=== PATIENT | female | born 1990 | race Hispanic/Latino ===

== ENCOUNTER 2017-03-06 16:57 | Inpatient (IN) | payer OTHER ==
[~2017-03-06] VITALS: Ht 149.9 cm; Wt 138.1 kg
--- NOTE | 2017-03-06 17:17 | ED GENERAL ADULT ---
History of Present Illness General Chief Complaint: General Adult Stated Complaint: SENT IN BY WALK IN FOR FLU LIKE SYMPTOMS Source: patient, friend Exam Limitations: no limitations Vital Signs & Intake/Output Vital Signs & Intake/Output Vital Signs Date Time Temp Pulse Resp B/P B/P Pulse O2 O2 Flow FiO2 Mean Ox Delivery Rate 03/06 2222 97.4 93 20 123/65 92 Nasal 4.0L Cannula 03/06 2109 93 Nasal 3.5L Cannula 03/06 2051 100.7 03/06 2051 101.9 03/06 2006 100.9 103 20 144/68 90 Room Air 03/06 1908 101.9 03/06 1903 101.9 113 20 124/84 93 Room Air 03/06 1802 94 03/06 1733 102.0 03/06 172 102.0 140 20 136/66 94 Room Air Allergies Coded Allergies: cefazolin (Intermediate, HIVES 03/06/17) clarithromycin (Intermediate, HIVES 03/06/17) Triage Nurses Notes Reviewed? yes HPI: 26 yo F PMH Asthma, CKD (stage 3) presenting with URI Sx, N/V/D. URI Sx for the last 3-4 days with cough, congestion, rhinorrhea. Shortness of breath with exertion and wheezing for the last 1-2 days, patient did not have albuterol inhaler available to use. Nausea with 3-4 episodes of NBNB emesis per day, diarrhea with 3-4 loose watery bowel movements per day. Tactile fevers and rigors. Mild diffuse headaches without neck pain, neck stiffness, or focal neurologic Sx. Denies rash, chest pain, palpitations, abdominal pain, constipation, bloody stools, urinary Sx. Evaluated at walk in clinic, found to be febrile and tachycardic, given albuterol and dexamethasone 10 mg, rapid test (+) for influenza, sent to ED for evaluation. (Nyasia CHAMORRO,Pascual) Reconcile Medications Levothyroxine Sodium (Synthroid) 75 MCG TABLET 1 TAB PO DAILY HYPOTHYROIDISM (Reported) Lisinopril 10 MG TABLET 1 TAB PO DAILY HTN (Reported) Lisinopril (Zestril) (Unknown Strength) TABLET (Unknown Dose) PO DAILY BP ( Reported) [place]-3 Fatty Acids/Fish Oil (Fish Oil 1,000 MG Softgel) (Unknown Strength) CAPSULE (Unknown Dose) PO BID SUPPLEMENT (Reported) Sodium Bicarbonate 650 MG TABLET 1.5 TAB PO BID CKD (Reported) 1000 MG BID Sodium Bicarbonate (Unknown Strength) TABLET (Unknown Dose) PO BID KIDNEYS ( Reported) ([place] CHAMORRO,Boone Rudolph) Past History Travel History Traveled to [place] past 21 day No Medical History Any Pertinent Medical History? see below for history Respiratory: asthma Renal: chronic kidney disease History of MRSA: No History of VRE: No History of CDIFF: No Surgical History Surgical History: none Psychosocial History Who do you live with Patient/Self Services at Home None What is your primary language Sami Family History Family History, If Any: Relation not specified for: Family history not obtainable due to adoption Hx Contributory? Yes (Nyasia CHAMORRO,Pascual) Review of Systems Review of Systems Constitutional: Reports: see HPI. EENTM: Reports: no symptoms. Respiratory: Reports: see HPI. Cardiovascular: Reports: no symptoms. GI: Reports: see HPI. Genitourinary: Reports: no symptoms. Musculoskeletal: Reports: see HPI. Skin: Reports: no symptoms. Neurological/Psychological: Reports: no symptoms. Hematologic/Endocrine: Reports: no symptoms. Immunologic/Allergic: Reports: no symptoms. All Other Systems: Reviewed and Negative (Pascual Murrell MD) Physical Exam Physical Exam General Appearance: well developed/nourished, no apparent distress, mild distress Head: atraumatic Eyes: Bilateral: PERRL, EOMI. Ears, Nose, Throat: moist mucus membranes Neck: normal inspection, full range of motion, no midline tenderness Respiratory: rhonchi, wheezing Cardiovascular: normal peripheral pulses, tachycardia Gastrointestinal: soft, non-tender Comments: General: Young female laying in hospital bed, appears fatigued Cardiac: Tachycardic, regular Pulmonary: Mild decreased breath sounds without appreciable wheezes Abdomen: Soft and non TTP throughout Core Measures ACS in differential dx? No CVA/TIA Diagnosis: No Sepsis Present: Yes Sepsis Focused Exam Completed? Yes (Pascual Murrell MD) Progress Differential Diagnoses I considered the following diagnoses in my evaluation of the patient: [Viral URI , Bronchtitis, Asthma exacerbation, PNA, influenza] Plan of Care: Orders Procedure Date/time Status Nothing by Mouth 03/07 B Active CBC WITHOUT DIFFERENTIAL 03/07 06 Active BASIC ELECTROLYTES PLUS BUN&CR 03/07 06 Active Pathway - chart 03/06 2214 Active House Staff 03/06 221 Active Patient Data 03/06 2214 Active Patient Data 03/06 2009 Active BLOOD CULTURE 03/06 2009 Active BLOOD CULTURE 03/06 2004 Active Saline Lock 03/06 1958 Active Misc Message 03/06 1958 Active ED Holding Orders 03/06 1958 Active Admit to inpatient 03/06 1958 Active Vital Signs 03/06 1958 Active Code Status 03/06 1958 Active Intake & Output 03/06 180 Active THYROID STIMULATING HORMONE 03/06 1757 Complete FREE T4 03/06 1757 Complete URINE 03/06 1716 Complete LACTIC ACID 03/06 1716 Complete CBC WITHOUT DIFFERENTIAL 03/06 171 Complete BASIC METABOLIC PANEL 03/06 1716 Complete EKG 03/06 1704 Active TRC EVALUATION (GEN) 03/06 UNK Active Lab Add-on Test 03/06 UNK Active VTE Mechanical Prophylaxis 03/06 UNK Active Current Medications Sig/Nabila Start time Last Medication Dose Stop Time Status Admin Prednisone 10 MG ONCE ONE 03/10 1000 AC 03/10 1001 Prednisone 20 MG ONCE ONE 03/09 1000 AC 03/09 1001 Prednisone 30 MG ONCE ONE 03/08 1000 AC 03/08 1001 Azithromycin 500 MG DAILY 03/07 1000 AC (Zithromax) Sodium Chloride 250 ML (Normal Saline 0.9%) Fish Oil 2,100 MG BID 03/07 1000 AC ([place]-3) Prednisone 40 MG ONCE ONE 03/07 1000 AC 03/07 1001 Levothyroxine Sodium 0.075 MG DAILY AC 03/07 0700 AC (Synthroid) Heparin Sodium 5,000 UNIT Q8 03/07 0600 AC (Porcine) Acetaminophen 650 MG Q6P PRN 03/06 2214 AC (Tylenol) Acetaminophen 1,000 MG Q6P PRN 03/06 221 AC (Ofirmev) Ceftriaxone Sodium 1,000 MG DAILY 03/06 2214 AC 03/06 (Rocephin) 223 Methylprednisolone 125 MG ONCE ONE 03/06 2214 CAN (Solu Medrol) 03/06 221 Oseltamivir Phosphate 75 MG BID 03/06 2214 AC 03/06 (Tamiflu 75MG) 03/10 221 2237 Sodium Chloride 1,000 ML Q10H 03/06 2214 AC 03/06 (Normal Saline 0.9%) 223 Laboratory Tests 03/06/17 1757: Anion Gap 19 H, Estimated GFR 16 L, BUN/Creatinine Ratio 7.7, Glucose 110 H, Lactic Acid 1.7, Calcium 8.8, TSH 0.979, Free T4 0.87, CBC w Diff NO MAN DIFF REQ, RBC 5.11, MCV 88.1, MCH 30.5, RDW 13.0, MPV 9.5, Gran % 89.2 H, Lymphocytes % 7.9 L, Monocytes % 2.9, Eosinophils % 0, Basophils % 0, Absolute Granulocytes 6.8 H, Absolute Lymphocytes 0.6 L, Absolute Monocytes 0.2, Absolute Eosinophils 0, Absolute Basophils 0, PUBS MCHC 34.6 03/06/17 173: Urine Test NEGATIVE Microbiology 03/06 2026 BLOOD: Blood Culture - RECD 03/06 2024 BLOOD: Blood Culture - RECD 03/06 1700 NASOPHARYN: Influenza Virus A & B Rapid Smear - CAN Cancelled: Cancelled via OE: PREV + SWAB TODAY Physician MDM: 26 yo F PMH Asthma, CKD (stage 3) presenting with URI Sx, N/V/D. Tachycardic to 140, saturating 93% on RA, BP stable, remainder of exam as above. DDx: Viral URI, Bronchitis, PNA, Influenza, Asthma exacerbation, sepsis 2/2 other source (UTI, gastroenteritis). 3L NS for tachycardia, ibuprofen then tylenol for fevers. BMP with probable TREVOR and elevated Cr to 3.5 (patient does not know baseline, last value in system 1.5), mild anion gap. Patient hypoxic to 90% on RA, placed on O2 NC with improvement, duoneb ordered. CXR with LLL PNA, clindamycin ordered based on patient abx allergies. Admit for TREVOR and hypoxia. Initial ED EKG: NSR (Pascual Murrell MD) Departure Departure Condition: Stable Referrals: Patient Has No Primary Care Dr (PCP/Family) Departure Forms: Customer Survey General Discharge Information Admission Note Spoke With: Jose Antonio CHAMORRO,Rob Documentation of Exam: Documentation of any treatments & extenuating circumstances including Concerns Regarding Discharge (functional status, medication knowledge or non-compliance, living conditions, etc.) that warrant an admission rather than observation: (Pascual Murrell MD) Departure Disposition: STILL A PATIENT Clinical Impression Primary Impression: Pneumonia Secondary Impressions: Influenza, Sepsis Admission Note Spoke With: Jose Antonio CHAMORRO,Rob Documentation of Exam: Documentation of any treatments & extenuating circumstances including Concerns Regarding Discharge (functional status, medication knowledge or non-compliance, living conditions, etc.) that warrant an admission rather than observation: pt with influenza, pneumonia and now with increased creatinine, merits iv fluids , iv abx, tamiflu. PA/SURFBOARD MAKER Co-Sign Statement Statement: ED Attending supervision documentation- [x] I saw and evaluated the patient. I have also reviewed all the pertinent lab results and diagnostic results. I agree with the findings and the plan of care as documented in the PA's/SURFBOARD MAKER's documentation. 03/06/17, 20:10... pt with influenza, pneuomonia, elevated creatinine... pt merits iv fluids, iv abx, 02 support. [] I have reviewed the ED Record and agree with the PA's/SURFBOARD MAKER's documentation. [] Additions or exceptions (if any) to the PAs/SURFBOARD MAKER's note and plan are summarized below: [] ([place] CHAMORRO,Boone Rudolph) Critical Care Note Critical Care Note Critical Care Time: 30-74 min ([place] CHAMORRO,Boone Rudolph)
[2017-03-06 18:14] LABS: ABSOLUTE BASOPHIL COUNT 0 /CUMM (0.0-0.2); ABSOLUTE EOSINOPHIL COUNT 0 /CUMM (0.0-0.7); ABSOLUTE GRANULOCYTE CT 6.8 /CUMM (1.4-6.5); ABSOLUTE LYMPH COUNT 0.6 /CUMM (1.2-3.4); ABSOLUTE MONOCYTE COUNT 0.2 /CUMM (0.10-0.60); BASOPHIL % 0 % (0.0-2.0); EOSINOPHIL % 0 % (0-5); MEAN CORPUSCULAR HGB 30.5 PG (27.0-31.0); MEAN CORPUSCULAR HGB CONC 34.6 G/DL (33.0-37.0); MEAN CORPUSCULAR VOLUME 88.1 FL (81.0-99.0); MEAN PLATELET VOLUME 9.5 FL (7.4-10.4); PLATELET COUNT 200 /CUMM (130-400); RED BLOOD CELL CT 5.11 /CUMM (4.20-5.40); WHITE BLOOD CELL COUNT 7.6 /CUMM (4.8-10.8)
[2017-03-06 18:22] LABS: GRANULOCYTE % 89.2 % (42.2-75.2)
--- NOTE | 2017-03-06 18:48 | RADIOLOGY REPORT ---
EXAMINATION: XR CHEST CLINICAL INFORMATION: Cough, fever COMPARISON: None TECHNIQUE: 2 views of the chest were obtained. FINDINGS: There is a consolidation at the left lung base posteriorly. Hazy opacity is identified within the left upper lobe centrally. Otherwise, the lungs are clear. No pleural effusion. The heart size is within normal range. The mediastinal contours are within normal. Visualized osseous structures appear intact. IMPRESSION: Left lower lobe pneumonia.
[2017-03-06] MEDS ORDERED: ZESTRIL10 M1 PO (19:29)
[2017-03-06] MEDS ORDERED: SODIUM BICARBO325 M1 PO (19:30)
[2017-03-06] MEDS ORDERED: FISH OIL 1,0001 EAC4 PO (19:31)
--- NOTE | 2017-03-06 20:37 | History & Physical ---
Aram CHAMORRO,[facility] 03/06/172035: General Information and HPI MD Statement: I have seen and personally examined JOSE KU and documented this H&P. The patient is a 26 year old F who presented with a patient stated chief complaint of [shortness of breath]. Source of Information: patient Exam Limitations: no limitations History of Present Illness: Ms. Ku is a 26-year-old lady with past medical history significant for exercise-induced asthma, chronic kidney disease stage III and hypothyroidism presents with productive cough and shortness of breath which started this . According to the patient, she was in her usual state of health until when she started having productive cough and shortness of breath and had one episode of nonbloody vomiting on Tuesday. 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 Over the weekend she felt very weak and has been sleeping for most of the time. On Tuesday she noticed a change in the color( bloody/brown) of sputum which got her concerned and she decided to go to an urgent care clinic who sent her to the ER because of positive flu test and low O2 sats(83%). Also endorses subjective fevers, left earache, diarrhea (2-3 episodes yesterday), shortness of breath at night and with exertion, wheezing and feeling dizzy when walking. Reports sick contacts at work(2 coworkers recently diagnosed with flu). Denies any chest pain, recent travel, loss of consciousness, sore throat, postnasal drip and also did not receive her flu shot this year. Allergies/Medications Allergies: Coded Allergies: cefazolin (Intermediate, HIVES 03/06/17) clarithromycin (Intermediate, HIVES 03/06/17) Past History Travel History Traveled to [place] past 21 day No Medical History Respiratory: asthma Renal: chronic kidney disease Endocrine: HYPOTHYROID History of MRSA: No History of VRE: No History of CDIFF: No Surgical History Surgical History: none Past Family/Social History Family History Relations & Conditions if any Relation not specified for: Family history not obtainable due to adoption Psychosocial History Where do you live? Home Services at Home: None Smoking Status: Never Smoked ETOH Use: denies use Illicit Drug Use: denies illicit drug use Functional Ability ADLs Independent: dressing, eating, toileting, bathing. Ambulation: independent IADLs Independent: shopping, housework, finances, food prep, telephone, transportation , medication admin. Review of Systems Review of Systems Constitutional: Reports: malaise, weakness. EENTM: Reports: no symptoms. Cardiovascular: Reports: no symptoms. Respiratory: Reports: cough, short of breath, sputum production, wheezing. GI: Reports: diarrhea. Genitourinary: Reports: no symptoms. Musculoskeletal: Reports: no symptoms. Skin: Reports: no symptoms. Neurological/Psychological: Reports: no symptoms. Hematologic/Endocrine: Reports: no symptoms. Immunologic/Allergic: Reports: no symptoms. All Other Systems: Reviewed and Negative Exam & Diagnostic Data Last 24 Hrs of Vital Signs/I&O Vital Signs Date Time Temp Pulse Resp B/P B/P Pulse O2 O2 Flow FiO2 Mean Ox Delivery Rate 03/07 0733 97.7 92 22 134/59 93 Nasal 4.0L Cannula 03/07 0725 94 Nasal 4.0L Cannula 03/07 0609 97.7 85 20 134/59 93 Nasal 4.0L Cannula 03/07 0432 98.1 78 20 121/56 94 Nasal 4.0L Cannula 03/06 2330 97.2 88 20 132/73 94 Nasal 4.0L Cannula 03/06 2223 97.4 93 20 123/65 92 Nasal 4.0L Cannula 03/06 2110 93 Nasal 3.5L Cannula 03/06 2051 100.7 03/06 2051 101.9 03/06 2006 100.9 103 20 144/68 90 Room Air 03/06 1908 101.9 03/06 1904 101.9 113 20 124/84 93 Room Air 03/06 1802 94 03/06 1733 102.0 03/06 1723 102.0 140 20 136/66 94 Room Air Intake & Output 03/07 1600 03/07 0800 03/07 0000 Intake Total 2000 Output Total Balance 2000 Intake, IV 2000 Patient 240 lb Weight Weight Reported by Patient Measurement Method Physical Exam General Appearance Alert, Oriented X3, Cooperative, No Acute Distress, morbidly obese Skin No Rashes, No Breakdown HEENT Atraumatic, PERRLA, EOMI, dry mucous membranes Cardiovascular Regular Rate, Normal S1, Normal S2, No Murmurs Lungs wheezing on bilateral lung pak Abdomen Normal Bowel Sounds, Soft, No Tenderness Extremities No Clubbing, No Cyanosis, No Edema, Normal Pulses Last 24 Hrs of Labs/Michael: Laboratory Tests 03/07/17 0605: Anion Gap 14, Estimated GFR 19 L, BUN/Creatinine Ratio 9.0, CBC w Diff NO MAN DIFF REQ, RBC 4.79, MCV 89.9, MCH 30.2, RDW 13.4, MPV 9.6, Gran % 82.7 H, Lymphocytes % 15.7 L, Monocytes % 1.5 L, Eosinophils % 0, Basophils % 0.1, Absolute Granulocytes 4.0, Absolute Lymphocytes 0.8 L, Absolute Monocytes 0.1, Absolute Eosinophils 0, Absolute Basophils 0, PUBS MCHC 33.6 03/06/17 1757: Anion Gap 19 H, Estimated GFR 16 L, BUN/Creatinine Ratio 7.7, Glucose 110 H, Lactic Acid 1.7, Calcium 8.8, TSH 0.979, Free T4 0.87, CBC w Diff NO MAN DIFF REQ, RBC 5.11, MCV 88.1, MCH 30.5, RDW 13.0, MPV 9.5, Gran % 89.2 H, Lymphocytes % 7.9 L, Monocytes % 2.9, Eosinophils % 0, Basophils % 0, Absolute Granulocytes 6.8 H, Absolute Lymphocytes 0.6 L, Absolute Monocytes 0.2, Absolute Eosinophils 0, Absolute Basophils 0, PUBS MCHC 34.6 03/06/17 1730: Urine Test NEGATIVE 03/06/17 1716: Urine Opiates Screen Pending, Methadone Screen Pending, Barbiturate Screen Pending, Ur Phencyclidine Scrn Pending, Amphetamines Screen Pending, U Benzodiazepines Scrn Pending, Urine Cocaine Screen Pending, Urine Cannabis Screen Pending Microbiology 03/06 2026 BLOOD: Blood Culture - RECD 03/06 2024 BLOOD: Blood Culture - RECD 03/06 170 NASOPHARYN: Influenza Virus A & B Rapid Smear - CAN Cancelled: Cancelled via OE: PREV + SWAB TODAY Diagnostic Data CXR Results IMPRESSION: Left lower lobe pneumonia. Assessment/Plan Assessment: Ms. Ku is a 26-year-old lady with past medical history significant for exercise-induced asthma, chronic kidney disease stage III and hypothyroidism presents with productive cough and shortness of breath which started this . A/P; 1. Sepsis likely secondary to influenza with superimposed left lower pneumonia; patient meets SIRS criteria(MAXIMUM TEMPERATURE 100.2, heart rate 140) with chest x-ray suggestive of left lower lobe pneumonia. - Like the patient to general medicine floor - Start the patient on Tamiflu. -Gentle IV fluids - Start the patient on ceftriaxone and azithromycin. Patient has a history of allergy(hives) with cefazolin and clarithromycin, will monitor closely for any allergic reaction. - Supplemental oxygen as needed - Follow-up blood cultures - Follow urine Legionella and strep pneumo antigen. 2. COPD exacerbation possibly 2/2 pneumonia - Patient received 1 dose of IV Solu-Medrol 60 mg once - We will start the patient on a quick prednisone taper - TRC nebs as needed - Supplemental oxygen as needed 3. TREVOR on CKD(stage III) - Creatinine level of 3.5(baseline 1.5) -Continue IV fluids - Hold lisinopril - Continue sodium bicarbonate 1 g twice a day. - Avoid any nephrotoxic medication - Nephrology consult if no improvement in creatinine levels with IV fluids. 4. History of hypothyroidism; - Patient states she hasn't taken levothyroxine for the past 1 month as she could not refill the medication. - Resume levothyroxine at 75 MCG daily - Follow TSH and free T4. DVT prophylaxis; subcutaneous heparin Patient is full code As Ranked By This Provider Problem List: 1. Pneumonia 2. Influenza 3. Sepsis Core Measures/Misc (11/07) Acute Coronary Syndrome ACS Diagnosis: No Congestive Heart Failure Congestive Heart Failure Diagnosis No Cerebrovascular Accident CVA/TIA Diagnosis: No VTE (View Protocol) VTE Risk Factors Obesity No Mechanical VTE Prophylaxis d/t N/A MechProphylax Ordered No VTE Pharm Prophylaxis d/t NA PharmProphylax ordered Sepsis (View protocol) Sepsis Present: Yes Kathy Rosales 03/07/17 0111: General Information and HPI Allergies/Medications Home Med list Levothyroxine Sodium (Synthroid) 75 MCG TABLET 1 TAB PO DAILY HYPOTHYROIDISM (Reported) Lisinopril 10 MG TABLET 1 TAB PO DAILY HTN (Reported) Lisinopril (Zestril) (Unknown Strength) TABLET (Unknown Dose) PO DAILY BP ( Reported) [place]-3 Fatty Acids/Fish Oil (Fish Oil 1,000 MG Softgel) (Unknown Strength) CAPSULE (Unknown Dose) PO BID SUPPLEMENT (Reported) Sodium Bicarbonate 650 MG TABLET 1.5 TAB PO BID CKD (Reported) 1000 MG BID Sodium Bicarbonate (Unknown Strength) TABLET (Unknown Dose) PO BID KIDNEYS ( Reported) Resident Review Statement Resident Statement: examined this patient, discussed with international marketing specialist Other Findings: Patient is 26-year-old overweight woman with a past medical history significant for exercise-induced asthma not on any inhalers, CKD (stage 3), hypothyroidism presented to the ED with chief complaint of worsening cough and fatigue and shortness of breath for the last 3-4 days. Her symptoms started on night the cough, on Tuesday she started having vomiting along with loose watery stools, felt weak and lethargic. She was having chills along with fever. He mentioned that 2 of the coworkers were recently diagnosed with influenza. Along with the above symptoms she was also having difficulty breathing mostly on ambulation along with wheeze, denies any chest discomfort or palpitations. Her symptoms continued to get worse over the weekend, she was seen at urgent care today and was found to be febrile,tachycardic and hypoxic to 87% on room air , flu swab came back positive for influenza. She was given neb treatment along with 10 mg of dexamethasone on IM at the clinic. Due to concerns of hypoxia she was sent into the ER for further assessment. In the ED patient was found to be in acute respiratory distress, was put on 4 L of oxygen per nasal cannula. Chest x-ray came positive for left lower lobe pneumonia. vitals on admission temperature 102, pulse 140, rate 20, blood pressure 136/66 on room air. On examination: General Appearance:alert oriented 3, not in acute distress Skin: Grossly normal HEENT: PERRLA Neck: Supple, No JVD Cardiovascular: Regular Rate, Normal S1, Normal S2. Lungs: Decreased air entry with bilateral wheeze Abdominal exam : Denies abdominal tenderness without any rebound, positive bowel sounds. Neurological: Grossly intact Pertinent labs Number the grease accounting H&H stable 15.6/45, creatinine 3.5(baseline as per 2014 :1.4) Chest x-ray positive for left lower lobe pneumonia EKG sinus tachycardia was set of troponin negative Problem list Acute hypoxic respiratory failure due to influenza complicated with left lower lobe pneumonia along with asthma exacerbation Acute on chronic kidney disease (stage 3) History of hypothyroidism Plan Acute hypoxic respiratory failure due to influenza complicated with left lower lobe pneumonia along with asthma exacerbation * Admit the patient GenMed floor. * Start the patient on Tamiflu 75 mg twice a day along with IV ceftriaxone and IV azithromycin for community acquired pneumonia. * Patient has history of hives from taking Keflex and clarithromycin(never had anaphylactic type of reaction), will closely monitor the patient for any adverse reactions. * Continue IV hydration. * Monitor vitals every 4 hours. * Patient already received 10 mg of dexamethasone in the urgent care will give 40 of IV Solu-Medrol now and will do a quick prednisone taper 40 mg, 30, 20 and 10 ) * [facility] Acute on chronic kidney disease (stage 3)-likely due to severe dehydration from infection * Continue with IV hydration * Repeat BeP * Before nephrotoxic agents * Hold lisinopril. * Continue sodium bicarbonate * If kidney functions do not improve consider nephrology consult History of hypothyroidism * Patient has not been taking Synthroid for a while recheck TSH and T4 levels, and modify the dose of the Synthroid accordingly Due to prophylaxis with subcutaneous heparin Pain control with IV Tylenol Patient is full code Jose Antonio CHAMORRO, [facility] 03/07/17 0730: Attending MD Review Statement Attending Statement Attending MD Statement: examined this patient, discuss w/resident/PA/VACUUM CONDITIONER OPERATOR, agreed w/resident/PA/VACUUM CONDITIONER OPERATOR, reviewed images, amended to note Attending Assessment/Plan: 26 yo morbidly obese F with h/o CKD stage 3, hypothyroidism exercise induced asthma, is here for 3 day h/o worsening productive cough, MCKEON, malaise, lethargy , chills, vomiting and diarrhea. 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 She did not get her flu shot this season. She went to an Urgent Care today where she was tested positive for Flu, was given neb treatment and decadron 10 mg, but was found to be hypoxic to 80's and hence was sent to [facility]. Vitals: Tmax 102, HR 90-140's, BP 123/65, sats 92% on 4L. Chest b/l reduced air entry with expiratory wheeze and basilar crackles (L>R). Labs: no leukocytosis, gran 89%, Na 135, bicarb 17, AG 19, BUN 27, creat 3.5 (Baseline 1.5), lactic acid 1.7. EKG: sinus tachycardia. CXR: left lower lobe pneumonia. Assessment and plan: 1. Acute hypoxic respiratory failure 2. Sepsis 3. Influenza 4. Left lower lobe pneumonia 5. Mild asthma exacerbation 6. TREVOR on CKD stage 3 - Admit to general medicine - TRC nebs - Panculture, urine legionella and strep Ag - IV ceftriaxone and azithro (patient is allergic to cefazolin and clarithromycin hives) - IV solumedrol given in ER, rapid prednisone taper in AM - Tamiflu for 5 days - IV hdyration - Monitor renal functions - Check urine lytes, urine tox screen - If renal functions fail to improve consider renal ultrasound and nephro consult - Hold lisinopril - If persistent diarrhea, consider further evaluation - Resume sodium bicarb tabs. - Check TSH, free T4 as patient has not elana taking synthroid for over 1 month DVT ppx Hep SC. Full code.
--- NOTE | 2017-03-06 21:47 | Admission Certification ---
Admission Certification Certification Statement - As attending physician, I certify that at the time of - admission, based on clinical presentation, severity of - symptoms, need for further diagnostic testing and - therapeutic interventions, and risk of adverse outcomes - without in-hospital treatment, in my clinical assessment, - this patient requires an acute hospital stay for a minimum - of two nights or longer. I have also considered psychsocial - factors such as support system, advanced age, financial - issues, cognitive issues, and failed out-patient treatments, - past re-admission history, safety of patient, and lack of - compliance as applicable. Specific rationale supporting this admission is: Sepsis, hypoxic respiratory failure, Influenza, pneumonia, TREVOR on CKD stage 3.
[2017-03-06] MEDS ORDERED: SODIUM BICARBO650 M1 PO (22:25)
[2017-03-06] MEDS ORDERED: SYNTHROID75 MCG PO (22:25)
[2017-03-06] MEDS ORDERED: LISINOPRIL10 M1 PO (22:26)
[2017-03-07 06:26] LABS: ABSOLUTE BASOPHIL COUNT 0 /CUMM (0.0-0.2); ABSOLUTE EOSINOPHIL COUNT 0 /CUMM (0.0-0.7); ABSOLUTE LYMPH COUNT 0.8 /CUMM (1.2-3.4); ABSOLUTE MONOCYTE COUNT 0.1 /CUMM (0.10-0.60); BASOPHIL % 0.1 % (0.0-2.0); EOSINOPHIL % 0 % (0-5); GRANULOCYTE % 82.7 % (42.2-75.2); HEMATOCRIT 43.1 % (37-47); MEAN CORPUSCULAR HGB 30.2 PG (27.0-31.0); MEAN CORPUSCULAR HGB CONC 33.6 G/DL (33.0-37.0); MEAN CORPUSCULAR VOLUME 89.9 FL (81.0-99.0); MEAN PLATELET VOLUME 9.6 FL (7.4-10.4); PLATELET COUNT 186 /CUMM (130-400); RBC DISTRIBUTION WIDTH 13.4 % (11.5-14.5); RED BLOOD CELL CT 4.79 /CUMM (4.20-5.40); WHITE BLOOD CELL COUNT 4.8 /CUMM (4.8-10.8)
[2017-03-07 07:33] VITALS: BP 134/59
--- NOTE | 2017-03-07 09:50 | PN- Housestaff ---
See Addendum Subjective Follow-up For: Acute influenza Pneumonia Subjective: The patient was seen and examined. She reports dyspnea however improved compared to presentation. She also reports having productive cough The patient denies any headache, nausea, vomiting, chest pain, palpitation, abdominal pain, urinary symptoms. Oxygen saturation 93% on 4 L nasal cannula oxygen. Has remained afebrile, blood pressure stable. Review of Systems Constitutional: Reports: see HPI. Objective Last 24 Hrs of Vital Signs/I&O Vital Signs Date Time Temp Pulse Resp B/P B/P Pulse O2 O2 Flow FiO2 Mean Ox Delivery Rate 03/07 0733 97.7 92 22 134/59 93 Nasal 4.0L Cannula 03/07 0725 94 Nasal 4.0L Cannula 03/07 0609 97.7 85 20 134/59 93 Nasal 4.0L Cannula 03/07 0432 98.1 78 20 121/56 94 Nasal 4.0L Cannula 03/06 2330 97.2 88 20 132/73 94 Nasal 4.0L Cannula 03/06 2223 97.4 93 20 123/65 92 Nasal 4.0L Cannula 03/06 2110 93 Nasal 3.5L Cannula 03/06 2051 100.7 03/06 205 101.9 03/06 2007 100.9 103 20 144/68 90 Room Air 03/06 1908 101.9 03/06 1904 101.9 113 20 124/84 93 Room Air 03/06 1802 94 03/06 1733 102.0 03/06 1723 102.0 140 20 136/66 94 Room Air Intake & Output 03/07 1600 03/07 0800 03/07 0000 Intake Total 2800 2000 Output Total Balance 2800 2000 Intake, IV 800 2000 Intake, Oral 2000 Patient 240 lb Weight Weight Reported by Patient Measurement Method Physical Exam General Appearance: Alert, Oriented X3, Cooperative Skin: No Rashes HEENT: Atraumatic, PERRLA, EOMI, Mucous Membr. moist/pink Neck: Supple Cardiovascular: Regular Rate, Normal S1, Normal S2, No Murmurs, Gallops, Rubs Lungs: Crackles at left lung base Abdomen: Normal Bowel Sounds, Soft, No Tenderness, No Hepatospenomegaly, No Masses Extremities: No Clubbing, No Cyanosis, No Edema, Normal Pulses, No Tenderness/ Swelling Current Medications: Current Medications Sig/Nabila Start time Last Medication Dose Route Stop Time Status Admin Acetaminophen 650 MG Q6P PRN 03/06 221 AC PO Acetaminophen 1,000 MG Q6P PRN 03/06 2215 AC IV Acetaminophen 975 MG ONCE ONE 03/06 1914 DC 03/06 PO 03/06 191 1908 Acetaminophen 0 .STK-MED ONE 03/06 1909 DC PO Albuterol Sulfate 3 ML ONCE ONE 03/06 2045 DC 03/06 INH 03/06 204 2110 Azithromycin 500 MG DAILY 03/07 2345 AC Sodium Chloride 250 ML IV Azithromycin 500 MG DAILY 03/07 1000 DC Sodium Chloride 250 ML IV Ceftriaxone Sodium 0 .STK-MED ONE 03/06 2227 DC .ROUTE Ceftriaxone Sodium 1,000 MG DAILY 03/06 2214 AC 03/06 IV 2237 Clindamycin 600 MG ONCE ONE 03/06 2014 DC 03/06 Dextrose/Water 50 ML IV 03/06 2043 204 Fish Oil 2,100 MG BID 03/07 1000 AC 03/07 PO 1034 Heparin Sodium 5,000 UNIT Q8 03/07 0600 AC 03/07 (Porcine) SC 1238 Heparin Sodium 0 .STK-MED ONE 03/07 0550 DC (Porcine) .ROUTE Ibuprofen 0 .STK-MED ONE 03/06 1730 DC PO Ibuprofen 800 MG ONCE ONE 03/06 1715 DC 03/06 PO 03/06 171 1733 Ipratropium [place] 2.5 ML ONCE ONE 03/06 204 DC 03/06 INH 03/06 2045 2110 Levothyroxine Sodium 0.075 MG DAILY AC 03/07 0700 AC 03/07 PO 0609 Methylprednisolone 60 MG ONCE ONE 03/06 2230 DC 03/06 IV 03/06 2230 222 Methylprednisolone 0 .STK-MED ONE 03/06 2227 DC .ROUTE Methylprednisolone 125 MG ONCE ONE 03/06 2215 CAN IV 03/06 2216 Oseltamivir Phosphate 75 MG BID 03/06 2215 AC 03/07 PO 03/10 2214 1109 Prednisone 10 MG ONCE ONE 03/10 1000 CAN PO 03/10 1001 Prednisone 10 MG DAILY 03/10 1000 AC PO 03/10 1001 Prednisone 20 MG ONCE ONE 03/09 1000 CAN PO 03/09 1001 Prednisone 20 MG DAILY 03/09 1000 AC PO 03/09 1001 Prednisone 30 MG ONCE ONE 03/08 1000 CAN PO 03/08 1001 Prednisone 30 MG DAILY 03/08 1000 AC PO 03/08 1001 Prednisone 40 MG ONCE ONE 03/07 1000 CAN PO 03/07 1001 Prednisone 40 MG TAPER 03/07 1000 CAN PO 03/11 0959 Prednisone 40 MG DAILY 03/07 1000 DC 03/07 PO 03/07 1001 1035 Sodium Bicarbonate 975 MG BID 03/07 1000 AC 03/07 PO 1035 Sodium Bicarbonate 975 MG ONCE ONE 03/06 2230 CAN PO 03/06 2231 Sodium Chloride 1,000 ML Q10H 03/06 2214 AC 03/06 IV 223 Sodium Chloride 1,000 ML BOLUS ONE 03/06 1999 DC 03/06 IV 03/06 Sodium Chloride 1,000 ML BOLUS ONE 03/06 1999 DC 03/06 IV 03/06 Sodium Chloride 1,000 ML BOLUS ONE 03/06 1729 DC 03/06 IV 03/06 1928 180 Sodium Chloride 1,000 ML BOLUS ONE 03/06 1730 DC 03/06 IV 03/06 192 1908 Last 24 Hrs of Lab/Michael Results Last 24 Hrs of Labs/Mics: Laboratory Tests 03/07/17 0605: Anion Gap 14, Estimated GFR 19 L, BUN/Creatinine Ratio 9.0, CBC w Diff NO MAN DIFF REQ, RBC 4.79, MCV 89.9, MCH 30.2, RDW 13.4, MPV 9.6, Gran % 82.7 H, Lymphocytes % 15.7 L, Monocytes % 1.5 L, Eosinophils % 0, Basophils % 0.1, Absolute Granulocytes 4.0, Absolute Lymphocytes 0.8 L, Absolute Monocytes 0.1, Absolute Eosinophils 0, Absolute Basophils 0, PUBS MCHC 33.6 03/06/17 1757: Anion Gap 19 H, Estimated GFR 16 L, BUN/Creatinine Ratio 7.7, Glucose 110 H, Lactic Acid 1.7, Calcium 8.8, TSH 0.979, Free T4 0.87, CBC w Diff NO MAN DIFF REQ, RBC 5.11, MCV 88.1, MCH 30.5, RDW 13.0, MPV 9.5, Gran % 89.2 H, Lymphocytes % 7.9 L, Monocytes % 2.9, Eosinophils % 0, Basophils % 0, Absolute Granulocytes 6.8 H, Absolute Lymphocytes 0.6 L, Absolute Monocytes 0.2, Absolute Eosinophils 0, Absolute Basophils 0, PUBS MCHC 34.6 03/06/17 1730: Urine Test NEGATIVE 03/06/17 1716: Urine Opiates Screen 138.00, Methadone Screen 44, Barbiturate Screen < 60, Ur Phencyclidine Scrn 8.40, Amphetamines Screen < 100, U Benzodiazepines Scrn < 85, Urine Cocaine Screen < 50, Urine Cannabis Screen 24.70 Microbiology 03/07 834 URINE ROUT: Legionella Antigen - COLB 03/07 834 URINE ROUT: Streptococcus pneumoniae Antigen (M - COLB 03/06 2026 BLOOD: Blood Culture - RES 03/06 2024 BLOOD: Blood Culture - RES 03/06 170 NASOPHARYN: Influenza Virus A & B Rapid Smear - CAN Cancelled: Cancelled via OE: PREV + SWAB TODAY Assessment/Plan Assessment: Patient is 26-year-old overweight woman with a past medical history significant for exercise-induced asthma not on any inhalers, CKD (stage 3), hypothyroidism presented to the ED with chief complaint of worsening cough and fatigue and shortness of breath for 3-4 days. Chest x-ray positive for left lower lobe pneumonia EKG sinus tachycardia was set of troponin negative Impression/plan: #Acute hypoxic respiratory failure due to influenza complicated with left lower lobe pneumonia along with asthma exacerbation * Admit the patient [facility] floor. * Will adjust the dose of Tamiflu based on patients cr clearance. Patient's creatinine clearance is 49, we'll change the dose of Tamiflu to to 30 mg twice a day. * c/w IV ceftriaxone and IV azithromycin for community acquired pneumonia. * Patient has history of hives from taking Keflex and clarithromycin(never had anaphylactic type of reaction), no adverse reactions so far. * Continue IV hydration. * Monitor vitals every 4 hours. * c/w prednisone taper 40 mg, 30, 20 and 10 ) * TRC nebs #Acute on chronic kidney disease (stage 3)-likely due to severe dehydration from infection * Continue with IV hydration * Repeat BeP * avoid nephrotoxic agents * Hold lisinopril. 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 #History of hypothyroidism * Patient has not been taking Synthroid for a while * recheck TSH and T4 levels is wnl Due to prophylaxis with subcutaneous heparin Pain control with IV Tylenol Patient is full code Problem List: 1. Influenza 2. Pneumonia Pain Ratin Pain Location: NA Pain Goal: Remain pain free Pain Plan: NA Tomorrow's Labs & Rationales: BEP to monitor electrolytes
[2017-03-07 11:35] VITALS: BP 128/62
--- NOTE | 2017-03-07 12:40 | PN- Att Addend ---
Attending Addendum Attending Brief Note Patient seen and examined, not feeling that well. Still feels dizzy and gets up and go to the bathroom and feels short of breath. Still requiring oxygen. Vital Signs Date Time Temp Pulse Resp B/P B/P Pulse O2 O2 Flow FiO2 Mean Ox Delivery Rate 03/07 0733 97.7 92 22 134/59 93 Nasal 4.0L Cannula 03/07 0725 94 Nasal 4.0L Cannula 03/07 0609 97.7 85 20 134/59 93 Nasal 4.0L Cannula 03/07 0432 98.1 78 20 121/56 94 Nasal 4.0L Cannula 03/06 2330 97.2 88 20 132/73 94 Nasal 4.0L Cannula 03/06 2223 97.4 93 20 123/65 92 Nasal 4.0L Cannula 03/06 2110 93 Nasal 3.5L Cannula 03/06 2051 100.7 03/06 2051 101.9 03/06 2006 100.9 103 20 144/68 90 Room Air 03/06 1908 101.9 03/06 190 101.9 113 20 124/84 93 Room Air 03/06 1802 94 03/06 1733 102.0 03/06 1723 102.0 140 20 136/66 94 Room Air on exam; aox3, nad. cv; s1,s2, rrr resp; crackles at left base. abd; soft nt, bs+ ext; no edema. Laboratory Tests 03/07 03/06 0605 1757 Chemistry Sodium (137 - 145 mmol/L) 141 135 L Potassium (3.5 - 5.1 mmol/L) 4.4 3.7 Chloride (98 - 107 mmol/L) 111 H 99 Carbon Dioxide (22 - 30 mmol/L) 16 L 17 L Anion Gap (5 - 16) 14 19 H BUN (7 - 17 mg/dL) 27 H 27 H Creatinine (0.5 - 1.0 mg/dL) 3.0 H 3.5 H Estimated GFR (>60 ml/min) 19 L 16 L BUN/Creatinine Ratio (7 - 25 %) 9.0 7.7 Glucose (65 - 99 mg/dL) 110 H Lactic Acid (0.7 - 2.1 mmol/L) 1.7 Calcium (8.4 - 10.2 mg/dL) 8.8 TSH (0.270 - 4.200 uIU/mL) 0.979 Free T4 (0.79 - 2.35 ng/dL) 0.87 Hematology CBC w Diff NO MAN DIFF REQ NO MAN DIFF REQ WBC (4.8 - 10.8 /CUMM) 4.8 7.6 RBC (4.20 - 5.40 /CUMM) 4.79 5.11 Hgb (12.0 - 16.0 G/DL) 14.5 15.6 Hct (37 - 47 %) 43.1 45.0 MCV (81.0 - 99.0 FL) 89.9 88.1 MCH (27.0 - 31.0 PG) 30.2 30.5 RDW (11.5 - 14.5 %) 13.4 13.0 Plt Count (130 - 400 /CUMM) 186 200 MPV (7.4 - 10.4 FL) 9.6 9.5 Gran % (42.2 - 75.2 %) 82.7 H 89.2 H Lymphocytes % (20.5 - 51.1 %) 15.7 L 7.9 L Monocytes % (1.7 - 9.3 %) 1.5 L 2.9 Eosinophils % (0 - 5 %) 0 0 Basophils % (0.0 - 2.0 %) 0.1 0 Absolute Granulocytes (1.4 - 6.5 /CUMM) 4.0 6.8 H Absolute Lymphocytes (1.2 - 3.4 /CUMM) 0.8 L 0.6 L Absolute Monocytes (0.10 - 0.60 /CUMM) 0.1 0.2 Absolute Eosinophils (0.0 - 0.7 /CUMM) 0 0 Absolute Basophils (0.0 - 0.2 /CUMM) 0 0 PUBS MCHC (33.0 - 37.0 G/DL) 33.6 34.6 03/06 03/06 1730 1716 Toxicology Urine Opiates Screen (>2000 NG/ML) 138.00 Methadone Screen (>300 NG/ML) 44 Barbiturate Screen (>200 NG/ML) < 60 Ur Phencyclidine Scrn (>25 NG/ML) 8.40 Amphetamines Screen (>1000 NG/ML) < 100 U Benzodiazepines Scrn (>200 NG/ML) < 85 Urine Cocaine Screen (>300 NG/ML) < 50 Urine Cannabis Screen (>50 NG/ML) 24.70 Urines Urine Test NEGATIVE A/P; 26 y/o F with pmh sig for exercise-induced asthma, chronic kidney disease stage III and hypothyroidism admitted with acute respiratory failure secondary to hypoxia as well as tachycardia and mild distress, required pneumonia and influenza positive. Continue Tamiflu and antibiotics. 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 Agree with prednisone taper. Continue TRC nebs. We'll try to taper her oxygen as she can tolerate. Continue the rest of the medications. Avoid nephrotoxic medications. DVT prophylaxis: Heparin subcutaneous.
[2017-03-07 17:42] VITALS: BP 147/71
[2017-03-07 18:48] VITALS: BP 140/70
[2017-03-07 22:35] VITALS: BP 108/80
[2017-03-08 06:08] VITALS: BP 100/76
--- NOTE | 2017-03-08 08:14 | PN- Housestaff ---
Avinash De La Cruz 03/08/17 0814: Subjective Follow-up For: Acute influenza Pneumonia Subjective: The patient was seen and examined. She desaturated and reports dyspnea. Otherwise, she denies dizziness, lightheadedness, nausea, vomiting, abdominal pain, urinary symptoms Review of Systems Constitutional: Reports: see HPI. Objective Last 24 Hrs of Vital Signs/I&O Vital Signs Date Time Temp Pulse Resp B/P B/P Pulse O2 O2 Flow FiO2 Mean Ox Delivery Rate 03/08 2006 94 BIPAP 100% 03/08 1945 91 94 03/08 1617 104 94 03/08 1600 93 BIPAP 100% 03/08 1600 97.3 110 28 110/60 96 BIPAP 100% 03/08 1415 120 93 03/08 1200 92 BIPAP 100% 03/08 1200 116 91 03/08 0935 88 Nasal 100% Cannula 03/08 0800 90 Nasal 4.0L Cannula 03/08 0608 98.2 105 20 100/76 91 Nasal 5.0L Cannula 03/08 0000 92 Nasal 4.0L Cannula 03/07 2235 98.2 95 20 108/80 92 03/07 2123 Nasal 5.0L Cannula Intake & Output 03/08 1600 03/08 0800 03/08 0000 Intake Total 960 1160 1000 Output Total 2650 Balance -1690 1160 1000 Intake, IV 720 800 400 Intake, Oral 240 360 600 Number 1 Bowel Movements Output, Urine 2650 Physical Exam General Appearance: Alert, Cooperative, Mild Distress Other Physical Findings: Skin: No Rashes HEENT: Atraumatic, PERRLA, EOMI, Mucous Membr. moist/pink Neck: Supple Cardiovascular: Regular Rate, Normal S1, Normal S2, No Murmurs, Gallops, Rubs Lungs: Crackles at left lung base Abdomen: Normal Bowel Sounds, Soft, No Tenderness, No Hepatospenomegaly, No Masses Extremities: No Clubbing, No Cyanosis, No Edema, Normal Pulses, No Tenderness/ Swelling Current Medications: Current Medications Sig/Nabila Start time Last Medication Dose Route Stop Time Status Admin Acetaminophen 650 MG Q6P PRN 03/06 2215 AC 03/07 PO 1751 Acetaminophen 1,000 MG Q6P PRN 03/06 2214 AC IV Albuterol Sulfate 3 ML EVERY 4 HRS/AWAKE 03/08 1600 AC 03/08 INH 2005 Albuterol Sulfate 3 ML BID 03/07 2200 DC 03/08 INH 0932 Atorvastatin Calcium 80 MG 1700 03/08 1700 AC PO Azithromycin 500 MG DAILY 03/07 2345 AC 03/08 Sodium Chloride 250 ML IV 0940 Ceftriaxone Sodium 1,000 MG DAILY 03/06 2215 AC 03/08 IV 0940 Dextrose/Sodium 1,000 ML Q13H 03/08 1430 AC 03/08 Chloride IV 1432 Fish Oil 2,100 MG BID 03/07 1000 AC 03/08 PO 0940 Furosemide 20 MG ONCE ONE 03/08 0930 DC 03/08 IV 03/08 0931 0934 Furosemide 40 MG .STK-MED ONE 03/08 0930 DC IV 03/08 0931 Guaifenesin 10 ML Q4-6 PRN PRN 03/08 0445 AC 03/08 PO 0444 Heparin Sodium 5,000 UNIT Q8 03/07 0600 AC 03/08 (Porcine) SC 1432 Ipratropium Waterflow 2.5 ML EVERY 4 HRS/AWAKE 03/08 1600 AC 03/08 INH 2005 Ipratropium Waterflow 2.5 ML BID 03/07 2200 DC 03/08 INH 0932 Levothyroxine Sodium 37.5 MCG DAILY 03/09 1000 AC IV Levothyroxine Sodium 500 MCG DAILY AC 03/09 0700 CAN IV Levothyroxine Sodium 50 MCG DAILY AC 03/09 0700 CAN IV Levothyroxine Sodium 0.05 MG DAILY AC 03/08 0700 DC 03/08 PO 0555 Methylprednisolone 40 MG Q6 03/08 1357 AC 03/08 IV 1808 Methylprednisolone 60 MG ONCE ONE 03/08 0930 DC 03/08 IV 03/08 0931 0934 Oseltamivir Phosphate 30 MG DAILY 03/08 1000 AC 03/08 PO 03/10 2214 0941 Potassium Chloride 10 MEQ ONCE ONE 03/08 1215 DC 03/08 IV 03/08 1216 1315 Potassium Chloride 10 MEQ ONCE ONE 03/08 1215 DC 03/08 IV 03/08 1216 1215 Prednisone 10 MG DAILY 03/10 1000 CAN PO 03/10 1001 Prednisone 20 MG DAILY 03/09 1000 CAN PO 03/09 1001 Prednisone 30 MG DAILY 03/08 1000 DC PO 03/08 1001 Sodium Bicarbonate 975 MG BID 03/07 1000 AC 03/08 PO 0941 Sodium Chloride 1,000 ML Q10H 03/06 2215 DC 03/07 IV 1945 Last 24 Hrs of Lab/Michael Results Last 24 Hrs of Labs/Mics: Laboratory Tests 03/08/17 1315: Troponin I Cancelled 03/08/17 1315: Anion Gap 17 H, Estimated GFR 21 L, Glucose 113 H, Lactic Acid 1.1, Calcium 8.9, Phosphorus 2.8, Magnesium 1.9, Total Bilirubin 0.2, AST 86 H, ALT 98 H, Troponin I 0.02, Albumin 3.4 L, PT 11.0, INR 1.05, D-Dimer High Sensitivty 259 H, CBC w Diff MAN DIFF ORDERED, RBC 5.19, MCV 88.9, MCH 30.3, RDW 13.4, MPV 9.1, Gran % 83.3 H, Lymphocytes % 13.3 L, Monocytes % 3.4, Eosinophils % 0, Basophils % 0, Absolute Granulocytes 5.9, Segmented Neutrophils 75, Band Neutrophils 12 H, Absolute Lymphocytes 0.9 L, Lymphocytes 11 L, Monocytes 2, Absolute Monocytes 0.2, Absolute Eosinophils 0, Absolute Basophils 0, Platelet Estimate ADEQUATE, Normocytic RBCs VERIFIED, Normochromic RBCs VERIFIED, PUBS MCHC 34.1 03/08/17 1309: D-Dimer High Sensitivty Cancelled 03/08/17 1155: pH 7.44, pCO2 23 L, pO2 49 *L, HCO3 16 L, ABG O2 Sat (Measured) 86.0 L, P-50 (Temp Corrected) N, Carboxyhemoglobin 0.2 L, O2 Concentration % 100%, O2 Delivery Method HFNC WITH 40L FLOW, Phlebotomy Draw Site LEFT RADIAL 03/08/17 0705: Anion Gap 15, Estimated GFR 21 L, BUN/Creatinine Ratio 8.5, Magnesium 1.9 Microbiology 03/08 1315 URINE ROUT: Urine Culture - RECD 03/08 1151 GI: Surveillance Culture - COLB 03/08 1145 UPPER RESP: Surveillance Culture - RECD Assessment/Plan Assessment: Patient is 26-year-old overweight woman with a past medical history significant for exercise-induced asthma not on any inhalers, CKD (stage 3), hypothyroidism presented to the ED with chief complaint of worsening cough and fatigue and shortness of breath for 3-4 days. Chest x-ray positive for left lower lobe pneumonia EKG sinus tachycardia was set of troponin negative Impression/plan: #Acute hypoxic respiratory failure due to influenza complicated with left lower lobe pneumonia along with asthma exacerbation * Continue with Tamiflu 30 mg daily * c/w IV ceftriaxone and IV azithromycin for community acquired pneumonia. * Patient has history of hives from taking Keflex and clarithromycin(never had anaphylactic type of reaction), no adverse reactions so far. * IV Lasix 20 mg 1 on IV methylprednisolone 20 mg 1 * Monitor vitals every 4 hours. * c/w prednisone taper 40 mg, 30, 20 and 10 ) * TRC nebs * Chest x-ray #Acute on chronic kidney disease (stage 3)-likely due to severe dehydration from infection * Continue with IV hydration * Repeat BeP * avoid nephrotoxic agents * Hold lisinopril. * Continue sodium bicarbonate * nephrology consult placed * Obtain records from patient's flat cutter. #History of hypothyroidism * Patient has not been taking Synthroid for a while * recheck TSH and T4 levels is wnl * Continue with rituals dose of levothyroxine. DVT prophylaxis with subcutaneous heparin Pain control with IV Tylenol Patient is full code Problem List: 1. Influenza 2. Pneumonia Pain Ratin Pain Location: NA Pain Goal: Pain 4 or less Pain Plan: NA Tomorrow's Labs & Rationales: CARLOS Thao MD,Eli 03/08/17 1206: Attending MD Review Statement Attending Statement Attending MD Statement: examined this patient, discuss w/resident/PA/ASSISTANT FILM EDITOR, agreed w/resident/PA/ASSISTANT FILM EDITOR, reviewed EMR data (avail), discussed with nursing, discussed with case mgmt, reviewed images, amended to note Attending Assessment/Plan: Patient seen and examined, this morning the nurses reported that patient was de- satting. Patient was put on 100% nonrebreather. We gave patient extra dose of IV steroids as well as IV Lasix and he stopped fluids and we ordered a stat chest x-ray. Later on patient's oxygen saturations did not improve and chest x- rays that had not been done. Patient did urinated more than 1.5 L of fluid off of Lasix. Secondary to find the patient remained hypoxic, rapid response was called and he should has been now transferred to the ICU. I did speak with Dr. Schaefer who has been consulted. Vital Signs Date Time Temp Pulse Resp B/P B/P Pulse O2 O2 Flow FiO2 Mean Ox Delivery Rate 03/08 0608 98.2 105 20 100/76 91 Nasal 5.0L Cannula 03/08 0000 92 Nasal 4.0L Cannula 03/07 2234 98.2 95 20 108/80 92 03/07 2122 Nasal 5.0L Cannula 03/07 1853 100.0 03/07 1848 Nasal 4.0L Cannula 03/07 184 100.0 98 18 140/70 92 Nasal 4.0L Cannula 03/07 1751 101.8 03/07 1742 101.8 103 20 147/71 92 Nasal 5.0L Cannula 03/07 1436 93 Nasal 4.0L Cannula on exam; aox3, mild distress. cv; s1,s2, rrr resp; clear. abd; soft, nt, bs+ ext; no edema. Laboratory Tests 03/08 07 Chemistry Sodium (137 - 145 mmol/L) 143 Potassium (3.5 - 5.1 mmol/L) 3.7 Chloride (98 - 107 mmol/L) 109 H Carbon Dioxide (22 - 30 mmol/L) 19 L Anion Gap (5 - 16) 15 BUN (7 - 17 mg/dL) 23 H Creatinine (0.5 - 1.0 mg/dL) 2.7 H Estimated GFR (>60 ml/min) 21 L BUN/Creatinine Ratio (7 - 25 %) 8.5 Magnesium (1.6 - 2.3 mg/dL) Pending A/P; 26 y/o F with pmh sig for exercise-induced asthma, chronic kidney disease stage III, questionable IgA nephropathy in the past. and hypothyroidism admitted with acute respiratory failure secondary to hypoxia as well as tachycardia and mild distress, community acquired pneumonia and influenza positive. This morning patient desatted. Given extra dose of steroid and Lasix and chest x-ray was ordered. Hypoxia had not responded to extra medications. Rapid response was called and patient has now been transferred to ICU. Pulmonology consult obtained with Dr. Schaefer. Please obtain stat chest x-ray. Please obtain ABG. Further primary management including BiPAP or intubation by pulmonology. If Chest x-ray is not impressive, consider checking a chest CTA to rule out PE. Continue Tamiflu and antibiotics as well as steroids. Please get some records from patient's flat cutter about her baseline kidney function. Continue TRC nebs. DVT prophylaxis: Hep sq.
--- NOTE | 2017-03-08 12:23 | RADIOLOGY REPORT ---
EXAMINATION: XR PORTABLE CHEST CLINICAL INFORMATION: Rapid response called for desaturation. COMPARISON: 03/06/2017. TECHNIQUE: Portable frontal view of the chest was obtained. FINDINGS: The lung volumes are low bilaterally. Increased density is noted in the central portions of the chest and left retrocardiac region, however this is likely due to crowding of the pulmonary markings. Recommend repeat imaging with better inspiration. IMPRESSION: No definite interval change, when accounting for the significantly low lung volumes compared to the prior study. Recommend repeat imaging with better inspiratory effort.
--- NOTE | 2017-03-08 12:41 | Cons- CRCU ---
See Addendum General Information and HPI Consulting Request Date of Consult: 03/08/17 Requested By: Dr. 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 She did not get her flu shot this season. She went to an Urgent Care today where she was tested positive for Flu, was given neb treatment and decadron 10 mg, but was found to be hypoxic to 80's and hence was sent to [place] ER. In ER: Vitals: Tmax 102, HR 90-140's, BP 123/65, sats 92% on 4L. Labs: no leukocytosis, gran 89%, Na 135, bicarb 17, AG 19, BUN 27, creat 3.5 ( Baseline 1.5), lactic acid 1.7. EKG: sinus tachycardia. CXR: left lower lobe pneumonia. Chest b/l reduced air entry with expiratory wheeze and basilar crackles (L>R). Was being treated on the general medicine floor with Tamiflu, steroids and IV ceftriaxone and azithromycin. Transferred to ICU on 03/08/2017 for worsening respiratory status and hypoxia. Allergies/Medications Allergies: Coded Allergies: cefazolin (Intermediate, HIVES 03/06/17) clarithromycin (Intermediate, HIVES 03/06/17) Home Med List: Levothyroxine Sodium (Synthroid) 75 MCG TABLET 1 TAB PO DAILY HYPOTHYROIDISM (Reported) Lisinopril 10 MG TABLET 1 TAB PO DAILY HTN (Reported) Lisinopril (Zestril) (Unknown Strength) TABLET (Unknown Dose) PO DAILY BP ( Reported) [place]-3 Fatty Acids/Fish Oil (Fish Oil 1,000 MG Softgel) (Unknown Strength) CAPSULE (Unknown Dose) PO BID SUPPLEMENT (Reported) Sodium Bicarbonate 650 MG TABLET 1.5 TAB PO BID CKD (Reported) 1000 MG BID Sodium Bicarbonate (Unknown Strength) TABLET (Unknown Dose) PO BID KIDNEYS ( Reported) Review of Systems Review of Systems Constitutional: Reports: malaise, weakness. EENTM: Reports: no symptoms. Cardiovascular: Reports: no symptoms. Respiratory: Reports: short of breath, wheezing. GI: Reports: no symptoms. Genitourinary: Reports: no symptoms. Musculoskeletal: Reports: no symptoms. Skin: Reports: no symptoms. 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 Home Services at Home: None Smoking Status: Never Smoked ETOH Use: denies use Illicit Drug Use: denies illicit drug use Functional Ability ADLs Independent: dressing, eating, toileting, bathing. Ambulation: independent IADLs Independent: shopping, housework, finances, food prep, telephone, transportation , medication admin. Exam & Diagnostic Data Last 24 Hrs of Vital Signs/I&O Vital Signs Date Time Temp Pulse Resp B/P B/P Pulse O2 O2 Flow FiO2 Mean Ox Delivery Rate 03/08 1200 116 91 03/08 0608 98.2 105 20 100/76 91 Nasal 5.0L Cannula 03/08 0000 92 Nasal 4.0L Cannula 03/07 2235 98.2 95 20 108/80 92 03/07 2123 Nasal 5.0L Cannula 03/07 1853 100.0 03/07 1848 Nasal 4.0L Cannula 03/07 1848 100.0 98 18 140/70 92 Nasal 4.0L Cannula 03/07 1751 101.8 03/07 1742 101.8 103 20 147/71 92 Nasal 5.0L Cannula 03/07 1436 93 Nasal 4.0L Cannula Intake & Output 03/08 1600 03/08 0800 03/08 0000 Intake Total 1160 1000 Output Total Balance 1160 1000 Intake, IV 800 400 Intake, Oral 360 600 Physical Exam General Appearance: alert, awake, anxious, severe distress, obese Head: atraumatic, on BiPAP Eyes: Bilateral: normal appearance, PERRL, EOMI. Ears, Nose, Throat: normal pharynx Neck: normal inspection Respiratory: decreased breath sounds Cardiovascular: regular rate/rhythm Gastrointestinal: normal bowel sounds Extremities: normal inspection, no edema Last 48 Hrs of Labs/Michael: Laboratory Tests 03/08/17 1155: pH 7.44, pCO2 23 L, pO2 49 *L, HCO3 16 L, ABG O2 Sat (Measured) 86.0 L, P-50 (Temp Corrected) N, Carboxyhemoglobin 0.2 L, O2 Concentration % 100%, O2 Delivery Method HFNC WITH 40L FLOW, Phlebotomy Draw Site LEFT RADIAL 03/08/17 0705: Anion Gap 15, Estimated GFR 21 L, BUN/Creatinine Ratio 8.5, Magnesium 1.9 03/07/17 0605: Anion Gap 14, Estimated GFR 19 L, BUN/Creatinine Ratio 9.0, CBC w Diff NO MAN DIFF REQ, RBC 4.79, MCV 89.9, MCH 30.2, RDW 13.4, MPV 9.6, Gran % 82.7 H, Lymphocytes % 15.7 L, Monocytes % 1.5 L, Eosinophils % 0, Basophils % 0.1, Absolute Granulocytes 4.0, Absolute Lymphocytes 0.8 L, Absolute Monocytes 0.1, Absolute Eosinophils 0, Absolute Basophils 0, PUBS MCHC 33.6 03/06/17 1757: Anion Gap 19 H, Estimated GFR 16 L, BUN/Creatinine Ratio 7.7, Glucose 110 H, Lactic Acid 1.7, Calcium 8.8, TSH 0.979, Free T4 0.87, CBC w Diff NO MAN DIFF REQ, RBC 5.11, MCV 88.1, MCH 30.5, RDW 13.0, MPV 9.5, Gran % 89.2 H, Lymphocytes % 7.9 L, Monocytes % 2.9, Eosinophils % 0, Basophils % 0, Absolute Granulocytes 6.8 H, Absolute Lymphocytes 0.6 L, Absolute Monocytes 0.2, Absolute Eosinophils 0, Absolute Basophils 0, PUBS MCHC 34.6 03/06/17 1730: Urine Test NEGATIVE 03/06/17 1716: Urine Opiates Screen 138.00, Methadone Screen 44, Barbiturate Screen < 60, Ur Phencyclidine Scrn 8.40, Amphetamines Screen < 100, U Benzodiazepines Scrn < 85, Urine Cocaine Screen < 50, Urine Cannabis Screen 24.70 Assessment/Plan Impression/Plan: 26 yo morbidly obese F with h/o 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 Labs: no leukocytosis, gran 89%, Na 135, bicarb 17, AG 19, BUN 27, creat 3.5 ( Baseline 1.5), lactic acid 1.7. EKG: sinus tachycardia. CXR: left lower lobe pneumonia. Chest b/l reduced air entry with expiratory wheeze and basilar crackles (L>R). Was being treated on the general medicine floor with Tamiflu and IV ceftriaxone and azithromycin. Transferred to ICU on 03/08/2017 for worsening respiratory status and hypoxia. ABG(03/08/2017, 11:55 AM): 7.44/23/49/16 Patient is currently on BiPAP saturating 91% on 100% oxygen Assessment * Acute hypoxaemic respiratory failure secondary to influenza complicated with left lower lobe pneumonia and asthma exacerbation. PE needs to be ruled out. * Influenza A positive * Acute on chronic kidney disease stage III due to IgA nephropathy * Tachycardia * History of asthma * History of hypothyroidism * CL? Plan * Close monitoring in ICU * Vitals per protocol * Continue BiPAP to maintain saturations above 92%. Plan to intubate the patient if continues to drop sats. * Continue steroids * Continue Tamiflu * Continue IV azithromycin and IV ceftriaxone for pneumonia * TRC nebs [id number] * Stat ICU bundle, CBC ordered * Stat chest x-ray ordered * Dopplers to rule out DVT. CTA could not be done due to kidney injury. * Gentle hydration to treat TREVOR, avoid nephrotoxins * Holding lisinopril, nephro input appreciated. * Patients renal doctor is Dr Garcia( [phone]) at [place]. Renal d/s started in 2009. * Continue sodium bicarbonate tabs * Patient not taking Synthroid medication. TSH, free T4 within normal limits * Might vebefit from OP sleep studies * Due to prophylaxis with subcutaneous heparin * Pain control with IV Tylenol * Patient is full code PLEASE CALL PATIENT'S FATHER STACY RASHID ) ABOUT ANY CHANGES IN CLINICAL CONDITION/ INTUBATION. HE IS CURRENTLY IN [place]. Consult Acknowledgment - Thank you for your consult request.
--- NOTE | 2017-03-08 13:47 | ULTRASOUND REPORT ---
EXAMINATION: US TRIPLEX OF LOWER EXTREMITIES, BILATERAL CLINICAL INFORMATION: Shortness of breath. COMPARISON: Right lower extremity ultrasound dated 08/08/2010. TECHNIQUE: Color-flow triplex imaging with spectral analysis and compression Doppler were performed on the lower extremities. FINDINGS: Right lower extremity: Respiratory variation, normal compression and augmented flow are noted throughout the lower extremities. The visualized common femoral vein, superficial femoral vein, profunda femoral vein, popliteal vein and midcalf peroneal and posterior tibial venous segments show no evidence of deep venous thrombosis. Left lower extremity: Respiratory variation, normal compression and augmented flow are noted throughout the lower extremities. The visualized common femoral vein, superficial femoral vein, profunda femoral vein, popliteal vein and midcalf peroneal and posterior tibial venous segments show no evidence of deep venous thrombosis. There is no Gardner's cyst in either left or right popliteal fossa regions.. IMPRESSION: Normal triplex scan without evidence of deep venous thrombosis involving the either of the left or right lower extremities.
[2017-03-08 14:09] LABS: ABSOLUTE BASOPHIL COUNT 0 /CUMM (0.0-0.2); ABSOLUTE EOSINOPHIL COUNT 0 /CUMM (0.0-0.7); ABSOLUTE GRANULOCYTE CT 5.9 /CUMM (1.4-6.5); ABSOLUTE LYMPH COUNT 0.9 /CUMM (1.2-3.4); ABSOLUTE MONOCYTE COUNT 0.2 /CUMM (0.10-0.60); BASOPHIL % 0 % (0.0-2.0); EOSINOPHIL % 0 % (0-5); GRANULOCYTE % 83.3 % (42.2-75.2); HEMATOCRIT 46.1 % (37-47); MEAN CORPUSCULAR HGB 30.3 PG (27.0-31.0); MEAN CORPUSCULAR HGB CONC 34.1 G/DL (33.0-37.0); MEAN CORPUSCULAR VOLUME 88.9 FL (81.0-99.0); MEAN PLATELET VOLUME 9.1 FL (7.4-10.4); PLATELET COUNT 208 /CUMM (130-400); RBC DISTRIBUTION WIDTH 13.4 % (11.5-14.5); RED BLOOD CELL CT 5.19 /CUMM (4.20-5.40); WHITE BLOOD CELL COUNT 7.1 /CUMM (4.8-10.8)
--- NOTE | 2017-03-08 14:38 | Event Note ---
Event Note Event Note: Rapid response called, the patient is desaturating, had oxygen saturation 80s while high flow oxygen. Stat labs including was obtained. EKG ordered. Chest x-ray ordered. The patient was in distress, decreased breath sounds, CV exam RRR without murmurs. Attending, Dr. Estevez was notified, will transfer the patient to the ICU. Signout provided to the ICU team.
[2017-03-08 16:00] VITALS: BP 110/60
[2017-03-09] VITALS: BP 110/60
[2017-03-09 04:15] LABS: ABSOLUTE BASOPHIL COUNT 0 /CUMM (0.0-0.2); ABSOLUTE EOSINOPHIL COUNT 0 /CUMM (0.0-0.7); ABSOLUTE GRANULOCYTE CT 4.2 /CUMM (1.4-6.5); ABSOLUTE LYMPH COUNT 0.8 /CUMM (1.2-3.4); ABSOLUTE MONOCYTE COUNT 0.3 /CUMM (0.10-0.60); BASOPHIL % 0.1 % (0.0-2.0); EOSINOPHIL % 0 % (0-5); GRANULOCYTE % 78.8 % (42.2-75.2); HEMATOCRIT 45.6 % (37-47); MEAN CORPUSCULAR HGB 29.6 PG (27.0-31.0); MEAN CORPUSCULAR HGB CONC 33.2 G/DL (33.0-37.0); MEAN CORPUSCULAR VOLUME 89.3 FL (81.0-99.0); MEAN PLATELET VOLUME 9.3 FL (7.4-10.4); PLATELET COUNT 197 /CUMM (130-400); RBC DISTRIBUTION WIDTH 13.7 % (11.5-14.5); WHITE BLOOD CELL COUNT 5.3 /CUMM (4.8-10.8)
--- NOTE | 2017-03-09 07:57 | RADIOLOGY REPORT ---
EXAMINATION: XR PORTABLE CHEST CLINICAL INFORMATION: BiPAP. COMPARISON: Chest x-ray portable, dated 03/08/2017, at 12:02 PM. TECHNIQUE: Portable frontal view of the chest was obtained. FINDINGS: The lung volumes are low bilaterally, unchanged compared to the prior study. Increased densities in the central hilar region and lateral aspect of the left lower lung continue unchanged compared to the prior study. There is interval development of an area of increased density in the right upper lung, which is not present on the prior study. Of note the lateral aspect of the left hemithorax is incompletely included in the study. IMPRESSION: Low lung volumes and central and left lower lung densities are overall stable compared to the prior study. Density in the right upper lung is suggestive of focal atelectasis, new since the previous study.
--- NOTE | 2017-03-09 07:58 | PN- CRCU ---
Subjective HPI/Critical Care Issues: The patient remains awake and alert. She is currently off BiPAP and appears in no respiratory distress. She is comfortable and denies any type of distress. She is currently on 90% oxygen with a saturation in the mid 90s. She is not desaturated overnight. She remains hemodynamically stable with good urine output. She is currently not coughing and she is not offering any new complaints today. Her lower extremity Dopplers were negative for DVT. Her d- dimer was low. An echocardiogram to rule out right ventricular strain is pending. Objective Current Medications: Current Medications Sig/Nabila Start time Last Medication Dose Route Stop Time Status Admin Acetaminophen 650 MG Q6P PRN 03/06 2215 AC 03/07 PO 1751 Acetaminophen 1,000 MG Q6P PRN 03/06 2215 AC 03/08 IV 2357 Albuterol Sulfate 3 ML EVERY 4 HRS/AWAKE 03/08 1600 AC 03/08 INH 2004 Albuterol Sulfate 3 ML BID 03/07 2200 DC 03/08 INH 0932 Atorvastatin Calcium 80 MG 1700 03/08 1700 AC PO Azithromycin 500 MG DAILY 03/07 2345 AC 03/08 Sodium Chloride 250 ML IV 0940 Ceftriaxone Sodium 1,000 MG DAILY 03/06 2215 AC 03/08 IV 0940 Dextrose/Sodium 1,000 ML Q13H 03/08 1430 AC 03/09 Chloride IV 0515 Fish Oil 2,100 MG BID 03/07 1000 AC 03/08 PO 0940 Furosemide 20 MG ONCE ONE 03/08 0930 DC 03/08 IV 03/08 0931 0934 Furosemide 40 MG .STK-MED ONE 03/08 0930 DC IV 03/08 0931 Glycerin 2 SPRAY Q2P PRN 03/09 0745 AC PO Guaifenesin 10 ML Q4-6 PRN PRN 03/08 0445 AC 03/08 PO 0444 Heparin Sodium 5,000 UNIT Q8 03/07 0600 AC 03/09 (Porcine) SC 0515 Ipratropium [place] 2.5 ML EVERY 4 HRS/AWAKE 03/08 1600 AC 03/08 INH 2004 Ipratropium [place] 2.5 ML BID 03/07 2200 DC 03/08 INH 0932 Levothyroxine Sodium 37.5 MCG DAILY 03/09 1000 AC IV Levothyroxine Sodium 500 MCG DAILY AC 03/09 0700 CAN IV Levothyroxine Sodium 50 MCG DAILY AC 03/09 0700 CAN IV Levothyroxine Sodium 0.05 MG DAILY AC 03/08 0700 DC 03/08 PO 0555 Methylprednisolone 40 MG Q6 03/08 1357 AC 03/09 IV 0515 Methylprednisolone 60 MG ONCE ONE 03/08 0930 DC 03/08 IV 03/08 0931 0934 Oseltamivir Phosphate 30 MG DAILY 03/08 1000 AC 03/08 PO 03/10 2214 0941 Potassium Chloride 10 MEQ ONCE ONE 03/08 1215 DC 03/08 IV 03/08 1216 1315 Potassium Chloride 10 MEQ ONCE ONE 03/08 1215 DC 03/08 IV 03/08 1216 1215 Prednisone 10 MG DAILY 03/10 1000 CAN PO 03/10 1001 Prednisone 20 MG DAILY 03/09 1000 CAN PO 03/09 1001 Prednisone 30 MG DAILY 03/08 1000 DC PO 03/08 1001 Sodium Bicarbonate 975 MG BID 03/07 1000 AC 03/08 PO 0941 Sodium Chloride 1,000 ML Q10H 03/06 2215 DC 03/07 IV 1945 Vital Signs & I&O Last 24 Hrs of Vitals and I&O: Vital Signs Date Time Temp Pulse Resp B/P B/P Pulse O2 O2 Flow FiO2 Mean Ox Delivery Rate 03/09 0552 87 91 03/09 0400 92 BIPAP 85% 03/09 0328 89 92 03/09 0238 86 94 03/09 0233 83 96 03/09 0030 83 95 03/09 0000 94 BIPAP 100% 03/09 0000 97.0 90 22 110/60 94 BIPAP 100% 03/08 2232 96 95 03/08 2006 94 BIPAP 100% 03/08 1999 94 BIPAP 100% 03/08 1945 91 94 03/08 1617 104 94 03/08 1600 93 BIPAP 100% 03/08 1600 97.3 110 28 110/60 96 BIPAP 100% 03/08 1415 120 93 03/08 1200 92 BIPAP 100% 03/08 1200 116 91 03/08 0935 88 Nasal 100% Cannula 03/08 08 90 Nasal 4.0L Cannula Intake & Output 03/09 0800 03/09 0000 03/08 1600 Intake Total 685 600 960 Output Total 165 282 7540 Balance -40 -300 -1690 Intake, IV 685 600 720 Intake, Oral 0 0 240 Number 0 1 Bowel Movements Output, Stool 0 Output, Urine 860 717 2026 Exam General Appearance: no apparent distress, alert, awake, comfortable, on BIPAP Head: atraumatic, normal appearance Neck: supple Respiratory: no respiratory distress, quiet respiration, trachea midline, clear anteriorly Cardiovascular: regular rate/rhythm, tachycardia improved Abdomen: normal bowel sounds, soft, non-tender Extremities: no edema Skin: intact, normal color, warm/dry Results Last 24 Hrs of Lab Results: Laboratory Tests 03/09/17 0500: pH 7.41, pCO2 26 L, pO2 58 L, HCO3 16 L, ABG O2 Sat (Measured) 91.0 L, P-50 (Temp Corrected) 4, Carboxyhemoglobin 0.2 L, O2 Concentration % 85%, Temperature 97.0, Respiration Rate 20, O2 Delivery Method VISION-FFM, Vent Mode ST, Expiratory Pressure 8, Inspiratory Pressure 20, Phlebotomy Draw Site RIGHT RADIAL 03/09/17 0352: Anion Gap 15, Estimated GFR 21 L, Glucose 211 H, Calcium 8.6, Phosphorus 4.1, Magnesium 2.1, Total Bilirubin 0.3, AST 61 H, ALT 82 H, Albumin 3.0 L, CBC w Diff NO MAN DIFF REQ, RBC 5.10, MCV 89.3, MCH 29.6, RDW 13.7, MPV 9.3, Gran % 78.8 H, Lymphocytes % 14.9 L, Monocytes % 6.2, Eosinophils % 0, Basophils % 0.1, Absolute Granulocytes 4.2, Absolute Lymphocytes 0.8 L, Absolute Monocytes 0.3, Absolute Eosinophils 0, Absolute Basophils 0, PUBS MCHC 33.2 03/08/17 1315: Troponin I Cancelled 03/08/17 1315: Anion Gap 17 H, Estimated GFR 21 L, Glucose 113 H, Lactic Acid 1.1, Calcium 8.9, Phosphorus 2.8, Magnesium 1.9, Total Bilirubin 0.2, AST 86 H, ALT 98 H, Troponin I 0.02, Albumin 3.4 L, PT 11.0, INR 1.05, D-Dimer High Sensitivty 259 H, CBC w Diff MAN DIFF ORDERED, RBC 5.19, MCV 88.9, MCH 30.3, RDW 13.4, MPV 9.1, Gran % 83.3 H, Lymphocytes % 13.3 L, Monocytes % 3.4, Eosinophils % 0, Basophils % 0, Absolute Granulocytes 5.9, Segmented Neutrophils 75, Band Neutrophils 12 H, Absolute Lymphocytes 0.9 L, Lymphocytes 11 L, Monocytes 2, Absolute Monocytes 0.2, Absolute Eosinophils 0, Absolute Basophils 0, Platelet Estimate ADEQUATE, Normocytic RBCs VERIFIED, Normochromic RBCs VERIFIED, PUBS MCHC 34.1 03/08/17 1309: D-Dimer High Sensitivty Cancelled 03/08/17 1155: pH 7.44, pCO2 23 L, pO2 49 *L, HCO3 16 L, ABG O2 Sat (Measured) 86.0 L, P-50 (Temp Corrected) N, Carboxyhemoglobin 0.2 L, O2 Concentration % 100%, O2 Delivery Method HFNC WITH 40L FLOW, Phlebotomy Draw Site LEFT RADIAL Last 24 Hrs of Micro Results: Influenza positive Diagnostic Data CXR Findings: No definite interval change, when accounting for the significantly low lung volumes compared to the prior study. Recommend repeat imaging with better inspiratory effort. US Findings: Normal triplex scan without evidence of deep venous thrombosis involving the either of the left or right lower extremities. Impression/Plan Impression/Plan Impression/Plan: 1. Hypoxemic respiratory failure secondary to influenza. Need to be concerned regarding the development of ARDS. 2. Probable obesity hypoventilation syndrome. 3. Probable obstructive sleep apnea, undiagnosed. 4. Hypernatremia. 5. History of chronic kidney disease secondary to IgA nephropathy. 6. History of hypothyroidism. 7. Exercise-induced asthma, evidence of bronchospasm during this admission. Recommendations: * Follow up ECHO results this AM, r/o RV strain. We will consider empiric anticoagulation if there is evidence of right ventricular strain. * Resend urine for strep pneumo and Legionella. * Continue to monitor culture results. * Continue Tamiflu, ceftriaxone and azithromycin. * We will continue the patient on BiPAP. Will attempt to wean oxygen down for saturations greater than 92%. Can switch off to high flow if patient tolerates. * Continue nebs/TRC. * If the patient is saturating well on high flow oxygen, can slowly advance diet. * If the patient is saturating well on high flow, can consider sending her down for a CT of the chest, noncontrast. * Renal consulted yesterday, follow up recommendations. * Continue D5W/half-normal saline. Monitor labs every 12 hours today to ensure serum sodium is not increasing. Monitor all electrolytes and replete as necessary. * Continue Synthroid at current dosing. * Subcutaneous heparin/DVT prophylaxis at all times. * Continue to monitor closely in the critical care unit. * I discussed the plan of care with the housestaff at length, I requested they contact me if the patient's condition changes or deteriorates. We have a low threshold for intubation as previously mentioned.
--- NOTE | 2017-03-09 07:58 | PN- Resident CRCU ---
Subjective HPI/CRCU Issues: Acute Hypoxic Respiratory Failure TREVOR on CKD Influenza 24 Hour Events: Continues to be on BiPaP. Rested comfortably overnight with no issues. Denies any chest pain, abdominal pain, nausea/vomiting or any other symptoms. Objective Vital Signs & I&O Last 8 Hrs of Vitals and I&O: . Exam General Appearance: alert, awake, mild distress, on BiPAP Head: atraumatic, normal appearance Respiratory: normal breath sounds, chest non-tender Cardiovascular: regular rate/rhythm Gastrointestinal: normal bowel sounds, soft, non-tender Extremities: no edema Skin: warm/dry Skin Temp/Moisture Exam: Warm/Dry Sepsis Skin Exam (color): Normal for Ethnicity Current Medications: Current Medications Sig/Nabila Start time Last Medication Dose Route Stop Time Status Admin Acetaminophen 1,000 MG .STK-MED ONE 03/08 2353 DC IV 03/08 2354 Acetaminophen 650 MG Q6P PRN 03/06 2215 AC 03/07 PO 1751 Acetaminophen 1,000 MG Q6P PRN 03/06 2215 AC 03/08 IV 2357 Albuterol Sulfate 3 ML EVERY 4 HRS/AWAKE 03/08 1600 AC 03/09 INH 0811 Albuterol Sulfate 3 ML BID 03/07 2200 DC 03/08 INH 0932 Atorvastatin Calcium 80 MG 1700 03/08 1700 AC PO Azithromycin 500 MG DAILY 03/07 2345 AC 03/08 Sodium Chloride 250 ML IV 0940 Ceftriaxone Sodium 1,000 MG DAILY 03/06 2215 AC 03/08 IV 0940 Dextrose/Sodium 1,000 ML Q13H 03/08 1430 AC 03/09 Chloride IV 0515 Fish Oil 2,100 MG BID 03/07 1000 AC 03/08 PO 0940 Furosemide 20 MG ONCE ONE 03/08 0930 DC 03/08 IV 03/08 0931 0934 Furosemide 40 MG .STK-MED ONE 03/08 0930 DC IV 03/08 0931 Glycerin 2 SPRAY Q2P PRN 03/09 0745 AC PO Guaifenesin 10 ML Q4-6 PRN PRN 03/08 0445 AC 03/08 PO 0444 Heparin Sodium 5,000 UNIT Q8 03/07 0600 AC 03/09 (Porcine) SC 0515 Ipratropium [place] 2.5 ML EVERY 4 HRS/AWAKE 03/08 1600 AC 03/09 INH 0811 Ipratropium [place] 2.5 ML BID 03/07 2200 DC 03/08 INH 0932 Levothyroxine Sodium 37.5 MCG DAILY 03/09 1000 AC IV Levothyroxine Sodium 500 MCG DAILY AC 03/09 0700 CAN IV Levothyroxine Sodium 50 MCG DAILY AC 03/09 0700 CAN IV Levothyroxine Sodium 0.05 MG DAILY AC 03/08 0700 DC 03/08 PO 0555 Methylprednisolone 40 MG Q6 03/08 1357 AC 03/09 IV 0515 Methylprednisolone 60 MG ONCE ONE 03/08 0930 DC 03/08 IV 03/08 0931 0934 Oseltamivir Phosphate 30 MG DAILY 03/08 1000 AC 03/08 PO 03/10 2214 0941 Potassium Chloride 10 MEQ ONCE ONE 03/08 1215 DC 03/08 IV 03/08 1216 1315 Potassium Chloride 10 MEQ ONCE ONE 03/08 1215 DC 03/08 IV 03/08 1216 1215 Prednisone 10 MG DAILY 03/10 1000 CAN PO 03/10 1001 Prednisone 20 MG DAILY 03/09 1000 CAN PO 03/09 1001 Prednisone 30 MG DAILY 03/08 1000 DC PO 03/08 1001 Sodium Bicarbonate 975 MG BID 03/07 1000 AC 03/08 PO 0941 Sodium Chloride 1,000 ML Q10H 03/06 2215 DC 03/07 IV 1945 Impression/Plan Impression/Problem List Impression: 26 yo morbidly obese F with h/o 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 Was being treated on the general medicine floor with Tamiflu and IV ceftriaxone and azithromycin. Transferred to ICU on 03/08/2017 for worsening respiratory status and hypoxia. Assessment * Acute hypoxaemic respiratory failure secondary to influenza complicated with left lower lobe pneumonia. * Influenza A positive * Acute on chronic kidney disease stage III due to IgA nephropathy * History of Exercise induced Asthma * History of hypothyroidism * ? CL Plan * Close monitoring in ICU * Vitals per protocol * BiPAP has been discontinued as she has maintained her saturations overnight. * Currently started on high flow oxygen. Doing well. If deteriorates, she will need to go back on BiPAP. * F/u urine strep pneumo and legionella - pending. * Echo - pending. If shows evidence of RV strain, will start AC. * Continue steroids * Continue Tamiflu * Continue IV azithromycin and IV ceftriaxone for pneumonia * TRC nebs as needed. * Dopplers of lower extremity ruled out DVT. CTA could not be done due to her elevated Cr secondary to CKD. * Continue D5-1/2 NS @ 75ml/hr. Can be discontinued once she starts oral intake. * Holding lisinopril, nephro input appreciated. * Patients renal doctor is Dr Garcia( [phone]) at [place]. Renal d/s started in 2009. * Continue sodium bicarbonate tabs * Continue Synthroid. * DVT to prophylaxis with subcutaneous heparin * Regular diet. * Pain control with IV Tylenol as needed. * Patient is full code PLEASE CALL PATIENT'S FATHER STACY RASHID ([phone]) ABOUT ANY CHANGES IN CLINICAL CONDITION/ INTUBATION. HE IS CURRENTLY IN [place]. Problem List: 1. Pneumonia 2. Influenza Pain Ratin Tomorrow's Labs & Rationales: CBC, ICU Bundle Plan DVT/Prophylaxis: pharmacological
[2017-03-09 08:00] VITALS: BP 131/75
--- NOTE | 2017-03-09 13:48 | Cons- Nephrology ---
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 Chest x- ray with LLL PNA. She has been treated with abx, tamiflu, nebs, and steroids. Labs notable for SCr 3.5 on presentation which has downtrended to 2.7. She has been on IVF - BP got as low as 100/76 yesterday. Should note that she got 800mg ibuprofen on 03/06. Should note she was on fosinopril at home and was taking up until presentation. She remains on high flow oxygen. Of note, CK level not checked yet. With regards to her IgA nephropathy, she says that she was diagnosed back in 2013 with a biopsy and was treated conservatively. She had a repeat biopsy this past year which prompted which she says a two-week course of steroids as well as a tonsillectomy. She is on RAAS inhibition with fosinopril and fish oil. Baseline SCr 2.0-2.3. Allergies/Medications Allergies: Coded Allergies: cefazolin (Intermediate, HIVES 03/06/17) clarithromycin (Intermediate, HIVES 03/06/17) Home Med List: Levothyroxine Sodium (Synthroid) 75 MCG TABLET 1 TAB PO DAILY HYPOTHYROIDISM (Reported) Lisinopril 10 MG TABLET 1 TAB PO DAILY HTN (Reported) Lisinopril (Zestril) (Unknown Strength) TABLET (Unknown Dose) PO DAILY BP ( Reported) [place]-3 Fatty Acids/Fish Oil (Fish Oil 1,000 MG Softgel) (Unknown Strength) CAPSULE (Unknown Dose) PO BID SUPPLEMENT (Reported) Sodium Bicarbonate 650 MG TABLET 1.5 TAB PO BID CKD (Reported) 1000 MG BID Sodium Bicarbonate (Unknown Strength) TABLET (Unknown Dose) PO BID KIDNEYS ( Reported) Current Medications: Current Medications Sig/Nabila Start time Last Medication Dose Route Stop Time Status Admin Acetaminophen 1,000 MG .STK-MED ONE 03/08 2353 DC IV 03/08 2354 Acetaminophen 650 MG Q6P PRN 03/06 2215 AC 03/07 PO 1751 Acetaminophen 1,000 MG Q6P PRN 03/06 2215 AC 03/08 IV 2357 Albuterol Sulfate 3 ML EVERY 4 HRS/AWAKE 03/08 1600 AC 03/09 INH 1219 Atorvastatin Calcium 80 MG 1700 03/08 1700 AC PO Azithromycin 500 MG DAILY 03/07 2345 AC 03/09 Sodium Chloride 250 ML IV 0917 Ceftriaxone Sodium 1,000 MG DAILY 03/06 2215 AC 03/09 IV 0917 Dextrose/Sodium 1,000 ML Q13H 03/08 1430 AC 03/09 Chloride IV 0515 Fish Oil 2,100 MG BID 03/07 1000 AC 03/09 PO 0847 Glycerin 2 SPRAY Q2P PRN 03/09 0745 AC 03/09 PO 0848 Guaifenesin 10 ML Q4-6 PRN PRN 03/08 0445 AC 03/08 PO 0444 Heparin Sodium 5,000 UNIT Q8 03/07 0600 AC 03/09 (Porcine) SC 1258 Ipratropium [place] 2.5 ML EVERY 4 HRS/AWAKE 03/08 1600 AC 03/09 INH 1219 Levothyroxine Sodium 37.5 MCG DAILY 03/09 1000 AC IV Levothyroxine Sodium 0.075 MG ONCE ONE 03/09 0900 DC 03/09 PO 03/09 0901 0917 Levothyroxine Sodium 500 MCG DAILY AC 03/09 0700 CAN IV Levothyroxine Sodium 50 MCG DAILY AC 03/09 0700 CAN IV Levothyroxine Sodium 0.05 MG DAILY AC 03/08 0700 DC 03/08 PO 0555 Methylprednisolone 40 MG Q6 03/08 1357 AC 03/09 IV 1258 Oseltamivir Phosphate 30 MG DAILY 03/08 1000 AC 03/09 PO 03/10 2214 0848 Prednisone 10 MG DAILY 03/10 1000 CAN PO 03/10 1001 Prednisone 20 MG DAILY 03/09 1000 CAN PO 03/09 1001 Sodium Bicarbonate 975 MG BID 03/07 1000 AC 03/09 PO 0848 Sodium Chloride 1,000 ML Q10H 03/06 2215 DC 03/07 IV 1945 Review of Systems Review of Systems: Complete 14 point ROS neg except as per HPI Past History Travel History Traveled to [place] past 21 day No Medical History Blood Transfusion Hx: No Neurological: NONE EENT: NONE Cardiovascular: NONE Respiratory: asthma Gastrointestinal: irritable bowel syndrome Hepatic: NONE Renal: chronic kidney disease Musculoskeletal: NONE Psychiatric: NONE Endocrine: HYPOTHYROID Blood Disorders: NONE Cancer(s): NONE [employer]/Reproductive: NONE Surgical History Surgical History: non-contributory, lumpectomy Family History Relations & Conditions If Any: Relation not specified for: Family history not obtainable due to adoption Psychosocial History Where Do You Live? Home Services at Home: None Smoking Status: Never Smoked ETOH Use: denies use Illicit Drug Use: denies illicit drug use Functional Ability ADLs Independent: dressing, eating, toileting, bathing. Ambulation: independent IADLs Independent: shopping, housework, finances, food prep, telephone, transportation , medication admin. Exam & Diagnostic Data Vital Signs and I&O Vital Signs Date Time Temp Pulse Resp B/P B/P Pulse O2 O2 Flow FiO2 Mean Ox Delivery Rate 03/09 1343 94 Nasal 80% Cannula 03/09 0928 96 Nasal 90% Cannula 03/09 0900 99 98 03/09 0829 98 95 03/09 0800 97 BIPAP 90% 03/09 0800 97.0 82 20 131/75 93 BIPAP 90% 03/09 0552 87 91 03/09 0400 92 BIPAP 85% 03/09 0328 89 92 03/09 0238 86 94 03/09 0233 83 96 03/09 0030 83 95 03/09 0000 94 BIPAP 100% 03/09 0000 97.0 90 22 110/60 94 BIPAP 100% 03/08 2232 96 95 03/08 2007 94 BIPAP 100% 03/08 2000 94 BIPAP 100% 03/08 1945 91 94 03/08 1617 104 94 03/08 1600 93 BIPAP 100% 03/08 1600 97.3 110 28 110/60 96 BIPAP 100% 03/08 1415 120 93 Intake & Output 03/09 1600 03/09 0400 03/08 1600 03/08 0400 03/07 1600 03/07 0400 Intake Total 214 846 0244 1000 3040 2000 Output Total 566 423 5084 Balance -40 -300 -530 1000 3040 1999 Intake, IV 345 630 8678 093 367 3381 Intake, Oral 0 0 241 623 9354 Number 0 1 Bowel Movements Output, Stool 0 Output, Urine 554 252 2692 Patient 240 lb 240 lb Weight Weight Reported by Patient Measurement Method Physical Exam: Gen - ok appearing, dyspneic Head - NCAT Eyes - anicteric sclera, EOMI Neck - supple, no LAD CV - RRR, no m/r/g Chest - clear anteriorly, no w/r/r, visibly dyspneic Abd - soft, NTND Upper ext - warm, no edema Lower ext - warm, no edema Skin - no rash or jaundice Neuro - AOX3, grossly nonfocal Results Pertinent Lab Results: Laboratory Tests 03/09 03/09 0500 0352 Blood Gas pH (7.35 - 7.45 PH) 7.41 pCO2 (35 - 45 TORR) 26 L pO2 (80 - 100 TORR) 58 L HCO3 (21 - 28 MEQ/L) 16 L ABG O2 Sat (Measured) (>96.0 %) 91.0 L P-50 (Temp Corrected) 4 Carboxyhemoglobin (1.5 - 5.0 %) 0.2 L O2 Concentration % 85% Temperature (97.0 - 100.0 FARH) 97.0 Respiration Rate (BPM) 20 O2 Delivery Method VISION-FFM Vent Mode ST Expiratory Pressure (CM H2O P) 8 Inspiratory Pressure (CM H2O P) 20 Chemistry Sodium (137 - 145 mmol/L) 146 H Potassium (3.5 - 5.1 mmol/L) 4.2 Chloride (98 - 107 mmol/L) 114 H Carbon Dioxide (22 - 30 mmol/L) 17 L Anion Gap (5 - 16) 15 BUN (7 - 17 mg/dL) 23 H Creatinine (0.5 - 1.0 mg/dL) 2.7 H Estimated GFR (>60 ml/min) 21 L Glucose (65 - 99 mg/dL) 211 H Calcium (8.4 - 10.2 mg/dL) 8.6 Phosphorus (2.5 - 4.5 mg/dL) 4.1 Magnesium (1.6 - 2.3 mg/dL) 2.1 Total Bilirubin (0.2 - 1.3 mg/dL) 0.3 AST (14 - 36 U/L) 61 H ALT (9 - 52 U/L) 82 H Albumin (3.5 - 5.0 g/dL) 3.0 L Hematology CBC w Diff NO MAN DIFF REQ WBC (4.8 - 10.8 /CUMM) 5.3 RBC (4.20 - 5.40 /CUMM) 5.10 Hgb (12.0 - 16.0 G/DL) 15.1 Hct (37 - 47 %) 45.6 MCV (81.0 - 99.0 FL) 89.3 MCH (27.0 - 31.0 PG) 29.6 RDW (11.5 - 14.5 %) 13.7 Plt Count (130 - 400 /CUMM) 197 MPV (7.4 - 10.4 FL) 9.3 Gran % (42.2 - 75.2 %) 78.8 H Lymphocytes % (20.5 - 51.1 %) 14.9 L Monocytes % (1.7 - 9.3 %) 6.2 Eosinophils % (0 - 5 %) 0 Basophils % (0.0 - 2.0 %) 0.1 Absolute Granulocytes (1.4 - 6.5 /CUMM) 4.2 Absolute Lymphocytes (1.2 - 3.4 /CUMM) 0.8 L Absolute Monocytes (0.10 - 0.60 /CUMM) 0.3 Absolute Eosinophils (0.0 - 0.7 /CUMM) 0 Absolute Basophils (0.0 - 0.2 /CUMM) 0 PUBS MCHC (33.0 - 37.0 G/DL) 33.2 Miscellaneous Phlebotomy Draw Site RIGHT RADIAL 03/08 03/08 1315 1315 Chemistry Sodium (137 - 145 mmol/L) 144 Potassium (3.5 - 5.1 mmol/L) 4.0 Chloride (98 - 107 mmol/L) 109 H Carbon Dioxide (22 - 30 mmol/L) 18 L Anion Gap (5 - 16) 17 H BUN (7 - 17 mg/dL) 21 H Creatinine (0.5 - 1.0 mg/dL) 2.7 H Estimated GFR (>60 ml/min) 21 L Glucose (65 - 99 mg/dL) 113 H Lactic Acid (0.7 - 2.1 mmol/L) 1.1 Calcium (8.4 - 10.2 mg/dL) 8.9 Phosphorus (2.5 - 4.5 mg/dL) 2.8 Magnesium (1.6 - 2.3 mg/dL) 1.9 Total Bilirubin (0.2 - 1.3 mg/dL) 0.2 AST (14 - 36 U/L) 86 H ALT (9 - 52 U/L) 98 H Troponin I (< 0.11 ng/ml) Cancelled 0.02 Albumin (3.5 - 5.0 g/dL) 3.4 L Coagulation PT (9.4 - 12.5 SEC) 11.0 INR (0.90 - 1.19) 1.05 D-Dimer High Sensitivty (0 - 243 ng/ml) 259 H Hematology CBC w Diff MAN DIFF ORDERED WBC (4.8 - 10.8 /CUMM) 7.1 RBC (4.20 - 5.40 /CUMM) 5.19 Hgb (12.0 - 16.0 G/DL) 15.7 Hct (37 - 47 %) 46.1 MCV (81.0 - 99.0 FL) 88.9 MCH (27.0 - 31.0 PG) 30.3 RDW (11.5 - 14.5 %) 13.4 Plt Count (130 - 400 /CUMM) 208 MPV (7.4 - 10.4 FL) 9.1 Gran % (42.2 - 75.2 %) 83.3 H Lymphocytes % (20.5 - 51.1 %) 13.3 L Monocytes % (1.7 - 9.3 %) 3.4 Eosinophils % (0 - 5 %) 0 Basophils % (0.0 - 2.0 %) 0 Absolute Granulocytes (1.4 - 6.5 /CUMM) 5.9 Segmented Neutrophils (42.2 - 75.2 %) 75 Band Neutrophils (0.0 - 5.0 %) 12 H Absolute Lymphocytes (1.2 - 3.4 /CUMM) 0.9 L Lymphocytes (20.5 - 51.1 %) 11 L Monocytes (1.7 - 9.3 %) 2 Absolute Monocytes (0.10 - 0.60 /CUMM) 0.2 Absolute Eosinophils (0.0 - 0.7 /CUMM) 0 Absolute Basophils (0.0 - 0.2 /CUMM) 0 Platelet Estimate (ADEQUATE) ADEQUATE Normocytic RBCs VERIFIED Normochromic RBCs VERIFIED PUBS MCHC (33.0 - 37.0 G/DL) 34.1 03/08 03/08 03/08 1309 1155 0705 Blood Gas pH (7.35 - 7.45 PH) 7.44 pCO2 (35 - 45 TORR) 23 L pO2 (80 - 100 TORR) 49 *L HCO3 (21 - 28 MEQ/L) 16 L ABG O2 Sat (Measured) (>96.0 %) 86.0 L P-50 (Temp Corrected) N Carboxyhemoglobin (1.5 - 5.0 %) 0.2 L O2 Concentration % 100% O2 Delivery Method HFNC WITH 40L FLOW Chemistry Sodium (137 - 145 mmol/L) 143 Potassium (3.5 - 5.1 mmol/L) 3.7 Chloride (98 - 107 mmol/L) 109 H Carbon Dioxide (22 - 30 mmol/L) 19 L Anion Gap (5 - 16) 15 BUN (7 - 17 mg/dL) 23 H Creatinine (0.5 - 1.0 mg/dL) 2.7 H Estimated GFR (>60 ml/min) 21 L BUN/Creatinine Ratio (7 - 25 %) 8.5 Magnesium (1.6 - 2.3 mg/dL) 1.9 Coagulation D-Dimer High Sensitivty Cancelled Miscellaneous Phlebotomy Draw Site LEFT RADIAL 03/07 03/06 0605 1757 Chemistry Sodium (137 - 145 mmol/L) 141 135 L Potassium (3.5 - 5.1 mmol/L) 4.4 3.7 Chloride (98 - 107 mmol/L) 111 H 99 Carbon Dioxide (22 - 30 mmol/L) 16 L 17 L Anion Gap (5 - 16) 14 19 H BUN (7 - 17 mg/dL) 27 H 27 H Creatinine (0.5 - 1.0 mg/dL) 3.0 H 3.5 H Estimated GFR (>60 ml/min) 19 L 16 L BUN/Creatinine Ratio (7 - 25 %) 9.0 7.7 Glucose (65 - 99 mg/dL) 110 H Lactic Acid (0.7 - 2.1 mmol/L) 1.7 Calcium (8.4 - 10.2 mg/dL) 8.8 TSH (0.270 - 4.200 uIU/mL) 0.979 Free T4 (0.79 - 2.35 ng/dL) 0.87 Hematology CBC w Diff NO MAN DIFF REQ NO MAN DIFF REQ WBC (4.8 - 10.8 /CUMM) 4.8 7.6 RBC (4.20 - 5.40 /CUMM) 4.79 5.11 Hgb (12.0 - 16.0 G/DL) 14.5 15.6 Hct (37 - 47 %) 43.1 45.0 MCV (81.0 - 99.0 FL) 89.9 88.1 MCH (27.0 - 31.0 PG) 30.2 30.5 RDW (11.5 - 14.5 %) 13.4 13.0 Plt Count (130 - 400 /CUMM) 186 200 MPV (7.4 - 10.4 FL) 9.6 9.5 Gran % (42.2 - 75.2 %) 82.7 H 89.2 H Lymphocytes % (20.5 - 51.1 %) 15.7 L 7.9 L Monocytes % (1.7 - 9.3 %) 1.5 L 2.9 Eosinophils % (0 - 5 %) 0 0 Basophils % (0.0 - 2.0 %) 0.1 0 Absolute Granulocytes (1.4 - 6.5 /CUMM) 4.0 6.8 H Absolute Lymphocytes (1.2 - 3.4 /CUMM) 0.8 L 0.6 L Absolute Monocytes (0.10 - 0.60 /CUMM) 0.1 0.2 Absolute Eosinophils (0.0 - 0.7 /CUMM) 0 0 Absolute Basophils (0.0 - 0.2 /CUMM) 0 0 PUBS MCHC (33.0 - 37.0 G/DL) 33.6 34.6 03/06 03/06 1730 1716 Toxicology Urine Opiates Screen (>2000 NG/ML) 138.00 Methadone Screen (>300 NG/ML) 44 Barbiturate Screen (>200 NG/ML) < 60 Ur Phencyclidine Scrn (>25 NG/ML) 8.40 Amphetamines Screen (>1000 NG/ML) < 100 U Benzodiazepines Scrn (>200 NG/ML) < 85 Urine Cocaine Screen (>300 NG/ML) < 50 Urine Cannabis Screen (>50 NG/ML) 24.70 Urines Urine Test NEGATIVE Imaging/Other Studies: Chest x-ray reviewed Assessment/Plan Assessment/Recommendations Assessment: Stage III/IV CKD - 2/2 IgA nephropathy. Treated conservatively although did as per the patient get a 2 week course of steroids (traditionally steroids are for 6 months although the efficacy in preserving renal function remains debatable). TREVOR - likely 2/2 ATN in the setting of influenza while on RAAS inhibition. Cannot rule out pre-renal azotemia given n/v and poor PO intake - improving on IVF. Should check CK level as influenza induced rhabdo can cause TREVOR as well. Fortunately the ibuprofen that she got on presentation did not cause her SCr to go up. Recommendations: -Cont supportive care with IVF as you are -Cont to hold NILDA-I -Avoid NSAID's -Check CK level Please call [phone] with ?'s
[2017-03-09 16:00] VITALS: BP 120/70
--- NOTE | 2017-03-09 16:26 | ECHOCARDIOGRAM REPORT ---
JOSE KU Age: 26 : 1990 Gender: F Exam Date: 03/08/2017 16:18 Exam Location: [facility] Ht (in): 59 Wt (lb): 239 BSA: 2.20 BP: 100 / 76 Ordering Physician: Ector Chavarria MD Referring Physician: Ector Chavarria MD Technologist: Julieth Masterson [facility] Room Number: 106 Indications: SHORTNESS OF BREATH Rhythm: Sinus Technical Quality: Fair FINDINGS Left Ventricle Normal size left ventricle. Mild concentric left ventricular hypertrophy. Normal left ventricular ejection fraction visually estimated at >60%. Normal left ventricular wall motion. Right Ventricle Normal right ventricular size and function. Right Atrium Normal right atrial size. Left Atrium Normal left atrial size. Mitral Valve Structurally normal mitral valve. No mitral regurgitation. Aortic Valve Structurally normal trileaflet aortic valve. No aortic stenosis. No aortic regurgitation. Tricuspid Valve Tricuspid valve not well visualized, grossly normal. Trace tricuspid regurgitation. No evidence of pulmonary hypertension. Pulmonic Valve Trace pulmonic regurgitation. Pericardium No pericardial effusion. Great Vessels Normal size aortic root. CONCLUSIONS Normal left ventricular ejection fraction visually estimated at > 60%. Mild concentric left ventricular hypertrophy. Trace tricuspid regurgitation. Migue Zavala M.D. (Electronically Signed) Final Date: 09 March 2017 16:25 MEASUREMENTS (Male / Female) Normal Values 2D ECHO LV Diastolic Diameter PLAX 3.6 cm 4.2 - 5.9 / 3.9 - 5.3 cm LV Systolic Diameter PLAX 1.9 cm 2.1 - 4.0 cm LV Fractional Shortening PLAX 47.2 % 25 - 46 % LV Ejection Fraction 2D Teich 79.5 % IVS Diastolic Thickness 1.2 cm LVPW Diastolic Thickness 1.2 cm LV Relative Wall Thickness 0.7 RV Internal Dim ED PLAX 2.4 cm 1.9 - 3.8 cm LVOT Diameter 1.9 cm Aortic Root Diameter 2.5 cm LA Systolic Diameter LX 3.0 cm 3.0 - 4.0 / 2.7 - 3.8 cm Ascending Aorta Diameter 2.2 cm DOPPLER AV Peak Velocity 119.0 cm/s AV Peak Gradient 5.7 mmHg AV Mean Velocity 77.8 cm/s AV Mean Gradient 3.0 mmHg AV Velocity Time Integral 18.6 cm LVOT Peak Velocity 98.5 cm/s LVOT Peak Gradient 3.9 mmHg LVOT Mean Velocity 59.6 cm/s LVOT Mean Gradient 2.0 mmHg LVOT Velocity Time Integral 13.7 cm LVOT Stroke Volume 38.8 cm AV Area Cont Eq vti 2.1 cm AV Area Cont Eq pk 2.3 cm MV Peak Velocity 112.0 cm/s MV Peak Gradient 5.0 mmHg MV Mean Velocity 61.1 cm/s MV Mean Gradient 2.0 mmHg Mitral E Point Velocity 86.4 cm/s MV PHT Velocity 115.0 cm/s MV Deceleration Travis 639.0 cm/s MV Pressure Half Time 54.0 ms MV Area PHT 4.1 cm MV Deceleration Time 289.0 ms TR Peak Velocity 111.0 cm/s TR Peak Gradient 4.9 mmHg Right Atrial Pressure 5.0 mmHg Pulmonary Artery Systolic Pressu 9.9 mmHg Right Ventricular Systolic Press 9.9 mmHg PV Peak Velocity 106.0 cm/s PV Peak Gradient 4.5 mmHg PV Mean Velocity 75.5 cm/s PV Mean Gradient 3.0 mmHg PV Velocity Time Integral 20.8 cm LV E' Lateral Velocity 9.7 cm/s Mitral E to LV E' Lateral Ratio 9.0 LV E' Septal Velocity 6.5 cm/s Mitral E to LV E' Septal Ratio 13.2
--- NOTE | 2017-03-09 19:51 | CT SCAN REPORT ---
EXAMINATION: CT CHEST WITHOUT CONTRAST CLINICAL INFORMATION: Acute hypoxemia. Respiratory failure. COMPARISON: Chest x-ray 03/09/2017 TECHNIQUE: Multidetector volumetric CT imaging of the chest was done. Axial MIP volume rendering provided. Sagittal and coronal reformatted images were obtained. DLP: 871.02 mGy-cm FINDINGS: LUNGS: There is geographic groundglass opacity in the lung bilaterally. This is primarily affecting the perihilar lung. The subpleural lung is relatively spared. This can be consistent with ARDS but cannot exclude inflammatory or infectious etiologies. Cardiogenic etiology unlikely given lack of interstitial edema or pleural effusions. The central bronchial airways are open. No bronchiectasis. MEDIASTINUM: The mediastinum is normal. There are small subcentimeter lymph nodes in the pretracheal retrovascular space and AP window but no bulky adenopathy. PLEURA: There is no pleural effusion. No pleural mass or thickening. AXILLA: No lymphadenopathy. UPPER ABDOMEN: Diffuse low attenuation of liver parenchyma due to fatty change. No focal liver lesion. OSSEOUS STRUCTURES: Unremarkable. IMPRESSION: Diffuse bilateral groundglass opacity primarily affecting the perihilar lung with sparing of the subpleural lung. This is nonspecific but can be consistent with ARDS as suspected clinically. Inflammatory or infectious etiologies though not excluded.
[2017-03-09 23:00] VITALS: BP 118/60
[2017-03-10 04:56] LABS: ABSOLUTE BASOPHIL COUNT 0 /CUMM (0.0-0.2); ABSOLUTE EOSINOPHIL COUNT 0 /CUMM (0.0-0.7); EOSINOPHIL % 0 % (0-5); RBC DISTRIBUTION WIDTH 13.6 % (11.5-14.5)
[2017-03-10 05:17] LABS: ABSOLUTE GRANULOCYTE CT 6.7 /CUMM (1.4-6.5); ABSOLUTE LYMPH COUNT 0.8 /CUMM (1.2-3.4); ABSOLUTE MONOCYTE COUNT 0.5 /CUMM (0.10-0.60); BASOPHIL % 0.1 % (0.0-2.0); MEAN CORPUSCULAR HGB 29.9 PG (27.0-31.0); MEAN CORPUSCULAR HGB CONC 33.5 G/DL (33.0-37.0); MEAN CORPUSCULAR VOLUME 89.1 FL (81.0-99.0); MEAN PLATELET VOLUME 9.2 FL (7.4-10.4); RED BLOOD CELL CT 4.54 /CUMM (4.20-5.40)
[2017-03-10 05:34] LABS: HEMATOCRIT 40.5 % (37-47)
[2017-03-10 05:35] LABS: GRANULOCYTE % 84.3 % (42.2-75.2); PLATELET COUNT 195 /CUMM (130-400)
--- NOTE | 2017-03-10 07:52 | RADIOLOGY REPORT ---
EXAMINATION: XR PORTABLE CHEST CLINICAL INFORMATION: Shortness of breath. Pneumonia on ventilator. COMPARISON: Several prior chest x-rays, most recent of which is dated 03/09/2017. TECHNIQUE: Portable AP semierect view of the chest was obtained. FINDINGS: The cardiomediastinal silhouette is enlarged, unchanged.. Low lung volumes are seen with central vascular indistinctness and diffuse perihilar opacities, unchanged when compared to the previous exam. No definite effusion or pneumothorax is seen. Bony structures are unremarkable. IMPRESSION: No interval change in low lung volumes and diffuse bilateral perihilar opacities. Findings may be related to diffuse pneumonia. Clinical correlation requested.
[2017-03-10 08:27] VITALS: BP 132/86
--- NOTE | 2017-03-10 08:51 | PN- Resident CRCU ---
Subjective HPI/CRCU Issues: Acute Hypoxic Respiratory Failure TREVOR on CKD Influenza 24 Hour Events: Switched to high flow oxygen. Currently on 90%. Reports feeling better, with improvement in her breathing. Slept comfortably overnight with no issues. Denies any chest pain, abdominal pain, nausea/vomiting or any other symptoms. Objective Vital Signs & I&O Last 8 Hrs of Vitals and I&O: Intake & Output 03/10 1600 Intake Total Output Total Balance Patient 286 lb Weight Weight Bed scale Measurement Method Exam General Appearance: alert, awake, anxious, mild distress, obese Head: atraumatic, normal appearance Neck: normal inspection Respiratory: normal breath sounds, chest non-tender Cardiovascular: regular rate/rhythm Gastrointestinal: soft, non-tender Extremities: no edema Skin: intact, normal color Skin Temp/Moisture Exam: Warm/Dry Sepsis Skin Exam (color): Normal for Ethnicity Current Medications: Current Medications Sig/Nabila Start time Last Medication Dose Route Stop Time Status Admin Acetaminophen 650 MG Q6P PRN 03/06 2215 03/07 PO 1751 Acetaminophen 1,000 MG Q6P PRN 03/06 2215 AC 03/08 IV 2357 Albuterol Sulfate 3 ML EVERY 4 HRS/AWAKE 03/08 1600 AC 03/10 INH 0803 Atorvastatin Calcium 80 MG 1700 03/08 1700 AC 03/09 PO 1734 Azithromycin 500 MG DAILY 03/07 2345 AC 03/10 Sodium Chloride 250 ML IV 0920 Calcium Carbonate 500 MG TID PRN 03/10 0030 AC PO Ceftriaxone Sodium 1,000 MG DAILY 03/06 2215 AC 03/10 IV 0920 Dextrose/Sodium 1,000 ML Q13H 03/08 1430 03/10 Chloride IV 0527 Fish Oil 2,100 MG BID 03/07 1000 AC 03/10 PO 0921 Glycerin 2 SPRAY Q2P PRN 03/09 0745 AC 03/09 PO 0848 Guaifenesin 10 ML Q4-6 PRN PRN 03/08 0445 AC 03/08 PO 0444 Heparin Sodium 5,000 UNIT Q8 03/07 0600 AC 03/10 (Porcine) SC 0527 Ipratropium [place] 2.5 ML EVERY 4 HRS/AWAKE 03/08 1600 AC 03/10 INH 0803 Levothyroxine Sodium 37.5 MCG DAILY 03/09 1000 AC 03/10 IV 1130 Methylprednisolone 40 MG Q6 03/08 1357 AC 03/10 IV 1130 Oseltamivir Phosphate 30 MG DAILY 03/08 1000 AC 03/10 PO 03/10 2214 0921 Sodium Bicarbonate 975 MG BID 03/07 1000 AC 03/10 PO 0920 Impression/Plan Impression/Problem List Impression: 26 yo morbidly obese F with h/o 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 Was being treated on the general medicine floor with Tamiflu and IV ceftriaxone and azithromycin. Transferred to ICU on 03/08/2017 for worsening respiratory status and hypoxia. Assessment * Acute hypoxaemic respiratory failure secondary to influenza complicated with left lower lobe pneumonia. * Influenza A positive * Acute on chronic kidney disease stage III due to IgA nephropathy * History of Exercise induced Asthma * History of hypothyroidism * ? CL Plan * Close monitoring in ICU * Vitals per protocol * BiPAP was discontinued yesterday. * Currently started on high flow oxygen at 90%. Doing well. If deteriorates, she will need to go back on BiPAP. * Urine strep pneumo and legionella - negative * Echo - Normal LVEF >60%. No evidence of right heart strain. * Continue steroids * Continue Tamiflu * Continue IV azithromycin and IV ceftriaxone for pneumonia * TRC nebs as needed. * Dopplers of lower extremity ruled out DVT. CTA could not be done due to her elevated Cr secondary to CKD. * Holding lisinopril, nephro input appreciated. * Patients renal doctor is Dr Garcia( [phone]) at [place]. Renal d/s started in 2009. * Continue sodium bicarbonate tabs * Continue Synthroid. * DVT to prophylaxis with subcutaneous heparin * Regular diet. * Pain control with IV Tylenol as needed. * Patient is full code PLEASE CALL PATIENT'S FATHER STACY RASHID ([phone]) ABOUT ANY CHANGES IN CLINICAL CONDITION/ INTUBATION. HE IS CURRENTLY IN [place]. Problem List: 1. Pneumonia 2. Influenza Pain Ratin Tomorrow's Labs & Rationales: CBC, ICU bundle Plan DVT/Prophylaxis: pharmacological DVT/Prophylaxis: pharmacological
--- NOTE | 2017-03-10 10:57 | PN- Nephrology ---
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 Treated conservatively although did as per the patient get a 2 week course of steroids (traditionally steroids are for 6 months although the efficacy in preserving renal function remains debatable). TREVOR - likely 2/2 ATN in the setting of influenza while on RAAS inhibition. Cannot rule out pre-renal azotemia given n/v and poor PO intake - improving on IVF. Mild rhabdo may be contributing as well - improving on IVF. Fortunately the ibuprofen that she got on presentation did not cause her SCr to go up. Hypernatremia - 2/2 decreased free water intake. Improved on hypotonic fluid. Rhabdomyolysis - Elevated CK in the setting of influenza. Not shocking but may be contributing to TREOVR. Suggestion: -Cont IVF as you are -Cont to hold NILDA-I -Avoid NSAID's Will see PRN Please call [phone] with ?'s Subjective Subjective: Pt on Bipap SCr improved CK elevated Continues on IVF Objective Vital Signs and I&Os Vital Signs Date Time Temp Pulse Resp B/P B/P Pulse O2 O2 Flow FiO2 Mean Ox Delivery Rate 03/10 1042 92 03/10 0827 98.0 88 14 132/86 95 Nasal 90% Cannula 03/10 0809 95 Nasal 90% Cannula 03/10 0800 95 Nasal 90% Cannula 03/10 0400 96 Nasal 90% Cannula 03/10 0009 101 93 03/10 0008 93 Nasal 90% Cannula 03/10 0000 92 Nasal 90% Cannula 03/09 2300 98.7 105 15 118/60 94 Nasal 90% Cannula 03/09 2000 93 Nasal 90% Cannula 03/09 1705 93 Nasal 80% Cannula 03/09 1600 94 Nasal 80% Cannula 03/09 1600 97.6 97 18 120/70 93 Nasal 80% Cannula 03/09 1343 94 Nasal 80% Cannula 03/09 1200 94 Nasal 80% Cannula Intake & Output 03/10 1600 03/10 0400 03/09 1600 03/09 0400 03/08 1600 03/08 0400 Intake Total 1328 1281 5662 944 4131 1000 Output Total 998 1350 2920 382 8857 Balance 330 -69 201 -300 -530 1000 Intake, IV 086 609 5518 600 1520 400 Intake, Oral 720 720 285 0 600 600 Number 0 0 1 Bowel Movements Output, Stool 0 0 Output, Urine 998 1350 4803 174 2800 Patient 286 lb 240 lb Weight Weight Bed scale Measurement Method Physical Exam: Gen - OK appearing, on BIPAP HEENT - supple, BIPAP mask in place CV - RRR, no m/r/g Chest - clear mechanical breath sounds anteriorly Abd - soft, NTND Ext - no edema, warm Neuro - AOX3, grossly nonfocal Current Medications: Current Medications Sig/Nabila Start time Last Medication Dose Route Stop Time Status Admin Acetaminophen 650 MG Q6P PRN 03/06 2215 AC 03/07 PO 1751 Acetaminophen 1,000 MG Q6P PRN 03/06 2215 AC 03/08 IV 2357 Albuterol Sulfate 3 ML EVERY 4 HRS/AWAKE 03/08 1600 AC 03/10 INH 0803 Atorvastatin Calcium 80 MG 1700 03/08 1700 AC 03/09 PO 1734 Azithromycin 500 MG DAILY 03/07 2345 AC 03/10 Sodium Chloride 250 ML IV 0920 Calcium Carbonate 500 MG TID PRN 03/10 0030 AC PO Ceftriaxone Sodium 1,000 MG DAILY 03/06 2215 AC 03/10 IV 0920 Dextrose/Sodium 1,000 ML Q13H 03/08 1430 AC 03/10 Chloride IV 0527 Fish Oil 2,100 MG BID 03/07 1000 AC 03/10 PO 0921 Glycerin 2 SPRAY Q2P PRN 03/09 0745 AC 03/09 PO 0848 Guaifenesin 10 ML Q4-6 PRN PRN 03/08 0445 AC 03/08 PO 0444 Heparin Sodium 5,000 UNIT Q8 03/07 0600 AC 03/10 (Porcine) SC 0527 Ipratropium [place] 2.5 ML EVERY 4 HRS/AWAKE 03/08 1600 AC 03/10 INH 0803 Levothyroxine Sodium 37.5 MCG DAILY 03/09 1000 AC IV Methylprednisolone 40 MG Q6 03/08 1357 AC 03/10 IV 0526 Oseltamivir Phosphate 30 MG DAILY 03/08 1000 AC 03/10 PO 03/10 2214 0921 Sodium Bicarbonate 975 MG BID 03/07 1000 AC 03/10 PO 0920 Results Pertinent Lab Results: Laboratory Tests 03/10 03/10 03/09 0450 0336 1730 Blood Gas pH (7.35 - 7.45 PH) 7.43 pCO2 (35 - 45 TORR) 24 L pO2 (80 - 100 TORR) 78 L HCO3 (21 - 28 MEQ/L) 16 L ABG O2 Sat (Measured) (>96.0 %) 95.0 L P-50 (Temp Corrected) Y Carboxyhemoglobin (1.5 - 5.0 %) 0.3 L O2 Concentration % 90% 40 LPM Temperature (97.0 - 100.0 FARH) 97.4 O2 Delivery Method N/C Chemistry Sodium (137 - 145 mmol/L) 141 146 H Potassium (3.5 - 5.1 mmol/L) 3.8 3.7 Chloride (98 - 107 mmol/L) 109 H 110 H Carbon Dioxide (22 - 30 mmol/L) 17 L 18 L Anion Gap (5 - 16) 16 18 H BUN (7 - 17 mg/dL) 22 H 23 H Creatinine (0.5 - 1.0 mg/dL) 2.4 H 2.6 H Estimated GFR (>60 ml/min) 25 L 22 L BUN/Creatinine Ratio (7 - 25 %) 8.8 Glucose (65 - 99 mg/dL) 208 H Calcium (8.4 - 10.2 mg/dL) 8.2 L Phosphorus (2.5 - 4.5 mg/dL) 3.3 Magnesium (1.6 - 2.3 mg/dL) 1.9 2.0 Total Bilirubin (0.2 - 1.3 mg/dL) 0.2 AST (14 - 36 U/L) 65 H ALT (9 - 52 U/L) 76 H Albumin (3.5 - 5.0 g/dL) 2.7 L Hematology CBC w Diff NO MAN DIFF REQ WBC (4.8 - 10.8 /CUMM) 8.0 RBC (4.20 - 5.40 /CUMM) 4.54 Hgb (12.0 - 16.0 G/DL) 13.6 Hct (37 - 47 %) 40.5 MCV (81.0 - 99.0 FL) 89.1 MCH (27.0 - 31.0 PG) 29.9 RDW (11.5 - 14.5 %) 13.6 Plt Count (130 - 400 /CUMM) 195 MPV (7.4 - 10.4 FL) 9.2 Gran % (42.2 - 75.2 %) 84.3 H Lymphocytes % (20.5 - 51.1 %) 9.9 L Monocytes % (1.7 - 9.3 %) 5.7 Eosinophils % (0 - 5 %) 0 Basophils % (0.0 - 2.0 %) 0.1 Absolute Granulocytes (1.4 - 6.5 /CUMM) 6.7 H Absolute Lymphocytes (1.2 - 3.4 /CUMM) 0.8 L Absolute Monocytes (0.10 - 0.60 /CUMM) 0.5 Absolute Eosinophils (0.0 - 0.7 /CUMM) 0 Absolute Basophils (0.0 - 0.2 /CUMM) 0 PUBS MCHC (33.0 - 37.0 G/DL) 33.5 Miscellaneous Phlebotomy Draw Site RIGHT RADIAL 03/09 03/09 0500 0352 Blood Gas pH (7.35 - 7.45 PH) 7.41 pCO2 (35 - 45 TORR) 26 L pO2 (80 - 100 TORR) 58 L HCO3 (21 - 28 MEQ/L) 16 L ABG O2 Sat (Measured) (>96.0 %) 91.0 L P-50 (Temp Corrected) 4 Carboxyhemoglobin (1.5 - 5.0 %) 0.2 L O2 Concentration % 85% Temperature (97.0 - 100.0 FARH) 97.0 Respiration Rate (BPM) 20 O2 Delivery Method VISION-FFM Vent Mode ST Expiratory Pressure (CM H2O P) 8 Inspiratory Pressure (CM H2O P) 20 Chemistry Sodium (137 - 145 mmol/L) 146 H Potassium (3.5 - 5.1 mmol/L) 4.2 Chloride (98 - 107 mmol/L) 114 H Carbon Dioxide (22 - 30 mmol/L) 17 L Anion Gap (5 - 16) 15 BUN (7 - 17 mg/dL) 23 H Creatinine (0.5 - 1.0 mg/dL) 2.7 H Estimated GFR (>60 ml/min) 21 L Glucose (65 - 99 mg/dL) 211 H Calcium (8.4 - 10.2 mg/dL) 8.6 Phosphorus (2.5 - 4.5 mg/dL) 4.1 Magnesium (1.6 - 2.3 mg/dL) 2.1 Total Bilirubin (0.2 - 1.3 mg/dL) 0.3 AST (14 - 36 U/L) 61 H ALT (9 - 52 U/L) 82 H Creatine Kinase (30 - 135 U/L) 713 H Albumin (3.5 - 5.0 g/dL) 3.0 L Hematology CBC w Diff NO MAN DIFF REQ WBC (4.8 - 10.8 /CUMM) 5.3 RBC (4.20 - 5.40 /CUMM) 5.10 Hgb (12.0 - 16.0 G/DL) 15.1 Hct (37 - 47 %) 45.6 MCV (81.0 - 99.0 FL) 89.3 MCH (27.0 - 31.0 PG) 29.6 RDW (11.5 - 14.5 %) 13.7 Plt Count (130 - 400 /CUMM) 197 MPV (7.4 - 10.4 FL) 9.3 Gran % (42.2 - 75.2 %) 78.8 H Lymphocytes % (20.5 - 51.1 %) 14.9 L Monocytes % (1.7 - 9.3 %) 6.2 Eosinophils % (0 - 5 %) 0 Basophils % (0.0 - 2.0 %) 0.1 Absolute Granulocytes (1.4 - 6.5 /CUMM) 4.2 Absolute Lymphocytes (1.2 - 3.4 /CUMM) 0.8 L Absolute Monocytes (0.10 - 0.60 /CUMM) 0.3 Absolute Eosinophils (0.0 - 0.7 /CUMM) 0 Absolute Basophils (0.0 - 0.2 /CUMM) 0 PUBS MCHC (33.0 - 37.0 G/DL) 33.2 Miscellaneous Phlebotomy Draw Site RIGHT RADIAL 03/08 03/08 1315 1315 Chemistry Sodium (137 - 145 mmol/L) 144 Potassium (3.5 - 5.1 mmol/L) 4.0 Chloride (98 - 107 mmol/L) 109 H Carbon Dioxide (22 - 30 mmol/L) 18 L Anion Gap (5 - 16) 17 H BUN (7 - 17 mg/dL) 21 H Creatinine (0.5 - 1.0 mg/dL) 2.7 H Estimated GFR (>60 ml/min) 21 L Glucose (65 - 99 mg/dL) 113 H Lactic Acid (0.7 - 2.1 mmol/L) 1.1 Calcium (8.4 - 10.2 mg/dL) 8.9 Phosphorus (2.5 - 4.5 mg/dL) 2.8 Magnesium (1.6 - 2.3 mg/dL) 1.9 Total Bilirubin (0.2 - 1.3 mg/dL) 0.2 AST (14 - 36 U/L) 86 H ALT (9 - 52 U/L) 98 H Troponin I (< 0.11 ng/ml) Cancelled 0.02 Albumin (3.5 - 5.0 g/dL) 3.4 L Coagulation PT (9.4 - 12.5 SEC) 11.0 INR (0.90 - 1.19) 1.05 D-Dimer High Sensitivty (0 - 243 ng/ml) 259 H Hematology CBC w Diff MAN DIFF ORDERED WBC (4.8 - 10.8 /CUMM) 7.1 RBC (4.20 - 5.40 /CUMM) 5.19 Hgb (12.0 - 16.0 G/DL) 15.7 Hct (37 - 47 %) 46.1 MCV (81.0 - 99.0 FL) 88.9 MCH (27.0 - 31.0 PG) 30.3 RDW (11.5 - 14.5 %) 13.4 Plt Count (130 - 400 /CUMM) 208 MPV (7.4 - 10.4 FL) 9.1 Gran % (42.2 - 75.2 %) 83.3 H Lymphocytes % (20.5 - 51.1 %) 13.3 L Monocytes % (1.7 - 9.3 %) 3.4 Eosinophils % (0 - 5 %) 0 Basophils % (0.0 - 2.0 %) 0 Absolute Granulocytes (1.4 - 6.5 /CUMM) 5.9 Segmented Neutrophils (42.2 - 75.2 %) 75 Band Neutrophils (0.0 - 5.0 %) 12 H Absolute Lymphocytes (1.2 - 3.4 /CUMM) 0.9 L Lymphocytes (20.5 - 51.1 %) 11 L Monocytes (1.7 - 9.3 %) 2 Absolute Monocytes (0.10 - 0.60 /CUMM) 0.2 Absolute Eosinophils (0.0 - 0.7 /CUMM) 0 Absolute Basophils (0.0 - 0.2 /CUMM) 0 Platelet Estimate (ADEQUATE) ADEQUATE Normocytic RBCs VERIFIED Normochromic RBCs VERIFIED PUBS MCHC (33.0 - 37.0 G/DL) 34.1 03/08 03/08 03/08 1309 1155 0705 Blood Gas pH (7.35 - 7.45 PH) 7.44 pCO2 (35 - 45 TORR) 23 L pO2 (80 - 100 TORR) 49 *L HCO3 (21 - 28 MEQ/L) 16 L ABG O2 Sat (Measured) (>96.0 %) 86.0 L P-50 (Temp Corrected) N Carboxyhemoglobin (1.5 - 5.0 %) 0.2 L O2 Concentration % 100% O2 Delivery Method HFNC WITH 40L FLOW Chemistry Sodium (137 - 145 mmol/L) 143 Potassium (3.5 - 5.1 mmol/L) 3.7 Chloride (98 - 107 mmol/L) 109 H Carbon Dioxide (22 - 30 mmol/L) 19 L Anion Gap (5 - 16) 15 BUN (7 - 17 mg/dL) 23 H Creatinine (0.5 - 1.0 mg/dL) 2.7 H Estimated GFR (>60 ml/min) 21 L BUN/Creatinine Ratio (7 - 25 %) 8.5 Magnesium (1.6 - 2.3 mg/dL) 1.9 Coagulation D-Dimer High Sensitivty Cancelled Miscellaneous Phlebotomy Draw Site LEFT RADIAL Imaging/Other Studies: EXAM TYPE: RAD - XRY-PORTABLE CHEST XRAY EXAMINATION: XR PORTABLE CHEST CLINICAL INFORMATION: Shortness of breath. Pneumonia on ventilator. COMPARISON: Several prior chest x-rays, most recent of which is dated 03/09/2017. TECHNIQUE: Portable AP semierect view of the chest was obtained. FINDINGS: The cardiomediastinal silhouette is enlarged, unchanged.. Low lung volumes are seen with central vascular indistinctness and diffuse perihilar opacities, unchanged when compared to the previous exam. No definite effusion or pneumothorax is seen. Bony structures are unremarkable. IMPRESSION: No interval change in low lung volumes and diffuse bilateral perihilar opacities. Findings may be related to diffuse pneumonia. Clinical correlation requested.
--- NOTE | 2017-03-10 11:49 | PN- CRCU ---
Subjective HPI/Critical Care Issues: The patient is awake and alert. She appears comfortable. She remains on high flow oxygen at 90% with saturations in the mid 90s. Objective Current Medications: Current Medications Sig/Nabila Start time Last Medication Dose Route Stop Time Status Admin Acetaminophen 650 MG Q6P PRN 03/06 2215 AC 03/07 PO 1751 Acetaminophen 1,000 MG Q6P PRN 03/06 2215 AC 03/08 IV 2357 Albuterol Sulfate 3 ML EVERY 4 HRS/AWAKE 03/08 1600 AC 03/10 INH 0803 Atorvastatin Calcium 80 MG 1700 03/08 1700 AC 03/09 PO 1734 Azithromycin 500 MG DAILY 03/07 2345 AC 03/10 Sodium Chloride 250 ML IV 0920 Calcium Carbonate 500 MG TID PRN 03/10 0030 AC PO Ceftriaxone Sodium 1,000 MG DAILY 03/06 2215 AC 03/10 IV 0920 Dextrose/Sodium 1,000 ML Q13H 03/08 1430 AC 03/10 Chloride IV 0527 Fish Oil 2,100 MG BID 03/07 1000 AC 03/10 PO 0921 Glycerin 2 SPRAY Q2P PRN 03/09 0745 AC 03/09 PO 0848 Guaifenesin 10 ML Q4-6 PRN PRN 03/08 0445 AC 03/08 PO 0444 Heparin Sodium 5,000 UNIT Q8 03/07 0600 AC 03/10 (Porcine) SC 0527 Ipratropium [place] 2.5 ML EVERY 4 HRS/AWAKE 03/08 1600 AC 03/10 INH 0803 Levothyroxine Sodium 37.5 MCG DAILY 03/09 1000 AC IV Methylprednisolone 40 MG Q6 03/08 1357 AC 03/10 IV 0526 Oseltamivir Phosphate 30 MG DAILY 03/08 1000 AC 03/10 PO 03/10 2214 0921 Sodium Bicarbonate 975 MG BID 03/07 1000 AC 03/10 PO 0920 Vital Signs & I&O Last 24 Hrs of Vitals and I&O: Vital Signs Date Time Temp Pulse Resp B/P B/P Pulse O2 O2 Flow FiO2 Mean Ox Delivery Rate 03/10 0827 98.0 88 14 132/86 95 Nasal 90% Cannula 03/10 0809 95 Nasal 90% Cannula 03/10 0800 95 Nasal 90% Cannula 03/10 0400 96 Nasal 90% Cannula 03/10 0009 101 93 03/10 0008 93 Nasal 90% Cannula 03/10 0000 92 Nasal 90% Cannula 03/09 2300 98.7 105 15 118/60 94 Nasal 90% Cannula 03/09 2000 93 Nasal 90% Cannula 03/09 1705 93 Nasal 80% Cannula 03/09 1600 94 Nasal 80% Cannula 03/09 1600 97.6 97 18 120/70 93 Nasal 80% Cannula 03/09 1343 94 Nasal 80% Cannula 03/09 1200 94 Nasal 80% Cannula Intake & Output 03/10 1600 03/10 0800 03/10 0000 Intake Total 1328 1281 Output Total 998 1350 Balance 330 -69 Intake, IV 608 561 Intake, Oral 720 720 Number 0 Bowel Movements Output, Stool 0 Output, Urine 998 1350 Patient 286 lb Weight Weight Bed scale Measurement Method Impression/Plan Impression/Plan Impression/Plan: 1. Hypoxemic respiratory failure secondary to influenza. Need to be concerned regarding the development of ARDS. 2. Probable obesity hypoventilation syndrome. 3. Probable obstructive sleep apnea, undiagnosed. 4. Hypernatremia. 5. History of chronic kidney disease secondary to IgA nephropathy. 6. History of hypothyroidism. 7. Exercise-induced asthma, evidence of bronchospasm during this admission. Recommendations: * Follow up ECHO results this AM, r/o RV strain. We will consider empiric anticoagulation if there is evidence of right ventricular strain. * Resend urine for strep pneumo and Legionella. * Continue to monitor culture results. * Continue Tamiflu, ceftriaxone and azithromycin. * We will continue the patient on BiPAP. Will attempt to wean oxygen down for saturations greater than 92%. Can switch off to high flow if patient tolerates. * Continue nebs/TRC. * If the patient is saturating well on high flow oxygen, can slowly advance diet. * If the patient is saturating well on high flow, can consider sending her down for a CT of the chest, noncontrast. * Renal consulted yesterday, follow up recommendations. * Continue D5W/half-normal saline. Monitor labs every 12 hours today to ensure serum sodium is not increasing. Monitor all electrolytes and replete as necessary. * Continue Synthroid at current dosing. * Subcutaneous heparin/DVT prophylaxis at all times. * Continue to monitor closely in the critical care unit. * I discussed the plan of care with the housestaff at length, I requested they contact me if the patient's condition changes or deteriorates. We have a low threshold for intubation as previously mentioned.
[2017-03-10 12:00] VITALS: BP 124/88
--- NOTE | 2017-03-10 14:01 | Cons- Infect Disease ---
General Information and HPI Consulting Request Date of Consult: 03/10/17 Requested By: Earlene Schaefer MD Reason for Consult: Influenza/pneumonia Source of Information: patient History of Present Illness: This is a 26-year-old woman with a history of asthma, chronic kidney disease and hypothyroidism, diagnosed with Influenza A on the morning of admission at a walk -in clinic after presenting with 3 days of cough and fatigue, admitted on March 06 because of hypoxia. On admission she was febrile to 102. Laboratory data revealed a white blood cell count of 8000, BUN/creatinine 27 and 3.5, lactic acid 1.7. Chest x-ray revealed a left lower lobe density. She was initially given a dose of Clindamycin and was then changed to Ceftriaxone and Azithromycin. She was also begun on Tamiflu and Solumedrol. On March 08 she became more hypoxic, requiring transfer to the ICU and treatment with BiPAP. She has been transitioned to high flow oxygen and feels improved over the past 2 days. She has defervesced (on steroids) and her white blood cell count has remained normal. At present she offers no new complaints. Allergies/Medications Allergies: Coded Allergies: cefazolin (Intermediate, HIVES 03/06/17) clarithromycin (Intermediate, HIVES 03/06/17) Home Med List: Levothyroxine Sodium (Synthroid) 75 MCG TABLET 1 TAB PO DAILY HYPOTHYROIDISM (Reported) Lisinopril 10 MG TABLET 1 TAB PO DAILY HTN (Reported) Lisinopril (Zestril) (Unknown Strength) TABLET (Unknown Dose) PO DAILY BP ( Reported) Coral-3 Fatty Acids/Fish Oil (Fish Oil 1,000 MG Softgel) (Unknown Strength) CAPSULE (Unknown Dose) PO BID SUPPLEMENT (Reported) Sodium Bicarbonate 650 MG TABLET 1.5 TAB PO BID CKD (Reported) 1000 MG BID Sodium Bicarbonate (Unknown Strength) TABLET (Unknown Dose) PO BID KIDNEYS ( Reported) Past History Travel History Traveled to [place] past 21 day No Medical History Blood Transfusion Hx: No Neurological: NONE EENT: NONE Cardiovascular: NONE Respiratory: asthma Gastrointestinal: irritable bowel syndrome Hepatic: NONE Renal: chronic kidney disease Musculoskeletal: NONE Psychiatric: NONE Endocrine: HYPOTHYROID Blood Disorders: NONE Cancer(s): NONE 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 Home Services at Home: None Smoking Status: Never Smoked ETOH Use: denies use Illicit Drug Use: denies illicit drug use Functional Ability ADLs Independent: dressing, eating, toileting, bathing. Ambulation: independent IADLs Independent: shopping, housework, finances, food prep, telephone, transportation , medication admin. Review of Systems Review of Systems All Other Systems: Reviewed and Negative Exam & Diagnostic Data Last 24 Hrs of Vital Signs/I&O Vital Signs Date Time Temp Pulse Resp B/P B/P Pulse O2 O2 Flow FiO2 Mean Ox Delivery Rate 03/10 1200 93 Nasal 85% Cannula 03/10 1200 97.3 88 20 124/88 93 Nasal 85% Cannula 03/10 1042 92 03/10 0827 98.0 88 14 132/86 95 Nasal 90% Cannula 03/10 0809 95 Nasal 90% Cannula 03/10 0800 95 Nasal 90% Cannula 03/10 0400 96 Nasal 90% Cannula 03/10 0009 101 93 03/10 0008 93 Nasal 90% Cannula 03/10 0000 92 Nasal 90% Cannula 03/09 2300 98.7 105 15 118/60 94 Nasal 90% Cannula 03/09 2000 93 Nasal 90% Cannula 03/09 1705 93 Nasal 80% Cannula 03/09 1600 94 Nasal 80% Cannula 03/09 1600 97.6 97 18 120/70 93 Nasal 80% Cannula Intake & Output 03/10 1600 03/10 0800 03/10 0000 Intake Total 1328 1281 Output Total 998 1350 Balance 330 -69 Intake, IV 608 561 Intake, Oral 720 720 Number 0 Bowel Movements Output, Stool 0 Output, Urine 998 1350 Patient 286 lb Weight Weight Bed scale Measurement Method Physical Exam Other Physical Findings: Afebrile on steroids. She is awake and alert in moderate respiratory distress on high flow oxygen. Skin reveals no rash. HEENT negative. Neck is supple with no adenopathy. Lungs are clear. Heart regular rhythm with no murmur. Abdomen is obese, soft, nontender with positive bowel sounds. Back no CVA tenderness. Extremities trace pedal edema both lower extremities. Neuro is without focality. Cruz catheter is in place. Last 24 Hours of Lab Results: Laboratory Tests 03/10 03/10 03/09 8479 0047 5163 Blood Gas pH (7.35 - 7.45 PH) 7.43 pCO2 (35 - 45 TORR) 24 L pO2 (80 - 100 TORR) 78 L HCO3 (21 - 28 MEQ/L) 16 L ABG O2 Sat (Measured) (>96.0 %) 95.0 L P-50 (Temp Corrected) Y Carboxyhemoglobin (1.5 - 5.0 %) 0.3 L O2 Concentration % 90% 40 LPM Temperature (97.0 - 100.0 FARH) 97.4 O2 Delivery Method N/C Chemistry Sodium (137 - 145 mmol/L) 141 146 H Potassium (3.5 - 5.1 mmol/L) 3.8 3.7 Chloride (98 - 107 mmol/L) 109 H 110 H Carbon Dioxide (22 - 30 mmol/L) 17 L 18 L Anion Gap (5 - 16) 16 18 H BUN (7 - 17 mg/dL) 22 H 23 H Creatinine (0.5 - 1.0 mg/dL) 2.4 H 2.6 H Estimated GFR (>60 ml/min) 25 L 22 L BUN/Creatinine Ratio (7 - 25 %) 8.8 Glucose (65 - 99 mg/dL) 208 H Calcium (8.4 - 10.2 mg/dL) 8.2 L Phosphorus (2.5 - 4.5 mg/dL) 3.3 Magnesium (1.6 - 2.3 mg/dL) 1.9 2.0 Total Bilirubin (0.2 - 1.3 mg/dL) 0.2 AST (14 - 36 U/L) 65 H ALT (9 - 52 U/L) 76 H Creatine Kinase (30 - 135 U/L) 615 H [id number] Pept (<125 pg/mL) 68.8 Albumin (3.5 - 5.0 g/dL) 2.7 L Hematology CBC w Diff NO MAN DIFF REQ WBC (4.8 - 10.8 /CUMM) 8.0 RBC (4.20 - 5.40 /CUMM) 4.54 Hgb (12.0 - 16.0 G/DL) 13.6 Hct (37 - 47 %) 40.5 MCV (81.0 - 99.0 FL) 89.1 MCH (27.0 - 31.0 PG) 29.9 RDW (11.5 - 14.5 %) 13.6 Plt Count (130 - 400 /CUMM) 195 MPV (7.4 - 10.4 FL) 9.2 Gran % (42.2 - 75.2 %) 84.3 H Lymphocytes % (20.5 - 51.1 %) 9.9 L Monocytes % (1.7 - 9.3 %) 5.7 Eosinophils % (0 - 5 %) 0 Basophils % (0.0 - 2.0 %) 0.1 Absolute Granulocytes (1.4 - 6.5 /CUMM) 6.7 H Absolute Lymphocytes (1.2 - 3.4 /CUMM) 0.8 L Absolute Monocytes (0.10 - 0.60 /CUMM) 0.5 Absolute Eosinophils (0.0 - 0.7 /CUMM) 0 Absolute Basophils (0.0 - 0.2 /CUMM) 0 PUBS MCHC (33.0 - 37.0 G/DL) 33.5 Miscellaneous Phlebotomy Draw Site RIGHT RADIAL Last 24 Hours of Michael Results: Blood cultures 2 March 06 negative Urine culture March 08 negative Urine strep pneumo antigen and Legionella antigen March 09 negative Rapid flu swab March 09 negative Diagnostic Data Recent Imaging Findings: Chest x-ray March 10 reveals diffuse bilateral perihilar opacities CT of the chest March 09 reveals diffuse bilateral ground glass opacities with no pleural effusions Dopplers of both lower extremities March 08 negative Assessment/Plan Assessment/Plan Impression: This is a 26-year-old woman with a history of asthma, chronic kidney disease and hypothyroidism, diagnosed with Influenza A on the morning of admission, admitted on March 06 because of hypoxia, found to be febrile with a normal white blood cell count and with a left lower lobe density on chest x-ray, treated with Tamiflu, broad-spectrum antibiotics and steroids, with initial deterioration in her respiratory status but with improvement over the past 2 days. Her presentation is consistent with Influenza pneumonia and, though a bacterial superinfection is possible, the progression of her respiratory symptoms without improvement in between and her normal white blood cell count suggests that this is a primary influenza pneumonia. She has received 4 days of Tamiflu to date and this can be continued, though, given her obesity and severe presentation, an increased dose, after taking into consideration her renal insufficiency, could be considered. The role or need for antibiotics at this point is unclear and can likely discontinue them after she has completed a 5 day course. Suggestion: 1. Remove Cruz catheter 2. Increase Tamiflu to 75 mg po every 12 hours 3. Continue Ceftriaxone and Azithromycin Consult Acknowledgment - Thank you for your consult request.
[2017-03-10 16:00] VITALS: BP 128/70
[2017-03-10 23:00] VITALS: BP 131/64
[2017-03-11 04:57] LABS: ABSOLUTE BASOPHIL COUNT 0 /CUMM (0.0-0.2); ABSOLUTE EOSINOPHIL COUNT 0 /CUMM (0.0-0.7); ABSOLUTE GRANULOCYTE CT 7.4 /CUMM (1.4-6.5); ABSOLUTE LYMPH COUNT 1.1 /CUMM (1.2-3.4); ABSOLUTE MONOCYTE COUNT 0.9 /CUMM (0.10-0.60); BASOPHIL % 0.1 % (0.0-2.0); EOSINOPHIL % 0 % (0-5); GRANULOCYTE % 78.4 % (42.2-75.2); HEMATOCRIT 41.6 % (37-47); MEAN CORPUSCULAR HGB CONC 33.9 G/DL (33.0-37.0); MEAN CORPUSCULAR VOLUME 88.5 FL (81.0-99.0); MEAN PLATELET VOLUME 9.4 FL (7.4-10.4); PLATELET COUNT 215 /CUMM (130-400); RBC DISTRIBUTION WIDTH 13.1 % (11.5-14.5); WHITE BLOOD CELL COUNT 9.4 /CUMM (4.8-10.8)
--- NOTE | 2017-03-11 07:07 | PN- Resident CRCU ---
Subjective HPI/CRCU Issues: Influenza Dyspnea 24 Hour Events: Patient has been doing reasonably well on high flow oxygen though her requirements continues to be high. Currently on 90%. Slept comfortably overnight. Feels much better than yesterday. Offers no complaints. Objective Vital Signs & I&O Last 8 Hrs of Vitals and I&O: Intake & Output 03/11 1600 Intake Total Output Total Balance Patient 286 lb Weight Weight Bed scale Measurement Method Exam General Appearance: no apparent distress, alert, awake, comfortable Head: atraumatic, normal appearance Neck: supple Respiratory: normal breath sounds, chest non-tender, lungs clear Cardiovascular: regular rate/rhythm Gastrointestinal: soft, non-tender Extremities: normal inspection, no edema Skin: intact, normal color Skin Temp/Moisture Exam: Warm/Dry Sepsis Skin Exam (color): Normal for Ethnicity Current Medications: Current Medications Sig/Nabila Start time Last Medication Dose Route Stop Time Status Admin Acetaminophen 650 MG Q6P PRN 03/06 2215 AC 03/11 PO 1140 Acetaminophen 1,000 MG Q6P PRN 03/06 2215 AC 03/08 IV 2357 Albuterol Sulfate 3 ML EVERY 4 HRS/AWAKE 03/08 1600 AC 03/11 INH 1209 Atorvastatin Calcium 80 MG 1700 03/08 1700 AC 03/10 PO 1747 Azithromycin 500 MG DAILY 03/07 2345 DC 03/11 Sodium Chloride 250 ML IV 0907 Calcium Carbonate 500 MG TID PRN 03/10 0030 AC PO Ceftriaxone Sodium 1,000 MG DAILY 03/06 2215 DC 03/11 IV 0907 Fish Oil 2,100 MG BID 03/07 1000 AC 03/11 PO 0908 Glycerin 2 SPRAY Q2P PRN 03/09 0745 AC 03/09 PO 0848 Guaifenesin 10 ML Q4-6 PRN PRN 03/08 0445 AC 03/08 PO 0444 Heparin Sodium 5,000 UNIT Q8 03/07 0600 AC 03/11 (Porcine) SC 1420 Ipratropium [place] 2.5 ML EVERY 4 HRS/AWAKE 03/08 1600 AC 03/11 INH 1209 Levothyroxine Sodium 0.075 MG DAILY AC 03/11 0700 AC 03/11 PO 0624 Methylprednisolone 40 MG Q8 03/11 1400 DC IV Methylprednisolone 40 MG Q6 03/11 1200 AC 03/11 IV 1140 Methylprednisolone 40 MG Q6 01/16 1357 DC 03/11 IV 0519 Oseltamivir Phosphate 75 MG BID 03/10 2200 AC 03/11 PO 03/14 2159 0907 Sodium Bicarbonate 975 MG BID 03/07 1000 AC 03/11 PO 0908 Impression/Plan Impression/Problem List Impression: 26 yo morbidly obese F with h/o 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 Was being treated on the general medicine floor with Tamiflu and IV ceftriaxone and azithromycin. Transferred to ICU on 03/08/2017 for worsening respiratory status and hypoxia. Assessment * Acute hypoxaemic respiratory failure secondary to influenza complicated with left lower lobe pneumonia. * Influenza A positive * Acute on chronic kidney disease stage III due to IgA nephropathy * History of Exercise induced Asthma * History of hypothyroidism * ? CL Plan * Continue monitoring in ICU * Vitals per protocol * BiPAP use nocturnally. * Currently started on high flow oxygen at 90%. Doing well. If deteriorates, she will need to go back on BiPAP. * Urine strep pneumo and legionella - negative * Echo - Normal LVEF >60%. No evidence of right heart strain. * Continue IV methylprednisone 40mg q6 at current dose. Will taper from tomorrow. * Continue Tamiflu * Antibiotics discontinued. * TRC nebs as needed. * Dopplers of lower extremity ruled out DVT. CTA could not be done due to her elevated Cr secondary to CKD. * Holding lisinopril, nephro input appreciated. * Patients renal doctor is Dr Garcia( [phone]) at [facility]. Renal d/s started in 2009. * Continue sodium bicarbonate tabs * Continue Synthroid. * DVT to prophylaxis with subcutaneous heparin * Regular diet. * Pain control with IV Tylenol as needed. * Patient is full code PLEASE CALL PATIENT'S FATHER STACY RASHID ) ABOUT ANY CHANGES IN CLINICAL CONDITION/ INTUBATION. HE IS CURRENTLY IN [place]. Problem List: 1. Influenza Pain Ratin Tomorrow's Labs & Rationales: CBC, ICU bundle Plan DVT/Prophylaxis: pharmacological
[2017-03-11 08:00] VITALS: BP 133/75
--- NOTE | 2017-03-11 08:45 | PN- CRCU ---
Subjective HPI/Critical Care Issues: The patient continues to switch from BiPAP at high flow with adequate saturations. She continues to refuse intubation. There were no overnight events reported by staff. Objective Current Medications: Current Medications Sig/Nabila Start time Last Medication Dose Route Stop Time Status Admin Acetaminophen 650 MG Q6P PRN 03/06 2215 AC 03/07 PO 1751 Acetaminophen 1,000 MG Q6P PRN 03/06 2215 AC 03/08 IV 2357 Albuterol Sulfate 3 ML EVERY 4 HRS/AWAKE 03/08 1600 AC 03/11 INH 0826 Atorvastatin Calcium 80 MG 1700 03/08 1700 AC 03/10 PO 1747 Azithromycin 500 MG DAILY 03/07 2345 AC 03/10 Sodium Chloride 250 ML IV 0920 Calcium Carbonate 500 MG TID PRN 03/10 0030 AC PO Ceftriaxone Sodium 1,000 MG DAILY 03/06 2215 AC 03/10 IV 0920 Fish Oil 2,100 MG BID 03/07 1000 AC 03/10 PO 2110 Glycerin 2 SPRAY Q2P PRN 03/09 0745 AC 03/09 PO 0848 Guaifenesin 10 ML Q4-6 PRN PRN 03/08 0445 AC 03/08 PO 0444 Heparin Sodium 5,000 UNIT Q8 03/07 0600 AC 03/11 (Porcine) SC 0519 Ipratropium [place] 2.5 ML EVERY 4 HRS/AWAKE 03/08 1600 AC 03/11 INH 0826 Levothyroxine Sodium 0.075 MG DAILY AC 03/11 0700 AC 03/11 PO 0624 Levothyroxine Sodium 37.5 MCG DAILY 03/09 1000 DC 03/10 IV 1130 Methylprednisolone 40 MG Q8 03/11 1400 AC IV Methylprednisolone 40 MG Q6 03/08 1357 DC 03/11 IV 0519 Oseltamivir Phosphate 75 MG BID 03/10 2200 AC 03/10 PO 03/14 2159 2110 Oseltamivir Phosphate 30 MG DAILY 03/08 1000 DC 03/10 PO 03/10 2214 0921 Sodium Bicarbonate 975 MG BID 03/07 1000 AC 03/10 PO 2109 Vital Signs & I&O Last 24 Hrs of Vitals and I&O: Vital Signs Date Time Temp Pulse Resp B/P B/P Pulse O2 O2 Flow FiO2 Mean Ox Delivery Rate 03/11 0829 97 Nasal 95% Cannula 03/11 0800 97.8 89 23 133/75 95 Nasal 95% Cannula 03/11 0400 96 BIPAP 100% 03/11 0321 85 94 03/11 0005 90 03/11 0000 90 BIPAP 100% 03/10 2300 97.4 91 41 131/64 90 BIPAP 100% 03/10 2208 94 91 03/10 2000 92 Nasal 85% Cannula 03/10 1654 93 Nasal 85% Cannula 03/10 1600 91 Nasal 85% Cannula 03/10 1600 97.4 90 20 128/70 91 Nasal 85% Cannula 03/10 1200 93 Nasal 85% Cannula 03/10 1200 97.3 88 20 124/88 93 Nasal 85% Cannula 03/10 1042 92 Intake & Output 03/11 1600 03/11 0800 03/11 0000 Intake Total 240 1600 Output Total 951 2325 Balance -711 -725 Intake, IV 0 420 Intake, Oral 240 1180 Number 0 Bowel Movements Output, Stool 1 Output, Urine 950 2325 Patient 286 lb Weight Weight Bed scale Measurement Method Exam General Appearance: no apparent distress, alert, awake, comfortable, on BIPAP Head: atraumatic, normal appearance Neck: supple Respiratory: no respiratory distress, quiet respiration, trachea midline, clear anteriorly Cardiovascular: regular rate/rhythm, tachycardia improved Abdomen: normal bowel sounds, soft, non-tender Extremities: no edema Skin: intact, normal color, warm/dry Impression/Plan Impression/Plan Impression/Plan: 1. Hypoxemic respiratory failure secondary to influenza. Need to be concerned regarding the development of ARDS. CT shows GGOs. ID, cardiology and nephrology consulted for possible intervention and additional recommendations. 2. Probable obesity hypoventilation syndrome. 3. Probable obstructive sleep apnea, undiagnosed. 4. Hypernatremia. 5. History of chronic kidney disease secondary to IgA nephropathy. 6. History of hypothyroidism. 7. Exercise-induced asthma, evidence of bronchospasm during this admission. Recommendations: * Follow up ECHO results this AM, r/o RV strain. We will consider empiric anticoagulation if there is evidence of right ventricular strain. * Resend urine for strep pneumo and Legionella. * Continue to monitor culture results. * Continue Tamiflu, ceftriaxone and azithromycin. * We will continue the patient on BiPAP. Will attempt to wean oxygen down for saturations greater than 92%. Can switch off to high flow if patient tolerates. * Continue nebs/TRC. * If the patient is saturating well on high flow oxygen, can slowly advance diet. * If the patient is saturating well on high flow, can consider sending her down for a CT of the chest, noncontrast. * Renal consulted yesterday, follow up recommendations. * Continue D5W/half-normal saline. Monitor labs every 12 hours today to ensure serum sodium is not increasing. Monitor all electrolytes and replete as necessary. * Continue Synthroid at current dosing. * Subcutaneous heparin/DVT prophylaxis at all times. * Continue to monitor closely in the critical care unit. * I discussed the plan of care with the housestaff at length, I requested they contact me if the patient's condition changes or deteriorates. We have a low threshold for intubation as previously mentioned.
--- NOTE | 2017-03-11 10:00 | PN- Infect Dx ---
Subjective Subjective: Afebrile on steroids. She feels improved with no complaints at this time. She apparently desaturated last night though she was without complaints at the time. Objective Last 24 Hrs of Vital Signs/I&O Vital Signs Date Time Temp Pulse Resp B/P B/P Pulse O2 O2 Flow FiO2 Mean Ox Delivery Rate 03/11 0829 97 Nasal 95% Cannula 03/11 0800 95 Nasal 95% Cannula 03/11 0800 97.8 89 23 133/75 95 Nasal 95% Cannula 03/11 0400 96 BIPAP 100% 03/11 0321 85 94 03/11 0005 90 03/11 0000 90 BIPAP 100% 03/10 2300 97.4 91 41 131/64 90 BIPAP 100% 03/10 2208 94 91 03/10 2000 92 Nasal 85% Cannula 03/10 1654 93 Nasal 85% Cannula 03/10 1600 91 Nasal 85% Cannula 03/10 1600 97.4 90 20 128/70 91 Nasal 85% Cannula 03/10 1200 93 Nasal 85% Cannula 03/10 1200 97.3 88 20 124/88 93 Nasal 85% Cannula 03/10 1042 92 Intake & Output 03/11 1600 03/11 0800 03/11 0000 Intake Total 240 1600 Output Total 951 2325 Balance -711 -725 Intake, IV 0 420 Intake, Oral 240 1180 Number 0 Bowel Movements Output, Stool 1 Output, Urine 950 2325 Patient 286 lb Weight Weight Bed scale Measurement Method Physical Exam Other Physical Findings: She appears comfortable in no acute distress on high flow oxygen Lungs are clear Heart regular rhythm with no murmur Abdomen is obese, soft, nontender with positive bowel sounds Extremities no cyanosis, clubbing or edema Results Last 24 Hours of Lab Results: Laboratory Tests 03/11 03/11 0334 0000 Blood Gas pH (7.35 - 7.45 PH) 7.43 pCO2 (35 - 45 TORR) 29 L pO2 (80 - 100 TORR) 59 L HCO3 (21 - 28 MEQ/L) 19 L ABG O2 Sat (Measured) (>96.0 %) 91.0 L P-50 (Temp Corrected) Y Carboxyhemoglobin (1.5 - 5.0 %) 0.3 L O2 Concentration % 100% Temperature (97.0 - 100.0 FARH) 97.4 Respiration Rate (BPM) 20 O2 Delivery Method VISION-FFM Vent Mode ST Expiratory Pressure (CM H2O P) 6 Inspiratory Pressure (CM H2O P) 20 Chemistry Sodium (137 - 145 mmol/L) 142 Potassium (3.5 - 5.1 mmol/L) 4.0 Chloride (98 - 107 mmol/L) 109 H Carbon Dioxide (22 - 30 mmol/L) 20 L Anion Gap (5 - 16) 14 BUN (7 - 17 mg/dL) 24 H Creatinine (0.5 - 1.0 mg/dL) 2.2 H Estimated GFR (>60 ml/min) 27 L Glucose (65 - 99 mg/dL) 223 H Calcium (8.4 - 10.2 mg/dL) 8.4 Phosphorus (2.5 - 4.5 mg/dL) 4.2 Magnesium (1.6 - 2.3 mg/dL) 2.1 Total Bilirubin (0.2 - 1.3 mg/dL) 0.2 AST (14 - 36 U/L) 69 H ALT (9 - 52 U/L) 95 H Albumin (3.5 - 5.0 g/dL) 2.8 L Hematology CBC w Diff NO MAN DIFF REQ WBC (4.8 - 10.8 /CUMM) 9.4 RBC (4.20 - 5.40 /CUMM) 4.70 Hgb (12.0 - 16.0 G/DL) 14.1 Hct (37 - 47 %) 41.6 MCV (81.0 - 99.0 FL) 88.5 MCH (27.0 - 31.0 PG) 30.0 RDW (11.5 - 14.5 %) 13.1 Plt Count (130 - 400 /CUMM) 215 MPV (7.4 - 10.4 FL) 9.4 Gran % (42.2 - 75.2 %) 78.4 H Lymphocytes % (20.5 - 51.1 %) 11.6 L Monocytes % (1.7 - 9.3 %) 9.9 H Eosinophils % (0 - 5 %) 0 Basophils % (0.0 - 2.0 %) 0.1 Absolute Granulocytes (1.4 - 6.5 /CUMM) 7.4 H Absolute Lymphocytes (1.2 - 3.4 /CUMM) 1.1 L Absolute Monocytes (0.10 - 0.60 /CUMM) 0.9 H Absolute Eosinophils (0.0 - 0.7 /CUMM) 0 Absolute Basophils (0.0 - 0.2 /CUMM) 0 PUBS MCHC (33.0 - 37.0 G/DL) 33.9 Miscellaneous Phlebotomy Draw Site RIGHT RADIAL Last 24 Hours of Michael Results: No new cultures Assessment/Plan Impression: Stable on Tamiflu Day 5 of treatment for probable Influenza pneumonia, with temperatures and white blood cell count remaining normal on steroids. She remains on Ceftriaxone and Azithromycin Day 5, but, with little evidence for a bacterial superinfection, feel that the antibiotics can be discontinued. Her renal function continues to improve and appears to be close to her baseline. Suggestion: 1. Remove Cruz catheter 2. Taper steroids 3. Discontinue Ceftriaxone and Azithromycin 4. Continue Tamiflu
--- NOTE | 2017-03-11 10:06 | Cons- Cardiology ---
General Information and HPI Consulting Request Date of Consult: 03/11/17 Requested By: Earlene Schaefer MD Source of Information: patient, old records History of Present Illness: Ms. Scott is a 26-year-old lady with past medical history significant for exercise-induced asthma, chronic kidney disease stage III and hypothyroidism presents with productive cough and shortness of breath which started this . According to the patient, she was in her usual state of health until when she started having productive cough and shortness of breath and had one episode of nonbloody vomiting on Tuesday. 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 Over the weekend she felt very weak and has been sleeping for most of the time. On Tuesday she noticed a change in the color( bloody/brown) of sputum which got her concerned and she decided to go to an urgent care clinic who sent her to the ER because of positive flu test and low O2 sats(83%). Since the patient has been not improving, I was asked to see the patient to rule out the possibility of any underlying cardiac issues such ans CHF, etc. At the moment the patient is lying in bed. somewhat dyspneic but comfortable and denies any other cardiac symptoms or any known cardiac issues or history. Allergies/Medications Allergies: Coded Allergies: cefazolin (Intermediate, HIVES 03/06/17) clarithromycin (Intermediate, HIVES 03/06/17) Home Med List: Levothyroxine Sodium (Synthroid) 75 MCG TABLET 1 TAB PO DAILY HYPOTHYROIDISM (Reported) Lisinopril 10 MG TABLET 1 TAB PO DAILY HTN (Reported) Lisinopril (Zestril) (Unknown Strength) TABLET (Unknown Dose) PO DAILY BP ( Reported) [place]-3 Fatty Acids/Fish Oil (Fish Oil 1,000 MG Softgel) (Unknown Strength) CAPSULE (Unknown Dose) PO BID SUPPLEMENT (Reported) Sodium Bicarbonate 650 MG TABLET 1.5 TAB PO BID CKD (Reported) 1000 MG BID Sodium Bicarbonate (Unknown Strength) TABLET (Unknown Dose) PO BID KIDNEYS ( Reported) Current Medications: Current Medications Sig/Nabila Start time Last Medication Dose Route Stop Time Status Admin Acetaminophen 650 MG Q6P PRN 03/06 2215 AC 01/15 PO 1751 Acetaminophen 1,000 MG Q6P PRN 03/06 2215 AC 03/08 IV 2357 Albuterol Sulfate 3 ML EVERY 4 HRS/AWAKE 03/08 1600 AC 03/11 INH 0826 Atorvastatin Calcium 80 MG 1700 03/08 1700 AC 03/10 PO 1747 Azithromycin 500 MG DAILY 03/07 2345 AC 03/11 Sodium Chloride 250 ML IV 0907 Calcium Carbonate 500 MG TID PRN 03/10 0030 AC PO Ceftriaxone Sodium 1,000 MG DAILY 03/06 2215 AC 03/11 IV 0907 Fish Oil 2,100 MG BID 03/07 1000 AC 03/11 PO 0908 Glycerin 2 SPRAY Q2P PRN 03/09 0745 AC 03/09 PO 0848 Guaifenesin 10 ML Q4-6 PRN PRN 03/08 0445 AC 03/08 PO 0444 Heparin Sodium 5,000 UNIT Q8 03/07 0600 AC 03/11 (Porcine) SC 0519 Ipratropium [place] 2.5 ML EVERY 4 HRS/AWAKE 03/08 1600 AC 03/11 INH 0826 Levothyroxine Sodium 0.075 MG DAILY AC 03/11 0700 AC 03/11 PO 0624 Levothyroxine Sodium 37.5 MCG DAILY 03/09 1000 DC 03/10 IV 1130 Methylprednisolone 40 MG Q8 03/11 1400 AC IV Methylprednisolone 40 MG Q6 03/08 1357 DC 03/11 IV 0519 Oseltamivir Phosphate 75 MG BID 03/10 2200 AC 03/11 PO 03/14 2159 0907 Oseltamivir Phosphate 30 MG DAILY 03/08 1000 DC 03/10 PO 03/10 2214 0921 Sodium Bicarbonate 975 MG BID 03/07 1000 AC 03/11 PO 0908 Past History Travel History Traveled to [place] past 21 day No Medical History Blood Transfusion Hx: No Neurological: NONE EENT: NONE Cardiovascular: NONE Respiratory: asthma Gastrointestinal: irritable bowel syndrome Hepatic: NONE Renal: chronic kidney disease Musculoskeletal: NONE Psychiatric: NONE Endocrine: HYPOTHYROID Blood Disorders: NONE Cancer(s): NONE 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 Home Services at Home: None Smoking Status: Never Smoked ETOH Use: denies use Illicit Drug Use: denies illicit drug use Functional Ability ADLs Independent: dressing, eating, toileting, bathing. Ambulation: independent IADLs Independent: shopping, housework, finances, food prep, telephone, transportation , medication admin. Exam & Diagnostic Data Vital Signs and I&O Vital Signs Date Time Temp Pulse Resp B/P B/P Pulse O2 O2 Flow FiO2 Mean Ox Delivery Rate 03/11 0829 97 Nasal 95% Cannula 03/11 0800 95 Nasal 95% Cannula 03/11 0800 97.8 89 23 133/75 95 Nasal 95% Cannula 03/11 0400 96 BIPAP 100% 03/11 0321 85 94 03/11 0005 90 03/11 0000 90 BIPAP 100% 03/10 2300 97.4 91 41 131/64 90 BIPAP 100% 03/10 2208 94 91 03/10 2000 92 Nasal 85% Cannula 03/10 1654 93 Nasal 85% Cannula 03/10 1600 91 Nasal 85% Cannula 03/10 1600 97.4 90 20 128/70 91 Nasal 85% Cannula 03/10 1200 93 Nasal 85% Cannula 03/10 1200 97.3 88 20 124/88 93 Nasal 85% Cannula 03/10 1042 92 Intake & Output 03/11 1600 03/11 0800 03/11 0000 03/10 1600 03/10 0800 03/10 0000 Intake Total 240 1600 1763 1328 1281 Output Total 951 2325 2450 998 1350 Balance -711 -725 -687 330 -69 Intake, IV 0 420 723 608 561 Intake, Oral 240 1180 1040 720 720 Number 0 0 Bowel Movements Output, Stool 1 0 Output, Urine 950 2325 2450 998 1350 Patient 286 lb 286 lb Weight Weight Bed scale Bed scale Measurement Method Physical Exam: General Appearance Alert, Oriented X3, Cooperative, No Acute Distress, morbidly obese Skin NoRMAL HEENT Atraumatic, PERRLA, EOMI, dry mucous membranes Cardiovascular Regular Rate, Normal S1, Normal S2, No Murmurs Lungs rhonchi/wheezing bilaterally Abdomen Normal Bowel Sounds, Soft, No Tenderness Extremities No Clubbing, No Cyanosis, No Edema, Normal Pulses Labs/Michael Results: Laboratory Tests 03/11 03/11 0334 0000 Blood Gas pH (7.35 - 7.45 PH) 7.43 pCO2 (35 - 45 TORR) 29 L pO2 (80 - 100 TORR) 59 L HCO3 (21 - 28 MEQ/L) 19 L ABG O2 Sat (Measured) (>96.0 %) 91.0 L P-50 (Temp Corrected) Y Carboxyhemoglobin (1.5 - 5.0 %) 0.3 L O2 Concentration % 100% Temperature (97.0 - 100.0 FARH) 97.4 Respiration Rate (BPM) 20 O2 Delivery Method VISION-FFM Vent Mode ST Expiratory Pressure (CM H2O P) 6 Inspiratory Pressure (CM H2O P) 20 Chemistry Sodium (137 - 145 mmol/L) 142 Potassium (3.5 - 5.1 mmol/L) 4.0 Chloride (98 - 107 mmol/L) 109 H Carbon Dioxide (22 - 30 mmol/L) 20 L Anion Gap (5 - 16) 14 BUN (7 - 17 mg/dL) 24 H Creatinine (0.5 - 1.0 mg/dL) 2.2 H Estimated GFR (>60 ml/min) 27 L Glucose (65 - 99 mg/dL) 223 H Calcium (8.4 - 10.2 mg/dL) 8.4 Phosphorus (2.5 - 4.5 mg/dL) 4.2 Magnesium (1.6 - 2.3 mg/dL) 2.1 Total Bilirubin (0.2 - 1.3 mg/dL) 0.2 AST (14 - 36 U/L) 69 H ALT (9 - 52 U/L) 95 H Albumin (3.5 - 5.0 g/dL) 2.8 L Hematology CBC w Diff NO MAN DIFF REQ WBC (4.8 - 10.8 /CUMM) 9.4 RBC (4.20 - 5.40 /CUMM) 4.70 Hgb (12.0 - 16.0 G/DL) 14.1 Hct (37 - 47 %) 41.6 MCV (81.0 - 99.0 FL) 88.5 MCH (27.0 - 31.0 PG) 30.0 RDW (11.5 - 14.5 %) 13.1 Plt Count (130 - 400 /CUMM) 215 MPV (7.4 - 10.4 FL) 9.4 Gran % (42.2 - 75.2 %) 78.4 H Lymphocytes % (20.5 - 51.1 %) 11.6 L Monocytes % (1.7 - 9.3 %) 9.9 H Eosinophils % (0 - 5 %) 0 Basophils % (0.0 - 2.0 %) 0.1 Absolute Granulocytes (1.4 - 6.5 /CUMM) 7.4 H Absolute Lymphocytes (1.2 - 3.4 /CUMM) 1.1 L Absolute Monocytes (0.10 - 0.60 /CUMM) 0.9 H Absolute Eosinophils (0.0 - 0.7 /CUMM) 0 Absolute Basophils (0.0 - 0.2 /CUMM) 0 PUBS MCHC (33.0 - 37.0 G/DL) 33.9 Miscellaneous Phlebotomy Draw Site RIGHT RADIAL 03/10 03/10 03/09 7141 0542 8571 Blood Gas pH (7.35 - 7.45 PH) 7.43 pCO2 (35 - 45 TORR) 24 L pO2 (80 - 100 TORR) 78 L HCO3 (21 - 28 MEQ/L) 16 L ABG O2 Sat (Measured) (>96.0 %) 95.0 L P-50 (Temp Corrected) Y Carboxyhemoglobin (1.5 - 5.0 %) 0.3 L O2 Concentration % 90% 40 LPM Temperature (97.0 - 100.0 FARH) 97.4 O2 Delivery Method N/C Chemistry Sodium (137 - 145 mmol/L) 141 146 H Potassium (3.5 - 5.1 mmol/L) 3.8 3.7 Chloride (98 - 107 mmol/L) 109 H 110 H Carbon Dioxide (22 - 30 mmol/L) 17 L 18 L Anion Gap (5 - 16) 16 18 H BUN (7 - 17 mg/dL) 22 H 23 H Creatinine (0.5 - 1.0 mg/dL) 2.4 H 2.6 H Estimated GFR (>60 ml/min) 25 L 22 L BUN/Creatinine Ratio (7 - 25 %) 8.8 Glucose (65 - 99 mg/dL) 208 H Calcium (8.4 - 10.2 mg/dL) 8.2 L Phosphorus (2.5 - 4.5 mg/dL) 3.3 Magnesium (1.6 - 2.3 mg/dL) 1.9 2.0 Total Bilirubin (0.2 - 1.3 mg/dL) 0.2 AST (14 - 36 U/L) 65 H ALT (9 - 52 U/L) 76 H Creatine Kinase (30 - 135 U/L) 615 H [id number] Pept (<125 pg/mL) 68.8 Albumin (3.5 - 5.0 g/dL) 2.7 L Hematology CBC w Diff NO MAN DIFF REQ WBC (4.8 - 10.8 /CUMM) 8.0 RBC (4.20 - 5.40 /CUMM) 4.54 Hgb (12.0 - 16.0 G/DL) 13.6 Hct (37 - 47 %) 40.5 MCV (81.0 - 99.0 FL) 89.1 MCH (27.0 - 31.0 PG) 29.9 RDW (11.5 - 14.5 %) 13.6 Plt Count (130 - 400 /CUMM) 195 MPV (7.4 - 10.4 FL) 9.2 Gran % (42.2 - 75.2 %) 84.3 H Lymphocytes % (20.5 - 51.1 %) 9.9 L Monocytes % (1.7 - 9.3 %) 5.7 Eosinophils % (0 - 5 %) 0 Basophils % (0.0 - 2.0 %) 0.1 Absolute Granulocytes (1.4 - 6.5 /CUMM) 6.7 H Absolute Lymphocytes (1.2 - 3.4 /CUMM) 0.8 L Absolute Monocytes (0.10 - 0.60 /CUMM) 0.5 Absolute Eosinophils (0.0 - 0.7 /CUMM) 0 Absolute Basophils (0.0 - 0.2 /CUMM) 0 PUBS MCHC (33.0 - 37.0 G/DL) 33.5 Miscellaneous Phlebotomy Draw Site RIGHT RADIAL Diagnostic Data EKG Results NSR with no acute abnormalities. CXR Results FINDINGS: The cardiomediastinal silhouette is enlarged, unchanged.. Low lung volumes are seen with central vascular indistinctness and diffuse perihilar opacities, unchanged when compared to the previous exam. No definite effusion or pneumothorax is seen. Bony structures are unremarkable. IMPRESSION: No interval change in low lung volumes and diffuse bilateral perihilar opacities. Findings may be related to diffuse pneumonia. Clinical correlation requested. Other Results ct chest: IMPRESSION: Diffuse bilateral groundglass opacity primarily affecting the perihilar lung with sparing of the subpleural lung. This is nonspecific but can be consistent with ARDS as suspected clinically. Inflammatory or infectious etiologies though not excluded. Assessment/Plan Assessment/Plan Assessment: 1. Acute hypoxaemic respiratory failure secondary to influenza complicated with left lower lobe pneumonia. 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 At the moment I don't see any evidence of active cardiac issues. - Check baseline proBNP - Recheck CPK to rule out rhabdo - Review echocardiogram when available. Consult Acknowledgment - Thank you for your consult request.
[2017-03-11 12:00] VITALS: BP 130/80
[2017-03-11 16:00] VITALS: BP 140/76
--- NOTE | 2017-03-11 22:57 | RADIOLOGY REPORT ---
EXAMINATION: CHEST 1 VIEW CLINICAL INFORMATION: Worsening hypoxemia. Shortness of breath. COMPARISON: 03/10/2017. TECHNIQUE: An AP view of the chest is provided. FINDINGS: The cardiac silhouette is not enlarged. There are some irregular lucencies about the left side of the mediastinal/superior cardiac border. There are neither pleural effusions nor pneumothoraces. Again identified is multifocal airspace disease, predominantly at the lung bases, improved from prior exam. The osseous structures are unremarkable. IMPRESSION: Interval improvement in multifocal airspace opacification. Subtle irregular lucencies along the left side of the mediastinal border. This could correspond to superimposed airspace disease and preserved aeration or represent pneumomediastinum. There is no evidence for pneumothorax.
--- NOTE | 2017-03-11 23:03 | Event Note ---
Event Note Event Note: Around 10.40 PM Patient while patient was sleeping she desaturated to 86% while on Bipap and 80% FiO2. Desaturation to the low 80's persisted even on patient awakening and increasing FiO2 to 100%. Physical exam revealed an obese woman who is alert and oriented X 3. Her lungs were clear to auscultation. Cardiac exam shows regular rate/rhythm. Chest X-ray done showed interval improvement in lung pak compared to prior. Patient was discussed with attending Dr. Schaefer who recommended intubation and initial vent settings : Assist control, tidal volume 600 mls, Resp rate 22, Fio2 100% and PEEP 8 with propofol sedation at 5 mcg/kg/min. I spoke extensively with patient and she adamantly refused intubation at this time. Subsequently her initial Bipap settings were adjusted to IPAP 20, EPAP 10 with RR of 21/ min on 100% FIO2 and her O2 sat improved to 94%. Assessment 1.Acute hypoxaemic respiratory failure secondary to influenza complicated with left lower lobe pneumonia. 2. Influenza 3. ? Superimposed CL vs Obesity hypoventilation syndrome Plan -ABG now after BIPAP adjustment -Since the patient is conscious and alert and still refusing intubation, if she should desaturate again we will strongly recommend intubation
[2017-03-12] VITALS: BP 140/80
[2017-03-12 05:57] LABS: ABSOLUTE BASOPHIL COUNT 0 /CUMM (0.0-0.2); ABSOLUTE EOSINOPHIL COUNT 0 /CUMM (0.0-0.7); ABSOLUTE GRANULOCYTE CT 9.7 /CUMM (1.4-6.5); ABSOLUTE LYMPH COUNT 1.3 /CUMM (1.2-3.4); ABSOLUTE MONOCYTE COUNT 1.1 /CUMM (0.10-0.60); BASOPHIL % 0 % (0.0-2.0); EOSINOPHIL % 0 % (0-5); GRANULOCYTE % 80.2 % (42.2-75.2); MEAN CORPUSCULAR HGB 29.8 PG (27.0-31.0); MEAN CORPUSCULAR HGB CONC 33.5 G/DL (33.0-37.0); MEAN PLATELET VOLUME 9.1 FL (7.4-10.4); PLATELET COUNT 264 /CUMM (130-400); RBC DISTRIBUTION WIDTH 13.1 % (11.5-14.5); RED BLOOD CELL CT 4.72 /CUMM (4.20-5.40); WHITE BLOOD CELL COUNT 12.1 /CUMM (4.8-10.8)
[2017-03-12 08:00] VITALS: BP 148/84
--- NOTE | 2017-03-12 08:18 | PN- Resident CRCU ---
See Addendum Subjective HPI/CRCU Issues: Influenza Acute Hypoxic Respiratory Failure 24 Hour Events: Reports breathing is much better today. Had intermittent episodes of hypoxia during the night while on high flow and refused intubation. Her FiO2 is still at 90%. States the breathing treatment helps her breathing significantly. Objective Vital Signs & I&O Last 8 Hrs of Vitals and I&O: . Exam General Appearance: alert, awake, anxious, mild distress, obese Head: atraumatic, normal appearance Neck: normal inspection, supple Respiratory: normal breath sounds, chest non-tender, lungs clear Cardiovascular: regular rate/rhythm Gastrointestinal: soft, non-tender Extremities: no edema Cranial Nerves: normal hearing, normal speech Skin: normal color, warm/dry Skin Temp/Moisture Exam: Warm/Dry Sepsis Skin Exam (color): Normal for Ethnicity Current Medications: Current Medications Sig/Nabila Start time Last Medication Dose Route Stop Time Status Admin Acetaminophen 650 MG .STK-MED ONE 03/11 1135 DC PO 03/11 1136 Acetaminophen 650 MG Q6P PRN 03/06 2215 AC 03/11 PO 1140 Acetaminophen 1,000 MG Q6P PRN 03/06 2215 AC 03/08 IV 2357 Albuterol Sulfate 3 ML EVERY 4 HRS/AWAKE 03/08 1600 AC 03/12 INH 0842 Atorvastatin Calcium 80 MG 1700 03/08 1700 AC 03/11 PO 1711 Azithromycin 500 MG DAILY 03/07 2345 OK 03/11 Sodium Chloride 250 ML IV 0907 Calcium Carbonate 500 MG TID PRN 03/10 0030 AC PO Ceftriaxone Sodium 1,000 MG DAILY 03/06 2215 OK 03/11 IV 0907 Fish Oil 2,100 MG BID 03/07 1000 AC 03/12 PO 0937 Glycerin 2 SPRAY Q2P PRN 03/09 0745 03/09 PO 0848 Guaifenesin 10 ML Q4-6 PRN PRN 03/08 0445 AC 03/08 PO 0444 Heparin Sodium 5,000 UNIT Q8 03/07 0600 03/12 (Porcine) SC 0528 Insulin Detemir 10 UNITS .STK-MED ONE 03/11 2205 DC SC 03/11 2206 Ipratropium [place] 2.5 ML EVERY 4 HRS/AWAKE 03/08 1600 AC 03/12 INH 0842 Levothyroxine Sodium 0.075 MG DAILY AC 03/11 0700 AC 03/12 PO 0528 Methylprednisolone 40 MG Q8 03/11 1400 DC IV Methylprednisolone 40 MG Q6 03/11 1200 AC 03/12 IV 0529 Oseltamivir Phosphate 75 MG BID 03/10 2200 AC 03/12 PO 03/14 2159 0938 Sodium Bicarbonate 975 MG BID 03/07 1000 AC 03/12 PO 0937 Impression/Plan Impression/Problem List Impression: 26 yo morbidly obese F with h/o 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 Was being treated on the general medicine floor with Tamiflu and IV ceftriaxone and azithromycin. Transferred to ICU on 03/08/2017 for worsening respiratory status and hypoxia. Assessment * Acute hypoxaemic respiratory failure secondary to influenza complicated with left lower lobe pneumonia. * Influenza A positive * Acute on chronic kidney disease stage III due to IgA nephropathy * History of Exercise induced Asthma * History of hypothyroidism * ? CL Plan * Continue monitoring in ICU * Vitals per protocol * BiPAP use nocturnally. * Currently on high flow oxygen at 90%. Doing well. Though she does have intermittent episodes of hypoxia overnight at rest. If deteriorates, she will need to go back on BiPAP or require intubation. * Urine strep pneumo and legionella - negative * Echo - Normal LVEF >60%. No evidence of right heart strain. * Reduce IV methylprednisone 40mg q8. Will continue to taper as tolerated. * Continue Tamiflu * Antibiotics discontinued. * TRC nebs as needed. * Dopplers of lower extremity ruled out DVT. CTA could not be done due to her elevated Cr secondary to CKD. * Holding lisinopril, nephro input appreciated. * Patients renal doctor is Dr Garcia( [phone]) at [place]. Renal d/s started in 2009. * Continue sodium bicarbonate tabs * Continue Synthroid. * DVT to prophylaxis with subcutaneous heparin * Regular diet. * Pain control with IV Tylenol as needed. * Patient is full code PLEASE CALL PATIENT'S FATHER STACY RASHID ) ABOUT ANY CHANGES IN CLINICAL CONDITION/ INTUBATION. HE IS CURRENTLY IN [place]. Problem List: 1. Influenza Pain Ratin Tomorrow's Labs & Rationales: CBC, ICU Bundle Plan DVT/Prophylaxis: pharmacological
[2017-03-12 16:00] VITALS: BP 130/80
[2017-03-12 17:39] LABS: ABSOLUTE BASOPHIL COUNT 0 /CUMM (0.0-0.2); ABSOLUTE EOSINOPHIL COUNT 0 /CUMM (0.0-0.7); ABSOLUTE GRANULOCYTE CT 10.1 /CUMM (1.4-6.5); ABSOLUTE LYMPH COUNT 1.1 /CUMM (1.2-3.4); ABSOLUTE MONOCYTE COUNT 0.8 /CUMM (0.10-0.60); BASOPHIL % 0 % (0.0-2.0); EOSINOPHIL % 0.4 % (0-5); HEMATOCRIT 41.5 % (37-47); MEAN CORPUSCULAR HGB 29.4 PG (27.0-31.0); MEAN CORPUSCULAR VOLUME 88.9 FL (81.0-99.0); MEAN PLATELET VOLUME 8.8 FL (7.4-10.4); PLATELET COUNT 292 /CUMM (130-400); RBC DISTRIBUTION WIDTH 12.8 % (11.5-14.5); RED BLOOD CELL CT 4.67 /CUMM (4.20-5.40)
[2017-03-12 17:48] LABS: GRANULOCYTE % 83.7 % (42.2-75.2)
[2017-03-13] VITALS: BP 148/80
[2017-03-13 04:58] LABS: ABSOLUTE BASOPHIL COUNT 0 /CUMM (0.0-0.2); ABSOLUTE EOSINOPHIL COUNT 0 /CUMM (0.0-0.7); ABSOLUTE GRANULOCYTE CT 11.4 /CUMM (1.4-6.5); ABSOLUTE LYMPH COUNT 1.2 /CUMM (1.2-3.4); ABSOLUTE MONOCYTE COUNT 0.8 /CUMM (0.10-0.60); BASOPHIL % 0.2 % (0.0-2.0); EOSINOPHIL % 0 % (0-5); HEMATOCRIT 41.9 % (37-47); MEAN CORPUSCULAR HGB CONC 33.9 G/DL (33.0-37.0); MEAN CORPUSCULAR VOLUME 88.6 FL (81.0-99.0); MEAN PLATELET VOLUME 8.7 FL (7.4-10.4); PLATELET COUNT 299 /CUMM (130-400); RBC DISTRIBUTION WIDTH 12.5 % (11.5-14.5); RED BLOOD CELL CT 4.73 /CUMM (4.20-5.40); WHITE BLOOD CELL COUNT 13.4 /CUMM (4.8-10.8)
[2017-03-13 08:00] VITALS: BP 132/54
--- NOTE | 2017-03-13 08:44 | PN- Resident CRCU ---
Subjective HPI/CRCU Issues: Acute Hypoxic Respiratory Failure secondary to influenza. Morbid obesity possible component of obstructive sleep apnea-undiagnosed. History of chronic kidney disease stage III secondary to to IgA nephropathy. History of hypothyroidism. History of exercise-induced asthma. 24 Hour Events: Patient is seen and examined this morning, awake and alert ,lying comfortably in the bed, vitals are stable, remains afebrile does not appear to be in acute respiratory distress, still on high flow oxygen. Denies any complaints. Patient continues to have a intermittent episodes of hypoxia during the night( she mentioned that at home she usually sleeps in a reclining position and propped up on the right side, also since she is in the hospital she started having weird dreams at night---wakes up short of breath and tachycardic at night ). Patient mentions that if she needs to be intubated she is okay with that. Objective Vital Signs & I&O Last 8 Hrs of Vitals and I&O: Vital Signs Date Time Temp Pulse Resp B/P B/P Pulse O2 O2 Flow FiO2 Mean Ox Delivery Rate 03/13 0912 93 Nasal 95% Cannula 03/13 08 91 Nasal 95% Cannula 03/13 08 98.1 86 22 132/54 91 Nasal 90% Cannula 03/13 0432 77 92 03/13 0403 74 91 03/13 0400 93 BIPAP 100% 03/13 0047 94 90 03/13 0000 93 BIPAP 100% 03/13 0000 97.0 82 20 148/80 93 BIPAP 100% 03/12 2245 87 92 03/12 2000 92 Nasal 90% Cannula 03/12 1600 92 Nasal 90% Cannula 03/12 1600 98.2 88 20 130/80 92 Nasal 90% Cannula 03/12 1200 94 Nasal 90% Cannula Intake & Output 03/13 1600 03/13 0800 03/13 0000 Intake Total 400 1400 Output Total 1749 2049 Balance -1350 -650 Intake, Oral 400 1400 Number 0 Bowel Movements Output, Urine 1749 2049 Patient 289 lb Weight Weight Bed scale Measurement Method Exam General Appearance: well developed/nourished, no apparent distress, alert, awake Head: atraumatic, normal appearance Ears, Nose, Throat: normal pharynx, normal ENT inspection Neck: normal inspection, supple Respiratory: normal breath sounds, chest non-tender Gastrointestinal: normal bowel sounds, soft, non-tender Current Medications: Current Medications Sig/Nabila Start time Last Medication Dose Route Stop Time Status Admin Acetaminophen 650 MG Q6P PRN 03/06 2215 AC 03/11 PO 1140 Acetaminophen 1,000 MG Q6P PRN 03/06 2215 AC 03/08 IV 2357 Albuterol Sulfate 3 ML EVERY 4 HRS/AWAKE 03/08 1600 AC 03/14 INH 0840 Atorvastatin Calcium 80 MG 1700 03/08 1700 AC 03/13 PO 1742 Calcium Carbonate 500 MG TID PRN 03/10 0030 AC PO Fish Oil 2,100 MG BID 03/07 1000 AC 03/13 PO 2203 Glycerin 2 SPRAY Q2P PRN 03/09 0745 AC 03/09 PO 0848 Guaifenesin 10 ML Q4-6 PRN PRN 03/08 0445 AC 03/08 PO 0444 Heparin Sodium 5,000 UNIT Q8 03/07 0600 AC 03/14 (Porcine) SC 0637 Insulin Aspart 0 TIDAC/HS 03/13 1200 AC 03/14 SC 0812 Insulin Human Regular 0 Q6 03/12 2025 DC 03/13 SC 0549 Ipratropium [place] 2.5 ML EVERY 4 HRS/AWAKE 03/08 1600 AC 03/14 INH 0840 Levothyroxine Sodium 0.075 MG DAILY AC 03/11 0700 AC 03/14 PO 0626 Methylprednisolone 40 MG Q12 03/14 1000 AC IV Methylprednisolone 40 MG Q8 03/12 1400 DC 03/14 IV 0628 Oseltamivir Phosphate 75 MG BID 03/10 2200 AC 03/13 PO 03/14 2159 2203 Sodium Bicarbonate 975 MG BID 03/07 1000 AC 03/13 PO 2203 Impression/Plan Impression/Problem List Impression: Impression: 26 yo morbidly obese F with h/o 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 Was being treated on the general medicine floor with Tamiflu and IV ceftriaxone and azithromycin. Transferred to ICU on 03/08/2017 for worsening respiratory status and hypoxia. Assessment * Acute hypoxaemic respiratory failure secondary to influenza complicated with left lower lobe pneumonia. * Influenza A positive * Acute on chronic kidney disease stage III due to IgA nephropathy * History of Exercise induced Asthma * History of hypothyroidism * Morbid obesity possible component of obstructive sleep apnea-undiagnosed Plan * Continue monitoring in ICU * Vitals per protocol * BiPAP use nocturnally. * Currently on high flow oxygen at 90%. Doing well. Though she does have intermittent episodes of hypoxia overnight at rest. If deteriorates, she will need to go back on BiPAP or require intubation. * Urine strep pneumo and legionella - negative * Echo - Normal LVEF >60%. No evidence of right heart strain. * Reduce IV methylprednisone 40mg q8. Will continue to taper as tolerated. * Continue Tamiflu * Antibiotics discontinued. * TRC nebs as needed. * Dopplers of lower extremity ruled out DVT. CTA could not be done due to her elevated Cr secondary to CKD. * Holding lisinopril, nephro input appreciated. * Patients renal doctor is Dr Garcia( [phone]) at [place]. Renal d/s started in 2009. * Continue sodium bicarbonate tabs * Continue Synthroid. * DVT to prophylaxis with subcutaneous heparin * Regular diet. * Pain control with IV Tylenol as needed. * Patient is full code PLEASE CALL PATIENT'S FATHER STACY RASHID ([phone]) ABOUT ANY CHANGES IN CLINICAL CONDITION/ INTUBATION. HE IS CURRENTLY IN [place]. Problem List: 1. Influenza Pain Ratin Tomorrow's Labs & Rationales: CBC, ICU Bundle Plan DVT/Prophylaxis: pharmacological Problem List: 1. Influenza Pain Ratin Tomorrow's Labs & Rationales: CBC and ICU bundle. Plan DVT/Prophylaxis: pharmacological
--- NOTE | 2017-03-13 09:35 | PN- Infect Dx ---
Subjective Subjective: Afebrile on steroids. She feels well but continues to desaturate overnight. She continues to have a nonproductive cough, with no other complaints. Objective Last 24 Hrs of Vital Signs/I&O Vital Signs Date Time Temp Pulse Resp B/P B/P Pulse O2 O2 Flow FiO2 Mean Ox Delivery Rate 03/13 0912 93 Nasal 95% Cannula 03/13 0800 91 Nasal 95% Cannula 03/13 0800 98.1 86 22 132/54 91 Nasal 90% Cannula 03/13 0432 77 92 03/13 0403 74 91 03/13 0400 93 BIPAP 100% 03/13 0047 94 90 03/13 0000 93 BIPAP 100% 03/13 0000 97.0 82 20 148/80 93 BIPAP 100% 03/12 2245 87 92 03/12 2000 92 Nasal 90% Cannula 03/12 1600 92 Nasal 90% Cannula 03/12 1600 98.2 88 20 130/80 92 Nasal 90% Cannula 03/12 1200 94 Nasal 90% Cannula Intake & Output 03/13 1600 03/13 0800 03/13 0000 Intake Total 400 1400 Output Total 1750 2049 Balance -1350 -650 Intake, Oral 400 1400 Number 0 Bowel Movements Output, Urine 1749 2049 Patient 289 lb Weight Weight Bed scale Measurement Method Physical Exam Other Physical Findings: She appears comfortable on high flow oxygen Lungs are clear Heart regular rhythm with no murmur Abdomen is obese, soft, nontender with positive bowel sounds Extremities no cyanosis, clubbing or edema Results Last 24 Hours of Lab Results: Laboratory Tests 03/13 03/12 0440 1720 Chemistry Sodium (137 - 145 mmol/L) 139 137 Potassium (3.5 - 5.1 mmol/L) 4.5 4.2 Chloride (98 - 107 mmol/L) 106 100 Carbon Dioxide (22 - 30 mmol/L) 20 L 20 L Anion Gap (5 - 16) 13 17 H BUN (7 - 17 mg/dL) 36 H 32 H Creatinine (0.5 - 1.0 mg/dL) 1.9 H 1.9 H Estimated GFR (>60 ml/min) 32 L 32 L Glucose (65 - 99 mg/dL) 364 H 350 H Calcium (8.4 - 10.2 mg/dL) 8.7 8.5 Phosphorus (2.5 - 4.5 mg/dL) 4.2 3.5 Magnesium (1.6 - 2.3 mg/dL) 2.5 H 2.3 Total Bilirubin (0.2 - 1.3 mg/dL) 0.5 0.2 AST (14 - 36 U/L) 66 H 100 H ALT (9 - 52 U/L) 172 H 159 H Albumin (3.5 - 5.0 g/dL) 3.1 L 2.9 L Hematology CBC w Diff NO MAN DIFF REQ NO MAN DIFF REQ WBC (4.8 - 10.8 /CUMM) 13.4 H 12.0 H RBC (4.20 - 5.40 /CUMM) 4.73 4.67 Hgb (12.0 - 16.0 G/DL) 14.2 13.7 Hct (37 - 47 %) 41.9 41.5 MCV (81.0 - 99.0 FL) 88.6 88.9 MCH (27.0 - 31.0 PG) 30.0 29.4 RDW (11.5 - 14.5 %) 12.5 12.8 Plt Count (130 - 400 /CUMM) 299 292 MPV (7.4 - 10.4 FL) 8.7 8.8 Gran % (42.2 - 75.2 %) 85.0 H 83.7 H Lymphocytes % (20.5 - 51.1 %) 9.1 L 8.9 L Monocytes % (1.7 - 9.3 %) 5.7 7.0 Eosinophils % (0 - 5 %) 0 0.4 Basophils % (0.0 - 2.0 %) 0.2 0 Absolute Granulocytes (1.4 - 6.5 /CUMM) 11.4 H 10.1 H Absolute Lymphocytes (1.2 - 3.4 /CUMM) 1.2 1.1 L Absolute Monocytes (0.10 - 0.60 /CUMM) 0.8 H 0.8 H Absolute Eosinophils (0.0 - 0.7 /CUMM) 0 0 Absolute Basophils (0.0 - 0.2 /CUMM) 0 0 PUBS MCHC (33.0 - 37.0 G/DL) 33.9 33.0 Last 24 Hours of Michael Results: Urine strep pneumo antigen and Legionella antigen March 12 negative Recent Imaging Studies: Chest x-ray March 11 reveals improvement in the multifocal airspace opacification Assessment/Plan Impression: Ongoing respiratory failure, requiring BiPAP overnight and high flow oxygen during the day, with temperatures remaining normal (on steroids) and with her white blood cell count increasing, likely secondary to the steroids, now Day 7 of Tamiflu for probable Influenza pneumonia. Her renal function continues to improve and appears to be back to her baseline. Suggestion: 1. Remove Cruz catheter as soon as feasible 2. Taper steroids per Pulmonary 3. Continue Tamiflu
--- NOTE | 2017-03-13 09:43 | PN- CRCU ---
Subjective HPI/Critical Care Issues: The patient is awake and alert. She is comfortable and in no respiratory distress on high flow oxygen. She remains in the low to mid 90s noting that her high flow varies from 85-95%. She denies discomfort. She denies feeling short of breath and is able to mostly speak in full sentences. No chest pain. She is not able to produce sputum. She remains afebrile. Objective Current Medications: Current Medications Sig/Nabila Start time Last Medication Dose Route Stop Time Status Admin Acetaminophen 650 MG Q6P PRN 03/06 2215 AC 03/11 PO 1140 Acetaminophen 1,000 MG Q6P PRN 03/06 2215 AC 03/08 IV 2357 Albuterol Sulfate 3 ML EVERY 4 HRS/AWAKE 03/08 1600 AC 03/13 INH 0827 Atorvastatin Calcium 80 MG 1700 03/08 1700 AC 03/12 PO 1531 Calcium Carbonate 500 MG TID PRN 03/10 0030 AC PO Fish Oil 2,100 MG BID 03/07 1000 AC 03/12 PO 2054 Glycerin 2 SPRAY Q2P PRN 03/09 0745 AC 03/09 PO 0848 Guaifenesin 10 ML Q4-6 PRN PRN 03/08 0445 AC 03/08 PO 0444 Heparin Sodium 5,000 UNIT Q8 03/07 0600 AC 03/13 (Porcine) SC 0543 Insulin Aspart 0 TIDAC 03/13 0800 CAN SC Insulin Human Regular 0 Q6 03/12 2025 AC 03/13 SC 0549 Ipratropium [place] 2.5 ML EVERY 4 HRS/AWAKE 03/08 1600 AC 03/13 INH 0827 Levothyroxine Sodium 0.075 MG DAILY AC 03/11 0700 AC 03/13 PO 0543 Methylprednisolone 40 MG Q8 03/12 1400 AC 03/13 IV 0543 Methylprednisolone 40 MG Q6 03/11 1200 DC 03/12 IV 1147 Oseltamivir Phosphate 75 MG BID 03/10 2200 AC 03/12 PO 03/14 Sodium Bicarbonate 975 MG BID 03/07 1000 AC 03/12 PO 205 Vital Signs & I&O Last 24 Hrs of Vitals and I&O: Vital Signs Date Time Temp Pulse Resp B/P B/P Pulse O2 O2 Flow FiO2 Mean Ox Delivery Rate 03/13 0912 93 Nasal 95% Cannula 03/13 0800 91 Nasal 95% Cannula 03/13 0800 98.1 86 22 132/54 91 Nasal 90% Cannula 03/13 0432 77 92 03/13 0403 74 91 03/13 0400 93 BIPAP 100% 03/13 0047 94 90 03/13 0000 93 BIPAP 100% 03/13 0000 97.0 82 20 148/80 93 BIPAP 100% 03/12 2245 87 92 03/12 2000 92 Nasal 90% Cannula 03/12 1600 92 Nasal 90% Cannula 03/12 1600 98.2 88 20 130/80 92 Nasal 90% Cannula 03/12 1200 94 Nasal 90% Cannula Intake & Output 03/13 1600 03/13 0800 03/13 0000 Intake Total 400 1400 Output Total 1749 2049 Balance -1350 -650 Intake, Oral 400 1400 Number 0 Bowel Movements Output, Urine 1749 2049 Patient 289 lb Weight Weight Bed scale Measurement Method Exam General Appearance: no apparent distress, alert, awake, comfortable, on high flow oxygen Head: atraumatic, normal appearance Neck: supple Respiratory: no respiratory distress, quiet respiration, trachea midline, clear anteriorly Cardiovascular: regular rate/rhythm, tachycardia improved Abdomen: normal bowel sounds, soft, non-tender Extremities: no edema Skin: intact, normal color, warm/dry Impression/Plan Impression/Plan Impression/Plan: 1. Hypoxemic respiratory failure secondary to influenza. Need to be concerned regarding the development of ARDS. CT shows GGOs. ID, cardiology and nephrology consulted for possible intervention and additional recommendations. 2. Probable obesity hypoventilation syndrome. 3. Probable obstructive sleep apnea, undiagnosed. 4. Hypernatremia. 5. History of chronic kidney disease secondary to IgA nephropathy. 6. History of hypothyroidism. 7. Exercise-induced asthma, evidence of bronchospasm during this admission. Recommendations: Recommendations: * Check a follow-up chest x-ray this morning. * Continue to monitor culture results. * Antibiotics as per ID. * We will continue the patient on BiPAP. Will attempt to wean oxygen down for saturations greater than 92%. Can switch off to high flow if patient tolerates. * Monitor respiratory status closely, low threshold for intubation. * Continue nebs/TRC. * If the patient is saturating well on high flow oxygen, can slowly advance diet. Aspiration precautions. * If the patient is saturating well on high flow, can consider sending her down for a CT of the chest, noncontrast. * Renal consulted, follow up recommendations, appreciate input. * Thomas IVFs, D5W/half-normal saline. Avoid overhydration. * Monitor all electrolytes and replete as necessary. * Continue Synthroid at current dosing. * Subcutaneous heparin/DVT prophylaxis at all times. * Continue to monitor closely in the critical care unit. * I discussed the plan of care with the housestaff at length, I requested they contact me if the patient's condition changes or deteriorates. Once again, we have a low threshold for intubation as previously mentioned. The patient is very adamant that she does not want to be intubated unless absolutely necessary.
--- NOTE | 2017-03-13 14:15 | RADIOLOGY REPORT ---
EXAMINATION: XR PORTABLE CHEST CLINICAL INFORMATION: SOB. COMPARISON: None TECHNIQUE: Portable frontal view of the chest was obtained. FINDINGS: Both lungs are hypoexpanded but clear of acute process. There is minimal bibasilar haziness question atelectasis. Heart size and pulmonary vascularity is normal. No gross bony abnormality seen. IMPRESSION: Hypoexpanded lungs with bibasilar atelectasis.
[2017-03-13 16:00] VITALS: BP 110/62
[2017-03-14] VITALS: BP 140/68
[2017-03-14 06:18] LABS: ABSOLUTE BASOPHIL COUNT 0 /CUMM (0.0-0.2); ABSOLUTE EOSINOPHIL COUNT 0 /CUMM (0.0-0.7); ABSOLUTE GRANULOCYTE CT 12.8 /CUMM (1.4-6.5); ABSOLUTE LYMPH COUNT 1.1 /CUMM (1.2-3.4); BASOPHIL % 0 % (0.0-2.0); EOSINOPHIL % 0.1 % (0-5); HEMATOCRIT 41.8 % (37-47); MEAN CORPUSCULAR HGB 30.1 PG (27.0-31.0); MEAN CORPUSCULAR VOLUME 88.7 FL (81.0-99.0); RBC DISTRIBUTION WIDTH 12.6 % (11.5-14.5); RED BLOOD CELL CT 4.71 /CUMM (4.20-5.40); WHITE BLOOD CELL COUNT 14.9 /CUMM (4.8-10.8)
[2017-03-14 06:42] LABS: GRANULOCYTE % 85.9 % (42.2-75.2); PLATELET COUNT 311 /CUMM (130-400)
--- NOTE | 2017-03-14 07:10 | PN- Resident CRCU ---
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 Subjectively reports feeling better and less short of breath. FiO2 requirements continue to remain high at 90%. No events overnight. Objective Vital Signs & I&O Last 8 Hrs of Vitals and I&O: . Exam General Appearance: well developed/nourished, alert, awake, mild distress Head: atraumatic, normal appearance Respiratory: normal breath sounds, chest non-tender Cardiovascular: regular rate/rhythm Gastrointestinal: normal bowel sounds, soft, non-tender Extremities: no edema Skin: intact Skin Temp/Moisture Exam: Warm/Dry Sepsis Skin Exam (color): Normal for Ethnicity Current Medications: Current Medications Sig/Nabila Start time Last Medication Dose Route Stop Time Status Admin Acetaminophen 650 MG Q6P PRN 03/06 221 AC 03/11 PO 1140 Acetaminophen 1,000 MG Q6P PRN 03/06 2215 AC 03/08 IV 2357 Albuterol Sulfate 3 ML EVERY 4 HRS/AWAKE 03/08 1600 AC 03/14 INH 1221 Atorvastatin Calcium 80 MG 1700 03/08 1700 AC 03/13 PO 1742 Calcium Carbonate 500 MG TID PRN 03/10 0030 AC PO Fish Oil 2,100 MG BID 03/07 1000 AC 03/14 PO 1022 Furosemide 20 MG ONCE ONE 03/14 1400 DC 03/14 IV 03/14 1401 1405 Glycerin 2 SPRAY Q2P PRN 03/09 0745 AC 03/09 PO 0848 Guaifenesin 10 ML Q4-6 PRN PRN 03/08 0445 AC 03/08 PO 0444 Heparin Sodium 5,000 UNIT Q8 03/07 0600 AC 03/14 (Porcine) SC 1405 Insulin Aspart 0 TIDAC/HS 03/13 1200 AC 03/14 SC 1142 Ipratropium [place] 2.5 ML EVERY 4 HRS/AWAKE 03/08 1600 AC 03/14 INH 1222 Levothyroxine Sodium 0.075 MG DAILY AC 03/11 0700 AC 03/14 PO 0626 Methylprednisolone 40 MG 1800,0600 03/14 1800 AC IV Methylprednisolone 40 MG Q12 03/14 1000 DC IV Methylprednisolone 40 MG Q8 03/12 1400 DC 03/14 IV 0628 Oseltamivir Phosphate 75 MG BID 03/10 2200 r 03/14 PO 03/18 2158 1022 Sodium Bicarbonate 975 MG BID 03/07 1000 AC 03/14 PO 1022 Impression/Plan Impression/Problem List Impression: 26 yo morbidly obese F with h/o 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 Was being treated on the general medicine floor with Tamiflu and IV ceftriaxone and azithromycin. Transferred to ICU on 03/08/2017 for worsening respiratory status and hypoxia. Assessment * Acute hypoxaemic respiratory failure secondary to influenza complicated with left lower lobe pneumonia. * Influenza A positive * Acute on chronic kidney disease stage III due to IgA nephropathy * History of Exercise induced Asthma * History of hypothyroidism * ? CL Plan * Continue monitoring in ICU * Vitals per protocol * BiPAP use nocturnally. * Currently on high flow oxygen at 90%. Will wean off as tolerated. * Urine strep pneumo and legionella - negative * Repeat CT scan 03/14 interval worsening in diffuse geographic groundglass opacities throughout both lungs with development of more confluent airspace disease dependently within both lungs. * Echo - Normal LVEF >60%. No evidence of right heart strain. * Reduce IV methylprednisone to 40mg q12. Will continue to taper as tolerated. * Continue Tamiflu * Antibiotics discontinued. * TRC nebs as needed. * Dopplers of lower extremity ruled out DVT. CTA could not be done due to her elevated Cr secondary to CKD. * Holding lisinopril, nephro input appreciated. * Patients renal doctor is Dr Garcia( [phone]) at [place]. Renal d/s started in 2009. * Continue sodium bicarbonate tabs * Continue Synthroid. * DVT to prophylaxis with subcutaneous heparin * Regular diet. * Pain control with IV Tylenol as needed. * Patient is full code PLEASE CALL PATIENT'S FATHER STACY RASHID ) ABOUT ANY CHANGES IN CLINICAL CONDITION/ INTUBATION. HE IS CURRENTLY IN [place]. Problem List: 1. Influenza Pain Ratin Tomorrow's Labs & Rationales: CBC, ICU bundle Plan DVT/Prophylaxis: pharmacological
--- NOTE | 2017-03-14 07:13 | PN- CRCU ---
Subjective HPI/Critical Care Issues: The patient remains on high flow oxygen at 90%. She reports feeling improved overall. Her saturations are in the mid 90s. She was sitting in a chair yesterday and felt better. Any significant desaturations. She is not able to produce sputum. She denies any new complaints today. Objective Current Medications: Current Medications Sig/Nabila Start time Last Medication Dose Route Stop Time Status Admin Acetaminophen 650 MG Q6P PRN 03/06 2215 AC 03/11 PO 1140 Acetaminophen 1,000 MG Q6P PRN 03/06 2215 AC 03/08 IV 2357 Albuterol Sulfate 3 ML EVERY 4 HRS/AWAKE 03/08 1600 AC 03/13 INH 1948 Atorvastatin Calcium 80 MG 1700 03/08 1700 AC 03/13 PO 1742 Calcium Carbonate 500 MG TID PRN 03/10 0030 AC PO Fish Oil 2,100 MG BID 03/07 1000 AC 03/13 PO 2203 Glycerin 2 SPRAY Q2P PRN 03/09 0745 AC 03/09 PO 0848 Guaifenesin 10 ML Q4-6 PRN PRN 03/08 0445 AC 03/08 PO 0444 Heparin Sodium 5,000 UNIT Q8 03/07 0600 AC 03/14 (Porcine) SC 0637 Insulin Aspart 0 TIDAC/HS 03/13 1200 AC 03/13 SC 2100 Insulin Human Regular 0 Q6 03/12 2025 DC 03/13 SC 0549 Ipratropium [place] 2.5 ML EVERY 4 HRS/AWAKE 03/08 1600 AC 03/13 INH 1948 Levothyroxine Sodium 0.075 MG DAILY AC 03/11 0700 AC 03/14 PO 0626 Methylprednisolone 40 MG Q8 03/12 1400 AC 03/14 IV 0628 Oseltamivir Phosphate 75 MG BID 03/10 2200 AC 03/13 PO 03/14 2159 2203 Sodium Bicarbonate 975 MG BID 03/07 1000 AC 03/13 PO 2203 Vital Signs & I&O Last 24 Hrs of Vitals and I&O: Vital Signs Date Time Temp Pulse Resp B/P B/P Pulse O2 O2 Flow FiO2 Mean Ox Delivery Rate 03/14 0436 74 95 03/14 0400 92 Nasal 90% Cannula 03/14 0150 69 93 03/14 0000 97.1 76 17 140/68 92 BIPAP 03/14 0000 92 BIPAP 01/21 2233 92 BIPAP 100% 03/13 2227 86 92 03/13 2000 92 Nasal 90% Cannula 03/13 1600 92 Nasal 90% Cannula 03/13 1600 98.6 96 22 110/62 92 Nasal 90% Cannula 03/13 1334 92 Nasal 90% Cannula 03/13 1200 92 Nasal 90% Cannula 03/13 0912 93 Nasal 95% Cannula 03/13 0800 91 Nasal 95% Cannula 03/13 0800 98.1 86 22 132/54 91 Nasal 90% Cannula Intake & Output 03/14 0800 03/14 0000 03/13 1600 Intake Total 247 2100 1200 Output Total 1500 1100 2600 Balance -1253 1000 -1400 Intake, IV 7 Intake, Oral 240 2100 1200 Number 1 0 Bowel Movements Output, Urine 1500 1100 2600 Patient 282 lb Weight Weight Bed scale Measurement Method Exam General Appearance: no apparent distress, alert, awake, comfortable, on high flow oxygen Head: atraumatic, normal appearance Neck: supple Respiratory: no respiratory distress, quiet respiration, trachea midline, clear anteriorly Cardiovascular: regular rate/rhythm, tachycardia improved Abdomen: normal bowel sounds, soft, non-tender Extremities: no edema Skin: intact, normal color, warm/dry Results Last 24 Hrs of Lab Results: Laboratory Tests 03/14/17 0515: Anion Gap 14, Estimated GFR 34 L, Glucose 308 H, Calcium 8.9, Phosphorus 4.4, Magnesium 2.5 H, Total Bilirubin 0.6, AST 44 H, ALT 165 H, Albumin 3.2 L, CBC w Diff NO MAN DIFF REQ, RBC 4.71, MCV 88.7, MCH 30.1, RDW 12.6, MPV 9.0, Gran % 85.9 H, Lymphocytes % 7.3 L, Monocytes % 6.7, Eosinophils % 0.1, Basophils % 0, Absolute Granulocytes 12.8 H, Absolute Lymphocytes 1.1 L, Absolute Monocytes 1.0 H, Absolute Eosinophils 0, Absolute Basophils 0, PUBS MCHC 34.0 Impression/Plan Impression/Plan Impression/Plan: 1. Hypoxemic respiratory failure secondary to influenza. With possible ARDS. CT shows GGOs. ID, cardiology and nephrology consulted for possible intervention and additional recommendations. 2. Probable obesity hypoventilation syndrome. 3. Probable obstructive sleep apnea, undiagnosed. 4. Hypernatremia. 5. History of chronic kidney disease secondary to IgA nephropathy. 6. History of hypothyroidism. 7. Exercise-induced asthma, evidence of bronchospasm during this admission. 8. Mild transaminitis. Recommendations: Recommendations: * Continue to monitor culture results. * Antibiotics as per ID. * We will continue the patient on BiPAP. Will attempt to wean oxygen down for saturations greater than 92%. Continue to switch off from BIPAP to high flow as tolerated. * Monitor respiratory status closely, low threshold for intubation. * Continue nebs/TRC. * If the patient is saturating well on high flow oxygen, can slowly advance diet. Aspiration precautions. * If the patient is saturating well on high flow, can consider sending her down for a CT of the chest, noncontrast. Will check today. * Renal consulted, follow up recommendations, appreciate input. * Stop IVFs. * Monitor all electrolytes and replete as necessary. * Continue Synthroid at current dosing. * Subcutaneous heparin/DVT prophylaxis at all times. * Continue to monitor closely in the critical care unit. * I discussed the plan of care with the housestaff at length, I requested they contact me if the patient's condition changes or deteriorates. Once again, we have a low threshold for intubation as previously mentioned. The patient is very adamant that she does not want to be intubated unless absolutely necessary.
[2017-03-14 08:00] VITALS: BP 130/74
--- NOTE | 2017-03-14 10:23 | PN- Infect Dx ---
Subjective Subjective: Afebrile on steroids. She denies shortness of breath or chest discomfort but continues to have a cough, productive of clear sputum. Objective Last 24 Hrs of Vital Signs/I&O Vital Signs Date Time Temp Pulse Resp B/P B/P Pulse O2 O2 Flow FiO2 Mean Ox Delivery Rate 03/14 0847 92 Nasal 90% Cannula 03/14 0800 97.7 84 22 130/74 92 Nasal 90% Cannula 03/14 0800 93 Nasal 90% Cannula 03/14 0436 74 95 03/14 0400 92 Nasal 90% Cannula 03/14 0150 69 93 03/14 0000 97.1 76 17 140/68 92 BIPAP 03/14 0000 92 BIPAP 03/13 2233 92 BIPAP 100% 03/13 2227 86 92 03/13 2000 92 Nasal 90% Cannula 03/13 1600 92 Nasal 90% Cannula 03/13 1600 98.6 96 22 110/62 92 Nasal 90% Cannula 03/13 1334 92 Nasal 90% Cannula 03/13 1200 92 Nasal 90% Cannula Intake & Output 03/14 1600 03/14 0800 03/14 0000 Intake Total 247 2100 Output Total 1500 1100 Balance -1253 1000 Intake, IV 7 Intake, Oral 240 2100 Number 1 0 Bowel Movements Output, Urine 1500 1100 Patient 282 lb Weight Weight Bed scale Measurement Method Physical Exam Other Physical Findings: She is awake and alert in no acute distress on high flow oxygen Lungs are clear Heart regular rhythm with no murmur Abdomen is obese, soft, nontender with positive bowel sounds Extremities no cyanosis, clubbing or edema Cruz catheter remains in place Results Last 24 Hours of Lab Results: Laboratory Tests 03/14 514 Chemistry Sodium (137 - 145 mmol/L) 136 L Potassium (3.5 - 5.1 mmol/L) 4.9 Chloride (98 - 107 mmol/L) 100 Carbon Dioxide (22 - 30 mmol/L) 23 Anion Gap (5 - 16) 14 BUN (7 - 17 mg/dL) 37 H Creatinine (0.5 - 1.0 mg/dL) 1.8 H Estimated GFR (>60 ml/min) 34 L Glucose (65 - 99 mg/dL) 308 H Calcium (8.4 - 10.2 mg/dL) 8.9 Phosphorus (2.5 - 4.5 mg/dL) 4.4 Magnesium (1.6 - 2.3 mg/dL) 2.5 H Total Bilirubin (0.2 - 1.3 mg/dL) 0.6 AST (14 - 36 U/L) 44 H ALT (9 - 52 U/L) 165 H Albumin (3.5 - 5.0 g/dL) 3.2 L Hematology CBC w Diff NO MAN DIFF REQ WBC (4.8 - 10.8 /CUMM) 14.9 H RBC (4.20 - 5.40 /CUMM) 4.71 Hgb (12.0 - 16.0 G/DL) 14.2 Hct (37 - 47 %) 41.8 MCV (81.0 - 99.0 FL) 88.7 MCH (27.0 - 31.0 PG) 30.1 RDW (11.5 - 14.5 %) 12.6 Plt Count (130 - 400 /CUMM) 311 MPV (7.4 - 10.4 FL) 9.0 Gran % (42.2 - 75.2 %) 85.9 H Lymphocytes % (20.5 - 51.1 %) 7.3 L Monocytes % (1.7 - 9.3 %) 6.7 Eosinophils % (0 - 5 %) 0.1 Basophils % (0.0 - 2.0 %) 0 Absolute Granulocytes (1.4 - 6.5 /CUMM) 12.8 H Absolute Lymphocytes (1.2 - 3.4 /CUMM) 1.1 L Absolute Monocytes (0.10 - 0.60 /CUMM) 1.0 H Absolute Eosinophils (0.0 - 0.7 /CUMM) 0 Absolute Basophils (0.0 - 0.2 /CUMM) 0 PUBS MCHC (33.0 - 37.0 G/DL) 34.0 Last 24 Hours of Michael Results: No new cultures Assessment/Plan Impression: Ongoing respiratory failure, continuing to require high flow oxygen, with temperatures remaining normal (on steroids) and with her white blood cell count increasing, likely secondary to the steroids. She remains on Tamiflu now Day 8 of treatment for probable Influenza pneumonia. Her renal function continues to improve and appears to be back to her baseline. Suggestion: 1. Remove Cruz catheter as soon as feasible 2. Taper steroids per Pulmonary 3. Follow-up CT of the chest performed earlier today 4. Continue Tamiflu
--- NOTE | 2017-03-14 11:04 | CT SCAN REPORT ---
EXAMINATION: CT CHEST WITHOUT CONTRAST CLINICAL INFORMATION: Respiratory failure. Hypoxia. Shortness of breath. COMPARISON: Chest x-ray 03/13/[address] 03/09/2017 TECHNIQUE: Multidetector volumetric CT imaging of the chest was done. Axial MIP volume rendering provided. Sagittal and coronal reformatted images were obtained. DLP: 777 mGy-cm FINDINGS: Again noted are extensive geographic groundglass opacities throughout the central portions of both lungs. Overall, this process demonstrates mild interval worsening with development of more confluent airspace disease dependently within both lungs. No pleural effusion. The heart is normal in size. No pericardial effusion. Scattered normal-sized mediastinal lymph nodes again identified. Thoracic aorta is normal in caliber. Visualized portions of the upper abdomen again demonstrate diffusely decreased liver attenuation, most suggestive of hepatic steatosis. No acute osseous abnormality. IMPRESSION: Interval worsening in diffuse geographic groundglass opacities throughout both lungs with development of more confluent airspace disease dependently within both lungs. These imaging findings are nonspecific and require clinical correlation. Infection is within the differential.
--- NOTE | 2017-03-14 11:54 | PN- Cardiology ---
Subjective Subjective: Asked to reevaluate patient to determine whether diuretic therapy would be beneficial. She notes that her shortness of breath is improving. She remains on high flow oxygen. No chest pain. No palpitations. No nausea or vomiting. No diaphoresis. Objective Vital Signs and I&Os Vital Signs Date Time Temp Pulse Resp B/P B/P Pulse O2 O2 Flow FiO2 Mean Ox Delivery Rate 03/14 0847 92 Nasal 90% Cannula 03/14 0800 97.7 84 22 130/74 92 Nasal 90% Cannula 03/14 0800 93 Nasal 90% Cannula 03/14 0436 74 95 03/14 0400 92 Nasal 90% Cannula 03/14 0150 69 93 03/14 0000 97.1 76 17 140/68 92 BIPAP 03/14 0000 92 BIPAP 03/13 2233 92 BIPAP 100% 03/13 2227 86 92 03/13 2000 92 Nasal 90% Cannula 03/13 1600 92 Nasal 90% Cannula 03/13 1600 98.6 96 22 110/62 92 Nasal 90% Cannula 03/13 1334 92 Nasal 90% Cannula 03/13 1200 92 Nasal 90% Cannula Intake & Output 03/14 1600 03/14 0800 03/14 0000 03/13 1600 03/13 0800 03/13 0000 Intake Total 247 2100 6416 623 4418 Output Total 1500 1100 2600 1750 2049 Balance -1253 1000 -1400 -1350 -650 Intake, IV 7 Intake, Oral 240 2100 4593 100 3401 Number 1 0 0 Bowel Movements Output, Urine 1500 1100 2600 1750 205 Patient 282 lb 289 lb Weight Weight Bed scale Bed scale Measurement Method Physical Exam: Gen: NAD HEENT: normal Lungs: clear to auscultation, normal resp. effort Heart: RRR, S1, S2, no murmurs Abdomen: Soft, nontender, no masses Extremities: No clubbing, cyanosis, or edema. Neuro: Alert and oriented x 3, cranial nerves intact Current Medications: Current Medications Sig/Nabila Start time Last Medication Dose Route Stop Time Status Admin Acetaminophen 650 MG Q6P PRN 03/06 2214 AC 03/11 PO 1140 Acetaminophen 1,000 MG Q6P PRN 03/06 2214 AC 03/08 IV 2357 Albuterol Sulfate 3 ML EVERY 4 HRS/AWAKE 03/08 1600 03/14 INH 0840 Atorvastatin Calcium 80 MG 1700 03/08 1700 AC 03/13 PO 1742 Calcium Carbonate 500 MG TID PRN 03/10 0030 AC PO Fish Oil 2,100 MG BID 03/07 1000 AC 03/14 PO 1022 Glycerin 2 SPRAY Q2P PRN 03/09 0745 AC 03/09 PO 0848 Guaifenesin 10 ML Q4-6 PRN PRN 03/08 0445 AC 03/08 PO 0444 Heparin Sodium 5,000 UNIT Q8 03/07 0600 AC 03/14 (Porcine) SC 0637 Insulin Aspart 0 TIDAC/HS 03/13 1200 AC 03/14 SC 1142 Ipratropium [place] 2.5 ML EVERY 4 HRS/AWAKE 03/08 1600 AC 03/14 INH 0840 Levothyroxine Sodium 0.075 MG DAILY AC 03/11 0700 AC 03/14 PO 0626 Methylprednisolone 40 MG 1800,0600 03/14 1800 AC IV Methylprednisolone 40 MG Q12 03/14 1000 DC IV Methylprednisolone 40 MG Q8 03/12 1400 DC 03/14 IV 0628 Oseltamivir Phosphate 75 MG BID 03/10 2200 AC 03/14 PO 03/14 215 1022 Sodium Bicarbonate 975 MG BID 03/07 1000 AC 03/14 PO 1022 Results Last 48 Hrs of Labs/Mics: Laboratory Tests 03/14/17 0515: Anion Gap 14, Estimated GFR 34 L, Glucose 308 H, Calcium 8.9, Phosphorus 4.4, Magnesium 2.5 H, Total Bilirubin 0.6, AST 44 H, ALT 165 H, Albumin 3.2 L, CBC w Diff NO MAN DIFF REQ, RBC 4.71, MCV 88.7, MCH 30.1, RDW 12.6, MPV 9.0, Gran % 85.9 H, Lymphocytes % 7.3 L, Monocytes % 6.7, Eosinophils % 0.1, Basophils % 0, Absolute Granulocytes 12.8 H, Absolute Lymphocytes 1.1 L, Absolute Monocytes 1.0 H, Absolute Eosinophils 0, Absolute Basophils 0, PUBS MCHC 34.0 03/13/17 0440: Anion Gap 13, Estimated GFR 32 L, Glucose 364 H, Calcium 8.7, Phosphorus 4.2, Magnesium 2.5 H, Total Bilirubin 0.5, AST 66 H, ALT 172 H, Albumin 3.1 L, CBC w Diff NO MAN DIFF REQ, RBC 4.73, MCV 88.6, MCH 30.0, RDW 12.5, MPV 8.7, Gran % 85.0 H, Lymphocytes % 9.1 L, Monocytes % 5.7, Eosinophils % 0, Basophils % 0.2, Absolute Granulocytes 11.4 H, Absolute Lymphocytes 1.2, Absolute Monocytes 0.8 H, Absolute Eosinophils 0, Absolute Basophils 0, PUBS MCHC 33.9 03/12/17 1720: Anion Gap 17 H, Estimated GFR 32 L, Glucose 350 H, Calcium 8.5, Phosphorus 3.5, Magnesium 2.3, Total Bilirubin 0.2, AST 100 H, ALT 159 H, Albumin 2.9 L, CBC w Diff NO MAN DIFF REQ, RBC 4.67, MCV 88.9, MCH 29.4, RDW 12.8, MPV 8.8, Gran % 83.7 H, Lymphocytes % 8.9 L, Monocytes % 7.0, Eosinophils % 0.4, Basophils % 0, Absolute Granulocytes 10.1 H, Absolute Lymphocytes 1.1 L, Absolute Monocytes 0.8 H, Absolute Eosinophils 0, Absolute Basophils 0, PUBS MCHC 33.0 Recent Imaging Studies: CT scan of the chest: Interval worsening in diffuse geographic groundglass opacities throughout both lungs with development of more confluent airspace disease dependently within both lungs. These imaging findings are nonspecific and require clinical correlation. Infection is within the differential. Echocardiogram 03/08/17: Normal left ventricular ejection fraction visually estimated at > 60%. Mild concentric left ventricular hypertrophy. Trace tricuspid regurgitation. Assessment/Plan Assessment/Plan Assessment: 1. Acute hypoxaemic respiratory failure secondary to influenza complicated with left lower lobe pneumonia. 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 Diffuse bilateral ground glass opacities on CT scan. Volume overload is a possible continuing factor Recommendations: * There is no definite evidence of congestive heart failure, however CT scan findings are consistent with volume overload as a possible continuing factor * Recommend trial of Lasix 20 mg IV 1 * Continue to monitor input and output, and check basic metabolic profile daily * Avoid IV hydration with possible Continue telemetry? Yes
[2017-03-14 12:00] VITALS: BP 110/68
[2017-03-14 16:00] VITALS: BP 108/70
[2017-03-15] VITALS: BP 128/78
[2017-03-15 04:45] LABS: ABSOLUTE BASOPHIL COUNT 0 /CUMM (0.0-0.2); ABSOLUTE EOSINOPHIL COUNT 0.1 /CUMM (0.0-0.7); ABSOLUTE GRANULOCYTE CT 16.4 /CUMM (1.4-6.5); ABSOLUTE LYMPH COUNT 1.2 /CUMM (1.2-3.4); ABSOLUTE MONOCYTE COUNT 1.1 /CUMM (0.10-0.60); BASOPHIL % 0.2 % (0.0-2.0); EOSINOPHIL % 0.3 % (0-5); GRANULOCYTE % 86.9 % (42.2-75.2); HEMATOCRIT 44.2 % (37-47); MEAN CORPUSCULAR HGB 29.6 PG (27.0-31.0); MEAN CORPUSCULAR HGB CONC 33.3 G/DL (33.0-37.0); MEAN CORPUSCULAR VOLUME 88.8 FL (81.0-99.0); MEAN PLATELET VOLUME 9.9 FL (7.4-10.4); PLATELET COUNT 243 /CUMM (130-400); RBC DISTRIBUTION WIDTH 12.7 % (11.5-14.5); RED BLOOD CELL CT 4.97 /CUMM (4.20-5.40); WHITE BLOOD CELL COUNT 18.9 /CUMM (4.8-10.8)
--- NOTE | 2017-03-15 07:29 | PN- Resident CRCU ---
Subjective HPI/CRCU Issues: Acute Hypoxic Respiratory Failure Influenza Stage 3 CKD secondary to IgA nephropathy 24 Hour Events: Continues to be on FiO2 of 90%, though subjectively feels much better. States she was off the BiPAP overnight for the first time and did well on the high flow. Nurse reports that she does have a transient drop in her saturations with ambulation but bounces back up. Objective Vital Signs & I&O Last 8 Hrs of Vitals and I&O: . Exam General Appearance: alert, awake, comfortable, mild distress, on high flow oxygen Head: atraumatic, normal appearance Ears, Nose, Throat: normal ENT inspection Neck: normal inspection, supple Respiratory: normal breath sounds, chest non-tender, lungs clear Cardiovascular: regular rate/rhythm Gastrointestinal: soft, non-tender Cranial Nerves: normal hearing, normal speech Skin: normal color, warm/dry Skin Temp/Moisture Exam: Warm/Dry Sepsis Skin Exam (color): Normal for Ethnicity Current Medications: Current Medications Sig/Nabila Start time Last Medication Dose Route Stop Time Status Admin Acetaminophen 650 MG Q6P PRN 03/06 2215 AC 03/11 PO 1140 Acetaminophen 1,000 MG Q6P PRN 03/06 2215 AC 03/08 IV 2357 Albuterol Sulfate 3 ML EVERY 4 HRS/AWAKE 03/08 1600 03/15 INH 1129 Atorvastatin Calcium 80 MG 1700 03/08 1700 AC 03/14 PO 1652 Calcium Carbonate 500 MG TID PRN 03/10 0030 AC PO Fish Oil 2,100 MG BID 03/07 1000 AC 03/15 PO 1003 Furosemide 20 MG ONCE ONE 03/14 1400 DC 03/14 IV 03/14 1401 1405 Glycerin 2 SPRAY Q2P PRN 03/09 0745 AC 03/09 PO 0848 Guaifenesin 10 ML Q4-6 PRN PRN 03/08 0445 AC 03/08 PO 0444 Heparin Sodium 5,000 UNIT Q8 03/07 0600 03/15 (Porcine) SC 0616 Insulin Aspart 0 TIDAC/HS 03/13 1200 AC 03/15 SC 1003 Ipratropium [place] 2.5 ML EVERY 4 HRS/AWAKE 03/08 1600 AC 03/15 INH 1129 Levothyroxine Sodium 0.075 MG DAILY AC 03/11 0700 03/15 PO 0616 Methylprednisolone 40 MG 1800,0600 03/14 1800 03/15 IV 0616 Oseltamivir Phosphate 75 MG BID 03/10 2200 AC 03/15 PO 03/18 2158 1003 Sodium Bicarbonate 975 MG BID 03/07 1000 AC 03/15 PO 1003 Impression/Plan Impression/Problem List Impression: 26 yo morbidly obese F with h/o 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 Was being treated on the general medicine floor with Tamiflu and IV ceftriaxone and azithromycin. Transferred to ICU on 03/08/2017 for worsening respiratory status and hypoxia. Assessment * Acute hypoxaemic respiratory failure secondary to influenza complicated with left lower lobe pneumonia. * Sepsis on admission - resolved. * Influenza A positive * Acute on chronic kidney disease likely secondary to ATN. There could've been a component of pre-renal azotemia - resolved * Elevated CK - ? Rhabdomyolosis - improved with IVF. * History of Exercise induced Asthma * History of hypothyroidism * ? CL Plan * Continue monitoring in ICU * Vitals per protocol * BiPAP use nocturnally if needed. * Continues to be on high flow oxygen at 90%. Will wean off as tolerated. * Urine strep pneumo and legionella - negative * Repeat CT scan 03/14 interval worsening in diffuse geographic groundglass opacities throughout both lungs with development of more confluent airspace disease dependently within both lungs. * Echo - Normal LVEF >60%. No evidence of right heart strain. * Continue IV methylprednisone to 40mg q12. Will continue to taper as tolerated. * Continue Tamiflu * TRC nebs as needed. * Dopplers of lower extremity ruled out DVT. * Cr has significantly improved since admission. This could be her baseline. She does have CKD due to IgA nephropathy. * Holding lisinopril, nephro input appreciated. * Patients renal doctor is Dr Garcia( [phone]) at [place]. Renal d/s started in 2009. * Continue sodium bicarbonate tabs * Continue Synthroid. * DVT to prophylaxis with subcutaneous heparin * Regular diet. * Pain control with IV Tylenol as needed. * Patient is full code PLEASE CALL PATIENT'S FATHER STACY RASHID ([phone]) ABOUT ANY CHANGES IN CLINICAL CONDITION/ INTUBATION. HE IS CURRENTLY IN [place]. Problem List: 1. Influenza Pain Ratin Tomorrow's Labs & Rationales: CBC, ICU bundle Plan DVT/Prophylaxis: pharmacological
[2017-03-15 08:00] VITALS: BP 130/82
--- NOTE | 2017-03-15 10:08 | PN- CRCU ---
Subjective HPI/Critical Care Issues: The patient remains on high flow oxygen at 90%. She is not desaturating as previously reported. Unfortunately, her oxygen saturations are not improving. She is in no distress. She is speaking in full sentences without using accessory muscles. She reports feeling improved overall. Her saturations are in the mid 90s. She was sitting in a chair yesterday and felt better. Any significant desaturations. She is not able to produce sputum. She denies any new complaints today. Objective Current Medications: Current Medications Sig/Nabila Start time Last Medication Dose Route Stop Time Status Admin Acetaminophen 650 MG Q6P PRN 03/06 2215 AC 03/11 PO 1140 Acetaminophen 1,000 MG Q6P PRN 03/06 2215 AC 03/08 IV 2357 Albuterol Sulfate 3 ML EVERY 4 HRS/AWAKE 03/08 1600 AC 03/15 INH 0803 Atorvastatin Calcium 80 MG 1700 03/08 1700 AC 03/14 PO 1652 Calcium Carbonate 500 MG TID PRN 03/10 0030 AC PO Fish Oil 2,100 MG BID 03/07 1000 AC 03/14 PO 2129 Furosemide 20 MG ONCE ONE 03/14 1400 DC 03/14 IV 03/14 1401 1405 Glycerin 2 SPRAY Q2P PRN 03/09 0745 AC 03/09 PO 0848 Guaifenesin 10 ML Q4-6 PRN PRN 03/08 0445 AC 03/08 PO 0444 Heparin Sodium 5,000 UNIT Q8 03/07 0600 AC 03/15 (Porcine) SC 0616 Insulin Aspart 0 TIDAC/HS 03/13 1200 AC 03/14 SC 2129 Ipratropium [place] 2.5 ML EVERY 4 HRS/AWAKE 03/08 1600 AC 03/15 INH 0803 Levothyroxine Sodium 0.075 MG DAILY AC 03/11 0700 AC 03/15 PO 0616 Methylprednisolone 40 MG 1800,0600 03/14 1800 AC 03/15 IV 0616 Methylprednisolone 40 MG Q12 03/14 1000 DC IV Oseltamivir Phosphate 75 MG BID 03/10 2200 AC 03/14 PO 03/18 2158 2129 Sodium Bicarbonate 975 MG BID 03/07 1000 AC 03/14 PO 2129 Vital Signs & I&O Last 24 Hrs of Vitals and I&O: Vital Signs Date Time Temp Pulse Resp B/P B/P Pulse O2 O2 Flow FiO2 Mean Ox Delivery Rate 03/15 0806 92 Nasal 90% Cannula 03/15 0423 93 Nasal 90% Cannula 03/15 0400 94 Nasal 90% Cannula 03/15 0000 91 Nasal 90% Cannula 03/15 0000 97.4 92 22 128/78 91 Nasal 90% Cannula 03/14 Nasal 90% Cannula 03/14 1720 91 Nasal 90% Cannula 03/14 1600 93 Nasal 90% Cannula 03/14 1600 98.0 87 23 108/70 94 Nasal 90% Cannula 03/14 1445 92 Nasal 90% Cannula 03/14 1224 95 Nasal 90% Cannula 03/14 1200 92 Nasal 90% Cannula 03/14 1200 97.8 83 22 110/68 92 Nasal 90% Cannula Intake & Output 03/15 1600 03/15 0800 03/15 0000 Intake Total 1240 970 Output Total 1999 3000 Balance -760 -2030 Intake, IV 10 Intake, Oral 1240 960 Number 0 2 Bowel Movements Output, Urine 1999 3000 Patient 276 lb Weight Weight Bed scale Measurement Method Exam General Appearance: no apparent distress, alert, awake, comfortable, on high flow oxygen Head: atraumatic, normal appearance Neck: supple Respiratory: no respiratory distress, quiet respiration, trachea midline, clear anteriorly Cardiovascular: regular rate/rhythm, tachycardia improved Abdomen: normal bowel sounds, soft, non-tender Extremities: no edema Skin: intact, normal color, warm/dry Results Last 24 Hrs of Lab Results: Laboratory Tests 03/15/17 0408: Anion Gap 16, Estimated GFR 34 L, Glucose 352 H, Calcium 9.4, Phosphorus 5.2 H, Magnesium 2.4 H, Total Bilirubin 0.5, AST 43 H, ALT 164 H, Albumin 3.4 L, CBC w Diff MAN DIFF ORDERED, RBC 4.97, MCV 88.8, MCH 29.6, RDW 12.7, MPV 9.9, Gran % 86.9 H, Lymphocytes % 6.5 L, Monocytes % 6.1, Eosinophils % 0.3, Basophils % 0.2, Absolute Granulocytes 16.4 H, Absolute Lymphocytes 1.2, Absolute Monocytes 1.1 H, Absolute Eosinophils 0.1, Absolute Basophils 0, Platelet Estimate ADEQUATE, Polychromasia 1+, Poikilocytosis 1+, PUBS MCHC 33.[address] Scan Findings: Interval worsening in diffuse geographic groundglass opacities throughout both lungs with development of more confluent airspace disease dependently within both lungs. These imaging findings are nonspecific and require clinical correlation. Infection is within the differential. Impression/Plan Impression/Plan Impression/Plan: 1. Hypoxemic respiratory failure secondary to influenza. With possible ARDS. CT shows GGOs, slightly worse. ID, cardiology and nephrology following the patient for possible intervention and additional recommendations. 2. Probable obesity hypoventilation syndrome. 3. Probable obstructive sleep apnea, undiagnosed. 4. Hypernatremia. 5. History of chronic kidney disease secondary to IgA nephropathy. 6. History of hypothyroidism. 7. Exercise-induced asthma, evidence of bronchospasm during this admission. 8. Mild transaminitis. Recommendations: Recommendations: * Continue to monitor culture results. * Tamiflu as per ID. * We will continue the patient on BiPAP/high flow oxygen. Will attempt to wean oxygen down for saturations greater than 92%. * Monitor respiratory status closely, low threshold for intubation. * Continue nebs/TRC. * Maintain aspiration precautions. * Renal consulted, follow up recommendations, appreciate input. * Monitor all electrolytes and replete as necessary. * Continue Synthroid at current dosing. * Subcutaneous heparin/DVT prophylaxis at all times. * Continue to monitor closely in the critical care unit. * Out of bed to chair if able. * I discussed the plan of care with the housestaff at length, I requested they contact me if the patient's condition changes or deteriorates. Once again, we have a low threshold for intubation as previously mentioned. The patient is very adamant that she does not want to be intubated unless absolutely necessary.
--- NOTE | 2017-03-15 10:21 | PN- Infect Dx ---
Subjective Subjective: Afebrile on steroids. She feels somewhat better with decreased respiratory distress with exertion. She continues to have a cough, productive of mucus, with no chest discomfort. Objective Last 24 Hrs of Vital Signs/I&O Vital Signs Date Time Temp Pulse Resp B/P B/P Pulse O2 O2 Flow FiO2 Mean Ox Delivery Rate 03/15 0806 92 Nasal 90% Cannula 03/15 0423 93 Nasal 90% Cannula 03/15 0400 94 Nasal 90% Cannula 03/15 0000 91 Nasal 90% Cannula 03/15 0000 97.4 92 22 128/78 91 Nasal 90% Cannula 03/14 2000 91 Nasal 90% Cannula 03/14 1720 91 Nasal 90% Cannula 03/14 1600 93 Nasal 90% Cannula 03/14 1600 98.0 87 23 108/70 94 Nasal 90% Cannula 03/14 1445 92 Nasal 90% Cannula 03/14 1224 95 Nasal 90% Cannula 03/14 1200 92 Nasal 90% Cannula 03/14 1200 97.8 83 22 110/68 92 Nasal 90% Cannula Intake & Output 03/15 1600 03/15 0800 03/15 0000 Intake Total 1240 970 Output Total 1999 3000 Balance -760 -2030 Intake, IV 10 Intake, Oral 1240 960 Number 0 2 Bowel Movements Output, Urine 1999 3000 Patient 276 lb Weight Weight Bed scale Measurement Method Physical Exam Other Physical Findings: She appears comfortable on high flow oxygen Lungs are clear Heart regular rhythm with no murmur Abdomen is obese, soft, nontender with positive bowel sounds Extremities no cyanosis, clubbing or edema Results Last 24 Hours of Lab Results: Laboratory Tests 03/15 407 Chemistry Sodium (137 - 145 mmol/L) 135 L Potassium (3.5 - 5.1 mmol/L) 4.9 Chloride (98 - 107 mmol/L) 98 Carbon Dioxide (22 - 30 mmol/L) 21 L Anion Gap (5 - 16) 16 BUN (7 - 17 mg/dL) 39 H Creatinine (0.5 - 1.0 mg/dL) 1.8 H Estimated GFR (>60 ml/min) 34 L Glucose (65 - 99 mg/dL) 352 H Calcium (8.4 - 10.2 mg/dL) 9.4 Phosphorus (2.5 - 4.5 mg/dL) 5.2 H Magnesium (1.6 - 2.3 mg/dL) 2.4 H Total Bilirubin (0.2 - 1.3 mg/dL) 0.5 AST (14 - 36 U/L) 43 H ALT (9 - 52 U/L) 164 H Albumin (3.5 - 5.0 g/dL) 3.4 L Hematology CBC w Diff MAN DIFF ORDERED WBC (4.8 - 10.8 /CUMM) 18.9 H RBC (4.20 - 5.40 /CUMM) 4.97 Hgb (12.0 - 16.0 G/DL) 14.7 Hct (37 - 47 %) 44.2 MCV (81.0 - 99.0 FL) 88.8 MCH (27.0 - 31.0 PG) 29.6 RDW (11.5 - 14.5 %) 12.7 Plt Count (130 - 400 /CUMM) 243 MPV (7.4 - 10.4 FL) 9.9 Gran % (42.2 - 75.2 %) 86.9 H Lymphocytes % (20.5 - 51.1 %) 6.5 L Monocytes % (1.7 - 9.3 %) 6.1 Eosinophils % (0 - 5 %) 0.3 Basophils % (0.0 - 2.0 %) 0.2 Absolute Granulocytes (1.4 - 6.5 /CUMM) 16.4 H Absolute Lymphocytes (1.2 - 3.4 /CUMM) 1.2 Absolute Monocytes (0.10 - 0.60 /CUMM) 1.1 H Absolute Eosinophils (0.0 - 0.7 /CUMM) 0.1 Absolute Basophils (0.0 - 0.2 /CUMM) 0 Platelet Estimate (ADEQUATE) ADEQUATE Polychromasia 1+ Poikilocytosis 1+ PUBS MCHC (33.0 - 37.0 G/DL) 33.3 Last 24 Hours of Michael Results: No new cultures Recent Imaging Studies: CT of the chest March 14 reveals interval worsening of the extensive geographic groundglass opacities at the central portions of both lungs, with no pleural effusions Assessment/Plan Impression: Ongoing respiratory failure, continuing to require high flow oxygen, with temperatures remaining normal (on steroids) and with her white blood cell count continuing to increase, most likely secondary to the steroids. She remains on Tamiflu now Day 9 of treatment for probable Influenza pneumonia. Suggestion: 1. Remove Cruz catheter as soon as feasible 2. Taper steroids per Pulmonary 3. Continue Tamiflu
--- NOTE | 2017-03-15 14:07 | PN- Cardiology ---
Subjective Subjective: The patient reports that her shortness of breath is somewhat better. No chest pain. No palpitations. No nausea or vomiting. She remains on high flow oxygen Objective Vital Signs and I&Os Vital Signs Date Time Temp Pulse Resp B/P B/P Pulse O2 O2 Flow FiO2 Mean Ox Delivery Rate 03/15 1200 92 Nasal 90% Cannula 03/15 0806 92 Nasal 90% Cannula 03/15 0800 92 Nasal 90% Cannula 03/15 0800 97.7 82 22 130/82 93 Nasal 90% Cannula 03/15 0423 93 Nasal 90% Cannula 03/15 0400 94 Nasal 90% Cannula 03/15 0000 91 Nasal 90% Cannula 03/15 0000 97.4 92 22 128/78 91 Nasal 90% Cannula 03/14 2000 91 Nasal 90% Cannula 03/14 1720 91 Nasal 90% Cannula 03/14 1600 93 Nasal 90% Cannula 03/14 1600 98.0 87 23 108/70 94 Nasal 90% Cannula 03/14 1445 92 Nasal 90% Cannula Intake & Output 03/15 1600 03/15 0800 03/15 0000 03/14 1600 03/14 0800 03/14 0000 Intake Total 4573 252 0860 247 2100 Output Total 2000 3000 2750 1500 1100 Balance -760 -2030 -1363 -1253 1000 Intake, IV 10 7 7 Intake, Oral 9516 500 6399 240 2100 Number 0 2 1 0 Bowel Movements Output, Urine 2000 3000 2750 1500 1100 Patient 276 lb 282 lb Weight Weight Bed scale Bed scale Measurement Method Physical Exam: Gen: NAD HEENT: normal Lungs: clear to auscultation, normal resp. effort Heart: RRR, S1, S2, no murmurs Abdomen: Soft, nontender, no masses Extremities: No clubbing, cyanosis, or edema. Neuro: Alert and oriented x 3, cranial nerves intact Current Medications: Current Medications Sig/Nabila Start time Last Medication Dose Route Stop Time Status Admin Acetaminophen 650 MG Q6P PRN 03/06 2214 AC 03/11 PO 1140 Acetaminophen 1,000 MG Q6P PRN 03/06 2215 AC 03/08 IV 2357 Albuterol Sulfate 3 ML EVERY 4 HRS/AWAKE 03/08 1600 AC 03/15 INH 1129 Atorvastatin Calcium 80 MG 1700 03/08 1700 AC 03/14 PO 1652 Calcium Carbonate 500 MG TID PRN 03/10 0030 AC PO Fish Oil 2,100 MG BID 03/07 1000 AC 03/15 PO 1003 Glycerin 2 SPRAY Q2P PRN 03/09 0745 AC 03/09 PO 0848 Guaifenesin 10 ML Q4-6 PRN PRN 03/08 0445 AC 03/08 PO 0444 Heparin Sodium 5,000 UNIT Q8 03/07 0600 AC 03/15 (Porcine) SC 0616 Insulin Aspart 0 TIDAC/HS 03/13 1200 AC 03/15 SC 1231 Insulin Detemir 10 UNITS DAILY 03/15 1148 AC 03/15 SC 1228 Ipratropium [place] 2.5 ML EVERY 4 HRS/AWAKE 03/08 1600 AC 03/15 INH 1129 Levothyroxine Sodium 0.075 MG DAILY AC 03/11 0700 AC 03/15 PO 0616 Methylprednisolone 40 MG 1800,0600 03/14 1800 AC 03/15 IV 0616 Oseltamivir Phosphate 75 MG BID 03/10 2200 AC 03/15 PO 03/18 215 1003 Sodium Bicarbonate 975 MG BID 03/07 1000 AC 03/15 PO 1003 Results Last 48 Hrs of Labs/Mics: Laboratory Tests 03/15/17 0408: Anion Gap 16, Estimated GFR 34 L, Glucose 352 H, Calcium 9.4, Phosphorus 5.2 H, Magnesium 2.4 H, Total Bilirubin 0.5, AST 43 H, ALT 164 H, Albumin 3.4 L, CBC w Diff MAN DIFF ORDERED, RBC 4.97, MCV 88.8, MCH 29.6, RDW 12.7, MPV 9.9, Gran % 86.9 H, Lymphocytes % 6.5 L, Monocytes % 6.1, Eosinophils % 0.3, Basophils % 0.2, Absolute Granulocytes 16.4 H, Absolute Lymphocytes 1.2, Absolute Monocytes 1.1 H, Absolute Eosinophils 0.1, Absolute Basophils 0, Platelet Estimate ADEQUATE, Polychromasia 1+, Poikilocytosis 1+, PUBS MCHC 33.3 03/14/17 0515: Anion Gap 14, Estimated GFR 34 L, Glucose 308 H, Hemoglobin A1c 6.2 H, Calcium 8.9, Phosphorus 4.4, Magnesium 2.5 H, Total Bilirubin 0.6, AST 44 H, ALT 165 H, Albumin 3.2 L, CBC w Diff NO MAN DIFF REQ, RBC 4.71, MCV 88.7, MCH 30.1, RDW 12.6, MPV 9.0, Gran % 85.9 H, Lymphocytes % 7.3 L, Monocytes % 6.7, Eosinophils % 0.1, Basophils % 0, Absolute Granulocytes 12.8 H, Absolute Lymphocytes 1.1 L, Absolute Monocytes 1.0 H, Absolute Eosinophils 0, Absolute Basophils 0, PUBS MCHC 34.0 Assessment/Plan Assessment/Plan Assessment: 1. Acute hypoxemic respiratory failure secondary to influenza complicated with left lower lobe pneumonia. 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 Diffuse bilateral ground glass opacities on CT scan. Volume overload is a possible continuing factor Recommendations: * Given negative fluid balance, would hold diuretics for now * Continue to monitor input and output, and check basic metabolic profile daily Continue telemetry? Yes
[2017-03-15 16:00] VITALS: BP 142/70
[2017-03-16] VITALS: BP 158/90
--- NOTE | 2017-03-16 07:00 | PN- Resident CRCU ---
Subjective HPI/CRCU Issues: Acute Hypoxic Respiratory Failure Influenza Stage 3 CKD secondary to IgA nephropathy 24 Hour Events: Continues to be dependent on oxygen support. Was on BiPAP at night and switched to high flow at 90% in the morning. However, she was unable to maintain her sats and had to be switched back to BiPAP. Subjectively reports feeling better. Does not offer any complaints. Objective Vital Signs & I&O Last 8 Hrs of Vitals and I&O: . Exam General Appearance: no apparent distress, alert, awake, mild distress Head: atraumatic, normal appearance Neck: normal inspection Respiratory: normal breath sounds, chest non-tender, lungs clear Cardiovascular: tachycardia Gastrointestinal: soft, non-tender Extremities: no edema Cranial Nerves: normal hearing, normal speech Skin: intact, normal color Skin Temp/Moisture Exam: Warm/Dry Sepsis Skin Exam (color): Normal for Ethnicity Current Medications: Current Medications Sig/Nabila Start time Last Medication Dose Route Stop Time Status Admin Acetaminophen 650 MG Q6P PRN 03/06 2215 AC 03/11 PO 1140 Acetaminophen 1,000 MG Q6P PRN 03/06 2215 AC 03/08 IV 2357 Albuterol Sulfate 3 ML EVERY 4 HRS/AWAKE 03/08 1600 AC 03/16 INH 0820 Atorvastatin Calcium 80 MG 1700 03/08 1700 AC 03/15 PO 1801 Calcium Carbonate 500 MG TID PRN 03/10 0030 AC PO Fish Oil 2,100 MG BID 03/07 1000 AC 03/16 PO 0938 Glycerin 2 SPRAY Q2P PRN 03/09 0745 AC 03/09 PO 0848 Guaifenesin 10 ML Q4-6 PRN PRN 03/08 0445 AC 03/08 PO 0444 Heparin Sodium 5,000 UNIT Q8 03/07 0600 AC 03/16 (Porcine) SC 0615 Insulin Aspart 0 TIDAC/HS 03/13 1200 AC 03/16 SC 0900 Insulin Detemir 10 UNITS BID 03/16 1000 AC 03/16 SC 0939 Insulin Detemir 10 UNITS DAILY 03/15 1148 DC 03/15 SC 1228 Ipratropium [place] 2.5 ML EVERY 4 HRS/AWAKE 03/08 1600 AC 03/16 INH 0820 Levothyroxine Sodium 0.075 MG DAILY AC 03/11 0700 AC 03/16 PO 0615 Methylprednisolone 40 MG 1800,0600 03/14 1800 AC 03/16 IV 0615 Oseltamivir Phosphate 75 MG BID 03/10 2200 AC 03/16 PO 03/18 2158 0938 Sodium Bicarbonate 975 MG BID 03/07 1000 AC 03/16 PO 0938 Impression/Plan Impression/Problem List Impression: 26 yo morbidly obese F with h/o 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 Was being treated on the general medicine floor with Tamiflu and IV ceftriaxone and azithromycin. Transferred to ICU on 03/08/2017 for worsening respiratory status and hypoxia. Assessment * Acute hypoxaemic respiratory failure secondary to influenza complicated with left lower lobe pneumonia. * Sepsis on admission - resolved. * Influenza A positive * Acute on chronic kidney disease likely secondary to ATN. There could've been a component of pre-renal azotemia as well - resolved * Elevated CK - ? Rhabdomyolosis - improved with IVF. * History of Exercise induced Asthma * History of hypothyroidism * ? CL Plan * Continue monitoring in ICU * Vitals per protocol * BiPAP use nocturnally and as needed. * Was on high flow earlier this morning but switched to BiPAP as was unable to maintain her sats. * Urine strep pneumo and legionella - negative * Repeat CT scan 03/14 interval worsening in diffuse geographic groundglass opacities throughout both lungs with development of more confluent airspace disease dependently within both lungs. * Echo - Normal LVEF >60%. No evidence of right heart strain. * Continue IV methylprednisone to 40mg q12. Will taper as condition improves. * Continue Tamiflu * TRC nebs as needed. * Dopplers of lower extremity ruled out DVT. * Elevation in white count and slight bump Cr this morning. Unclear why. The white count could be attributed to the steroids. * Holding lisinopril, nephro input appreciated. * Patients renal doctor is Dr Garcia( [phone]) at [facility]. Renal d/s started in 2009. * Continue sodium bicarbonate tabs * Continue Synthroid. * DVT to prophylaxis with subcutaneous heparin * Regular diet. * Pain control with IV Tylenol as needed. * Patient is full code PLEASE CALL PATIENT'S FATHER STACY RASHID ) ABOUT ANY CHANGES IN CLINICAL CONDITION/ INTUBATION. HE IS CURRENTLY IN [place]. Problem List: 1. Influenza Pain Ratin Tomorrow's Labs & Rationales: CBC, ICU bundle Plan DVT/Prophylaxis: pharmacological
[2017-03-16 07:50] LABS: ABSOLUTE BASOPHIL COUNT 0 /CUMM (0.0-0.2); ABSOLUTE EOSINOPHIL COUNT 0 /CUMM (0.0-0.7); ABSOLUTE GRANULOCYTE CT 17.9 /CUMM (1.4-6.5); ABSOLUTE LYMPH COUNT 1.2 /CUMM (1.2-3.4); BASOPHIL % 0.1 % (0.0-2.0); EOSINOPHIL % 0.2 % (0-5); GRANULOCYTE % 88.6 % (42.2-75.2); HEMATOCRIT 43.8 % (37-47); MEAN CORPUSCULAR HGB 29.7 PG (27.0-31.0); MEAN CORPUSCULAR HGB CONC 33.7 G/DL (33.0-37.0); MEAN CORPUSCULAR VOLUME 88.3 FL (81.0-99.0); MEAN PLATELET VOLUME 9.1 FL (7.4-10.4); PLATELET COUNT 320 /CUMM (130-400); RBC DISTRIBUTION WIDTH 12.8 % (11.5-14.5); RED BLOOD CELL CT 4.96 /CUMM (4.20-5.40); WHITE BLOOD CELL COUNT 20.1 /CUMM (4.8-10.8)
--- NOTE | 2017-03-16 07:52 | PN- CRCU ---
Subjective HPI/Critical Care Issues: The patient remains awake, alert, comfortable and has no shortness of breath. She is coughing up a scant amount of sputum which she describes as white/clear, which has improved. Her oxygen requirement remains elevated, noting she was on 100% BIPAP overnight, and then switched over to high flow at 90%. For a transient amount of time, she tolerated 75% oxygen. She has no chest pain, fever or chills. She is getting up out of the bed to sit in a chair or go to the commode. She does have slight desaturations with exertion, however she recovers quickly. Objective Current Medications: Current Medications Sig/Nabila Start time Last Medication Dose Route Stop Time Status Admin Acetaminophen 650 MG Q6P PRN 03/06 221 AC 03/11 PO 1140 Acetaminophen 1,000 MG Q6P PRN 03/06 2215 AC 03/08 IV 2357 Albuterol Sulfate 3 ML EVERY 4 HRS/AWAKE 03/08 1600 AC 03/15 INH 2058 Atorvastatin Calcium 80 MG 1700 03/08 1700 AC 03/15 PO 1801 Calcium Carbonate 500 MG TID PRN 03/10 0030 AC PO Fish Oil 2,100 MG BID 03/07 1000 AC 03/15 PO 2208 Glycerin 2 SPRAY Q2P PRN 03/09 0745 AC 03/09 PO 0848 Guaifenesin 10 ML Q4-6 PRN PRN 03/08 0445 AC 03/08 PO 0444 Heparin Sodium 5,000 UNIT Q8 03/07 0600 AC 03/16 (Porcine) SC 0615 Insulin Aspart 0 TIDAC/HS 03/13 1200 AC 03/15 SC 2200 Insulin Detemir 10 UNITS DAILY 03/15 1148 AC 03/15 SC 1228 Ipratropium [place] 2.5 ML EVERY 4 HRS/AWAKE 03/08 1600 AC 03/15 INH 2058 Levothyroxine Sodium 0.075 MG DAILY AC 03/11 0700 AC 03/16 PO 0615 Methylprednisolone 40 MG 1800,0600 03/14 1800 AC 03/16 IV 0615 Oseltamivir Phosphate 75 MG BID 03/10 2200 AC 03/15 PO 03/18 2158 2209 Sodium Bicarbonate 975 MG BID 03/07 1000 AC 03/15 PO 2209 Vital Signs & I&O Last 24 Hrs of Vitals and I&O: Vital Signs Date Time Temp Pulse Resp B/P B/P Pulse O2 O2 Flow FiO2 Mean Ox Delivery Rate 03/16 0451 77 93 03/16 0400 94 BIPAP 100% 03/16 0138 86 93 03/16 0000 92 BIPAP 100% 03/16 0000 96.8 92 30 158/90 92 BIPAP 100% 03/15 2304 86 94 03/15 2000 90 Nasal 90% Cannula 03/15 1923 92 Nasal 90% Cannula 03/15 1653 91 Nasal 90% Cannula 03/15 1600 92 Nasal 90% Cannula 03/15 1600 97.6 110 28 142/70 92 Nasal 90% Cannula 03/15 1200 92 Nasal 90% Cannula 03/15 0806 92 Nasal 90% Cannula 03/15 0800 92 Nasal 90% Cannula 03/15 0800 97.7 82 22 130/82 93 Nasal 90% Cannula Intake & Output 03/16 0800 03/16 0000 03/15 1600 Intake Total 1000 1400 1300 Output Total 2100 2700 2950 Balance -1100 -1300 -1650 Intake, IV 0 0 Intake, Oral 1000 1400 1300 Number 0 0 Bowel Movements Output, Urine 2100 2700 2950 Exam General Appearance: no apparent distress, alert, awake, comfortable, not using accessory muscles for respiration, on high flow oxygen Head: atraumatic, normal appearance Neck: supple Respiratory: no respiratory distress, quiet respiration, trachea midline, clear anteriorly Cardiovascular: regular rate/rhythm, tachycardia improved Abdomen: normal bowel sounds, soft, non-tender, obese Extremities: no edema Skin: intact, normal color, warm/dry Results Last 24 Hrs of Lab Results: Laboratory Tests 03/16/17 0700: Sodium Pending, Potassium Pending, Chloride Pending, Carbon Dioxide Pending, Anion Gap Pending, BUN Pending, Creatinine Pending, Glucose Pending, Calcium Pending, Phosphorus Pending, Magnesium Pending, Total Bilirubin Pending, AST Pending, ALT Pending, Albumin Pending, CBC w Diff Pending, WBC Pending, RBC Pending, Hgb Pending, Hct Pending, MCV Pending, MCH Pending, RDW Pending, Plt Count Pending, MPV Pending, PUBS MCHC Pending Impression/Plan Impression/Plan Impression/Plan: 1. Hypoxemic respiratory failure secondary to influenza. With possible ARDS. CT shows GGOs, slightly worse. ID, cardiology and nephrology following the patient for possible intervention and additional recommendations. No significant pleural fluid to tap. No evidence of alveolar hemorrhage. Under[place] infection has been considered however there has been no evidence found of this. 2. Probable obesity hypoventilation syndrome. 3. Probable obstructive sleep apnea, undiagnosed. 4. Hypernatremia. 5. History of chronic kidney disease secondary to IgA nephropathy. 6. History of hypothyroidism. 7. Exercise-induced asthma, evidence of bronchospasm during this admission, now improved, steroids on a slow taper. 8. Mild transaminitis. Recommendations: Recommendations: * Continue to monitor culture results. Repeat sputum cultures? Bronchoscopy? ( patient would require intubation and she has been very against this). * Tamiflu as per ID. * We will continue the patient on BiPAP/high flow oxygen. Will attempt to wean oxygen down for saturations greater than 92%. * Will need to consider transfer to a higher level of care if she continues to fail to improve. * Monitor respiratory status closely, low threshold for intubation. * Continue nebs/TRC. * Maintain aspiration precautions. * Renal consulted, follow up recommendations, appreciate input. * Monitor all electrolytes and replete as necessary. * Continue Synthroid. * Subcutaneous heparin/DVT prophylaxis at all times. * Continue to monitor closely in the critical care unit. * Out of bed to chair. * I discussed the plan of care with the housestaff at length, I requested they contact me if the patient's condition changes or deteriorates. Once again, we have a low threshold for intubation as previously mentioned. The patient is very adamant that she does not want to be intubated unless absolutely necessary. * Continue close monitoring in the [facility].
[2017-03-16 08:00] VITALS: BP 140/90
--- NOTE | 2017-03-16 11:09 | PN- Infect Dx ---
Subjective Subjective: Afebrile on steroids. She reports continued shortness of breath, requiring BiPAP presently. Objective Last 24 Hrs of Vital Signs/I&O Vital Signs Date Time Temp Pulse Resp B/P B/P Pulse O2 O2 Flow FiO2 Mean Ox Delivery Rate 03/16 0951 91 BIPAP 100% 03/16 0950 96 92 03/16 0800 96.7 84 20 140/90 89 Nasal 75% Cannula 03/16 0800 89 Nasal 75% Cannula 03/16 0451 77 93 03/16 0400 94 BIPAP 100% 03/16 0138 86 93 03/16 0000 92 BIPAP 100% 03/16 0000 96.8 92 30 158/90 92 BIPAP 100% 03/15 2304 86 94 03/15 2000 90 Nasal 90% Cannula 03/15 1923 92 Nasal 90% Cannula 03/15 1653 91 Nasal 90% Cannula 03/15 1600 92 Nasal 90% Cannula 03/15 1600 97.6 110 28 142/70 92 Nasal 90% Cannula 03/15 1200 92 Nasal 90% Cannula Intake & Output 03/16 1600 03/16 0800 03/16 0000 Intake Total 1000 1400 Output Total 2100 2700 Balance -1100 -1300 Intake, IV 0 0 Intake, Oral 1000 1400 Number 0 0 Bowel Movements Output, Urine 2100 2700 Physical Exam Other Physical Findings: She appears comfortable now on BiPAP Lungs are clear Heart regular rhythm with no murmur Extremities no cyanosis, clubbing or edema Results Last 24 Hours of Lab Results: Laboratory Tests 03/16 0700 Chemistry Sodium (137 - 145 mmol/L) 133 L Potassium (3.5 - 5.1 mmol/L) 4.7 Chloride (98 - 107 mmol/L) 93 L Carbon Dioxide (22 - 30 mmol/L) 24 Anion Gap (5 - 16) 15 BUN (7 - 17 mg/dL) 46 H Creatinine (0.5 - 1.0 mg/dL) 2.0 H Estimated GFR (>60 ml/min) 30 L Glucose (65 - 99 mg/dL) 357 H Calcium (8.4 - 10.2 mg/dL) 9.2 Phosphorus (2.5 - 4.5 mg/dL) 5.1 H Magnesium (1.6 - 2.3 mg/dL) 2.3 Total Bilirubin (0.2 - 1.3 mg/dL) 0.6 AST (14 - 36 U/L) 45 H ALT (9 - 52 U/L) 187 H Albumin (3.5 - 5.0 g/dL) 3.3 L Hematology CBC w Diff MAN DIFF ORDERED WBC (4.8 - 10.8 /CUMM) 20.1 H RBC (4.20 - 5.40 /CUMM) 4.96 Hgb (12.0 - 16.0 G/DL) 14.7 Hct (37 - 47 %) 43.8 MCV (81.0 - 99.0 FL) 88.3 MCH (27.0 - 31.0 PG) 29.7 RDW (11.5 - 14.5 %) 12.8 Plt Count (130 - 400 /CUMM) 320 MPV (7.4 - 10.4 FL) 9.1 Gran % (42.2 - 75.2 %) 88.6 H Lymphocytes % (20.5 - 51.1 %) 6.1 L Monocytes % (1.7 - 9.3 %) 5.0 Eosinophils % (0 - 5 %) 0.2 Basophils % (0.0 - 2.0 %) 0.1 Absolute Granulocytes (1.4 - 6.5 /CUMM) 17.9 H Segmented Neutrophils (42.2 - 75.2 %) 85 H Band Neutrophils (0.0 - 5.0 %) 4 Absolute Lymphocytes (1.2 - 3.4 /CUMM) 1.2 Lymphocytes (20.5 - 51.1 %) 5 L Monocytes (1.7 - 9.3 %) 3 Absolute Monocytes (0.10 - 0.60 /CUMM) 1.0 H Eosinophils (0 - 5.0 %) 1 Absolute Eosinophils (0.0 - 0.7 /CUMM) 0 Absolute Basophils (0.0 - 0.2 /CUMM) 0 Metamyelocytes (0.0 - 1.0 %) 2 H Platelet Estimate (ADEQUATE) VERIFIED BY SMEAR Normocytic RBCs VERIFIED Normochromic RBCs VERIFIED PUBS MCHC (33.0 - 37.0 G/DL) 33.7 Last 24 Hours of Michael Results: No new cultures Assessment/Plan Impression: Continued respiratory failure, now requiring BiPAP during the day, with temperatures remaining normal (on steroids) but with her white blood cell count continuing to increase, most likely secondary to the steroids. She remains on Tamiflu now Day 10 of treatment for presumed Influenza pneumonia, though the diffuse opacities on her recent CT scan suggest ARDS. Suggestion: 1. Remove Cruz catheter as soon as feasible 2. Taper steroids per Pulmonary 3. Continue Tamiflu
--- NOTE | 2017-03-16 13:27 | PN- Cardiology ---
Subjective Subjective: Cardiac status unchanged. Objective Vital Signs and I&Os Vital Signs Date Time Temp Pulse Resp B/P B/P Pulse O2 O2 Flow FiO2 Mean Ox Delivery Rate 03/16 1252 109 92 03/16 1200 91 BIPAP 100% 03/16 0951 91 BIPAP 100% 03/16 0950 96 92 03/16 0800 96.7 84 20 140/90 89 Nasal 75% Cannula 03/16 0800 89 Nasal 75% Cannula 03/16 0451 77 93 03/16 0400 94 BIPAP 100% 03/16 0138 86 93 03/16 0000 92 BIPAP 100% 03/16 0000 96.8 92 30 158/90 92 BIPAP 100% 03/15 2304 86 94 03/15 2000 90 Nasal 90% Cannula 03/15 1923 92 Nasal 90% Cannula 03/15 1653 91 Nasal 90% Cannula 03/15 1600 92 Nasal 90% Cannula 03/15 1600 97.6 110 28 142/70 92 Nasal 90% Cannula Intake & Output 03/16 1600 03/16 0800 03/16 0000 03/15 1600 03/15 0800 03/15 0000 Intake Total 1000 1400 1300 1240 970 Output Total 2100 2700 2950 1999 3000 Balance -1100 -1300 -1650 -760 -2030 Intake, IV 0 0 10 Intake, Oral 1000 1400 1300 1240 960 Number 0 0 0 2 Bowel Movements Output, Urine 2100 2700 2950 1999 3000 Patient 276 lb Weight Weight Bed scale Measurement Method Current Medications: Current Medications Sig/Nabila Start time Last Medication Dose Route Stop Time Status Admin Acetaminophen 650 MG Q6P PRN 03/065 AC 03/11 PO 1140 Acetaminophen 1,000 MG Q6P PRN 03/06 2215 AC 03/08 IV 2357 Albuterol Sulfate 3 ML EVERY 4 HRS/AWAKE 03/08 1600 03/16 INH 1147 Atorvastatin Calcium 80 MG 1700 03/08 1700 AC 03/15 PO 1801 Calcium Carbonate 500 MG TID PRN 03/10 0030 AC PO Fish Oil 2,100 MG BID 03/07 1000 AC 03/16 PO 0938 Glycerin 2 SPRAY Q2P PRN 03/09 0745 AC 03/09 PO 0848 Guaifenesin 10 ML Q4-6 PRN PRN 03/08 0445 AC 03/08 PO 0444 Heparin Sodium 5,000 UNIT Q8 01/15 0600 AC 03/16 (Porcine) OK 0615 Insulin Aspart 0 TIDAC/HS 03/13 1200 AC 03/16 SC 1126 Insulin Detemir 10 UNITS BID 03/16 1000 AC 03/16 SC 0939 Insulin Detemir 10 UNITS DAILY 03/15 1148 DC 03/15 OK 1228 Ipratropium [place] 2.5 ML EVERY 4 HRS/AWAKE 03/08 1600 AC 03/16 INH 1147 Levothyroxine Sodium 0.075 MG DAILY AC 03/11 0700 AC 03/16 PO 0615 Methylprednisolone 40 MG 1800,0600 03/14 1800 AC 03/16 IV 0615 Oseltamivir Phosphate 75 MG BID 03/10 2200 AC 03/16 PO 03/18 215 0938 Sodium Bicarbonate 975 MG BID 03/07 1000 AC 03/16 PO 0938 Results Last 48 Hrs of Labs/Mics: Laboratory Tests 03/16/17 0700: Anion Gap 15, Estimated GFR 30 L, Glucose 357 H, Calcium 9.2, Phosphorus 5.1 H, Magnesium 2.3, Total Bilirubin 0.6, AST 45 H, ALT 187 H, Albumin 3.3 L, CBC w Diff MAN DIFF ORDERED, RBC 4.96, MCV 88.3, MCH 29.7, RDW 12.8, MPV 9.1, Gran % 88.6 H, Lymphocytes % 6.1 L, Monocytes % 5.0, Eosinophils % 0.2, Basophils % 0.1, Absolute Granulocytes 17.9 H, Segmented Neutrophils 85 H, Band Neutrophils 4, Absolute Lymphocytes 1.2, Lymphocytes 5 L, Monocytes 3, Absolute Monocytes 1.0 H, Eosinophils 1, Absolute Eosinophils 0, Absolute Basophils 0, Metamyelocytes 2 H, Platelet Estimate VERIFIED BY SMEAR, Normocytic RBCs VERIFIED, Normochromic RBCs VERIFIED, PUBS MCHC 33.7 03/15/17 0408: Anion Gap 16, Estimated GFR 34 L, Glucose 352 H, Calcium 9.4, Phosphorus 5.2 H, Magnesium 2.4 H, Total Bilirubin 0.5, AST 43 H, ALT 164 H, Albumin 3.4 L, CBC w Diff MAN DIFF ORDERED, RBC 4.97, MCV 88.8, MCH 29.6, RDW 12.7, MPV 9.9, Gran % 86.9 H, Lymphocytes % 6.5 L, Monocytes % 6.1, Eosinophils % 0.3, Basophils % 0.2, Absolute Granulocytes 16.4 H, Absolute Lymphocytes 1.2, Absolute Monocytes 1.1 H, Absolute Eosinophils 0.1, Absolute Basophils 0, Platelet Estimate ADEQUATE, Polychromasia 1+, Poikilocytosis 1+, PUBS MCHC 33.3 Assessment/Plan Assessment/Plan Assessment: 1. Acute hypoxaemic respiratory failure secondary to influenza complicated with left lower lobe pneumonia. 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 At the moment I don't see any evidence of active cardiac issues. -Continue to monitor intakes, outputs, daily weights. Continue telemetry? Yes
[2017-03-16 16:00] VITALS: BP 126/84
[2017-03-16 23:00] VITALS: BP 117/62; BP 118/74
[2017-03-17 05:02] LABS: ABSOLUTE BASOPHIL COUNT 0 /CUMM (0.0-0.2); ABSOLUTE EOSINOPHIL COUNT 0 /CUMM (0.0-0.7); ABSOLUTE GRANULOCYTE CT 19.9 /CUMM (1.4-6.5); ABSOLUTE LYMPH COUNT 1.2 /CUMM (1.2-3.4); ABSOLUTE MONOCYTE COUNT 0.8 /CUMM (0.10-0.60); BASOPHIL % 0.2 % (0.0-2.0); EOSINOPHIL % 0.2 % (0-5); GRANULOCYTE % 90.4 % (42.2-75.2); HEMATOCRIT 46.6 % (37-47); MEAN CORPUSCULAR HGB 30.2 PG (27.0-31.0); MEAN CORPUSCULAR HGB CONC 33.8 G/DL (33.0-37.0); MEAN CORPUSCULAR VOLUME 89.1 FL (81.0-99.0); MEAN PLATELET VOLUME 9.8 FL (7.4-10.4); PLATELET COUNT 282 /CUMM (130-400); RBC DISTRIBUTION WIDTH 12.7 % (11.5-14.5); RED BLOOD CELL CT 5.23 /CUMM (4.20-5.40)
--- NOTE | 2017-03-17 07:06 | PN- Resident CRCU ---
Subjective HPI/CRCU Issues: Acute Hypoxic Respiratory Failure Influenza Stage 3 CKD secondary to IgA nephropathy 24 Hour Events: No acute overnight events. Remains on high flow oxygen with oxygen saturations in the early 90s with nocturnal BiPAP. Subjectively reports feeling better. Though states she gets short of breath with talking long sentences. Has not ambulated/mobilized in the past 24 hours. She is extremely anxious involving an intubation. Objective Vital Signs & I&O Last 8 Hrs of Vitals and I&O: . Exam General Appearance: alert, awake, anxious, mild distress Head: atraumatic, normal appearance Respiratory: normal breath sounds, chest non-tender, mild inspiratory wheeze Cardiovascular: regular rate/rhythm Gastrointestinal: soft, non-tender Extremities: no edema Cranial Nerves: normal hearing, normal speech Skin: intact Skin Temp/Moisture Exam: Warm/Dry Sepsis Skin Exam (color): Normal for Ethnicity Current Medications: Current Medications Sig/Nabila Start time Last Medication Dose Route Stop Time Status Admin Acetaminophen 650 MG Q6P PRN 03/06 2215 AC 03/11 PO 1140 Acetaminophen 1,000 MG Q6P PRN 03/06 2215 AC 03/08 IV 2357 Albuterol Sulfate 3 ML EVERY 4 HRS/AWAKE 03/08 1600 AC 03/17 INH 1208 Atorvastatin Calcium 80 MG 1700 03/08 1700 AC 03/16 PO 1730 Calcium Carbonate 500 MG TID PRN 03/10 0030 AC PO Fish Oil 2,100 MG BID 03/07 1000 AC 03/17 PO 1155 Glycerin 2 SPRAY Q2P PRN 03/09 0745 AC 03/09 PO 0848 Guaifenesin 10 ML Q4-6 PRN PRN 03/08 0445 AC 03/08 PO 0444 Heparin Sodium 5,000 UNIT Q8 03/07 0600 AC 03/17 (Porcine) SC 0529 Insulin Aspart 2 UNITS ONCE ONE 03/16 2300 DC 03/16 SC 03/16 2301 2259 Insulin Aspart 0 TIDAC/HS 03/13 1200 AC 03/17 SC 1250 Insulin Detemir 10 UNITS BID 03/16 1000 AC 03/17 SC 1156 Ipratropium [place] 2.5 ML EVERY 4 HRS/AWAKE 03/08 1600 AC 03/17 INH 1208 Levothyroxine Sodium 0.075 MG DAILY AC 03/11 0700 AC 03/17 PO 0602 Lorazepam 0.5 MG ONCE ONE 03/17 0830 DC 03/17 IV 03/17 0831 0830 Methylprednisolone 40 MG 1800,0600 03/14 1800 AC 03/17 IV 0529 Oseltamivir Phosphate 75 MG BID 03/10 2200 DC 03/16 PO 03/18 2158 2113 Sodium Bicarbonate 975 MG BID 03/07 1000 AC 03/17 PO 1155 Impression/Plan Impression/Problem List Impression: 26 yo morbidly obese F with h/o 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 Was being treated on the general medicine floor with Tamiflu and IV ceftriaxone and azithromycin. Transferred to ICU on 03/08/2017 for worsening respiratory status and hypoxia. Assessment * Acute hypoxaemic respiratory failure secondary to influenza complicated with left lower lobe pneumonia. * Sepsis on admission - resolved. * Influenza A positive * Acute on chronic kidney disease likely secondary to ATN. There could've been a component of pre-renal azotemia as well - resolved * Elevated CK - ? Rhabdomyolosis - improved with IVF. * Elevated blood sugars * History of Exercise induced Asthma * History of hypothyroidism * ? CL * Rising AST/ALT. Plan * Continue monitoring in ICU * Vitals per protocol * BiPAP use nocturnally and as needed. * Continues to be on high flow at 100% this morning with her sats in early 90s. She may require intubation if her condition deteriorates. * Urine strep pneumo and legionella - negative * Repeat CT scan 03/14 interval worsening in diffuse geographic groundglass opacities throughout both lungs with development of more confluent airspace disease dependently within both lungs. * Echo - Normal LVEF >60%. No evidence of right heart strain. * Continue IV methylprednisone to 40mg q12. Will taper as condition improves. * Discontinue Tamiflu as per ID recs. * TRC nebs as needed. * She is on high insulin sliding scale along with Levemir 10mg BID. Her HbA1c is 6.2. Her blood sugars have been running high. Will require Endo consult tomorrow. * Dopplers of lower extremity ruled out DVT. * White count continues to be elevated. She also has rising transminases. * Will obtain LFTs and hepatitis panel for tomorrow. * Holding lisinopril, nephro input appreciated. * Patients renal doctor is Dr Garcia( [phone]) at [facility]. Renal d/s started in 2009. * Continue sodium bicarbonate tabs * Continue Synthroid. * DVT to prophylaxis with subcutaneous heparin * Regular diet. * Pain control with IV Tylenol as needed. * Patient is full code PLEASE CALL PATIENT'S FATHER STACY RASHID ) ABOUT ANY CHANGES IN CLINICAL CONDITION/ INTUBATION. HE IS CURRENTLY IN [place]. Problem List: 1. Influenza Pain Ratin Tomorrow's Labs & Rationales: CBC, ICU bundle, LFTs, hepatitis panel. Plan DVT/Prophylaxis: pharmacological
--- NOTE | 2017-03-17 07:24 | PN- CRCU ---
Subjective HPI/Critical Care Issues: The patient continues to not make progress after maximal therapy. She remains on BIPAP or high flow at 100%. She appears slightly more short of breath today, noting she is in no distress however she is not speaking in full sentences. She continues to cough clear sputum which has improved. She is afebrile. Her WBC count is elevated however she continues on steroids. Objective Current Medications: Current Medications Sig/Nabila Start time Last Medication Dose Route Stop Time Status Admin Acetaminophen 650 MG Q6P PRN 03/06 2215 AC 03/11 PO 1140 Acetaminophen 1,000 MG Q6P PRN 03/06 2215 AC 03/08 IV 2357 Albuterol Sulfate 3 ML EVERY 4 HRS/AWAKE 03/08 1600 AC 03/16 INH 2120 Atorvastatin Calcium 80 MG 1700 03/08 1700 AC 03/16 PO 1730 Calcium Carbonate 500 MG TID PRN 03/10 0030 AC PO Fish Oil 2,100 MG BID 03/07 1000 AC 03/16 PO 2113 Glycerin 2 SPRAY Q2P PRN 03/09 0745 AC 03/09 PO 0848 Guaifenesin 10 ML Q4-6 PRN PRN 03/08 0445 AC 03/08 PO 0444 Heparin Sodium 5,000 UNIT Q8 03/07 0600 AC 03/17 (Porcine) SC 0529 Insulin Aspart 2 UNITS ONCE ONE 03/16 2300 DC 03/16 SC 03/16 2301 2259 Insulin Aspart 0 TIDAC/HS 03/13 1200 AC 03/16 SC 2117 Insulin Detemir 10 UNITS BID 03/16 1000 AC 03/16 SC 2116 Insulin Detemir 10 UNITS DAILY 03/15 1148 DC 03/15 SC 1228 Ipratropium [place] 2.5 ML EVERY 4 HRS/AWAKE 03/08 1600 AC 03/16 INH 2120 Levothyroxine Sodium 0.075 MG DAILY AC 03/11 0700 AC 03/17 PO 0602 Methylprednisolone 40 MG 1800,0600 03/14 1800 AC 03/17 IV 0529 Oseltamivir Phosphate 75 MG BID 03/10 2200 AC 03/16 PO 03/18 2157 2113 Sodium Bicarbonate 975 MG BID 03/07 1000 AC 03/16 PO 2113 Vital Signs & I&O Last 24 Hrs of Vitals and I&O: Vital Signs Date Time Temp Pulse Resp B/P B/P Pulse O2 O2 Flow FiO2 Mean Ox Delivery Rate 03/17 0527 94 98 03/17 0400 96 BIPAP 100% 03/17 0319 87 96 03/17 0029 89 98 03/17 0000 96 BIPAP 100% 03/16 2300 97.2 92 32 118/74 96 BIPAP 100% 03/16 2144 98 97 03/16 2000 98 BIPAP 100% 03/16 1830 100 94 03/16 1600 97.6 98 26 126/84 92 Nasal 100% Cannula 03/16 1600 91 Nasal 100% Cannula 03/16 1413 91 Nasal 100% Cannula 03/16 1252 109 92 03/16 1200 91 BIPAP 100% 03/16 0951 91 BIPAP 100% 03/16 0950 96 92 03/16 0800 96.7 84 20 140/90 89 Nasal 75% Cannula 03/16 0800 89 Nasal 75% Cannula Intake & Output 03/17 0800 03/17 0000 03/16 1600 Intake Total 2833 226 0594 Output Total 1185 1650 2350 Balance -145 -930 -850 Intake, Oral 5568 242 6172 Output, Urine 1185 1650 2350 Exam General Appearance: no apparent distress, alert, awake, comfortable, not using accessory muscles for respiration, on high flow oxygen Head: atraumatic, normal appearance Neck: supple Respiratory: no respiratory distress, quiet respiration, trachea midline, clear anteriorly Cardiovascular: regular rate/rhythm, tachycardia improved Abdomen: normal bowel sounds, soft, non-tender, obese Extremities: no edema Skin: intact, normal color, warm/dry Results Last 24 Hrs of Lab Results: Laboratory Tests 03/17/17 0348: Anion Gap 17 H, Estimated GFR 32 L, Glucose 403 H, Calcium 9.4, Phosphorus 5.8 H, Magnesium 2.4 H, Total Bilirubin 0.6, AST 81 H, ALT 312 H, Albumin 3.4 L, CBC w Diff MAN DIFF ORDERED, RBC 5.23, MCV 89.1, MCH 30.2, MCHC 33.8, RDW 12.7, MPV 9.8, Gran % 90.4 H, Lymphocytes % 5.6 L, Monocytes % 3.6, Eosinophils % 0.2, Basophils % 0.2, Absolute Granulocytes 19.9 H, Segmented Neutrophils 86 H, Band Neutrophils 4, Absolute Lymphocytes 1.2, Lymphocytes 6 L, Monocytes 4, Absolute Monocytes 0.8 H, Absolute Eosinophils 0, Absolute Basophils 0, Platelet Estimate ADEQUATE, Polychromasia 1+, Poikilocytosis 1+, Ovalocytes 1+, Fld Total RBCs Counted 100 Impression/Plan Impression/Plan Impression/Plan: 1. Hypoxemic respiratory failure secondary to influenza. With possible ARDS. CT shows GGOs, slightly worse. ID, cardiology and nephrology following the patient for possible intervention and additional recommendations. No significant pleural fluid to tap. No evidence of alveolar hemorrhage. [place] infection has been considered however there has been no evidence found of this. 2. Probable obesity hypoventilation syndrome. 3. Probable obstructive sleep apnea, undiagnosed. 4. Hypernatremia. 5. History of chronic kidney disease secondary to IgA nephropathy. 6. History of hypothyroidism. 7. Exercise-induced asthma, evidence of bronchospasm during this admission, now improved, steroids on a slow taper. 8. Mild transaminitis. Recommendations: Recommendations: * Check a portable CXR and abg now. * Continue to monitor culture results. Repeat sputum cultures? Bronchoscopy? ( patient would require intubation and she has been very against this understanding the risks). * Tamiflu as per ID. * We will continue the patient on BiPAP/high flow oxygen. Will attempt to wean oxygen down for saturations greater than 92%. * Will need to consider transfer to a higher level of care if she continues to fail to improve. * Monitor respiratory status closely, low threshold for intubation. * Continue nebs/TRC. * Maintain aspiration precautions. * Renal consulted, follow up recommendations, appreciate input. * Monitor all electrolytes and replete as necessary. * Continue Synthroid. * Subcutaneous heparin/DVT prophylaxis at all times. * Continue to monitor closely in the critical care unit. * Out of bed to chair. * I discussed the plan of care with the housestaff at length, I requested they contact me if the patient's condition changes or deteriorates. Once again, we have a low threshold for intubation as previously mentioned. The patient is now more agreeable to intubation however this is not her preference. * I remain very concerned about this patient and feel she may need intubation and higher level of care. She understands the risks of respiratory failure and intubation. Regardless, we attempted to make her NPO in anticipation for intubation and she was very distraught over this. Will follow her closely over the next few hours to determine the best timing of intubation if she does not improve. * Continue close monitoring in the CRCU.
[2017-03-17 08:00] VITALS: BP 132/70
--- NOTE | 2017-03-17 09:22 | RADIOLOGY REPORT ---
EXAMINATION: XR PORTABLE CHEST CLINICAL INFORMATION: Shortness of breath. COMPARISON: Multiple chest x-rays most recent prior dated 03/13/2017. TECHNIQUE: Portable frontal view of the chest was obtained. FINDINGS: Low lung volumes. Cardiomegaly. Hazy bilateral interstitial edema. No gross evidence of pleural effusion or focal consolidation. Evaluation is limited due to patient's body habitus. Osseous structures are intact. IMPRESSION: Low lung volumes with suggestion of hazy cardiogenic or noncardiogenic interstitial edema.
--- NOTE | 2017-03-17 10:50 | PN- Infect Dx ---
Subjective Subjective: Afebrile on steroids. She continues to have shortness of breath with any exertion. Objective Last 24 Hrs of Vital Signs/I&O Vital Signs Date Time Temp Pulse Resp B/P B/P Pulse O2 O2 Flow FiO2 Mean Ox Delivery Rate 03/17 0835 93 Nasal 100% Cannula 03/17 08 97.4 87 21 132/70 94 Nasal 100% Cannula 03/17 0800 94 Nasal 100% Cannula 03/17 0527 94 98 03/17 0400 96 BIPAP 100% 03/17 0319 87 96 03/17 0029 89 98 03/17 0000 96 BIPAP 100% 03/16 2300 97.2 92 32 118/74 96 BIPAP 100% 03/16 2144 98 97 03/16 2000 98 BIPAP 100% 03/16 1830 100 94 03/16 1600 97.6 98 26 126/84 92 Nasal 100% Cannula 03/16 1600 91 Nasal 100% Cannula 03/16 1413 91 Nasal 100% Cannula 03/16 1252 109 92 03/16 1200 91 BIPAP 100% Intake & Output 03/17 1600 03/17 0800 03/17 0000 Intake Total 1040 720 Output Total 1185 1650 Balance -145 -930 Intake, Oral 1040 720 Output, Urine 1185 1650 Physical Exam Other Physical Findings: She appears comfortable but anxious on high flow oxygen Lungs clear with diffuse wheezes at the end of inspiration Heart regular rhythm with no murmur Abdomen is obese, soft, nontender positive bowel sounds Extremities no cyanosis, clubbing or edema Results Last 24 Hours of Lab Results: Laboratory Tests 03/17 03/17 0915 0348 Blood Gas pH (7.35 - 7.45 PH) 7.47 H pCO2 (35 - 45 TORR) 31 L pO2 (80 - 100 TORR) 61 L HCO3 (21 - 28 MEQ/L) 22 ABG O2 Sat (Measured) (>96.0 %) 90.0 L P-50 (Temp Corrected) N Carboxyhemoglobin (1.5 - 5.0 %) 0.4 L O2 Concentration % 100% Temperature (97.0 - 100.0 FARH) 97.2 O2 Delivery Method HIGH FLOW N/C Chemistry Sodium (137 - 145 mmol/L) 136 L Potassium (3.5 - 5.1 mmol/L) 4.8 Chloride (98 - 107 mmol/L) 95 L Carbon Dioxide (22 - 30 mmol/L) 24 Anion Gap (5 - 16) 17 H BUN (7 - 17 mg/dL) 47 H Creatinine (0.5 - 1.0 mg/dL) 1.9 H Estimated GFR (>60 ml/min) 32 L Glucose (65 - 99 mg/dL) 403 H Calcium (8.4 - 10.2 mg/dL) 9.4 Phosphorus (2.5 - 4.5 mg/dL) 5.8 H Magnesium (1.6 - 2.3 mg/dL) 2.4 H Total Bilirubin (0.2 - 1.3 mg/dL) 0.6 AST (14 - 36 U/L) 81 H ALT (9 - 52 U/L) 312 H Albumin (3.5 - 5.0 g/dL) 3.4 L Hematology CBC w Diff MAN DIFF ORDERED WBC (4.8 - 10.8 /CUMM) 22.0 H RBC (4.20 - 5.40 /CUMM) 5.23 Hgb (12.0 - 16.0 G/DL) 15.8 Hct (37 - 47 %) 46.6 MCV (81.0 - 99.0 FL) 89.1 MCH (27.0 - 31.0 PG) 30.2 MCHC (33.0 - 37.0 G/DL) 33.8 RDW (11.5 - 14.5 %) 12.7 Plt Count (130 - 400 /CUMM) 282 MPV (7.4 - 10.4 FL) 9.8 Gran % (42.2 - 75.2 %) 90.4 H Lymphocytes % (20.5 - 51.1 %) 5.6 L Monocytes % (1.7 - 9.3 %) 3.6 Eosinophils % (0 - 5 %) 0.2 Basophils % (0.0 - 2.0 %) 0.2 Absolute Granulocytes (1.4 - 6.5 /CUMM) 19.9 H Segmented Neutrophils (42.2 - 75.2 %) 86 H Band Neutrophils (0.0 - 5.0 %) 4 Absolute Lymphocytes (1.2 - 3.4 /CUMM) 1.2 Lymphocytes (20.5 - 51.1 %) 6 L Monocytes (1.7 - 9.3 %) 4 Absolute Monocytes (0.10 - 0.60 /CUMM) 0.8 H Absolute Eosinophils (0.0 - 0.7 /CUMM) 0 Absolute Basophils (0.0 - 0.2 /CUMM) 0 Platelet Estimate (ADEQUATE) ADEQUATE Polychromasia 1+ Poikilocytosis 1+ Ovalocytes 1+ Miscellaneous Phlebotomy Draw Site RIGHT RADIAL Other Body Source Fld Total RBCs Counted (%) 100 Last 24 Hours of Michael Results: No new cultures Recent Imaging Studies: Chest x-ray March 17 reveals low lung volumes, with hazy bilateral interstitial edema Assessment/Plan Impression: No evidence of improvement in her respiratory status, with continued hazy bilateral densities on her chest x-ray. She remains afebrile (on steroids) with her white blood cell count continuing to increase, most likely secondary to the steroids. She remains on Tamiflu now Day 11 of treatment (Day 7 at the increased dose) for presumed Influenza pneumonia, though the diffuse opacities on her recent CT scan suggest possible ARDS. Her liver enzymes are increasing, possibly secondary to one of her medications. Suggestion: 1. Reevaluate all of her medications in view of her increasing liver enzymes 2. Remove Cruz catheter as soon as feasible 3. Taper steroids per Pulmonary 4. Discontinue Tamiflu and follow off antibiotics
[2017-03-17 12:00] VITALS: BP 130/86
[2017-03-17 16:00] VITALS: BP 100/60
[2017-03-18] VITALS: BP 136/70
[2017-03-18 06:10] LABS: ABSOLUTE BASOPHIL COUNT 0.1 /CUMM (0.0-0.2); ABSOLUTE EOSINOPHIL COUNT 0.1 /CUMM (0.0-0.7); ABSOLUTE GRANULOCYTE CT 18.9 /CUMM (1.4-6.5); ABSOLUTE MONOCYTE COUNT 0.7 /CUMM (0.10-0.60); BASOPHIL % 0.4 % (0.0-2.0); EOSINOPHIL % 0.3 % (0-5); GRANULOCYTE % 91.2 % (42.2-75.2); MEAN CORPUSCULAR HGB CONC 33.7 G/DL (33.0-37.0); MEAN CORPUSCULAR VOLUME 89.1 FL (81.0-99.0); MEAN PLATELET VOLUME 9.9 FL (7.4-10.4); PLATELET COUNT 260 /CUMM (130-400); RBC DISTRIBUTION WIDTH 12.9 % (11.5-14.5); RED BLOOD CELL CT 4.94 /CUMM (4.20-5.40); WHITE BLOOD CELL COUNT 20.8 /CUMM (4.8-10.8)
--- NOTE | 2017-03-18 07:25 | PN- Resident CRCU ---
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 While still on high flow oxygen at FiO2 100 % she desaturated down to 70s but returned to normal with rest. Blood sugars continue to remain persistently high. Endocrinology has been consulted. Father called in this morning and wanted to know about her plan and whether she will be intubated. He was explained in detail, the nature of her treatment. Objective Vital Signs & I&O Last 8 Hrs of Vitals and I&O: . Exam General Appearance: well developed/nourished, alert, awake, mild distress Head: atraumatic, normal appearance Respiratory: normal breath sounds, chest non-tender, lungs clear Cardiovascular: regular rate/rhythm Gastrointestinal: soft, non-tender Extremities: no edema Cranial Nerves: normal hearing, normal speech Skin: intact Skin Temp/Moisture Exam: Warm/Dry Sepsis Skin Exam (color): Normal for Ethnicity Current Medications: Current Medications Sig/Nabila Start time Last Medication Dose Route Stop Time Status Admin Acetaminophen 650 MG Q6P PRN 03/06 2215 AC 03/11 PO 1140 Acetaminophen 1,000 MG Q6P PRN 03/06 2215 AC 03/08 IV 2357 Albuterol Sulfate 3 ML EVERY 4 HRS/AWAKE 03/08 1600 03/18 INH 0834 Atorvastatin Calcium 80 MG 1700 03/08 1700 AC 03/17 PO 1649 Calcium Carbonate 500 MG TID PRN 03/10 0030 AC PO Fish Oil 2,100 MG BID 03/07 1000 AC 03/17 PO 2241 Furosemide 20 MG ONCE ONE 03/17 1515 DC 03/17 IV 03/17 1516 1520 Glycerin 2 SPRAY Q2P PRN 03/09 0745 AC 03/09 PO 0848 Guaifenesin 10 ML Q4-6 PRN PRN 03/08 0445 AC 03/08 PO 0444 Heparin Sodium 5,000 UNIT Q8 03/07 0600 AC 03/18 (Porcine) SC 0557 Insulin Aspart 0 TIDAC/HS 03/13 1200 AC 03/18 SC 0806 Insulin Detemir 15 UNITS BID 03/18 1000 AC SC Insulin Detemir 14 UNITS BID 03/17 2200 DC 03/17 SC 2250 Insulin Detemir 10 UNITS BID 03/16 1000 DC 03/17 SC 1156 Ipratropium [place] 2.5 ML EVERY 4 HRS/AWAKE 03/08 1600 AC 03/18 INH 0834 Levothyroxine Sodium 0.075 MG DAILY AC 03/11 0700 AC 03/18 PO 0557 Methylprednisolone 40 MG 1800,0600 03/14 1800 AC 03/18 IV 0557 Oseltamivir Phosphate 75 MG BID 03/10 2200 DC 03/16 PO 03/18 2158 2113 Sodium Bicarbonate 975 MG BID 03/07 1000 AC 03/17 PO 2241 Impression/Plan Impression/Problem List Impression: 26 yo morbidly obese F with h/o 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 Was being treated on the general medicine floor with Tamiflu and IV ceftriaxone and azithromycin. Transferred to ICU on 03/08/2017 for worsening respiratory status and hypoxia. Assessment * Acute hypoxaemic respiratory failure secondary to influenza complicated with left lower lobe pneumonia. * Sepsis on admission - resolved. * Influenza A positive * Acute on chronic kidney disease likely secondary to ATN. There could've been a component of pre-renal azotemia as well - resolved * Elevated CK - ? Rhabdomyolosis - improved with IVF. * Elevated blood sugars * History of Exercise induced Asthma * History of hypothyroidism * ? CL * Rising AST/ALT. Plan * Continue monitoring in ICU * Vitals per protocol * BiPAP use nocturnally and as needed. * Continues to be on high flow at 100%. She may require intubation if her condition deteriorates. * Repeat CT scan 03/14 interval worsening in diffuse geographic groundglass opacities throughout both lungs with development of more confluent airspace disease dependently within both lungs. * Echo - Normal LVEF >60%. No evidence of right heart strain. * Decrease IV methylprednisone to 40mg daily. * Off antibiotics and Tamiflu. Her last flu swab was negative for influenza. * TRC nebs as needed. * She is on high insulin sliding scale along with Levemir 15mg BID. Her HbA1c is 6.2. Her blood sugars have been running high. Endo consult placed. * White count continues to be elevated. She also has rising transminases. * Hepatitis panel has been negative. Will obtain RUQ U/S * Holding lisinopril, nephro input appreciated. * Patients renal doctor is Dr Garcia( [phone]) at [place]. Renal d/s started in 2009. * Continue sodium bicarbonate tabs * Continue Synthroid. * DVT to prophylaxis with subcutaneous heparin * Regular diet. * Pain control with IV Tylenol as needed. * Patient is full code PLEASE CALL PATIENT'S FATHER STACY RASHID ([phone]) ABOUT ANY CHANGES IN CLINICAL CONDITION/ INTUBATION. HE IS CURRENTLY IN [place]. Problem List: 1. Influenza Pain Ratin Tomorrow's Labs & Rationales: CBC, ICU bundle Plan DVT/Prophylaxis: pharmacological
[2017-03-18 08:00] VITALS: BP 130/90
--- NOTE | 2017-03-18 08:23 | PN- CRCU ---
Subjective HPI/Critical Care Issues: The patient remains awake and alert. She continue to require high flow oxygen. There were no overnight events. Objective Current Medications: Current Medications Sig/Nabila Start time Last Medication Dose Route Stop Time Status Admin Acetaminophen 650 MG Q6P PRN 03/06 2215 AC 03/11 PO 1140 Acetaminophen 1,000 MG Q6P PRN 03/06 2215 AC 03/08 IV 2357 Albuterol Sulfate 3 ML EVERY 4 HRS/AWAKE 03/08 1600 AC 03/17 INH 2014 Atorvastatin Calcium 80 MG 1700 03/08 1700 AC 03/17 PO 1649 Calcium Carbonate 500 MG TID PRN 03/10 0030 AC PO Fish Oil 2,100 MG BID 03/07 1000 AC 03/17 PO 2241 Furosemide 20 MG ONCE ONE 03/17 1515 DC 03/17 IV 03/17 1516 1520 Glycerin 2 SPRAY Q2P PRN 03/09 0745 AC 03/09 PO 0848 Guaifenesin 10 ML Q4-6 PRN PRN 03/08 0445 AC 03/08 PO 0444 Heparin Sodium 5,000 UNIT Q8 03/07 0600 AC 03/18 (Porcine) SC 0557 Insulin Aspart 0 TIDAC/HS 03/13 1200 AC 03/18 SC 0806 Insulin Detemir 14 UNITS BID 03/17 2200 AC 03/17 SC 2250 Insulin Detemir 10 UNITS BID 03/16 1000 DC 03/17 SC 1156 Ipratropium [place] 2.5 ML EVERY 4 HRS/AWAKE 03/08 1600 AC 03/17 INH 2014 Levothyroxine Sodium 0.075 MG DAILY AC 03/11 0700 AC 03/18 PO 0557 Lorazepam 0.5 MG ONCE ONE 03/17 0830 DC 03/17 IV 03/17 0831 0830 Methylprednisolone 40 MG 1800,0600 03/14 1800 AC 03/18 IV 0557 Oseltamivir Phosphate 75 MG BID 03/10 2200 DC 03/16 PO 03/18 215 2113 Sodium Bicarbonate 975 MG BID 03/07 1000 AC 03/17 PO 2241 Vital Signs & I&O Last 24 Hrs of Vitals and I&O: Vital Signs Date Time Temp Pulse Resp B/P B/P Pulse O2 O2 Flow FiO2 Mean Ox Delivery Rate 03/18 0800 92 Nasal 95% Cannula 03/18 0800 97.2 84 26 130/90 92 Nasal 95% Cannula 03/18 0451 93 93 03/18 0410 82 93 03/18 0403 94 BIPAP 95% 03/18 0122 82 93 03/18 0000 93 BIPAP 95% 03/18 0000 97.0 86 30 136/70 93 BIPAP 95% 03/17 2242 89 97 03/17 2240 92 Nasal 95% Cannula 03/17 2119 93 Nasal 100% Cannula 03/17 1940 91 Nasal 100% Cannula 03/17 1632 90 Nasal 100% Cannula 03/17 1600 90 Nasal 100% Cannula 03/17 1600 97.9 116 30 100/60 90 Nasal 100% Cannula 03/17 1200 91 Nasal 100% Cannula 03/17 1200 97.8 109 26 130/86 91 Nasal 100% Cannula 03/17 0835 93 Nasal 100% Cannula Intake & Output 03/18 1600 03/18 0800 03/18 0000 Intake Total 751 1460 Output Total 1875 1600 Balance -1124 -140 Intake, IV 11 20 Intake, Oral 740 1440 Number 1 Bowel Movements Output, Urine 5 1600 Exam General Appearance: no apparent distress, alert, awake, comfortable, not using accessory muscles for respiration, on high flow oxygen Head: atraumatic, normal appearance Neck: supple Respiratory: no respiratory distress, quiet respiration, trachea midline, clear anteriorly Cardiovascular: regular rate/rhythm, tachycardia improved Abdomen: normal bowel sounds, soft, non-tender, obese Extremities: no edema Skin: intact, normal color, warm/dry Results Last 24 Hrs of Lab Results: Laboratory Tests 03/18/17 0447: Anion Gap 17 H, Estimated GFR 30 L, Glucose 459 H, Calcium 9.4, Phosphorus 6.0 H, Magnesium 2.4 H, Total Bilirubin 0.7, Direct Bilirubin 0.3, AST 170 H, ALT 454 H, Alkaline Phosphatase 258 H, Total Protein 6.5, Albumin 3.4 L, CBC w Diff MAN DIFF ORDERED, RBC 4.94, MCV 89.1, MCH 30.0, MCHC 33.7, RDW 12.9, MPV 9.9, Gran % 91.2 H, Lymphocytes % 4.6 L, Monocytes % 3.5, Eosinophils % 0.3, Basophils % 0.4, Absolute Granulocytes 18.9 H, Segmented Neutrophils 66, Band Neutrophils 7 H, Absolute Lymphocytes 1.0 L, Lymphocytes 18 L, Monocytes 8, Absolute Monocytes 0.7 H, Eosinophils 1, Absolute Eosinophils 0.1, Absolute Basophils 0.1, Platelet Estimate ADEQUATE, Normocytic RBCs VERIFIED, Normochromic RBCs VERIFIED, Hepatitis A IgM Ab Pending, Hep Bs Antigen Pending, Hep B Core IgM Ab Conf Pending, Hepatitis C Antibody Pending 03/17/17 0915: pH 7.47 H, pCO2 31 L, pO2 61 L, HCO3 22, ABG O2 Sat (Measured) 90.0 L, P-50 (Temp Corrected) N, Carboxyhemoglobin 0.4 L, O2 Concentration % 100%, Temperature 97.2, O2 Delivery Method HIGH FLOW N/C, Phlebotomy Draw Site RIGHT RADIAL Impression/Plan Impression/Plan Impression/Plan: 1. Hypoxemic respiratory failure secondary to influenza, with possible ARDS. CT shows GGOs, slightly worse. ID, cardiology and nephrology following the patient for possible intervention and additional recommendations. 2. Probable obesity hypoventilation syndrome. 3. Probable obstructive sleep apnea, undiagnosed. 4. Hypernatremia. 5. History of chronic kidney disease secondary to IgA nephropathy. 6. History of hypothyroidism. 7. Exercise-induced asthma, evidence of bronchospasm during this admission, now improved, steroids on a slow taper. 8. Mild transaminitis. Recommendations: Recommendations: * Decrease Solu-Medrol to 40 mg IV daily. * Please check a right upper quadrant ultrasound. Transaminitis. * Continue to monitor culture results. * Continue to follow ID recommendations. * We will continue the patient on BiPAP/high flow oxygen. Will attempt to wean oxygen down for saturations greater than 92%. * Will need to consider transfer to a higher level of care if she continues to fail to improve. * Monitor respiratory status closely, low threshold for intubation. * Continue nebs/TRC. * Maintain aspiration precautions. * Renal consulted, follow up recommendations, appreciate input. * Monitor all electrolytes and replete as necessary. * Continue Synthroid. * Subcutaneous heparin/DVT prophylaxis at all times. * Continue to monitor closely in the critical care unit. * Out of bed to chair. * I discussed the plan of care with the housestaff at length, I requested they contact me if the patient's condition changes or deteriorates. Once again, we have a low threshold for intubation as previously mentioned. The patient is now more agreeable to intubation however this is not her preference. * I remain very concerned about this patient and feel she may need intubation and higher level of care. She understands the risks of respiratory failure and intubation. * I will continue to discuss the ongoing issues with the patient's family. * Continue close monitoring in the CRCU.
--- NOTE | 2017-03-18 09:41 | PN- Infect Dx ---
Subjective Subjective: Afebrile on steroids. She feels improved today with decreased shortness of breath, though she continues to desaturate with activity. Objective Last 24 Hrs of Vital Signs/I&O Vital Signs Date Time Temp Pulse Resp B/P B/P Pulse O2 O2 Flow FiO2 Mean Ox Delivery Rate 03/18 0800 92 Nasal 95% Cannula 03/18 0800 97.2 84 26 130/90 92 Nasal 95% Cannula 03/18 0451 93 93 03/18 0410 82 93 03/18 0403 94 BIPAP 95% 03/18 0122 82 93 03/18 0000 93 BIPAP 95% 03/18 0000 97.0 86 30 136/70 93 BIPAP 95% 03/17 2242 89 97 03/17 2240 92 Nasal 95% Cannula 03/17 2119 93 Nasal 100% Cannula 03/17 1940 91 Nasal 100% Cannula 03/17 1632 90 Nasal 100% Cannula 03/17 1600 90 Nasal 100% Cannula 03/17 1600 97.9 116 30 100/60 90 Nasal 100% Cannula 03/17 1200 91 Nasal 100% Cannula 03/17 1200 97.8 109 26 130/86 91 Nasal 100% Cannula Intake & Output 03/18 1600 03/18 0800 03/18 0000 Intake Total 751 1460 Output Total 1875 1600 Balance -1124 -140 Intake, IV 11 20 Intake, Oral 740 1440 Number 1 Bowel Movements Output, Urine 1875 1600 Physical Exam Other Physical Findings: She appears comfortable on the high flow oxygen in no acute distress Lungs rhonchi at the right base Heart regular rhythm with no murmur Abdomen is obese, soft, nontender with positive bowel sounds Extremities no cyanosis, clubbing or edema Cruz catheter remains in place Results Last 24 Hours of Lab Results: Laboratory Tests 03/18 0447 Chemistry Sodium (137 - 145 mmol/L) 134 L Potassium (3.5 - 5.1 mmol/L) 4.6 Chloride (98 - 107 mmol/L) 93 L Carbon Dioxide (22 - 30 mmol/L) 25 Anion Gap (5 - 16) 17 H BUN (7 - 17 mg/dL) 49 H Creatinine (0.5 - 1.0 mg/dL) 2.0 H Estimated GFR (>60 ml/min) 30 L Glucose (65 - 99 mg/dL) 459 H Calcium (8.4 - 10.2 mg/dL) 9.4 Phosphorus (2.5 - 4.5 mg/dL) 6.0 H Magnesium (1.6 - 2.3 mg/dL) 2.4 H Total Bilirubin (0.2 - 1.3 mg/dL) 0.7 Direct Bilirubin (< 0.4 mg/dL) 0.3 AST (14 - 36 U/L) 170 H ALT (9 - 52 U/L) 454 H Alkaline Phosphatase (<127 U/L) 258 H Total Protein (6.3 - 8.2 g/dL) 6.5 Albumin (3.5 - 5.0 g/dL) 3.4 L Hematology CBC w Diff MAN DIFF ORDERED WBC (4.8 - 10.8 /CUMM) 20.8 H RBC (4.20 - 5.40 /CUMM) 4.94 Hgb (12.0 - 16.0 G/DL) 14.8 Hct (37 - 47 %) 44.0 MCV (81.0 - 99.0 FL) 89.1 MCH (27.0 - 31.0 PG) 30.0 MCHC (33.0 - 37.0 G/DL) 33.7 RDW (11.5 - 14.5 %) 12.9 Plt Count (130 - 400 /CUMM) 260 MPV (7.4 - 10.4 FL) 9.9 Gran % (42.2 - 75.2 %) 91.2 H Lymphocytes % (20.5 - 51.1 %) 4.6 L Monocytes % (1.7 - 9.3 %) 3.5 Eosinophils % (0 - 5 %) 0.3 Basophils % (0.0 - 2.0 %) 0.4 Absolute Granulocytes (1.4 - 6.5 /CUMM) 18.9 H Segmented Neutrophils (42.2 - 75.2 %) 66 Band Neutrophils (0.0 - 5.0 %) 7 H Absolute Lymphocytes (1.2 - 3.4 /CUMM) 1.0 L Lymphocytes (20.5 - 51.1 %) 18 L Monocytes (1.7 - 9.3 %) 8 Absolute Monocytes (0.10 - 0.60 /CUMM) 0.7 H Eosinophils (0 - 5.0 %) 1 Absolute Eosinophils (0.0 - 0.7 /CUMM) 0.1 Absolute Basophils (0.0 - 0.2 /CUMM) 0.1 Platelet Estimate (ADEQUATE) ADEQUATE Normocytic RBCs VERIFIED Normochromic RBCs VERIFIED Serology Hepatitis A IgM Ab (NONREACTIVE) Pending Hep Bs Antigen (NONREACTIVE) Pending Hep B Core IgM Ab Conf (NONREACTIVE) Pending Hepatitis C Antibody (NONREACTIVE) Pending Last 24 Hours of Michael Results: No new cultures Assessment/Plan Impression: Respiratory failure persists with continued hazy bilateral densities on her chest x-ray, possibly secondary to ARDS status post 11 days of treatment with Tamiflu for presumed influenza pneumonia. She remains afebrile (on steroids) with a persistent leukocytosis, slightly decreased from yesterday, most likely secondary to the steroids. Her liver enzymes are increasing, possibly secondary to one of her medications. Suggestion: 1. Discontinue any nonessential medications 2. Abdominal ultrasound or CT scan 3. Remove Cruz catheter as soon as feasible 4. Taper steroids per Pulmonary 5. Continue to follow off antibiotics Anias Wilson MD is covering over the weekend
--- NOTE | 2017-03-18 14:46 | Cons- Endocrinology ---
General Information and HPI Consulting Request Date of Consult: 03/18/17 Requested By: ICU Reason for Consult: management of severe hyperglycemia induced by steroid. Source of Information: patient, old records Exam Limitations: no limitations History of Present Illness: 26-year-old female who has had a history of prediabetes, overweight, Ig A nephropathy along with chronic renal insufficiency and asthma, was in ICU for respiratory distress. She was treated with Solu-Medrol which has been gradually decreased to 40 mg once a day today. However her glucose level has been significantly elevated. For the past several days, her glucose level has been over 300 despite insulin regime was adjusted multiple times. Currently she is on Levemir 15 units twice a day, Novolog coverage before meals and Novolog coverage at bedtime. Her FSG was still 417 before lunch. She is on consistent carbohydrates diet 2 which has carbohydrates between 60-75 grams per meal. As per patient, her appetite has been good. Am lab this morning showed elevated AST and ALT. She is going to have u.s done this afternoon. Allergies/Medications Allergies: Coded Allergies: cefazolin (Intermediate, HIVES 03/06/17) clarithromycin (Intermediate, HIVES 03/06/17) Home Med List: Levothyroxine Sodium (Synthroid) 75 MCG TABLET 1 TAB PO DAILY HYPOTHYROIDISM (Reported) Lisinopril 10 MG TABLET 1 TAB PO DAILY HTN (Reported) Lisinopril (Zestril) (Unknown Strength) TABLET (Unknown Dose) PO DAILY BP ( Reported) [place]-3 Fatty Acids/Fish Oil (Fish Oil 1,000 MG Softgel) (Unknown Strength) CAPSULE (Unknown Dose) PO BID SUPPLEMENT (Reported) Sodium Bicarbonate 650 MG TABLET 1.5 TAB PO BID CKD (Reported) 1000 MG BID Sodium Bicarbonate (Unknown Strength) TABLET (Unknown Dose) PO BID KIDNEYS ( Reported) Review of Systems Review of Systems Constitutional: Reports: see HPI. Cardiovascular: Reports: no symptoms. Respiratory: Reports: short of breath. GI: Denies: abdominal pain. Musculoskeletal: Denies: back pain. Hematologic/Endocrine: Reports: see HPI. 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 Home Services at Home: None Smoking Status: Never Smoked ETOH Use: denies use Illicit Drug Use: denies illicit drug use Functional Ability ADLs Independent: dressing, eating, toileting, bathing. Ambulation: independent IADLs Independent: shopping, housework, finances, food prep, telephone, transportation , medication admin. Exam & Diagnostic Data Last 24 Hrs of Vital Signs/I&O Vital Signs Date Time Temp Pulse Resp B/P B/P Pulse O2 O2 Flow FiO2 Mean Ox Delivery Rate 03/18 1400 91 Nasal 95% Cannula 03/18 1200 92 Nasal 95% Cannula 03/18 0830 92 Nasal 95% Cannula 03/18 0800 92 Nasal 95% Cannula 03/18 0800 97.2 84 26 130/90 92 Nasal 95% Cannula 03/18 0451 93 93 03/18 0410 82 93 03/18 0403 94 BIPAP 95% 03/18 0122 82 93 03/18 0000 93 BIPAP 95% 03/18 0000 97.0 86 30 136/70 93 BIPAP 95% 03/17 2242 89 97 03/17 2240 92 Nasal 95% Cannula 03/17 2119 93 Nasal 100% Cannula 03/17 1940 91 Nasal 100% Cannula 03/17 1632 90 Nasal 100% Cannula 03/17 1600 90 Nasal 100% Cannula 03/17 1600 97.9 116 30 100/60 90 Nasal 100% Cannula Intake & Output 03/18 1600 03/18 0800 03/18 0000 Intake Total 384 848 0677 Output Total 1999 1874 1600 Balance -1400 -1124 -140 Intake, IV 11 20 Intake, Oral 042 727 8818 Number 1 Bowel Movements Output, Urine 1999 1874 1600 Physical Exam General Appearance: mild distress, obese Neck: acanthosis nigricans Respiratory: decreased breath sounds Cardiovascular: regular rate/rhythm Gastrointestinal: non-tender, distention Extremities: no edema Labs/Michael Results: Laboratory Tests 03/18 03/17 0447 0915 Blood Gas pH (7.35 - 7.45 PH) 7.47 H pCO2 (35 - 45 TORR) 31 L pO2 (80 - 100 TORR) 61 L HCO3 (21 - 28 MEQ/L) 22 ABG O2 Sat (Measured) (>96.0 %) 90.0 L P-50 (Temp Corrected) N Carboxyhemoglobin (1.5 - 5.0 %) 0.4 L O2 Concentration % 100% Temperature (97.0 - 100.0 FARH) 97.2 O2 Delivery Method HIGH FLOW N/C Chemistry Sodium (137 - 145 mmol/L) 134 L Potassium (3.5 - 5.1 mmol/L) 4.6 Chloride (98 - 107 mmol/L) 93 L Carbon Dioxide (22 - 30 mmol/L) 25 Anion Gap (5 - 16) 17 H BUN (7 - 17 mg/dL) 49 H Creatinine (0.5 - 1.0 mg/dL) 2.0 H Estimated GFR (>60 ml/min) 30 L Glucose (65 - 99 mg/dL) 459 H Calcium (8.4 - 10.2 mg/dL) 9.4 Phosphorus (2.5 - 4.5 mg/dL) 6.0 H Magnesium (1.6 - 2.3 mg/dL) 2.4 H Total Bilirubin (0.2 - 1.3 mg/dL) 0.7 Direct Bilirubin (< 0.4 mg/dL) 0.3 AST (14 - 36 U/L) 170 H ALT (9 - 52 U/L) 454 H Alkaline Phosphatase (<127 U/L) 258 H Total Protein (6.3 - 8.2 g/dL) 6.5 Albumin (3.5 - 5.0 g/dL) 3.4 L Hematology CBC w Diff MAN DIFF ORDERED WBC (4.8 - 10.8 /CUMM) 20.8 H RBC (4.20 - 5.40 /CUMM) 4.94 Hgb (12.0 - 16.0 G/DL) 14.8 Hct (37 - 47 %) 44.0 MCV (81.0 - 99.0 FL) 89.1 MCH (27.0 - 31.0 PG) 30.0 MCHC (33.0 - 37.0 G/DL) 33.7 RDW (11.5 - 14.5 %) 12.9 Plt Count (130 - 400 /CUMM) 260 MPV (7.4 - 10.4 FL) 9.9 Gran % (42.2 - 75.2 %) 91.2 H Lymphocytes % (20.5 - 51.1 %) 4.6 L Monocytes % (1.7 - 9.3 %) 3.5 Eosinophils % (0 - 5 %) 0.3 Basophils % (0.0 - 2.0 %) 0.4 Absolute Granulocytes (1.4 - 6.5 /CUMM) 18.9 H Segmented Neutrophils (42.2 - 75.2 %) 66 Band Neutrophils (0.0 - 5.0 %) 7 H Absolute Lymphocytes (1.2 - 3.4 /CUMM) 1.0 L Lymphocytes (20.5 - 51.1 %) 18 L Monocytes (1.7 - 9.3 %) 8 Absolute Monocytes (0.10 - 0.60 /CUMM) 0.7 H Eosinophils (0 - 5.0 %) 1 Absolute Eosinophils (0.0 - 0.7 /CUMM) 0.1 Absolute Basophils (0.0 - 0.2 /CUMM) 0.1 Platelet Estimate (ADEQUATE) ADEQUATE Normocytic RBCs VERIFIED Normochromic RBCs VERIFIED Miscellaneous Phlebotomy Draw Site RIGHT RADIAL Serology Hepatitis A IgM Ab (NONREACTIVE) NONREACTIVE Hep Bs Antigen (NONREACTIVE) NONREACTIVE Hep B Core IgM Ab Conf (NONREACTIVE) NONREACTIVE Hepatitis C Antibody (NONREACTIVE) NONREACTIVE 03/17 03/16 0348 0700 Chemistry Sodium (137 - 145 mmol/L) 136 L 133 L Potassium (3.5 - 5.1 mmol/L) 4.8 4.7 Chloride (98 - 107 mmol/L) 95 L 93 L Carbon Dioxide (22 - 30 mmol/L) 24 24 Anion Gap (5 - 16) 17 H 15 BUN (7 - 17 mg/dL) 47 H 46 H Creatinine (0.5 - 1.0 mg/dL) 1.9 H 2.0 H Estimated GFR (>60 ml/min) 32 L 30 L Glucose (65 - 99 mg/dL) 403 H 357 H Calcium (8.4 - 10.2 mg/dL) 9.4 9.2 Phosphorus (2.5 - 4.5 mg/dL) 5.8 H 5.1 H Magnesium (1.6 - 2.3 mg/dL) 2.4 H 2.3 Total Bilirubin (0.2 - 1.3 mg/dL) 0.6 0.6 AST (14 - 36 U/L) 81 H 45 H ALT (9 - 52 U/L) 312 H 187 H Albumin (3.5 - 5.0 g/dL) 3.4 L 3.3 L Hematology CBC w Diff MAN DIFF ORDERED MAN DIFF ORDERED WBC (4.8 - 10.8 /CUMM) 22.0 H 20.1 H RBC (4.20 - 5.40 /CUMM) 5.23 4.96 Hgb (12.0 - 16.0 G/DL) 15.8 14.7 Hct (37 - 47 %) 46.6 43.8 MCV (81.0 - 99.0 FL) 89.1 88.3 MCH (27.0 - 31.0 PG) 30.2 29.7 MCHC (33.0 - 37.0 G/DL) 33.8 RDW (11.5 - 14.5 %) 12.7 12.8 Plt Count (130 - 400 /CUMM) 282 320 MPV (7.4 - 10.4 FL) 9.8 9.1 Gran % (42.2 - 75.2 %) 90.4 H 88.6 H Lymphocytes % (20.5 - 51.1 %) 5.6 L 6.1 L Monocytes % (1.7 - 9.3 %) 3.6 5.0 Eosinophils % (0 - 5 %) 0.2 0.2 Basophils % (0.0 - 2.0 %) 0.2 0.1 Absolute Granulocytes (1.4 - 6.5 /CUMM) 19.9 H 17.9 H Segmented Neutrophils (42.2 - 75.2 %) 86 H 85 H Band Neutrophils (0.0 - 5.0 %) 4 4 Absolute Lymphocytes (1.2 - 3.4 /CUMM) 1.2 1.2 Lymphocytes (20.5 - 51.1 %) 6 L 5 L Monocytes (1.7 - 9.3 %) 4 3 Absolute Monocytes (0.10 - 0.60 /CUMM) 0.8 H 1.0 H Eosinophils (0 - 5.0 %) 1 Absolute Eosinophils (0.0 - 0.7 /CUMM) 0 0 Absolute Basophils (0.0 - 0.2 /CUMM) 0 0 Metamyelocytes (0.0 - 1.0 %) 2 H Platelet Estimate (ADEQUATE) ADEQUATE VERIFIED BY SMEAR Normocytic RBCs VERIFIED Normochromic RBCs VERIFIED Polychromasia 1+ Poikilocytosis 1+ Ovalocytes 1+ PUBS MCHC (33.0 - 37.0 G/DL) 33.7 Other Body Source Fld Total RBCs Counted (%) 100 Assessment/Plan Assessment/Plan 26-year-old female who has had a history of prediabetes with Hba1c of 6.2%, overweight, Ig A nephropathy along with chronic renal insufficiency and asthma, was in ICU for respiratory distress. She was treated with Solu-Medrol which has been gradually decreased to 40 mg once a day today. However her glucose level has been significantly elevated. management of steroid induced hyperglycemia: 1. change the diet to carbohydrates consistent 1 diet; 2. increase Levemir to 20 units twice a day; 3. adjust Novolog coverage before meals; detail see the inpatient diabetes order ; 4. continue the current Novolog coverage at bedtime; 5. monitor FSGs. will follow. Inpatient Diabetes Orders Before Each Meal: Bolus Insulin: Novolog < 80 mg/dl: no coverage 80-100 mg/dl: 8 units 101-120 mg/dl: 8 units 121-150 mg/dl: 8 units 151-200 mg/dl: 11 units 201-250 mg/dl: 14 units 251-300 mg/dl: 17 units 301-350 mg/dl: 20 units 351-400 mg/dl: 22 units > 400 mg/dl: 24 units Consult Acknowledgment - Thank you for your consult request.
[2017-03-18 16:00] VITALS: BP 119/66
--- NOTE | 2017-03-18 21:09 | ULTRASOUND REPORT ---
EXAMINATION: US ABDOMEN LIMITED CLINICAL INFORMATION: Rising liver function tests. Evaluate for cholecystitis or common duct stones. COMPARISON: CT images of the chest and upper abdomen from 03/14/2017 TECHNIQUE: Real-time imaging of the right upper quadrant abdominal viscera. FINDINGS: PANCREAS: The visualized portions of the pancreatic head, neck and body are normal. No pancreatic ductal dilatation. LIVER: There is hepatomegaly. The liver parenchyma is diffusely hyperechoic from steatosis. No focal lesions are seen. No intrahepatic bile duct dilatation. GALLBLADDER: Gallbladder is physiologically distended and without evidence of cholelithiasis, polyps, wall edema or pericholecystic fluid. No sonographic Cook sign. COMMON BILE DUCT: Normal in caliber measuring 0.4 cm in diameter. RIGHT KIDNEY: Normal. No hydronephrosis. No renal calculi or focal parenchymal lesions. The kidney measures 10 cm in maximum dimension. FREE FLUID: None. IMPRESSION: 1. No evidence of cholelithiasis or cholecystitis. 2. Hepatomegaly and diffuse hepatic steatosis.
[2017-03-19] VITALS: BP 159/79
[2017-03-19 07:12] LABS: ABSOLUTE BASOPHIL COUNT 0.1 /CUMM (0.0-0.2); ABSOLUTE EOSINOPHIL COUNT 0.4 /CUMM (0.0-0.7); ABSOLUTE GRANULOCYTE CT 20.4 /CUMM (1.4-6.5); ABSOLUTE MONOCYTE COUNT 0.9 /CUMM (0.10-0.60); BASOPHIL % 0.4 % (0.0-2.0); EOSINOPHIL % 1.5 % (0-5); GRANULOCYTE % 85.8 % (42.2-75.2); HEMATOCRIT 43.7 % (37-47); MEAN CORPUSCULAR HGB 29.8 PG (27.0-31.0); MEAN CORPUSCULAR HGB CONC 33.7 G/DL (33.0-37.0); MEAN CORPUSCULAR VOLUME 88.5 FL (81.0-99.0); MEAN PLATELET VOLUME 9.3 FL (7.4-10.4); PLATELET COUNT 210 /CUMM (130-400); RBC DISTRIBUTION WIDTH 12.7 % (11.5-14.5); RED BLOOD CELL CT 4.94 /CUMM (4.20-5.40); WHITE BLOOD CELL COUNT 23.7 /CUMM (4.8-10.8)
--- NOTE | 2017-03-19 08:01 | PN- Resident CRCU ---
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 White count continues to trend. LFTs continue to rise. U/S abdomen shows hepatic steatosis which could be contributing. Blood sugar levels better this morning. Oxygen requirements decreased to 95% from 100% yesterday. Patient subjectively feels better. Objective Vital Signs & I&O Last 8 Hrs of Vitals and I&O: . Exam General Appearance: alert, awake, comfortable, mild distress Head: atraumatic, normal appearance Respiratory: normal breath sounds, chest non-tender, decreased at bases Cardiovascular: tachycardia (sinus) Gastrointestinal: soft, non-tender Extremities: no edema Cranial Nerves: normal hearing, normal speech Skin: intact Skin Temp/Moisture Exam: Warm/Dry Sepsis Skin Exam (color): Normal for Ethnicity Current Medications: Current Medications Sig/Nabila Start time Last Medication Dose Route Stop Time Status Admin Acetaminophen 650 MG Q6P PRN 03/06 2215 AC 03/11 PO 1140 Acetaminophen 1,000 MG Q6P PRN 03/06 2215 AC 03/08 IV 2357 Albuterol Sulfate 3 ML EVERY 4 HRS/AWAKE 03/08 1600 AC 03/19 INH 0929 Atorvastatin Calcium 80 MG 1700 03/08 1700 DC 03/18 PO 1611 Calcium Carbonate 500 MG TID PRN 03/10 0030 AC PO Fish Oil 2,100 MG BID 03/07 1000 AC 03/19 PO 0837 Glycerin 2 SPRAY Q2P PRN 03/09 0745 AC 03/09 PO 0848 Guaifenesin 10 ML Q4-6 PRN PRN 03/08 0445 AC 03/08 PO 0444 Heparin Sodium 5,000 UNIT Q8 03/07 0600 AC 03/19 (Porcine) SC 0646 Insulin Aspart 0 TIDAC/HS 03/13 1200 AC 03/19 SC 0839 Insulin Detemir 20 UNITS BID 03/18 2200 AC 03/19 SC 0839 Insulin Detemir 15 UNITS BID 03/18 1000 DC 03/18 SC 0918 Ipratropium [place] 2.5 ML EVERY 4 HRS/AWAKE 03/08 1600 AC 03/19 INH 0929 Levothyroxine Sodium 0.075 MG DAILY AC 03/11 0700 AC 03/19 PO 0645 Methylprednisolone 40 MG DAILY 03/19 1000 AC 03/19 IV 0836 Sodium Bicarbonate 975 MG BID 03/07 1000 AC 03/19 PO 0837 Impression/Plan Impression/Problem List Impression: 26 yo morbidly obese F with h/o 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 Was being treated on the general medicine floor with Tamiflu and IV ceftriaxone and azithromycin. Transferred to ICU on 03/08/2017 for worsening respiratory status and hypoxia. Assessment * Acute hypoxaemic respiratory failure secondary to influenza complicated with left lower lobe pneumonia. * Sepsis on admission - resolved. * Influenza A positive - resolved * Acute on chronic kidney disease likely secondary to ATN. There could've been a component of pre-renal azotemia as well - resolved * Elevated CK - ? Rhabdomyolosis - improved with IVF. * Elevated blood sugars * History of Exercise induced Asthma * History of hypothyroidism * ? CL * Rising AST/ALT. * Leukocytosis. Plan * Continue monitoring in ICU * Vitals per protocol * BiPAP use nocturnally and as needed. * Continues to be on high flow at 95%. She may require intubation if her condition deteriorates. * Repeat CT scan 03/14 interval worsening in diffuse geographic groundglass opacities throughout both lungs with development of more confluent airspace disease dependently within both lungs. * Echo - Normal LVEF >60%. No evidence of right heart strain. * Continue IV methylprednisone to 40mg daily. * Off antibiotics and Tamiflu. Her last flu swab was negative for influenza. * TRC nebs as needed. * She is on high insulin sliding scale (adjusted per Endo) along with Levemir 20mg BID. Her HbA1c is 6.2. * Endo recs appreciated * White count continues to be elevated. She also has rising transminases. * Hepatitis panel has been negative. * RUQ U/S shows hepatic steatosis which could be contributing to rising transaminases. * Holding lisinopril, nephro input appreciated. * Patients renal doctor is Dr Garcia( [phone]) at [facility]. Renal d/s started in 2009. * Continue sodium bicarbonate tabs * Continue Synthroid. * DVT to prophylaxis with subcutaneous heparin * Regular diet. * Pain control with IV Tylenol as needed. * Patient is full code PLEASE CALL PATIENT'S FATHER STACY RASHID ) ABOUT ANY CHANGES IN CLINICAL CONDITION/ INTUBATION. HE IS CURRENTLY IN [place]. Problem List: 1. Influenza Pain Ratin Tomorrow's Labs & Rationales: CBC, ICU bundle, LFTs Plan DVT/Prophylaxis: pharmacological
--- NOTE | 2017-03-19 09:34 | PN- Pulmonary ---
Subjective HPI/Critical Care Issues: She was comfortable and remains on high flow oxygen and she is able to talk in full sentences and remains hemodynamically stable oxygen saturations have improved somewhat Objective Current Medications: Current Medications Sig/Nabila Start time Last Medication Dose Route Stop Time Status Admin Acetaminophen 650 MG Q6P PRN 03/06 2215 AC 03/11 PO 1140 Acetaminophen 1,000 MG Q6P PRN 03/06 2215 AC 03/08 IV 2357 Albuterol Sulfate 3 ML EVERY 4 HRS/AWAKE 03/08 1600 AC 03/19 INH 0929 Atorvastatin Calcium 80 MG 1700 03/08 1700 AC 03/18 PO 1611 Calcium Carbonate 500 MG TID PRN 03/10 0030 AC PO Fish Oil 2,100 MG BID 03/07 1000 AC 03/19 PO 0837 Glycerin 2 SPRAY Q2P PRN 03/09 0745 AC 03/09 PO 0848 Guaifenesin 10 ML Q4-6 PRN PRN 03/08 0445 AC 03/08 PO 0444 Heparin Sodium 5,000 UNIT Q8 03/07 0600 AC 03/19 (Porcine) SC 0646 Insulin Aspart 0 TIDAC/HS 03/13 1200 AC 03/19 SC 0839 Insulin Detemir 20 UNITS BID 03/18 2200 AC 03/19 SC 0839 Insulin Detemir 15 UNITS BID 03/18 1000 DC 03/18 SC 0918 Ipratropium [place] 2.5 ML EVERY 4 HRS/AWAKE 03/08 1600 AC 03/19 INH 0929 Levothyroxine Sodium 0.075 MG DAILY AC 03/11 0700 AC 03/19 PO 0645 Methylprednisolone 40 MG DAILY 03/19 1000 AC 03/19 IV 0836 Methylprednisolone 40 MG 1800,0600 03/14 1800 DC 03/18 IV 0557 Sodium Bicarbonate 975 MG BID 03/07 1000 AC 03/19 PO 0837 Vital Signs & I&O Last 24 Hrs of Vitals and I&O: Vital Signs Date Time Temp Pulse Resp B/P B/P Pulse O2 O2 Flow FiO2 Mean Ox Delivery Rate 03/19 0516 103 91 03/19 0400 95 BIPAP 95% 03/19 0202 100 93 03/19 0000 94 BIPAP 95% 03/19 0000 96.8 102 22 159/79 94 BIPAP 95% 03/18 2219 105 95 03/18 2030 92 Nasal 95% Cannula 01/26 2000 90 Nasal 95% Cannula 03/18 1637 92 Nasal 95% Cannula 03/18 1600 92 Nasal 95% Cannula 03/18 1600 97.6 87 24 119/66 92 Nasal 95% Cannula 03/18 1400 91 Nasal 95% Cannula 03/18 1200 92 Nasal 95% Cannula Intake & Output 03/19 1600 03/19 0800 03/19 0000 Intake Total 750 1300 Output Total 2000 1500 Balance -1250 -200 Intake, IV 0 Intake, Oral 750 1300 Number 0 0 Bowel Movements Output, Urine 1999 1500 And saturation FiO2 0.9 595% exam for chest shows diminished breath sounds at the bases cardiac exam shows a regular S1 and S2 without murmurs abdomen is soft nontender Impression/Plan Impression/Plan Impression/Plan: Any 6-year-old woman with persistent hypoxic respiratory failure after influenza and community acquired pneumonia. respiratory status is remained stable without improvement cultures remain negative Recommendations: Taper FiO2 his saturations allow. Continue current medical regimen. Continue nocturnal BiPAP as needed. Repeat LFTs
--- NOTE | 2017-03-19 13:32 | PN- Diabetes ---
Assessment/Plan Assessment: 26-year-old female who has had a history of prediabetes, overweight, Ig A nephropathy along with chronic renal insufficiency and asthma, was in ICU for respiratory distress. She was treated with Solu-Medrol which has been gradually decreased to 40 mg once a day today. However her glucose level has been significantly elevated. Currently she is on Levemir 20 units twice a day, Novolog coverage before meals and Novolog coverage at bedtime. Her FSGs were 329, 307, 234 and 301. Plan: 1. increase Levemir to 24 units twice a day; 2. adjust Novolog coverage before meals; detail see the inpatient DM order; 3. continue the current Novolog coverage at bedtime; 4. monitor FSGs. will follow. Inpatient Diabetes Orders Before Each Meal: Bolus Insulin: Novolog < 80 mg/dl: no coverage 80-100 mg/dl: 10 units 101-120 mg/dl: 10 units 121-150 mg/dl: 10 units 151-200 mg/dl: 13 units 201-250 mg/dl: 16 units 251-300 mg/dl: 19 units 301-350 mg/dl: 22 units 351-400 mg/dl: 24 units > 400 mg/dl: 26 units Subjective Subjective: She feels okay. Objective Last 24 Hrs of Vital Signs/I&O Vital Signs Date Time Temp Pulse Resp B/P B/P Pulse O2 O2 Flow FiO2 Mean Ox Delivery Rate 03/19 1231 95 Nasal 95% Cannula 03/19 0935 96 Nasal 95% Cannula 03/19 0516 103 91 03/19 0400 95 BIPAP 95% 03/19 0202 100 93 03/19 0000 94 BIPAP 95% 03/19 0000 96.8 102 22 159/79 94 BIPAP 95% 03/18 2219 105 95 03/18 2030 92 Nasal 95% Cannula 03/18 2000 90 Nasal 95% Cannula 03/18 1637 92 Nasal 95% Cannula 03/18 1600 92 Nasal 95% Cannula 03/18 1600 97.6 87 24 119/66 92 Nasal 95% Cannula 03/18 1400 91 Nasal 95% Cannula Intake & Output 03/19 1600 03/19 0800 03/19 0000 Intake Total 750 1300 Output Total 1999 1500 Balance -1250 -200 Intake, IV 0 Intake, Oral 750 1300 Number 0 0 Bowel Movements Output, Urine 1999 1500 Findings Pertinent Lab/Michael Results: Laboratory Tests 03/19 0650 Chemistry Sodium (137 - 145 mmol/L) 134 L Potassium (3.5 - 5.1 mmol/L) 3.9 Chloride (98 - 107 mmol/L) 93 L Carbon Dioxide (22 - 30 mmol/L) 26 Anion Gap (5 - 16) 14 BUN (7 - 17 mg/dL) 46 H Creatinine (0.5 - 1.0 mg/dL) 1.9 H Estimated GFR (>60 ml/min) 32 L Glucose (65 - 99 mg/dL) 246 H Calcium (8.4 - 10.2 mg/dL) 9.3 Phosphorus (2.5 - 4.5 mg/dL) 4.6 H Magnesium (1.6 - 2.3 mg/dL) 2.1 Total Bilirubin (0.2 - 1.3 mg/dL) 0.6 AST (14 - 36 U/L) 121 H ALT (9 - 52 U/L) 407 H Albumin (3.5 - 5.0 g/dL) 3.3 L Hematology CBC w Diff MAN DIFF ORDERED WBC (4.8 - 10.8 /CUMM) 23.7 H RBC (4.20 - 5.40 /CUMM) 4.94 Hgb (12.0 - 16.0 G/DL) 14.7 Hct (37 - 47 %) 43.7 MCV (81.0 - 99.0 FL) 88.5 MCH (27.0 - 31.0 PG) 29.8 MCHC (33.0 - 37.0 G/DL) 33.7 RDW (11.5 - 14.5 %) 12.7 Plt Count (130 - 400 /CUMM) 210 MPV (7.4 - 10.4 FL) 9.3 Gran % (42.2 - 75.2 %) 85.8 H Lymphocytes % (20.5 - 51.1 %) 8.3 L Monocytes % (1.7 - 9.3 %) 4.0 Eosinophils % (0 - 5 %) 1.5 Basophils % (0.0 - 2.0 %) 0.4 Absolute Granulocytes (1.4 - 6.5 /CUMM) 20.4 H Segmented Neutrophils (42.2 - 75.2 %) 83 H Band Neutrophils (0.0 - 5.0 %) 5 Absolute Lymphocytes (1.2 - 3.4 /CUMM) 2.0 Lymphocytes (20.5 - 51.1 %) 7 L Monocytes (1.7 - 9.3 %) 3 Absolute Monocytes (0.10 - 0.60 /CUMM) 0.9 H Eosinophils (0 - 5.0 %) 2 Absolute Eosinophils (0.0 - 0.7 /CUMM) 0.4 Absolute Basophils (0.0 - 0.2 /CUMM) 0.1 Platelet Estimate (ADEQUATE) VERIFIED BY SMEAR Polychromasia 1+
[2017-03-19 16:00] VITALS: BP 110/62
[2017-03-19 22:00] VITALS: BP 134/64
[2017-03-20] VITALS: BP 129/73
[2017-03-20 06:35] LABS: ABSOLUTE BASOPHIL COUNT 0.1 /CUMM (0.0-0.2); ABSOLUTE EOSINOPHIL COUNT 0.2 /CUMM (0.0-0.7); ABSOLUTE GRANULOCYTE CT 19.1 /CUMM (1.4-6.5); ABSOLUTE LYMPH COUNT 1.8 /CUMM (1.2-3.4); ABSOLUTE MONOCYTE COUNT 0.7 /CUMM (0.10-0.60); BASOPHIL % 0.5 % (0.0-2.0); EOSINOPHIL % 0.9 % (0-5); HEMATOCRIT 42.9 % (37-47); MEAN CORPUSCULAR HGB 30.1 PG (27.0-31.0); MEAN CORPUSCULAR HGB CONC 33.8 G/DL (33.0-37.0); MEAN PLATELET VOLUME 9.8 FL (7.4-10.4); PLATELET COUNT 188 /CUMM (130-400); RBC DISTRIBUTION WIDTH 12.8 % (11.5-14.5); RED BLOOD CELL CT 4.82 /CUMM (4.20-5.40)
[2017-03-20 08:00] VITALS: BP 138/80
--- NOTE | 2017-03-20 09:13 | PN- Resident CRCU ---
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 She is maintaining her oxygen saturation from somewhere from 88-92 on high flow nasal cannula. Her blood sugars were 338 last night and 270 this morning. Her Levemir was increased to 24 units twice a day. Of note she is on steroids that might be contributing and high blood sugars. She remained hemodynamically stable. Her sodium today is 132. Objective Vital Signs & I&O Last 8 Hrs of Vitals and I&O: Intake & Output 03/20 1600 Intake Total Output Total Balance Patient 275 lb Weight Weight Bed scale Measurement Method Exam General Appearance: well developed/nourished, no apparent distress, alert, awake Respiratory: chest non-tender, quiet respiration, wheezing Cardiovascular: regular rate/rhythm Gastrointestinal: soft, non-tender Extremities: no edema Current Medications: Current Medications Sig/Nabila Start time Last Medication Dose Route Stop Time Status Admin Acetaminophen 650 MG Q6P PRN 03/06 2215 AC 03/11 PO 1140 Acetaminophen 1,000 MG Q6P PRN 03/06 2215 AC 03/08 IV 2357 Albuterol Sulfate 3 ML EVERY 4 HRS/AWAKE 03/08 1600 AC 03/20 INH 0934 Calcium Carbonate 500 MG TID PRN 03/10 0030 AC PO Fish Oil 2,100 MG BID 03/07 1000 AC 03/20 PO 1006 Furosemide 20 MG ONCE ONE 03/19 1230 DC 03/19 IV 03/19 1231 1223 Glycerin 2 SPRAY Q2P PRN 03/09 0745 AC 03/09 PO 0848 Guaifenesin 10 ML Q4-6 PRN PRN 03/08 0445 AC 03/08 PO 0444 Heparin Sodium 5,000 UNIT Q8 03/07 0600 AC 03/20 (Porcine) SC 0520 Insulin Aspart 0 TIDAC/HS 03/13 1200 AC 03/20 SC 0814 Insulin Detemir 24 UNITS BID 03/19 2200 AC 03/20 SC 0813 Insulin Detemir 20 UNITS BID 03/18 2200 DC 03/19 SC 0839 Ipratropium [place] 2.5 ML EVERY 4 HRS/AWAKE 03/08 1600 AC 03/20 INH 0933 Levothyroxine Sodium 0.075 MG DAILY AC 03/11 0700 AC 03/20 PO 0520 Methylprednisolone 40 MG DAILY 03/19 1000 AC 03/20 IV 1006 Sodium Bicarbonate 975 MG BID 03/07 1000 AC 03/20 PO 1006 Impression/Plan Impression/Problem List Impression: Impression: 26 yo morbidly obese F with h/o 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 Was being treated on the general medicine floor with Tamiflu and IV ceftriaxone and azithromycin. Transferred to ICU on 03/08/2017 for worsening respiratory status and hypoxia. Assessment * Acute hypoxaemic respiratory failure secondary to influenza complicated with left lower lobe pneumonia. * Sepsis on admission - resolved. * Influenza A positive - resolved * Acute on chronic kidney disease likely secondary to ATN. There could've been a component of pre-renal azotemia as well - resolved * Elevated CK - ? Rhabdomyolosis - improved with IVF. * Elevated blood sugars * History of Exercise induced Asthma * History of hypothyroidism * ? CL * Rising AST/ALT. * Leukocytosis. Plan * Continue monitoring in ICU * Vitals per protocol * BiPAP use nocturnally and as needed. * Continues to be on high flow at 95%. She may require intubation if her condition deteriorates. * Repeat CT scan 03/14 interval worsening in diffuse geographic groundglass opacities throughout both lungs with development of more confluent airspace disease dependently within both lungs.will repeat cxr tomorrow. * Echo - Normal LVEF >60%. No evidence of right heart strain. * Continue IV methylprednisone to 40mg daily. * Off antibiotics and Tamiflu. Her last flu swab was negative for influenza. * TRC nebs as needed. * She is on high insulin sliding scale (adjusted per Endo) along with Levemir 20mg BID. Her HbA1c is 6.2. * Endo recs appreciated * White count continues to be elevated. [id number] to 22 today. * Hepatitis panel has been negative. * RUQ U/S shows hepatic steatosis which could be contributing to rising transaminases. * Holding lisinopril, nephro input appreciated. * Patients renal doctor is Dr Garcia( [phone]) at [facility]. Renal d/s started in 2009. * Continue sodium bicarbonate tabs * Continue Synthroid. * DVT to prophylaxis with subcutaneous heparin * Regular diet. * Pain control with IV Tylenol as needed. * Patient is full code PLEASE CALL PATIENT'S FATHER STACY RASHID ) ABOUT ANY CHANGES IN CLINICAL CONDITION/ INTUBATION. HE IS CURRENTLY IN [place]. Problem List: 1. Sepsis 2. Influenza 3. Pneumonia Pain Ratin Tomorrow's Labs & Rationales: CBC AND BEP Plan DVT/Prophylaxis: pharmacological
--- NOTE | 2017-03-20 09:33 | PN- Pulmonary ---
Subjective HPI/Critical Care Issues: Patient is comfortable out of bed remains on high flow oxygen FiO2 90% Objective Current Medications: Current Medications Sig/Nabila Start time Last Medication Dose Route Stop Time Status Admin Acetaminophen 650 MG Q6P PRN 03/06 2215 AC 03/11 PO 1140 Acetaminophen 1,000 MG Q6P PRN 03/06 2215 AC 03/08 IV 2357 Albuterol Sulfate 3 ML EVERY 4 HRS/AWAKE 03/08 1600 AC 03/19 INH 2139 Atorvastatin Calcium 80 MG 1700 03/08 1700 DC 03/18 PO 1611 Calcium Carbonate 500 MG TID PRN 03/10 0030 AC PO Fish Oil 2,100 MG BID 03/07 1000 AC 03/19 PO 2111 Furosemide 20 MG ONCE ONE 03/19 1230 DC 03/19 IV 03/19 1231 1223 Glycerin 2 SPRAY Q2P PRN 03/09 0745 AC 03/09 PO 0848 Guaifenesin 10 ML Q4-6 PRN PRN 03/08 0445 AC 03/08 PO 0444 Heparin Sodium 5,000 UNIT Q8 03/07 0600 AC 03/20 (Porcine) SC 0520 Insulin Aspart 0 TIDAC/HS 03/13 1200 AC 03/20 SC 0814 Insulin Detemir 24 UNITS BID 03/19 2200 AC 03/20 SC 0813 Insulin Detemir 20 UNITS BID 03/18 2200 DC 03/19 SC 0839 Ipratropium [place] 2.5 ML EVERY 4 HRS/AWAKE 03/08 1600 AC 03/19 INH 2139 Levothyroxine Sodium 0.075 MG DAILY AC 03/11 0700 AC 03/20 PO 0520 Methylprednisolone 40 MG DAILY 03/19 1000 AC 03/19 IV 0836 Sodium Bicarbonate 975 MG BID 03/07 1000 AC 03/19 PO 2112 Vital Signs & I&O Last 24 Hrs of Vitals and I&O: Vital Signs Date Time Temp Pulse Resp B/P B/P Pulse O2 O2 Flow FiO2 Mean Ox Delivery Rate 03/20 0800 98.2 97 18 138/80 88 Nasal Cannula 03/20 0703 93 Nasal 100% Cannula 03/20 0521 97 92 03/20 0400 BIPAP 95% 03/20 0325 90 94 03/20 0055 88 94 03/20 0000 97.4 89 26 129/73 92 BIPAP 95% 03/20 0000 91 BIPAP 95% 03/19 2230 97 92 03/19 2200 97.2 106 28 134/64 90 Nasal 90% Cannula 03/19 1999 90 Nasal 90% Cannula 03/19 1937 88 Nasal 90% Cannula 03/19 1740 88 Nasal 90% Cannula 03/19 1600 93 Nasal 90% Cannula 03/19 1600 97.1 102 24 110/62 97 Nasal 90% Cannula 03/19 1449 95 Nasal 90% Cannula 03/19 1231 95 Nasal 95% Cannula 03/19 1200 96 Nasal Cannula 03/19 0935 96 Nasal 95% Cannula Intake & Output 03/20 1600 03/20 0800 03/20 0000 Intake Total 120 120 Output Total 1000 1300 Balance -880 -1180 Intake, Oral 120 120 Output, Urine 1000 1300 Patient 275 lb Weight Weight Bed scale Measurement Method Exam for chest shows occasional crackles there are no wheezes cardiac exam shows regular S1 and S2 without murmurs Impression/Plan Impression/Plan Impression/Plan: Any 6-year-old woman with persistent hypoxic respiratory failure after influenza and community acquired pneumonia. respiratory status is remained stable without improvement cultures remain negative and continues to look well comfortable sitting out of bed able to talk in full sentences Recommendations: Taper FiO2 as saturations allow. Continue current medical regimen. Continue nocturnal BiPAP as needed. No further pulmonary suggestions. Check sedimentation rate
--- NOTE | 2017-03-20 11:14 | PN- Diabetes ---
Assessment/Plan Assessment: 26-year-old female who has had a history of prediabetes, overweight, Ig A nephropathy along with chronic renal insufficiency and asthma, was in ICU for respiratory distress. She was treated with Solu-Medrol which has been gradually decreased to 40 mg once a day today. However her glucose level has been significantly elevated. Currently she is on Levemir 24 units twice a day, Novolog coverage before meals and Novolog coverage at bedtime. Her FSGs were 301, 333, 338 and 270. Plan: 1. increase Levemir to 28 units twice a day; 2. adjust Novolog coverage before meals; 3. continue the current Novolog coverage at bedtime; 4. monitor FSGs. will follow. Inpatient Diabetes Orders Before Each Meal: Bolus Insulin: Novolog < 80 mg/dl: no coverage 80-100 mg/dl: 13 units 101-120 mg/dl: 13 units 121-150 mg/dl: 13 units 151-200 mg/dl: 16 units 201-250 mg/dl: 19 units 251-300 mg/dl: 22 units 301-350 mg/dl: 24 units 351-400 mg/dl: 26 units > 400 mg/dl: 28 units Subjective Subjective: She feels okay. But her glucose levels have been > 250. Objective Last 24 Hrs of Vital Signs/I&O Vital Signs Date Time Temp Pulse Resp B/P B/P Pulse O2 O2 Flow FiO2 Mean Ox Delivery Rate 03/20 0942 93 Nasal 95% Cannula 03/20 0800 98.2 97 18 138/80 88 Nasal Cannula 03/20 0703 93 Nasal 100% Cannula 03/20 0521 97 92 03/20 0400 BIPAP 95% 03/20 0325 90 94 03/20 0055 88 94 03/20 0000 97.4 89 26 129/73 92 BIPAP 95% 03/20 0000 91 BIPAP 95% 03/19 2230 97 92 03/19 2200 97.2 106 28 134/64 90 Nasal 90% Cannula 03/19 2000 90 Nasal 90% Cannula 03/19 1937 88 Nasal 90% Cannula 03/19 1740 88 Nasal 90% Cannula 03/19 1600 93 Nasal 90% Cannula 03/19 1600 97.1 102 24 110/62 97 Nasal 90% Cannula 03/19 1449 95 Nasal 90% Cannula 03/19 1231 95 Nasal 95% Cannula 03/19 1200 96 Nasal Cannula Intake & Output 01/28 1600 03/20 0800 03/20 0000 Intake Total 120 120 Output Total 1000 1300 Balance -880 -1180 Intake, Oral 120 120 Output, Urine 1000 1300 Patient 275 lb Weight Weight Bed scale Measurement Method Findings Pertinent Lab/Michael Results: Laboratory Tests 03/20 0500 Chemistry Sodium (137 - 145 mmol/L) 132 L Potassium (3.5 - 5.1 mmol/L) 3.8 Chloride (98 - 107 mmol/L) 91 L Carbon Dioxide (22 - 30 mmol/L) 24 Anion Gap (5 - 16) 17 H BUN (7 - 17 mg/dL) 45 H Creatinine (0.5 - 1.0 mg/dL) 1.9 H Estimated GFR (>60 ml/min) 32 L Glucose (65 - 99 mg/dL) 291 H Calcium (8.4 - 10.2 mg/dL) 9.2 Phosphorus (2.5 - 4.5 mg/dL) 4.8 H Magnesium (1.6 - 2.3 mg/dL) 2.1 Total Bilirubin (0.2 - 1.3 mg/dL) 0.7 Direct Bilirubin (< 0.4 mg/dL) 0.2 AST (14 - 36 U/L) 74 H ALT (9 - 52 U/L) 326 H Alkaline Phosphatase (<127 U/L) 226 H Total Protein (6.3 - 8.2 g/dL) 6.3 Albumin (3.5 - 5.0 g/dL) 3.3 L Hematology CBC w Diff MAN DIFF ORDERED WBC (4.8 - 10.8 /CUMM) 22.0 H RBC (4.20 - 5.40 /CUMM) 4.82 Hgb (12.0 - 16.0 G/DL) 14.5 Hct (37 - 47 %) 42.9 MCV (81.0 - 99.0 FL) 89.0 MCH (27.0 - 31.0 PG) 30.1 MCHC (33.0 - 37.0 G/DL) 33.8 RDW (11.5 - 14.5 %) 12.8 Plt Count (130 - 400 /CUMM) 188 MPV (7.4 - 10.4 FL) 9.8 Gran % (42.2 - 75.2 %) 87.0 H Lymphocytes % (20.5 - 51.1 %) 8.4 L Monocytes % (1.7 - 9.3 %) 3.2 Eosinophils % (0 - 5 %) 0.9 Basophils % (0.0 - 2.0 %) 0.5 Absolute Granulocytes (1.4 - 6.5 /CUMM) 19.1 H Absolute Lymphocytes (1.2 - 3.4 /CUMM) 1.8 Absolute Monocytes (0.10 - 0.60 /CUMM) 0.7 H Absolute Eosinophils (0.0 - 0.7 /CUMM) 0.2 Absolute Basophils (0.0 - 0.2 /CUMM) 0.1 Platelet Estimate (ADEQUATE) ADEQUATE Polychromasia 1+
[2017-03-20 16:00] VITALS: BP 124/62
[2017-03-21] VITALS: BP 110/68
--- NOTE | 2017-03-21 06:53 | PN- CRCU ---
Subjective HPI/Critical Care Issues: The patient remains on high flow oxygen. She continues to fluctuate from the BIPAP to the high flow. She remains comfortable and speaking in full sentences. She has a minimal cough, and feels that her chest congestion has improved. Objective Current Medications: Current Medications Sig/Nabila Start time Last Medication Dose Route Stop Time Status Admin Acetaminophen 650 MG Q6P PRN 03/06 2215 AC 03/11 PO 1140 Acetaminophen 1,000 MG Q6P PRN 03/06 2215 AC 03/08 IV 2357 Albuterol Sulfate 3 ML EVERY 4 HRS/AWAKE 03/08 1600 AC 03/20 INH 2102 Calcium Carbonate 500 MG TID PRN 03/10 0030 AC PO Fish Oil 2,100 MG BID 03/07 1000 AC 03/20 PO 2221 Glycerin 2 SPRAY Q2P PRN 03/09 0745 AC 03/09 PO 0848 Guaifenesin 10 ML Q4-6 PRN PRN 03/08 0445 AC 03/08 PO 0444 Heparin Sodium 5,000 UNIT Q8 03/07 0600 AC 03/21 (Porcine) SC 0621 Insulin Aspart 0 TIDAC/HS 03/13 1200 AC 03/20 SC 2121 Insulin Detemir 28 UNITS BID 03/20 2200 AC 03/20 SC 2220 Insulin Detemir 24 UNITS BID 03/19 2200 DC 03/20 SC 0813 Ipratropium [place] 2.5 ML EVERY 4 HRS/AWAKE 03/08 1600 AC 03/20 INH 2102 Levothyroxine Sodium 0.075 MG DAILY AC 03/11 0700 AC 03/21 PO 0621 Methylprednisolone 40 MG DAILY 03/19 1000 AC 03/20 IV 1006 Sodium Bicarbonate 975 MG BID 03/07 1000 AC 03/20 PO 2221 Vital Signs & I&O Last 24 Hrs of Vitals and I&O: Vital Signs Date Time Temp Pulse Resp B/P B/P Pulse O2 O2 Flow FiO2 Mean Ox Delivery Rate 03/21 0615 101 91 03/21 0400 92 BIPAP 95% 03/21 0312 97 90 03/21 0040 103 89 03/21 0000 88 BIPAP 95% 03/21 0000 98.0 101 30 110/68 88 BIPAP 95% 03/20 2243 102 89 03/20 2000 88 Nasal 100% Cannula 03/20 1630 90 Nasal 100% Cannula 03/20 1600 90 Nasal 100% Cannula 03/20 1600 97.7 101 29 124/62 90 Nasal 100% Cannula 03/20 1308 90 Nasal 95% Cannula 03/20 1200 89 Nasal Cannula 03/20 0942 93 Nasal 95% Cannula 03/20 0800 Nasal 95% Cannula 03/20 0800 98.2 97 18 138/80 88 Nasal Cannula 03/20 0703 93 Nasal 100% Cannula Intake & Output 03/21 0800 03/21 0000 03/20 1600 Intake Total 3000 480 Output Total 3535 1100 Balance -535 -620 Intake, Oral 3000 480 Number 1 Bowel Movements Output, Urine 3535 1100 Patient 275 lb Weight Weight Bed scale Measurement Method Exam General Appearance: no apparent distress, alert, awake, comfortable, not using accessory muscles for respiration, on high flow oxygen Head: atraumatic, normal appearance Neck: supple Respiratory: no respiratory distress, quiet respiration, trachea midline, clear anteriorly Cardiovascular: regular rate/rhythm, tachycardia improved Abdomen: normal bowel sounds, soft, non-tender, obese Extremities: no edema Skin: intact, normal color, warm/dry Results Last 24 Hrs of Lab Results: No am labs available as of yet. Impression/Plan Impression/Plan Impression/Plan: 1. Hypoxemic respiratory failure secondary to influenza, with possible ARDS. CT shows GGOs, slightly worse. ID, cardiology and nephrology following the patient for possible intervention and additional recommendations. 2. Probable obesity hypoventilation syndrome. 3. Probable obstructive sleep apnea, undiagnosed. 4. Hypernatremia. 5. History of chronic kidney disease secondary to IgA nephropathy. 6. History of hypothyroidism. 7. Exercise-induced asthma, evidence of bronchospasm during this admission, now improved, steroids on a slow taper. 8. Mild transaminitis. Recommendations: Recommendations: * Decrease Solu-Medrol to 20 mg IV daily. * Follow up ESR results. * Check a follow up CXR. * Continue to follow ID recommendations. * We will continue the patient on BiPAP/high flow oxygen. Will attempt to wean oxygen down for saturations greater than 92%. * Will need to consider transfer to a higher level of care if she continues to fail to improve. * Monitor respiratory status closely, low threshold for intubation. * Continue nebs/TRC. * Maintain aspiration precautions. * Renal consulted, follow up recommendations, appreciate input. * Monitor all electrolytes and replete as necessary. * Continue Synthroid. * Subcutaneous heparin/DVT prophylaxis at all times. * Continue to monitor closely in the critical care unit. * Out of bed to chair. * PT consult for ambulation. * Continue all supportive care.
--- NOTE | 2017-03-21 07:01 | PN- Resident CRCU ---
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 Patient currently on high flow at 100% with saturations 86-89% this morning. Will give her a trial of BiPAP, if doesn't respond will require intubation. Her blood sugars have been improved this morning. her labs from yesterday show mild hyponatremia. Today's pending. Will hold diuretics. Patient was seen and examined. She subjectively feels better, though I personally feels she is less alert/active than seen on tuesday. Offers no complains. Objective Vital Signs & I&O Last 8 Hrs of Vitals and I&O: . Exam General Appearance: alert, awake, mild distress, high flow O2 Head: atraumatic, normal appearance Respiratory: normal breath sounds, chest non-tender, lungs clear Cardiovascular: regular rate/rhythm, tachycardia Gastrointestinal: soft, non-tender Extremities: no edema Cranial Nerves: normal hearing, normal speech Skin: intact, normal color Skin Temp/Moisture Exam: Warm/Dry Sepsis Skin Exam (color): Normal for Ethnicity Current Medications: Current Medications Sig/Nabila Start time Last Medication Dose Route Stop Time Status Admin Acetaminophen 650 MG Q6P PRN 03/06 2215 AC 03/11 PO 1140 Acetaminophen 1,000 MG Q6P PRN 03/06 2215 AC 03/08 IV 2357 Albuterol Sulfate 3 ML EVERY 4 HRS/AWAKE 03/08 1600 AC 03/21 INH 0831 Calcium Carbonate 500 MG TID PRN 03/10 0030 AC PO Fish Oil 2,100 MG BID 03/07 1000 AC 03/20 PO 2221 Glycerin 2 SPRAY Q2P PRN 03/09 0745 AC 03/09 PO 0848 Guaifenesin 10 ML Q4-6 PRN PRN 03/08 0445 AC 03/08 PO 0444 Heparin Sodium 5,000 UNIT Q8 03/07 0600 AC 03/21 (Porcine) SC 0621 Insulin Aspart 0 TIDAC/HS 03/13 1200 AC 03/21 SC 0903 Insulin Detemir 28 UNITS BID 03/20 2200 AC 03/20 SC 2220 Insulin Detemir 24 UNITS BID 03/19 2200 DC 03/20 SC 0813 Ipratropium [place] 2.5 ML EVERY 4 HRS/AWAKE 03/08 1600 AC 03/21 INH 0831 Levothyroxine Sodium 0.075 MG DAILY AC 03/11 0700 AC 03/21 PO 0621 Methylprednisolone 20 MG DAILY 03/21 1000 AC IV Methylprednisolone 40 MG DAILY 03/19 1000 DC 03/20 IV 1006 Sodium Bicarbonate 975 MG BID 03/07 1000 AC 03/20 PO 2221 Impression/Plan Impression/Problem List Impression: 26 yo morbidly obese F with h/o 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 Was being treated on the general medicine floor with Tamiflu and IV ceftriaxone and azithromycin. Transferred to ICU on 03/08/2017 for worsening respiratory status and hypoxia. Assessment * Acute hypoxaemic respiratory failure secondary to influenza complicated with left lower lobe pneumonia. * Sepsis on admission - resolved. * Influenza A positive - resolved * Acute on chronic kidney disease likely secondary to ATN. There could've been a component of pre-renal azotemia as well - resolved * Elevated CK - ? Rhabdomyolosis - improved with IVF. * Elevated blood sugars * History of Exercise induced Asthma * History of hypothyroidism * Transaminitis. * Leukocytosis. Plan * Continue monitoring in ICU * Oxygen saturations were persistently low and the patient was intubated. * Repeat CT scan 03/14 interval worsening in diffuse geographic groundglass opacities throughout both lungs with development of more confluent airspace disease dependently within both lungs. * Echo - Normal LVEF >60%. No evidence of right heart strain. * Decrease IV methylprednisone to 20mg daily. * Off antibiotics and Tamiflu. Her last flu swab was negative for influenza. * TRC nebs as needed. * Her insulin sliding scale has been adjusted per Endo. Levemir decreased to 15mg BID. * Endo recs appreciated * White count continues to be elevated. Transaminases elevated but stable. * Hepatitis panel has been negative. * RUQ U/S 03/18 showed hepatic steatosis which could be contributing to transaminitis. * Holding lisinopril, nephro input appreciated. * Patients renal doctor is Dr Garcia ([phone]) at [place]. Renal d/s started in 2009. * Continue sodium bicarbonate tabs * Continue Synthroid. * DVT to prophylaxis with subcutaneous heparin * NPO. * Pain control with IV Tylenol as needed. * Patient is full code PLEASE CALL PATIENT'S FATHER STACY RASHID ) ABOUT ANY CHANGES IN CLINICAL CONDITION/ INTUBATION. HE IS CURRENTLY IN [place]. Problem List: 1. ARDS (adult respiratory distress syndrome) Pain Ratin Tomorrow's Labs & Rationales: CBC, ICU bundle Plan DVT/Prophylaxis: pharmacological Plan DVT/Prophylaxis: pharmacological
[2017-03-21 08:00] VITALS: BP 150/90
--- NOTE | 2017-03-21 08:23 | PN- Diabetes ---
Assessment/Plan Assessment: 26-year-old female who has had a history of prediabetes, overweight, Ig A nephropathy along with chronic renal insufficiency and asthma, was in ICU for respiratory distress. She was treated with Solu-Medrol which has been gradually decreased to 40 mg once a day today. However her glucose level has been significantly elevated. Currently she is on Levemir 28 units twice a day; Novolog coverage before meals was adjusted multiple times over the weekend. In addition, she is on Novolog coverage at bedtime. Her FSGs were 270, 223, 348, 323 and 189. Plan: continue the current insulin regimen for now; monitor FSGs; will follow. Subjective Subjective: She has no special complaints this morning. Objective Last 24 Hrs of Vital Signs/I&O Vital Signs Date Time Temp Pulse Resp B/P B/P Pulse O2 O2 Flow FiO2 Mean Ox Delivery Rate 03/21 0615 101 91 03/21 0400 92 BIPAP 95% 03/21 0312 97 90 03/21 0040 103 89 03/21 0000 88 BIPAP 95% 03/21 0000 98.0 101 30 110/68 88 BIPAP 95% 03/20 2243 102 89 03/20 2000 88 Nasal 100% Cannula 03/20 1630 90 Nasal 100% Cannula 03/20 1600 90 Nasal 100% Cannula 03/20 1600 97.7 101 29 124/62 90 Nasal 100% Cannula 03/20 1308 90 Nasal 95% Cannula 03/20 1200 89 Nasal Cannula 03/20 0942 93 Nasal 95% Cannula Intake & Output 03/21 1600 03/21 0800 03/21 0000 Intake Total 2400 3000 Output Total 1550 3535 Balance 850 -535 Intake, Oral 2400 3000 Output, Urine 1550 3535 Patient 270 lb Weight Weight Bed scale Measurement Method Findings Pertinent Lab/Michael Results: Laboratory Tests 03/21 814 Chemistry Sodium Pending Potassium Pending Chloride Pending Carbon Dioxide Pending Anion Gap Pending BUN Pending Creatinine Pending Glucose Pending Calcium Pending Phosphorus Pending Magnesium Pending Total Bilirubin Pending AST Pending ALT Pending Albumin Pending Hematology CBC w Diff Pending WBC Pending RBC Pending Hgb Pending Hct Pending MCV Pending MCH Pending MCHC Pending RDW Pending Plt Count Pending MPV Pending ESR Westergren Pending
[2017-03-21 08:45] LABS: ABSOLUTE BASOPHIL COUNT 0.1 /CUMM (0.0-0.2); ABSOLUTE EOSINOPHIL COUNT 0.3 /CUMM (0.0-0.7); ABSOLUTE GRANULOCYTE CT 18.2 /CUMM (1.4-6.5); ABSOLUTE LYMPH COUNT 2.2 /CUMM (1.2-3.4); ABSOLUTE MONOCYTE COUNT 0.5 /CUMM (0.10-0.60); BASOPHIL % 0.4 % (0.0-2.0); EOSINOPHIL % 1.3 % (0-5); GRANULOCYTE % 85.5 % (42.2-75.2); HEMATOCRIT 41.7 % (37-47); MEAN CORPUSCULAR HGB CONC 33.5 G/DL (33.0-37.0); MEAN CORPUSCULAR VOLUME 89.5 FL (81.0-99.0); MEAN PLATELET VOLUME 10.2 FL (7.4-10.4); PLATELET COUNT 162 /CUMM (130-400); RBC DISTRIBUTION WIDTH 12.8 % (11.5-14.5); RED BLOOD CELL CT 4.66 /CUMM (4.20-5.40)
[2017-03-21 09:47] LABS: WHITE BLOOD CELL COUNT 21.2 /CUMM (4.8-10.8)
--- NOTE | 2017-03-21 09:54 | RADIOLOGY REPORT ---
EXAMINATION: CR PORTABLE CHEST CLINICAL INFORMATION: Hypoxia. Presumptive diagnosis of pulmonary edema/ARDS. COMPARISON: Chest x-ray dated 03/17/2017 and older exams. TECHNIQUE: Portable AP semierect view of the chest was obtained. FINDINGS: The cardiomediastinal silhouette is within normal limits in size. Low lung volumes are seen with central vascular congestion and perihilar opacities, unchanged from prior exam, consistent with pulmonary edema. No significant pleural effusion or pneumothorax seen. Bony structures unremarkable. IMPRESSION: No interval change in low lung volumes and interstitial pulmonary edema.
--- NOTE | 2017-03-21 11:03 | PN- Infect Dx ---
Subjective Subjective: Afebrile on steroids. She has remained short of breath on high flow oxygen and is to be intubated later this morning. Objective Last 24 Hrs of Vital Signs/I&O Vital Signs Date Time Temp Pulse Resp B/P B/P Pulse O2 O2 Flow FiO2 Mean Ox Delivery Rate 03/21 09 112 90 03/21 0927 90 BIPAP 100% 03/21 0615 101 91 03/21 0400 92 BIPAP 95% 03/21 0312 97 90 03/21 0040 103 89 03/21 0000 88 BIPAP 95% 03/21 0000 98.0 101 30 110/68 88 BIPAP 95% 03/20 2243 102 89 03/20 2000 88 Nasal 100% Cannula 03/20 1630 90 Nasal 100% Cannula 03/20 1600 90 Nasal 100% Cannula 03/20 1600 97.7 101 29 124/62 90 Nasal 100% Cannula 03/20 1308 90 Nasal 95% Cannula 03/20 1200 89 Nasal Cannula Intake & Output 03/21 1600 03/21 0800 03/21 0000 Intake Total 2400 3000 Output Total 1550 3535 Balance 850 -535 Intake, Oral 2400 3000 Output, Urine 1550 3535 Patient 270 lb Weight Weight Bed scale Measurement Method Physical Exam Other Physical Findings: She appears anxious in mild respiratory distress on BiPAP Lungs are clear Heart regular rhythm with no murmur Extremities no cyanosis, clubbing or edema Cruz catheter remains in place Results Last 24 Hours of Lab Results: Laboratory Tests 03/21 814 Chemistry Sodium (137 - 145 mmol/L) 136 L Potassium (3.5 - 5.1 mmol/L) 3.8 Chloride (98 - 107 mmol/L) 94 L Carbon Dioxide (22 - 30 mmol/L) 29 Anion Gap (5 - 16) 12 BUN (7 - 17 mg/dL) 45 H Creatinine (0.5 - 1.0 mg/dL) 1.9 H Estimated GFR (>60 ml/min) 32 L Glucose (65 - 99 mg/dL) 179 H Calcium (8.4 - 10.2 mg/dL) 9.3 Phosphorus (2.5 - 4.5 mg/dL) 4.8 H Magnesium (1.6 - 2.3 mg/dL) 2.1 Total Bilirubin (0.2 - 1.3 mg/dL) 0.6 AST (14 - 36 U/L) 94 H ALT (9 - 52 U/L) 327 H Albumin (3.5 - 5.0 g/dL) 3.3 L Hematology CBC w Diff NO MAN DIFF REQ WBC (4.8 - 10.8 /CUMM) 21.2 H RBC (4.20 - 5.40 /CUMM) 4.66 Hgb (12.0 - 16.0 G/DL) 14.0 Hct (37 - 47 %) 41.7 MCV (81.0 - 99.0 FL) 89.5 MCH (27.0 - 31.0 PG) 30.0 MCHC (33.0 - 37.0 G/DL) 33.5 RDW (11.5 - 14.5 %) 12.8 Plt Count (130 - 400 /CUMM) 162 MPV (7.4 - 10.4 FL) 10.2 Gran % (42.2 - 75.2 %) 85.5 H Lymphocytes % (20.5 - 51.1 %) 10.5 L Monocytes % (1.7 - 9.3 %) 2.3 Eosinophils % (0 - 5 %) 1.3 Basophils % (0.0 - 2.0 %) 0.4 Absolute Granulocytes (1.4 - 6.5 /CUMM) 18.2 H Absolute Lymphocytes (1.2 - 3.4 /CUMM) 2.2 Absolute Monocytes (0.10 - 0.60 /CUMM) 0.5 Absolute Eosinophils (0.0 - 0.7 /CUMM) 0.3 Absolute Basophils (0.0 - 0.2 /CUMM) 0.1 ESR Westergren (0 - 20 MM) 61 H Last 24 Hours of Michael Results: No new cultures Recent Imaging Studies: Chest x-ray March 21 no change in low lung volumes and interstitial pulmonary edema Right upper quadrant ultrasound March 18 no evidence of cholelithiasis or cholecystitis; hepatomegaly and diffuse hepatic steatosis is noted Assessment/Plan Impression: Respiratory failure persists with continued hazy bilateral densities on her chest x-ray, possibly secondary to ARDS, now off antibiotics after 11 days of Tamiflu for presumed Influenza pneumonia. She is to be electively intubated this morning for better management of her respiratory failure. She remains afebrile (on steroids) with a persistent leukocytosis, presumably secondary to the steroids. Her liver enzymes are decreasing, with the right upper quadrant ultrasound nonrevealing. Suggestion: 1. Await intubation 2. Sputum for culture 3. Remove Cruz catheter as soon as feasible 4. Further management of steroids per Pulmonary 5. Continue to follow off antibiotics
--- NOTE | 2017-03-21 11:51 | RADIOLOGY REPORT ---
EXAMINATION: XR PORTABLE CHEST CLINICAL INFORMATION: Status-post intubation. COMPARISON: Prior chest radiographs, most recently 03/21/2017. TECHNIQUE: Portable frontal view of the chest was obtained. FINDINGS: The heart, great vessels, pulmonary vasculature and mediastinum are stable. An endotracheal tube is seen, with tip positioned approximately 3.5 cm superior to the lisa. A nasogastric tube is seen with tip inferior to the left hemidiaphragm and cutoff of the submitted examination. Lung volumes are low. There is mild bibasilar airspace disease, with partial silhouetting of the diaphragms. No pleural effusion or pneumothorax is seen. There is no acute osseous abnormality. IMPRESSION: 1. Endotracheal tube tip position as above. 2. Lung volumes are low. 3. There is mild bibasilar airspace disease.
[2017-03-21 16:00] VITALS: BP 90/50
[2017-03-22] VITALS: BP 107/59
[2017-03-22 05:13] LABS: ABSOLUTE BASOPHIL COUNT 0.1 /CUMM (0.0-0.2); ABSOLUTE EOSINOPHIL COUNT 0.3 /CUMM (0.0-0.7); ABSOLUTE GRANULOCYTE CT 14.1 /CUMM (1.4-6.5); ABSOLUTE LYMPH COUNT 1.8 /CUMM (1.2-3.4); ABSOLUTE MONOCYTE COUNT 0.9 /CUMM (0.10-0.60); BASOPHIL % 0.3 % (0.0-2.0); GRANULOCYTE % 81.8 % (42.2-75.2); HEMATOCRIT 40.9 % (37-47); MEAN CORPUSCULAR HGB 30.1 PG (27.0-31.0); MEAN CORPUSCULAR HGB CONC 33.2 G/DL (33.0-37.0); MEAN CORPUSCULAR VOLUME 90.7 FL (81.0-99.0); MEAN PLATELET VOLUME 9.3 FL (7.4-10.4); PLATELET COUNT 147 /CUMM (130-400); RBC DISTRIBUTION WIDTH 13.3 % (11.5-14.5); RED BLOOD CELL CT 4.51 /CUMM (4.20-5.40); WHITE BLOOD CELL COUNT 17.2 /CUMM (4.8-10.8)
--- NOTE | 2017-03-22 07:32 | PN- Resident CRCU ---
Subjective HPI/CRCU Issues: ARDS Hypertension Sinus Tachycardia 24 Hour Events: Patient was intubated yesterday as she had been unable to maintain her O2 saturations on high flow and BiPAP. She is currently on IV Ativan, Vecuronium and Propofol for sedation and muscle relaxants. Her FiO2 is 80% today. She has been persistently tachycardic with HR 130-150s requiring IV metoprolol push overnight. Objective Vital Signs & I&O Last 8 Hrs of Vitals and I&O: . Exam General Appearance: no apparent distress, sedated, intubated, obese Head: atraumatic, normal appearance Respiratory: normal breath sounds, chest non-tender Cardiovascular: tachycardia Gastrointestinal: soft, non-tender Extremities: no edema Skin: intact Skin Temp/Moisture Exam: Warm/Dry Sepsis Skin Exam (color): Normal for Ethnicity Current Medications: Current Medications Sig/Nabila Start time Last Medication Dose Route Stop Time Status Admin Acetaminophen 650 MG Q6P PRN 03/06 2215 AC 03/11 PO 1140 Acetaminophen 1,000 MG Q6P PRN 03/06 2215 AC 03/08 IV 2357 Albuterol Sulfate 3 ML EVERY 4 HRS/AWAKE 03/08 1600 AC 03/22 INH 0945 Calcium Carbonate 500 MG TID PRN 03/10 0030 AC PO Dextrose/Sodium 1,000 ML Q10H 03/22 0700 AC 03/22 Chloride IV 0712 Fentanyl Citrate 1,000 MCG Q24H 03/21 1100 DC Sodium Chloride 250 ML IV Fentanyl Citrate 25 MCG ONCE ONE 03/21 1045 DC 03/21 IV 03/21 1046 1045 Fentanyl Citrate 1,000 MCG Q24H 03/21 1045 DC Dextrose/Water 250 ML IV Fish Oil 2,100 MG BID 03/07 1000 DC 03/21 PO 0800 Furosemide 20 MG ONCE ONE 03/21 1330 DC IV 03/21 1331 Glycerin 2 SPRAY Q2P PRN 03/09 0745 AC 03/09 PO 0848 Guaifenesin 10 ML Q4-6 PRN PRN 03/08 0445 AC 03/08 PO 0444 Heparin Sodium 5,000 UNIT Q8 03/07 0600 AC 03/22 (Porcine) SC 0648 Insulin Aspart 0 Q4 03/21 1400 AC 03/22 SC 1004 Insulin Aspart 0 TIDAC/HS 03/13 1200 DC 03/21 SC 0903 Insulin Detemir 16 UNITS BID 03/21 2200 AC 03/22 SC 1004 Insulin Detemir 28 UNITS BID 03/20 2200 DC 03/21 SC 1000 Ipratropium [place] 2.5 ML EVERY 4 HRS/AWAKE 03/08 1600 AC 03/22 INH 0945 Levothyroxine Sodium 37.5 MCG DAILY 03/22 1000 AC 03/22 IV 1007 Levothyroxine Sodium 0.075 MG DAILY AC 03/11 0700 DC 03/21 PO 0621 Lorazepam 50 MG Q8H 03/21 1500 AC 03/22 Sodium Chloride 500 ML IV 1003 Lorazepam 4 MG ONCE ONE 03/21 1045 DC 03/21 IV 03/21 1046 1045 Lorazepam 4 MG .STK-MED ONE 03/21 1032 DC IM 03/21 1033 Lorazepam 50 MG Q24H 03/21 1030 CAN Sodium Chloride 500 ML IV Methylprednisolone 20 MG DAILY 03/21 1000 AC 03/22 IV 1005 Metoprolol Tartrate 2.5 MG ONCE ONE 03/22 0645 DC 03/22 IV 03/22 0646 0709 Metoprolol Tartrate 2.5 MG ONCE ONE 03/22 0600 DC 03/22 IV 03/22 0601 0600 Morphine Sulfate 2 MG ONCE ONE 03/22 0400 DC 03/22 IV 03/22 0401 0356 Non-Formulary 0 SEE ADMIN CRITERIA 03/21 1100 CAN Medication ANY Non-Formulary 0 SEE ADMIN CRITERIA 03/21 1015 CAN Medication ANY Pantoprazole Sodium 40 MG DAILY 03/22 1000 AC 03/22 IV 1004 Pantoprazole Sodium 40 MG ONCE ONE 03/21 1630 DC 03/21 IV 03/21 1631 1817 Propofol 1,000 MG .STK-MED ONE 03/21 1632 DC IV 03/21 1633 Propofol 1,000 MG Q12H 03/21 1500 AC 03/22 N/A 1 UNIT IV 0357 Propofol 1,000 MG Q12H 03/21 1115 DC N/A 1 UNIT IV Sodium Bicarbonate 975 MG BID 03/07 1000 AC 03/22 PO 1005 Vecuronium [place] 50 MG Q6H 03/21 2130 AC 03/22 Sodium Chloride 500 ML IV 1003 Vecuronium [place] 50 MG Q8H 03/21 2045 DC Sodium Chloride 500 ML IV Vecuronium [place] 50 MG Q8H 03/21 1430 DC 03/21 Sodium Chloride 500 ML IV 1200 Vecuronium [place] 5 MG ONCE ONE 03/21 1130 DC 03/21 IV 03/21 1131 1130 Vecuronium [place] 10 MG Q24H 03/21 1130 DC Sodium Chloride 100 ML IV Vecuronium [place] 5 MG ONCE ONE 03/21 1045 DC 03/21 IV 03/21 1046 1045 Impression/Plan Impression/Problem List Impression: 26 yo morbidly obese F with h/o 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 Was being treated on the general medicine floor with Tamiflu and IV ceftriaxone and azithromycin. Transferred to ICU on 03/08/2017 for worsening respiratory status and hypoxia. Assessment * Acute hypoxaemic respiratory failure secondary to influenza complicated with left lower lobe pneumonia (initially) and now due to possible ARDS. * Sinus Tachycardia likely secondary to developing ARDS * Sepsis on admission - resolved. * Influenza A positive - resolved * Acute on chronic kidney disease likely secondary to ATN. There could've been a component of pre-renal azotemia as well - resolved * Elevated CK - ? Rhabdomyolosis - improved with IVF. * Elevated blood sugars * History of Exercise induced Asthma * History of hypothyroidism * Transaminitis * Leukocytosis Plan * Continue monitoring in ICU * Currently intubated with FiO2 of 80%. * Sedation with Ativan, Propofol drip. Vercuronium drip as a muscle relaxants. * Her Sinus Tachycardia is likely due to ARDS. Per Cardiology, would not treat/ medicate unless heart rate goes above 140. * Repeat CT scan 03/14 interval worsening in diffuse geographic groundglass opacities throughout both lungs with development of more confluent airspace disease dependently within both lungs. * Echo 03/08 - Normal LVEF >60%. No evidence of right heart strain. * Continue IV methylprednisone to 20mg daily. * Off antibiotics and Tamiflu. Her last flu swab was negative for influenza. * TRC nebs as needed. * Her insulin sliding scale has been adjusted per Endo. Levemir decreased to 15mg BID. * Endo recs appreciated * White count continues to be elevated. Transaminases elevated but stable. Trending down. * Hepatitis panel has been negative. * RUQ U/S 03/18 showed hepatic steatosis which could be contributing to transaminitis. * Holding lisinopril, nephro input appreciated. * Patients renal doctor is Dr Garcia ([phone]) at [place]. Renal d/s started in 2009. * Continue sodium bicarbonate tabs * Continue Synthroid. * DVT to prophylaxis with subcutaneous heparin * NPO. Started on tube feeds today. * Nutrition recs appreciated * Pain control with IV Tylenol as needed. * Patient is full code PLEASE CALL PATIENT'S FATHER STACY RASHID ) ABOUT ANY CHANGES IN CLINICAL CONDITION/ INTUBATION. HE IS CURRENTLY IN [place]. Problem List: 1. ARDS (adult respiratory distress syndrome) Pain Ratin Tomorrow's Labs & Rationales: CBC, ICU bundle Plan DVT/Prophylaxis: pharmacological
--- NOTE | 2017-03-22 07:56 | PN- CRCU ---
Subjective HPI/Critical Care Issues: The patient remains intubated and sedated. Her oxygen requirement has improved and she is now requiring 80%. She was tachycardic (sinus) and given Lopressor early this am. She remains hemodynamically stable. She remains on ARDS protocol with respect to mechanical ventilation, noting her plateau pressure is currently elevated at 33. Objective Current Medications: Current Medications Sig/Nabila Start time Last Medication Dose Route Stop Time Status Admin Acetaminophen 650 MG Q6P PRN 03/06 2215 AC 03/11 PO 1140 Acetaminophen 1,000 MG Q6P PRN 03/06 2215 AC 03/08 IV 2357 Albuterol Sulfate 3 ML EVERY 4 HRS/AWAKE 03/08 1600 AC 03/21 INH 2113 Calcium Carbonate 500 MG TID PRN 03/10 0030 AC PO Dextrose/Sodium 1,000 ML Q10H 03/22 0700 AC 03/22 Chloride IV 0712 Fentanyl Citrate 1,000 MCG Q24H 03/21 1100 DC Sodium Chloride 250 ML IV Fentanyl Citrate 25 MCG ONCE ONE 03/21 1045 DC 03/21 IV 03/21 1046 1045 Fentanyl Citrate 1,000 MCG Q24H 03/21 1045 DC Dextrose/Water 250 ML IV Fish Oil 2,100 MG BID 03/07 1000 DC 03/21 PO 0800 Furosemide 20 MG ONCE ONE 03/21 1330 DC IV 03/21 1331 Glycerin 2 SPRAY Q2P PRN 03/09 0745 AC 03/09 PO 0848 Guaifenesin 10 ML Q4-6 PRN PRN 03/08 0445 AC 03/08 PO 0444 Heparin Sodium 5,000 UNIT Q8 03/07 0600 AC 03/22 (Porcine) SC 0648 Insulin Aspart 0 Q4 03/21 1400 AC 03/21 SC 2210 Insulin Aspart 0 TIDAC/HS 03/13 1200 DC 03/21 SC 0903 Insulin Detemir 16 UNITS BID 03/21 2200 AC 03/21 SC 2159 Insulin Detemir 28 UNITS BID 03/20 2200 DC 03/21 SC 1000 Ipratropium [place] 2.5 ML EVERY 4 HRS/AWAKE 03/08 1600 AC 03/21 INH 2113 Levothyroxine Sodium 37.5 MCG DAILY 03/22 1000 AC IV Levothyroxine Sodium 0.075 MG DAILY AC 03/11 0700 DC 03/21 PO 0621 Lorazepam 50 MG Q8H 03/21 1500 AC 03/22 Sodium Chloride 500 ML IV 0011 Lorazepam 4 MG ONCE ONE 03/21 1045 DC 03/21 IV 03/21 1046 1045 Lorazepam 4 MG .STK-MED ONE 03/21 1032 DC IM 03/21 1033 Lorazepam 50 MG Q24H 03/21 1030 CAN Sodium Chloride 500 ML IV Methylprednisolone 20 MG DAILY 03/21 1000 AC 03/21 IV 1200 Methylprednisolone 40 MG DAILY 03/19 1000 DC 03/20 IV 1006 Metoprolol Tartrate 2.5 MG ONCE ONE 03/22 0645 DC 03/22 IV 03/22 0646 0709 Metoprolol Tartrate 2.5 MG ONCE ONE 03/22 0600 DC 03/22 IV 03/22 0601 0600 Morphine Sulfate 2 MG ONCE ONE 03/22 0400 DC 03/22 IV 03/22 0401 0356 Non-Formulary 0 SEE ADMIN CRITERIA 03/21 1100 CAN Medication ANY Non-Formulary 0 SEE ADMIN CRITERIA 03/21 1015 CAN Medication ANY Pantoprazole Sodium 40 MG DAILY 03/22 1000 AC IV Pantoprazole Sodium 40 MG ONCE ONE 03/21 1630 DC 03/21 IV 03/21 1631 1817 Propofol 1,000 MG .STK-MED ONE 03/21 1632 DC IV 03/21 1633 Propofol 1,000 MG Q12H 03/21 1500 AC 03/22 N/A 1 UNIT IV 0357 Propofol 1,000 MG Q12H 03/21 1115 DC N/A 1 UNIT IV Propofol 1,000 MG .STK-MED ONE 03/21 1019 DC IV 03/21 1020 Sodium Bicarbonate 975 MG BID 03/07 1000 AC 03/21 PO 2151 Succinylcholine 5 MG ONCE ONE 03/21 1015 DC 03/21 Chloride IV 03/21 1016 1015 Vecuronium [place] 50 MG Q6H 03/21 2130 AC 03/22 Sodium Chloride 500 ML IV 0357 Vecuronium [place] 50 MG Q8H 03/21 2045 DC Sodium Chloride 500 ML IV Vecuronium [place] 50 MG Q8H 03/21 1430 DC 03/21 Sodium Chloride 500 ML IV 1200 Vecuronium [place] 5 MG ONCE ONE 03/21 1130 DC 03/21 IV 03/21 1131 1130 Vecuronium [place] 10 MG Q24H 03/21 1130 DC Sodium Chloride 100 ML IV Vecuronium [place] 5 MG ONCE ONE 03/21 1045 DC 03/21 IV 03/21 1046 1045 Vecuronium [place] 5 MG ONCE ONE 03/21 1015 DC 03/21 IV 03/21 1016 1015 Vital Signs & I&O Last 24 Hrs of Vitals and I&O: Vital Signs Date Time Temp Pulse Resp B/P B/P Pulse O2 O2 Flow FiO2 Mean Ox Delivery Rate 03/22 0709 123 130/60 03/22 0638 80 03/22 0600 142 134/84 03/22 0354 80 03/22 0134 80 03/22 0000 99.6 122 20 107/59 93 Ventilator 80% 03/22 0000 93 Ventilator 80% 03/21 2000 93 Ventilator 90% 03/21 1900 90 03/21 1640 100 03/21 1600 98.0 134 20 90/50 90 Ventilator 90% 03/21 1600 91 Ventilator 90% 03/21 1430 100 03/21 1328 100 03/21 1200 90 Ventilator 90% 03/21 0927 112 90 03/21 0927 90 BIPAP 100% 03/21 0800 98.0 130 20 150/90 81 Nasal 100% Cannula 03/21 0800 80 Nasal 100% Cannula Intake & Output 03/22 0800 03/22 0000 03/21 1600 Intake Total 671 1498 Output Total 650 1740 Balance 21 -242 Intake, IV 671 898 Intake, Oral 0 600 Number 0 Bowel Movements Output, 0 Gastric Drainage Output, Urine 650 1740 Exam General Appearance: no apparent distress, intubated and sedated Head: atraumatic, normal appearance Neck: supple Respiratory: no respiratory distress, quiet respiration, trachea midline, clear anteriorly Cardiovascular: regular rate/rhythm, tachycardia improved Abdomen: normal bowel sounds, soft, non-tender, obese Extremities: no edema Skin: intact, normal color, warm/dry Results Last 24 Hrs of Lab Results: Laboratory Tests 03/22/17 0515: pH 7.35, pCO2 45, pO2 86, HCO3 24, ABG O2 Sat (Measured) 95.0 L, P-50 (Temp Corrected) Y, Carboxyhemoglobin 0.7 L, O2 Concentration % 80%, Temperature 100.0, Respiration Rate 20, O2 Delivery Method ESPRIT, Vent Mode AC, Expiratory Pressure 10, Tidal Volume 450, Phlebotomy Draw Site RIGHT RADIAL 03/22/17 0440: Anion Gap 14, Estimated GFR 27 L, Glucose 148 H, Calcium 9.0, Phosphorus 6.8 H, Magnesium 2.4 H, Total Bilirubin 0.6, Direct Bilirubin 0.3, AST 56 H, ALT 245 H, Alkaline Phosphatase 169 H, Total Protein 6.0 L, Albumin 3.0 L, CBC w Diff NO MAN DIFF REQ, RBC 4.51, MCV 90.7, MCH 30.1, MCHC 33.2, RDW 13.3, MPV 9.3 , Gran % 81.8 H, Lymphocytes % 10.5 L, Monocytes % 5.4, Eosinophils % 2.0, Basophils % 0.3, Absolute Granulocytes 14.1 H, Absolute Lymphocytes 1.8, Absolute Monocytes 0.9 H, Absolute Eosinophils 0.3, Absolute Basophils 0.1 03/21/17 1230: pH 7.41, pCO2 37, pO2 77 L, HCO3 23, ABG O2 Sat (Measured) 94.0 L, P-50 (Temp Corrected) N, Carboxyhemoglobin 0.4 L, O2 Concentration % 100%, Respiration Rate 20, O2 Delivery Method VENT, Vent Mode VC-AC, Expiratory Pressure 12, Tidal Volume 450, Phlebotomy Draw Site RIGHT RADIAL 03/21/17 0815: Anion Gap 12, Estimated GFR 32 L, Glucose 179 H, Calcium 9.3, Phosphorus 4.8 H, Magnesium 2.1, Total Bilirubin 0.6, AST 94 H, ALT 327 H, Albumin 3.3 L, CBC w Diff NO MAN DIFF REQ, RBC 4.66, MCV 89.5, MCH 30.0, MCHC 33.5, RDW 12.8, MPV 10.2, Gran % 85.5 H, Lymphocytes % 10.5 L, Monocytes % 2.3, Eosinophils % 1.3, Basophils % 0.4, Absolute Granulocytes 18.2 H, Absolute Lymphocytes 2.2, Absolute Monocytes 0.5, Absolute Eosinophils 0.3, Absolute Basophils 0.1, ESR Westergren 61 H Impression/Plan Impression/Plan Impression/Plan: 1. Hypoxemic respiratory failure secondary to influenza, with possible ARDS. CT shows GGOs, slightly worse. ID, cardiology and nephrology following the patient for possible intervention and additional recommendations. 2. Probable obesity hypoventilation syndrome. 3. Probable obstructive sleep apnea, undiagnosed. 4. Hypernatremia. 5. History of chronic kidney disease secondary to IgA nephropathy. 6. History of hypothyroidism. 7. Exercise-induced asthma, evidence of bronchospasm during this admission, now improved, steroids on a slow taper. 8. Mild transaminitis. Recommendations: Recommendations: * Follow up am CXR results. * Solu-Medrol to 20 mg IV daily. * Attempt to further decrease TV to keep plateau pressures lower. Ideally, need to focus on < 6 ml/kg of IBW. * Continue to follow ID recommendations. * Will need to consider transfer to a higher level of care if she continues to fail to improve, noting she may benefit from prone positioning. * Maintain aspiration precautions. * Nutrition consult for tube feeds, to be started today. * Renal consulted, follow up recommendations, appreciate input. * Will need to discuss tachycardia with cardiology. * Monitor all electrolytes and replete as necessary. Check labs every 12 hours today. * Continue Synthroid. * Subcutaneous heparin/DVT prophylaxis at all times. * Continue to monitor closely in the critical care unit. * Continue all supportive care. Will continue to update the patient's family on her progress.
[2017-03-22 08:00] VITALS: BP 138/60
--- NOTE | 2017-03-22 08:15 | RADIOLOGY REPORT ---
EXAMINATION: XR PORTABLE CHEST CLINICAL INFORMATION: Lines and tubes confirmation and follow-up prior study. COMPARISON: Portable chest x-ray dated 03/21/2017, 11:01 AM. TECHNIQUE: Portable frontal view of the chest was obtained. FINDINGS: Lines and tubes: The endotracheal tube tip is located approximately 3.7 cm proximal to the level of the lisa in satisfactory position. The NG tube extends well below the diaphragm. Both tubes are unchanged in position compared to prior study. There is indistinctness of the pulmonary interstitial markings and prominence of the central pulmonary vessels consistent with pulmonary vascular congestion, this is overall stable compared to prior study. No new focal areas of airspace opacification are noted. IMPRESSION: Stable position of the tubes compared to the prior study. No significant interval change in the pulmonary vascular congestion compared to prior study.
--- NOTE | 2017-03-22 10:14 | PN- Infect Dx ---
Subjective Subjective: Afebrile on steroids. She was intubated yesterday and sedated. Objective Last 24 Hrs of Vital Signs/I&O Vital Signs Date Time Temp Pulse Resp B/P B/P Pulse O2 O2 Flow FiO2 Mean Ox Delivery Rate 03/22 0951 75 03/22 0800 97.7 116 20 138/60 94 Ventilator 80% 03/22 0709 123 130/60 03/22 0638 80 03/22 0600 142 134/84 03/22 0400 92 Ventilator 80% 03/22 0354 80 03/22 0134 80 03/22 0000 99.6 122 20 107/59 93 Ventilator 80% 03/22 0000 93 Ventilator 80% 03/21 2000 93 Ventilator 90% 03/21 1900 90 03/21 1640 100 03/21 1600 98.0 134 20 90/50 90 Ventilator 90% 03/21 1600 91 Ventilator 90% 03/21 1430 100 03/21 1328 100 03/21 1200 90 Ventilator 90% Intake & Output 03/22 1600 03/22 0800 03/22 0000 Intake Total 1265 671 Output Total 1300 650 Balance -35 21 Intake, IV 1215 671 Intake, Oral 0 Intake, Other 50 Number 0 0 Bowel Movements Output, 0 0 Gastric Drainage Output, Urine 1300 650 Physical Exam Other Physical Findings: She is sedated on the ventilator, with no response to pain Lungs mostly clear Heart regular rhythm with no murmur Abdomen is soft, nontender with positive bowel sounds Extremities no cyanosis, clubbing or edema Cruz catheter remains in place Results Last 24 Hours of Lab Results: Laboratory Tests 03/22 03/22 0515 0440 Blood Gas pH (7.35 - 7.45 PH) 7.35 pCO2 (35 - 45 TORR) 45 pO2 (80 - 100 TORR) 86 HCO3 (21 - 28 MEQ/L) 24 ABG O2 Sat (Measured) (>96.0 %) 95.0 L P-50 (Temp Corrected) Y Carboxyhemoglobin (1.5 - 5.0 %) 0.7 L O2 Concentration % 80% Temperature (97.0 - 100.0 FARH) 100.0 Respiration Rate (BPM) 20 O2 Delivery Method ESPRIT Vent Mode AC Expiratory Pressure (CMH2O/P) 10 Tidal Volume (CC) 450 Chemistry Sodium (137 - 145 mmol/L) 146 H Potassium (3.5 - 5.1 mmol/L) 4.3 Chloride (98 - 107 mmol/L) 106 Carbon Dioxide (22 - 30 mmol/L) 26 Anion Gap (5 - 16) 14 BUN (7 - 17 mg/dL) 40 H Creatinine (0.5 - 1.0 mg/dL) 2.2 H Estimated GFR (>60 ml/min) 27 L Glucose (65 - 99 mg/dL) 148 H Calcium (8.4 - 10.2 mg/dL) 9.0 Phosphorus (2.5 - 4.5 mg/dL) 6.8 H Magnesium (1.6 - 2.3 mg/dL) 2.4 H Total Bilirubin (0.2 - 1.3 mg/dL) 0.6 Direct Bilirubin (< 0.4 mg/dL) 0.3 AST (14 - 36 U/L) 56 H ALT (9 - 52 U/L) 245 H Alkaline Phosphatase (<127 U/L) 169 H Total Protein (6.3 - 8.2 g/dL) 6.0 L Albumin (3.5 - 5.0 g/dL) 3.0 L Hematology CBC w Diff NO MAN DIFF REQ WBC (4.8 - 10.8 /CUMM) 17.2 H RBC (4.20 - 5.40 /CUMM) 4.51 Hgb (12.0 - 16.0 G/DL) 13.6 Hct (37 - 47 %) 40.9 MCV (81.0 - 99.0 FL) 90.7 MCH (27.0 - 31.0 PG) 30.1 MCHC (33.0 - 37.0 G/DL) 33.2 RDW (11.5 - 14.5 %) 13.3 Plt Count (130 - 400 /CUMM) 147 MPV (7.4 - 10.4 FL) 9.3 Gran % (42.2 - 75.2 %) 81.8 H Lymphocytes % (20.5 - 51.1 %) 10.5 L Monocytes % (1.7 - 9.3 %) 5.4 Eosinophils % (0 - 5 %) 2.0 Basophils % (0.0 - 2.0 %) 0.3 Absolute Granulocytes (1.4 - 6.5 /CUMM) 14.1 H Absolute Lymphocytes (1.2 - 3.4 /CUMM) 1.8 Absolute Monocytes (0.10 - 0.60 /CUMM) 0.9 H Absolute Eosinophils (0.0 - 0.7 /CUMM) 0.3 Absolute Basophils (0.0 - 0.2 /CUMM) 0.1 Miscellaneous Phlebotomy Draw Site RIGHT RADIAL 03/21 1230 Blood Gas pH (7.35 - 7.45 PH) 7.41 pCO2 (35 - 45 TORR) 37 pO2 (80 - 100 TORR) 77 L HCO3 (21 - 28 MEQ/L) 23 ABG O2 Sat (Measured) (>96.0 %) 94.0 L P-50 (Temp Corrected) N Carboxyhemoglobin (1.5 - 5.0 %) 0.4 L O2 Concentration % 100% Respiration Rate (BPM) 20 O2 Delivery Method VENT Vent Mode VC-AC Expiratory Pressure (CMH2O/P) 12 Tidal Volume (CC) 450 Miscellaneous Phlebotomy Draw Site RIGHT RADIAL Last 24 Hours of Michael Results: Sputum culture March 21 mixed daryl Recent Imaging Studies: Chest x-ray March 22, personally reviewed, reveals no change in the prominent vascular markings Assessment/Plan Impression: Respiratory failure, most likely secondary to ARDS in the setting of a recent influenza pneumonia, now off antibiotics after 11 days of Tamiflu. She remains afebrile (on steroids) with a persistent leukocytosis, though her white blood cell count is decreasing with the tapering of her steroids. Her elevated liver enzymes, of unclear etiology, are decreasing, with her recent right upper quadrant ultrasound negative. Suggestion: 1. Follow-up final sputum culture 2. Continue to taper steroids per Pulmonary 3. Continue to follow off antibiotics
--- NOTE | 2017-03-22 11:22 | PN- Cardiology ---
Subjective Subjective: The patient was intubated because of inability to maintain oxygen saturation on high flow oxygen and BiPAP. She remains intubated and sedated. She was noted to be in sinus tachycardia with heart rate in the 130s. Objective Vital Signs and I&Os Vital Signs Date Time Temp Pulse Resp B/P B/P Pulse O2 O2 Flow FiO2 Mean Ox Delivery Rate 03/22 0951 75 03/22 08 97.7 116 20 138/60 94 Ventilator 80% 03/22 0800 95 Ventilator 80% 03/22 0709 123 130/60 03/22 0638 80 03/22 0600 142 134/84 03/22 0400 92 Ventilator 80% 03/22 0354 80 03/22 0134 80 03/22 0000 99.6 122 20 107/59 93 Ventilator 80% 03/22 0000 93 Ventilator 80% 03/21 2000 93 Ventilator 90% 03/21 1900 90 03/21 1640 100 03/21 1600 98.0 134 20 90/50 90 Ventilator 90% 03/21 1600 91 Ventilator 90% 03/21 1430 100 03/21 1328 100 03/21 1200 90 Ventilator 90% Intake & Output 03/22 1600 03/22 0800 03/22 0000 03/21 1600 03/21 0800 03/21 0000 Intake Total 8876 976 7960 2400 3000 Output Total 0786 595 1253 1550 3535 Balance -35 21 -242 850 -535 Intake, IV 1215 671 898 Intake, Oral 0 600 2400 3000 Intake, Other 50 Number 0 0 Bowel Movements Output, 0 0 Gastric Drainage Output, Urine 0029 231 0824 1550 3535 Patient 270 lb 270 lb Weight Weight Bed scale Measurement Method Physical Exam: Gen: The patient is in no acute distress HEENT: Normal nose, ears, and oropharynx. Pupils equal bilaterally. Conjunctiva normal. Neck: Supple with no JVD, no masses, and no thyromegaly Lungs: Decreased breath sounds on the ventilator Heart: Tachycardia, S1, S2, no murmurs. No peripheral edema, 2+ pulses in the lower extremities bilaterally Abdomen: Soft, nontender, no masses. No hepatomegaly. No splenomegaly Extremities: No clubbing or cyanosis. Normal muscle strength in the upper and lower extremities Skin: Normal skin turgor with no skin ulcers or lesions noted. Neuro: Cranial nerves intact. Sensation intact Psych: Alert and oriented - 3 with appropriate affect Current Medications: Current Medications Sig/Nabila Start time Last Medication Dose Route Stop Time Status Admin Acetaminophen 650 MG Q6P PRN 03/06 2215 AC 03/11 PO 1140 Acetaminophen 1,000 MG Q6P PRN 03/06 2215 AC 03/08 IV 2357 Albuterol Sulfate 3 ML EVERY 4 HRS/AWAKE 03/08 1600 AC 03/22 INH 0945 Calcium Carbonate 500 MG TID PRN 03/10 0030 AC PO Dextrose/Sodium 1,000 ML Q10H 03/22 0700 AC 03/22 Chloride IV 0712 Fish Oil 2,100 MG BID 03/07 1000 DC 03/21 PO 0800 Furosemide 20 MG ONCE ONE 03/21 1330 DC IV 03/21 1331 Glycerin 2 SPRAY Q2P PRN 03/09 0745 AC 03/09 PO 0848 Guaifenesin 10 ML Q4-6 PRN PRN 03/08 0445 AC 03/08 PO 0444 Heparin Sodium 5,000 UNIT Q8 03/07 0600 AC 03/22 (Porcine) SC 0648 Insulin Aspart 0 Q4 03/21 1400 AC 03/22 SC 1004 Insulin Aspart 0 TIDAC/HS 03/13 1200 DC 03/21 SC 0903 Insulin Detemir 16 UNITS BID 03/21 2200 AC 03/22 SC 1004 Insulin Detemir 28 UNITS BID 03/20 2200 DC 03/21 SC 1000 Ipratropium [place] 2.5 ML EVERY 4 HRS/AWAKE 03/08 1600 AC 03/22 INH 0945 Levothyroxine Sodium 37.5 MCG DAILY 03/22 1000 AC 03/22 IV 1007 Lorazepam 50 MG Q8H 03/21 1500 AC 03/22 Sodium Chloride 500 ML IV 1003 Lorazepam 50 MG Q24H 03/21 1030 CAN Sodium Chloride 500 ML IV Methylprednisolone 20 MG DAILY 03/21 1000 AC 03/22 IV 1005 Metoprolol Tartrate 2.5 MG ONCE ONE 03/22 0645 DC 03/22 IV 03/22 0646 0709 Metoprolol Tartrate 2.5 MG ONCE ONE 03/22 0600 DC 03/22 IV 03/22 0601 0600 Morphine Sulfate 2 MG ONCE ONE 03/22 0400 DC 03/22 IV 03/22 0401 0356 Pantoprazole Sodium 40 MG DAILY 03/22 1000 AC 03/22 IV 1004 Pantoprazole Sodium 40 MG ONCE ONE 03/21 1630 DC 03/21 IV 03/21 1631 1817 Propofol 1,000 MG .STK-MED ONE 03/21 1632 DC IV 03/21 1633 Propofol 1,000 MG Q12H 03/21 1500 AC 03/22 N/A 1 UNIT IV 0357 Propofol 1,000 MG Q12H 03/21 1115 DC N/A 1 UNIT IV Sodium Bicarbonate 975 MG BID 03/07 1000 AC 03/22 PO 1005 Vecuronium [place] 50 MG Q6H 03/21 2130 AC 03/22 Sodium Chloride 500 ML IV 1003 Vecuronium [place] 50 MG Q8H 03/21 2045 DC Sodium Chloride 500 ML IV Vecuronium [place] 50 MG Q8H 03/21 1430 DC 03/21 Sodium Chloride 500 ML IV 1200 Vecuronium [place] 5 MG ONCE ONE 03/21 1130 DC 03/21 IV 03/21 1131 1130 Vecuronium [place] 10 MG Q24H 03/21 1130 DC Sodium Chloride 100 ML IV Results Last 48 Hrs of Labs/Mics: Laboratory Tests 03/22/17 0515: pH 7.35, pCO2 45, pO2 86, HCO3 24, ABG O2 Sat (Measured) 95.0 L, P-50 (Temp Corrected) Y, Carboxyhemoglobin 0.7 L, O2 Concentration % 80%, Temperature 100.0, Respiration Rate 20, O2 Delivery Method ESPRIT, Vent Mode AC, Expiratory Pressure 10, Tidal Volume 450, Phlebotomy Draw Site RIGHT RADIAL 03/22/17 0440: Anion Gap 14, Estimated GFR 27 L, Glucose 148 H, Calcium 9.0, Phosphorus 6.8 H, Magnesium 2.4 H, Total Bilirubin 0.6, Direct Bilirubin 0.3, AST 56 H, ALT 245 H, Alkaline Phosphatase 169 H, Troponin I Pending, Total Protein 6.0 L, Albumin 3.0 L, CBC w Diff NO MAN DIFF REQ, RBC 4.51, MCV 90.7, MCH 30.1, MCHC 33.2, RDW 13.3, MPV 9.3, Gran % 81.8 H, Lymphocytes % 10.5 L, Monocytes % 5.4, Eosinophils % 2.0, Basophils % 0.3, Absolute Granulocytes 14.1 H, Absolute Lymphocytes 1.8, Absolute Monocytes 0.9 H, Absolute Eosinophils 0.3, Absolute Basophils 0.1 03/21/17 1230: pH 7.41, pCO2 37, pO2 77 L, HCO3 23, ABG O2 Sat (Measured) 94.0 L, P-50 (Temp Corrected) N, Carboxyhemoglobin 0.4 L, O2 Concentration % 100%, Respiration Rate 20, O2 Delivery Method VENT, Vent Mode VC-AC, Expiratory Pressure 12, Tidal Volume 450, Phlebotomy Draw Site RIGHT RADIAL 03/21/17 0815: Anion Gap 12, Estimated GFR 32 L, Glucose 179 H, Calcium 9.3, Phosphorus 4.8 H, Magnesium 2.1, Total Bilirubin 0.6, AST 94 H, ALT 327 H, Albumin 3.3 L, CBC w Diff NO MAN DIFF REQ, RBC 4.66, MCV 89.5, MCH 30.0, MCHC 33.5, RDW 12.8, MPV 10.2, Gran % 85.5 H, Lymphocytes % 10.5 L, Monocytes % 2.3, Eosinophils % 1.3, Basophils % 0.4, Absolute Granulocytes 18.2 H, Absolute Lymphocytes 2.2, Absolute Monocytes 0.5, Absolute Eosinophils 0.3, Absolute Basophils 0.1, ESR Westergren 61 H Recent Imaging Studies: Chest x-ray: Stable position of the tubes compared to the prior study. No significant interval change in the pulmonary vascular congestion compared to prior study. Echocardiogram 03/09/17: Normal left ventricular ejection fraction visually estimated at > 60%. Mild concentric left ventricular hypertrophy. Trace tricuspid regurgitation. Assessment/Plan Assessment/Plan Assessment: 1. Acute hypoxemic respiratory failure secondary to influenza complicated with left lower lobe pneumonia. 2. Possible ARDS 3. Acute on chronic kidney disease stage III due to IgA nephropathy 4. Sinus tachycardia, likely reactive. No evidence of primary cardiac etiology. Recommendations: * Would hold off on treating sinus tachycardia in the setting of ARDS * Continue ventilatory support and supportive care Continue telemetry? Yes
--- NOTE | 2017-03-22 11:33 | PN- Diabetes ---
Assessment/Plan Assessment: 26-year-old female who has had a history of prediabetes, overweight, Ig A nephropathy along with chronic renal insufficiency and asthma, was in ICU for respiratory distress. She was treated with Solu-Medrol which has been gradually decreased to 20 mg once a day. However, she was intubated on 03/21/2017. She is on D51/2 NS at 100 ml/hour. Currently she is on Levemir 16 units twice a day; Novolog coverage every 4 hours. Her FSGs [id number], 158, 212, 133, 148 and 173. Plan: continue the current insulin regimen for now; monitor FSGs. will follow. Subjective Subjective: Patient is intubated. Objective Last 24 Hrs of Vital Signs/I&O Vital Signs Date Time Temp Pulse Resp B/P B/P Pulse O2 O2 Flow FiO2 Mean Ox Delivery Rate 03/22 0951 75 03/22 08 97.7 116 20 138/60 94 Ventilator 80% 03/22 0800 95 Ventilator 80% 03/22 0709 123 130/60 03/22 0638 80 03/22 0600 142 134/84 03/22 0400 92 Ventilator 80% 03/22 0354 80 03/22 0134 80 03/22 0000 99.6 122 20 107/59 93 Ventilator 80% 03/22 0000 93 Ventilator 80% 03/21 2000 93 Ventilator 90% 03/21 1900 90 03/21 1640 100 03/21 1600 98.0 134 20 90/50 90 Ventilator 90% 03/21 1600 91 Ventilator 90% 03/21 1430 100 03/21 1328 100 03/21 1200 90 Ventilator 90% Intake & Output 03/22 1600 03/22 0800 03/22 0000 Intake Total 1265 671 Output Total 1300 650 Balance -35 21 Intake, IV 1215 671 Intake, Oral 0 Intake, Other 50 Number 0 0 Bowel Movements Output, 0 0 Gastric Drainage Output, Urine 1300 650 Patient 270 lb Weight Findings Pertinent Lab/Michael Results: Laboratory Tests 03/22 03/22 0515 0440 Blood Gas pH (7.35 - 7.45 PH) 7.35 pCO2 (35 - 45 TORR) 45 pO2 (80 - 100 TORR) 86 HCO3 (21 - 28 MEQ/L) 24 ABG O2 Sat (Measured) (>96.0 %) 95.0 L P-50 (Temp Corrected) Y Carboxyhemoglobin (1.5 - 5.0 %) 0.7 L O2 Concentration % 80% Temperature (97.0 - 100.0 FARH) 100.0 Respiration Rate (BPM) 20 O2 Delivery Method ESPRIT Vent Mode AC Expiratory Pressure (CMH2O/P) 10 Tidal Volume (CC) 450 Chemistry Sodium (137 - 145 mmol/L) 146 H Potassium (3.5 - 5.1 mmol/L) 4.3 Chloride (98 - 107 mmol/L) 106 Carbon Dioxide (22 - 30 mmol/L) 26 Anion Gap (5 - 16) 14 BUN (7 - 17 mg/dL) 40 H Creatinine (0.5 - 1.0 mg/dL) 2.2 H Estimated GFR (>60 ml/min) 27 L Glucose (65 - 99 mg/dL) 148 H Calcium (8.4 - 10.2 mg/dL) 9.0 Phosphorus (2.5 - 4.5 mg/dL) 6.8 H Magnesium (1.6 - 2.3 mg/dL) 2.4 H Total Bilirubin (0.2 - 1.3 mg/dL) 0.6 Direct Bilirubin (< 0.4 mg/dL) 0.3 AST (14 - 36 U/L) 56 H ALT (9 - 52 U/L) 245 H Alkaline Phosphatase (<127 U/L) 169 H Troponin I (< 0.11 ng/ml) 0.02 Total Protein (6.3 - 8.2 g/dL) 6.0 L Albumin (3.5 - 5.0 g/dL) 3.0 L Hematology CBC w Diff NO MAN DIFF REQ WBC (4.8 - 10.8 /CUMM) 17.2 H RBC (4.20 - 5.40 /CUMM) 4.51 Hgb (12.0 - 16.0 G/DL) 13.6 Hct (37 - 47 %) 40.9 MCV (81.0 - 99.0 FL) 90.7 MCH (27.0 - 31.0 PG) 30.1 MCHC (33.0 - 37.0 G/DL) 33.2 RDW (11.5 - 14.5 %) 13.3 Plt Count (130 - 400 /CUMM) 147 MPV (7.4 - 10.4 FL) 9.3 Gran % (42.2 - 75.2 %) 81.8 H Lymphocytes % (20.5 - 51.1 %) 10.5 L Monocytes % (1.7 - 9.3 %) 5.4 Eosinophils % (0 - 5 %) 2.0 Basophils % (0.0 - 2.0 %) 0.3 Absolute Granulocytes (1.4 - 6.5 /CUMM) 14.1 H Absolute Lymphocytes (1.2 - 3.4 /CUMM) 1.8 Absolute Monocytes (0.10 - 0.60 /CUMM) 0.9 H Absolute Eosinophils (0.0 - 0.7 /CUMM) 0.3 Absolute Basophils (0.0 - 0.2 /CUMM) 0.1 Miscellaneous Phlebotomy Draw Site RIGHT RADIAL 03/21 1230 Blood Gas pH (7.35 - 7.45 PH) 7.41 pCO2 (35 - 45 TORR) 37 pO2 (80 - 100 TORR) 77 L HCO3 (21 - 28 MEQ/L) 23 ABG O2 Sat (Measured) (>96.0 %) 94.0 L P-50 (Temp Corrected) N Carboxyhemoglobin (1.5 - 5.0 %) 0.4 L O2 Concentration % 100% Respiration Rate (BPM) 20 O2 Delivery Method VENT Vent Mode VC-AC Expiratory Pressure (CMH2O/P) 12 Tidal Volume (CC) 450 Miscellaneous Phlebotomy Draw Site RIGHT RADIAL
[2017-03-22 16:00] VITALS: BP 138/64
[2017-03-22 18:47] LABS: ABSOLUTE BASOPHIL COUNT 0 /CUMM (0.0-0.2); ABSOLUTE EOSINOPHIL COUNT 0 /CUMM (0.0-0.7); ABSOLUTE GRANULOCYTE CT 17.5 /CUMM (1.4-6.5); ABSOLUTE LYMPH COUNT 0.7 /CUMM (1.2-3.4); ABSOLUTE MONOCYTE COUNT 0.7 /CUMM (0.10-0.60); BASOPHIL % 0 % (0.0-2.0); EOSINOPHIL % 0.1 % (0-5); HEMATOCRIT 39.7 % (37-47); MEAN CORPUSCULAR HGB 30.1 PG (27.0-31.0); MEAN CORPUSCULAR HGB CONC 33.2 G/DL (33.0-37.0); MEAN CORPUSCULAR VOLUME 90.8 FL (81.0-99.0); MEAN PLATELET VOLUME 9.6 FL (7.4-10.4); PLATELET COUNT 147 /CUMM (130-400); RBC DISTRIBUTION WIDTH 13.5 % (11.5-14.5); RED BLOOD CELL CT 4.37 /CUMM (4.20-5.40)
[2017-03-22 19:09] LABS: GRANULOCYTE % 92.3 % (42.2-75.2)
[2017-03-23] VITALS: BP 122/66
[2017-03-23 05:18] LABS: ABSOLUTE BASOPHIL COUNT 0.1 /CUMM (0.0-0.2); ABSOLUTE EOSINOPHIL COUNT 0.1 /CUMM (0.0-0.7); ABSOLUTE GRANULOCYTE CT 11.2 /CUMM (1.4-6.5); ABSOLUTE LYMPH COUNT 1.9 /CUMM (1.2-3.4); ABSOLUTE MONOCYTE COUNT 1.1 /CUMM (0.10-0.60); BASOPHIL % 0.4 % (0.0-2.0); EOSINOPHIL % 0.9 % (0-5); GRANULOCYTE % 78.2 % (42.2-75.2); HEMATOCRIT 35.5 % (37-47); MEAN CORPUSCULAR HGB 30.2 PG (27.0-31.0); MEAN CORPUSCULAR HGB CONC 33.1 G/DL (33.0-37.0); MEAN CORPUSCULAR VOLUME 91.3 FL (81.0-99.0); PLATELET COUNT 139 /CUMM (130-400); RBC DISTRIBUTION WIDTH 13.8 % (11.5-14.5); RED BLOOD CELL CT 3.89 /CUMM (4.20-5.40); WHITE BLOOD CELL COUNT 14.3 /CUMM (4.8-10.8)
--- NOTE | 2017-03-23 07:01 | PN- Resident CRCU ---
Subjective HPI/CRCU Issues: ARDS Sinus Tachycardia 24 Hour Events: Heart rate continues to be elevated going as high as 155, though remains to be sinus tachycardia. Nurse reports she was febrile overnight between 99-101 F. Blood cultures were sent. She was on 75% O2 but desaturated overnight and her FiO2 has been increased to 90%. Vent settings: Vt 484, rate 20, PIP 36.8, PEEP 12. Her labs show worsening hypernatremia this morning. Objective Vital Signs & I&O Last 8 Hrs of Vitals and I&O: . Intake & Output 03/23 1600 Intake Total Output Total Balance Patient 275 lb Weight Weight Bed scale Measurement Method Exam General Appearance: no apparent distress, sedated, intubated Head: atraumatic, normal appearance Respiratory: normal breath sounds, chest non-tender, lungs clear Cardiovascular: tachycardia Gastrointestinal: soft, non-tender Extremities: no edema Skin: intact Skin Temp/Moisture Exam: Warm/Dry Sepsis Skin Exam (color): Normal for Ethnicity Current Medications: Current Medications Sig/Nabila Start time Last Medication Dose Route Stop Time Status Admin Acetaminophen 1,000 MG .STK-MED ONE 03/22 1702 DC IV 03/22 1703 Acetaminophen 650 MG Q6P PRN 03/06 2215 AC 03/11 PO 1140 Acetaminophen 1,000 MG Q6P PRN 03/06 2215 AC 03/22 IV 1702 Albuterol Sulfate 3 ML EVERY 4 HRS/AWAKE 03/08 1600 03/23 INH 0831 Calcium Carbonate 500 MG TID PRN 03/10 0030 AC PO Dextrose/Sodium 1,000 ML Q10H 03/22 1930 DC 03/23 Chloride IV 0604 Dextrose/Sodium 1,000 ML Q10H 03/22 1930 DC Chloride IV Dextrose/Sodium 1,000 ML Q10H 03/22 0700 DC 03/22 Chloride IV 0712 Dextrose/Water 1,000 ML Q10H 03/23 0815 AC 03/23 IV 0814 Glycerin 2 SPRAY Q2P PRN 03/09 0745 AC 03/09 PO 0848 Guaifenesin 10 ML Q4-6 PRN PRN 03/08 0445 AC 03/08 PO 0444 Heparin Sodium 5,000 UNIT Q8 03/07 0600 AC 03/23 (Porcine) SC 0605 Insulin Aspart 0 Q4 03/21 1400 03/23 SC 0603 Insulin Detemir 16 UNITS BID 03/21 2200 AC 03/22 SC 2300 Ipratropium Gilman 2.5 ML EVERY 4 HRS/AWAKE 03/08 1600 AC 03/23 INH 0831 Levothyroxine Sodium 37.5 MCG DAILY 03/22 1000 AC 03/22 IV 1007 Lorazepam 100 MG Q16H 03/22 1800 AC 03/22 Sodium Chloride 1,000 ML IV 1722 Lorazepam 50 MG Q8H 03/21 1500 DC 03/22 Sodium Chloride 500 ML IV 03/22 1800 1003 Methylprednisolone 20 MG DAILY 03/21 1000 DC 03/22 IV 1005 Metoprolol Tartrate 6.25 MG BID 03/22 2200 AC 03/22 PO 2300 Metoprolol Tartrate 5 MG ONCE ONE 03/22 1500 DC 03/22 IV 03/22 1501 1503 Metoprolol Tartrate 5 MG ONCE ONE 03/22 1400 DC 03/22 IV 03/22 1401 1350 Metoprolol Tartrate 6.25 MG ONCE ONE 03/22 1330 CAN IV 03/22 1331 Metoprolol Tartrate 6.25 MG BID 03/22 1314 DC PO Morphine Sulfate 2 MG Q4P PRN 03/23 0845 AC IV Morphine Sulfate 2 MG ONCE ONE 03/23 0600 DC 03/23 IV 03/23 0601 0603 Morphine Sulfate 2 MG ONCE ONE 03/22 1815 DC 03/22 IV 03/22 1816 1815 Pantoprazole Sodium 40 MG DAILY 03/22 1000 AC 03/22 IV 1004 Prednisone 20 MG DAILY 03/23 1000 AC PO Propofol 1,000 MG Q5H 03/23 1200 AC N/A 1 UNIT IV Propofol 1,000 MG .STK-MED ONE 03/22 1457 DC IV 03/22 1458 Propofol 1,000 MG Q12H 03/21 1500 DC 03/23 N/A 1 UNIT IV 0500 Sodium Bicarbonate 975 MG BID 03/07 1000 AC 03/22 PO 2300 Vecuronium Gilman 50 MG Q6H 03/21 2130 AC 03/23 Sodium Chloride 500 ML IV 0815 Impression/Plan Impression/Problem List Impression: 26 yo morbidly obese F with h/o 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 Was being treated on the general medicine floor with Tamiflu and IV ceftriaxone and azithromycin. Transferred to ICU on 03/08/2017 for worsening respiratory status and hypoxia. Assessment * Acute hypoxic respiratory failure secondary to influenza complicated with left lower lobe pneumonia (initially) and now due to possible ARDS. * Sinus Tachycardia likely secondary to developing ARDS * Hypernatremia * Sepsis on admission - resolved. * Influenza A positive - resolved * Acute on chronic kidney disease likely secondary to ATN. There could've been a component of pre-renal azotemia as well - resolved * Elevated CK - ? Rhabdomyolosis - improved with IVF. * Elevated blood sugars * History of Exercise induced Asthma * History of hypothyroidism * Transaminitis * Leukocytosis Plan * Continue monitoring in ICU * Currently intubated with FiO2 of 90%. * Sedation with Ativan, Propofol drip. Vercuronium drip as a muscle relaxants. * Vecuronium drip was tried to weaned off without much success. * Her Sinus Tachycardia is likely due to ARDS. Per Cardiology, would not treat/ medicate unless heart rate goes above 140. Other possibility is she could be dehydrated. Her urine output has been good. Last dose of Lasix was on . * Will obtain repeat Echo to r/o evidence of right heart strain and if LV function is normal. * She is severely hypernatremic. Will start her on D5W @ 100ml/hr. Will check BEP q4 to monitor serum Na. * Switched to PO Prednisone to 20mg daily. * Off antibiotics and Tamiflu. Her last flu swab was negative for influenza. * TRC nebs as needed. * Her insulin sliding scale has been adjusted per Endo. Levemir decreased to 15mg BID. * Endo recs appreciated * White count continues to be elevated. Transaminases elevated but stable. Trending down. * Hepatitis panel has been negative. * RUQ U/S 03/18 showed hepatic steatosis which could be contributing to transaminitis. * Holding lisinopril, nephro input appreciated. * Patients renal doctor is Dr Garcia ([phone]) at [facility]. Renal d/s started in 2009. * Continue sodium bicarbonate tabs * Continue Synthroid. * DVT to prophylaxis with subcutaneous heparin * NPO. Continue tube feedings. * Nutrition recs appreciated * Patient is full code PLEASE CALL PATIENT'S FATHER STACY RASHID ([phone]) ABOUT ANY CHANGES IN CLINICAL CONDITION/ INTUBATION. HE IS CURRENTLY IN [place]. Problem List: 1. ARDS (adult respiratory distress syndrome) Pain Ratin Tomorrow's Labs & Rationales: CBC, ICU bundle Plan DVT/Prophylaxis: pharmacological
--- NOTE | 2017-03-23 07:50 | PN- CRCU ---
Subjective HPI/Critical Care Issues: The patient remains intubated and sedated. She continues to require significant sedation to maintain her oxygen saturations. Vecuronium has been attempted to be tapered off without success. Her oxygenation remained at 75% yesterday with 10 of PEEP, however she desaturated overnight and is now back on 90%. Her saturations are in the mid to high 90s. She remained hemodynamically stable. Her MAXIMUM TEMPERATURE over the past 24 hours was 100.1. Her blood sugars are well controlled. She continues to have excellent urine output. 2. For started and she is tolerating well. She continues to have sinus tachycardia. Objective Current Medications: Current Medications Sig/Nabila Start time Last Medication Dose Route Stop Time Status Admin Acetaminophen 1,000 MG .STK-MED ONE 03/22 1702 DC IV 03/22 1703 Acetaminophen 650 MG Q6P PRN 03/06 2215 AC 03/11 PO 1140 Acetaminophen 1,000 MG Q6P PRN 03/06 2215 AC 03/22 IV 1702 Albuterol Sulfate 3 ML EVERY 4 HRS/AWAKE 03/08 1600 AC 03/22 INH 2100 Calcium Carbonate 500 MG TID PRN 03/10 0030 AC PO Dextrose/Sodium 1,000 ML Q10H 03/22 1930 AC 03/23 Chloride IV 0604 Dextrose/Sodium 1,000 ML Q10H 03/22 1930 DC Chloride IV Dextrose/Sodium 1,000 ML Q10H 03/22 0700 DC 03/22 Chloride IV 0712 Glycerin 2 SPRAY Q2P PRN 03/09 0745 AC 03/09 PO 0848 Guaifenesin 10 ML Q4-6 PRN PRN 03/08 0445 AC 03/08 PO 0444 Heparin Sodium 5,000 UNIT Q8 03/07 0600 AC 03/23 (Porcine) SC 0605 Insulin Aspart 0 Q4 03/21 1400 AC 03/23 SC 0603 Insulin Detemir 16 UNITS BID 03/21 2200 AC 03/22 SC 2300 Ipratropium Spencer 2.5 ML EVERY 4 HRS/AWAKE 03/08 1600 AC 03/22 INH 2101 Levothyroxine Sodium 37.5 MCG DAILY 03/22 1000 AC 03/22 IV 1007 Lorazepam 100 MG Q16H 03/22 1800 AC 03/22 Sodium Chloride 1,000 ML IV 1722 Lorazepam 50 MG Q8H 03/21 1500 DC 03/22 Sodium Chloride 500 ML IV 03/22 1800 1003 Methylprednisolone 20 MG DAILY 03/21 1000 AC 03/22 IV 1005 Metoprolol Tartrate 6.25 MG BID 03/22 2200 AC 03/22 PO 2300 Metoprolol Tartrate 5 MG ONCE ONE 03/22 1500 DC 03/22 IV 03/22 1501 1503 Metoprolol Tartrate 5 MG ONCE ONE 03/22 1400 DC 03/22 IV 03/22 1401 1350 Metoprolol Tartrate 6.25 MG ONCE ONE 03/22 1330 CAN IV 03/22 1331 Metoprolol Tartrate 6.25 MG BID 03/22 1314 DC PO Morphine Sulfate 2 MG ONCE ONE 03/23 0600 DC 03/23 IV 03/23 0601 0603 Morphine Sulfate 2 MG ONCE ONE 03/22 1815 DC 03/22 IV 03/22 1816 1815 Pantoprazole Sodium 40 MG DAILY 03/22 1000 AC 03/22 IV 1004 Propofol 1,000 MG Q5H 03/23 1200 AC N/A 1 UNIT IV Propofol 1,000 MG .STK-MED ONE 03/22 1457 DC IV 03/22 1458 Propofol 1,000 MG Q12H 03/21 1500 DC 03/23 N/A 1 UNIT IV 0500 Sodium Bicarbonate 975 MG BID 03/07 1000 AC 03/22 PO 2300 Vecuronium Spencer 50 MG Q6H 03/21 2130 AC 03/23 Sodium Chloride 500 ML IV 0030 Vital Signs & I&O Last 24 Hrs of Vitals and I&O: Vital Signs Date Time Temp Pulse Resp B/P B/P Pulse O2 O2 Flow FiO2 Mean Ox Delivery Rate 03/23 0400 96 Ventilator 90% 03/23 0347 90 03/23 0202 90 03/23 0000 99.6 122 20 122/66 95 Ventilator 90% 03/23 0000 95 Ventilator 90% 03/22 2300 125 100/49 03/22 2102 75 03/22 2000 94 Ventilator 75% 03/22 1814 100.2 03/22 1702 100.4 03/22 1633 75 03/22 1600 100.1 142 20 138/64 93 Ventilator 75% 03/22 1600 92 Ventilator 75% 03/22 1503 160 153/59 03/22 1501 75 03/22 1350 130 154/74 03/22 1212 75 03/22 1200 95 Ventilator 75% 03/22 0951 75 03/22 08 97.7 116 20 138/60 94 Ventilator 80% 03/22 08 95 Ventilator 80% Intake & Output 03/23 0803/23 0000 03/22 1600 Intake Total 2344 2044 1997 Output Total 1700 2200 1700 Balance 644 -155 298 Intake, IV 8 6 1908 Intake, Other 50 Intake, Tube 136 89 10 Feeding Intake, Tube 250 100 80 Irrigant Number 0 0 0 Bowel Movements Output, Urine 1700 2200 1700 Patient 270 lb Weight Exam General Appearance: intubated, sedated and paralyzed Neck: normal inspection, supple Respiratory: normal breath sounds, chest non-tender, no respiratory distress, quiet respiration, lungs clear Cardiovascular: regular rate/rhythm Gastrointestinal: normal bowel sounds, soft, mild tenderness in RUQ, decreased than yesterday Extremities: no edema Cranial Nerves: normal speech, PERRL Results Results Last 24 Hrs of Lab Results: Laboratory Tests 03/23/17 0510: pH 7.32 L, pCO2 44, pO2 111 H, HCO3 22, ABG O2 Sat (Measured) 97.0, P-50 (Temp Corrected) Y, Carboxyhemoglobin 0.4 L, O2 Concentration % 90%, Temperature 99.0 , Respiration Rate 20, O2 Delivery Method ESPRIT, Vent Mode AC, Expiratory Pressure 12, Tidal Volume 450, Phlebotomy Draw Site RIGHT RADIAL 03/23/17 0430: Anion Gap 12, Estimated GFR 26 L, Glucose 181 H, Calcium 8.6, Phosphorus 3.8, Magnesium 2.4 H, Total Bilirubin 0.3, AST 42 H, ALT 176 H, Albumin 2.6 L, CBC w Diff NO MAN DIFF REQ, RBC 3.89 L, MCV 91.3, MCH 30.2, MCHC 33.1, RDW 13.8 , MPV 10.0, Gran % 78.2 H, Lymphocytes % 12.9 L, Monocytes % 7.6, Eosinophils % 0.9, Basophils % 0.4, Absolute Granulocytes 11.2 H, Absolute Lymphocytes 1.9, Absolute Monocytes 1.1 H, Absolute Eosinophils 0.1, Absolute Basophils 0.1 03/23/17 0030: Anion Gap 13, Estimated GFR 23 L, Glucose 215 H, Calcium 8.7, Phosphorus 4.3, Magnesium 2.6 H, Total Bilirubin 0.4, AST 42 H, ALT 190 H, Albumin 2.6 L 03/22/17 1752: Anion Gap 15, Estimated GFR 26 L, Glucose 284 H, Calcium 8.8, Phosphorus 5.6 H, Magnesium 2.5 H, Total Bilirubin 0.6, AST 52 H, ALT 215 H, Albumin 3.0 L, CBC w Diff NO MAN DIFF REQ, RBC 4.37, MCV 90.8, MCH 30.1, MCHC 33.2, RDW 13.5, MPV 9.6, Gran % 92.3 H, Lymphocytes % 3.8 L, Monocytes % 3.8, Eosinophils % 0.1, Basophils % 0, Absolute Granulocytes 17.5 H, Absolute Lymphocytes 0.7 L, Absolute Monocytes 0.7 H, Absolute Eosinophils 0, Absolute Basophils 0 Impression/Plan Impression/Plan Impression/Plan: 1. Hypoxemic respiratory failure secondary to influenza, with possible ARDS. On low tidal volume ventilation strategy with permissive hypercapnia. CT shows GGOs, slightly worse. ID, cardiology and nephrology following. 2. Probable obesity hypoventilation syndrome. 3. Probable obstructive sleep apnea, undiagnosed. 4. Hypernatremia. 5. History of chronic kidney disease secondary to IgA nephropathy. 6. History of hypothyroidism. 7. Exercise-induced asthma, evidence of bronchospasm during this admission, now improved, steroids on a slow taper. 8. Mild transaminitis. 9. Sinus tachycardia rule out etiology. 10. Worsening hypernatremia. Recommendations: Recommendations: * Follow up am CXR results. * Change to prednisone 20 mg daily. * Free water flushes. * Change to D5W at 100 ml/hour. * Repeat sodium in 4 hours to ensure improvement. * Continue with low tidal volume ventilation strategy and allow for permissive hypercapnia. * Check lower extremity Dopplers. * Please discuss repeating the echocardiogram with cardiology to rule out right ventricular strain as the MAO remains a concern. * We'll consider a ventilation perfusion scan. * Continue to follow ID recommendations. * Will need to consider transfer to a higher level of care if she continues to fail to improve, noting she may benefit from prone positioning. * Advance tube feeds to goal. * Follow renal recommendations. * Monitor all electrolytes and replete as necessary. Check labs every 12 hours today. * Continue Synthroid. * Subcutaneous heparin/DVT prophylaxis at all times. * Continue to monitor closely in the critical care unit. * Continue all supportive care. Will continue to update the patient's family on her progress. * Plan is for family meeting today at 1 PM. Will update all family members on the patient's current issues.
[2017-03-23 08:00] VITALS: BP 126/44
--- NOTE | 2017-03-23 08:08 | RADIOLOGY REPORT ---
EXAMINATION: XR PORTABLE CHEST CLINICAL INFORMATION: Pulmonary vascular congestion confirmation of lines and tubes. COMPARISON: Portable chest x-ray dated 02/23/2017 at 5:27 AM. TECHNIQUE: Portable frontal view of the chest was obtained. FINDINGS: Lines and tubes: The endotracheal tube tip is located approximately 3.7 cm proximal to the level of the lisa in satisfactory position, unchanged compared to the prior study. The NG tube is also visualized unchanged compared to the prior study. No new lines or tubes are present. There is interval development of haziness of the bilateral lung bases with decreased lung volumes compared to the prior study. Prominence of the central pulmonary vasculature is present with prominent pulmonary interstitial markings. IMPRESSION: Pulmonary vascular congestion slightly increased compared to the prior study, with potential development of pulmonary edema, the costophrenic angles are not well-visualized to evaluate for pleural effusions.
--- NOTE | 2017-03-23 08:27 | PN- Diabetes ---
Assessment/Plan Assessment: 26-year-old female who has had a history of prediabetes, overweight, Ig A nephropathy along with chronic renal insufficiency and asthma, was in ICU for respiratory distress. She was treated with Solu-Medrol which was gradually decreased to 20 mg once a day. However, she was intubated on 03/21/2017. She is on D51/2 NS which was increased to 150 ml/hour after her sodium level was up to 155. In addition, she is on Ativan drip and Norcuron drip in NS. Steroid will be further decreased to prednisone 20 mg po daily today. Currently she is on Levemir 16 units twice a day; Novolog coverage every 4 hours. Her FSGs were 256, 217, 168 and 188. Her Cr is 2.3 this morning. She is on tube feeding at 35 ml/hour. In addition, she is receiving free water via feeding tube every 4 hours. Plan: 1. recommend changing IVF to D5W at 100 ml/hour; 2. continue free water via feeding tube every 4 hours; 3. continue the current insulin regimen for now; 4. monitor FSGs every 4 hours; her insulin regimen will be adjusted accordingly. 5. monitor electrolytes in 4 hours and then her IVF will be adjusted accordingly. will follow. Subjective Subjective: She is intubated. Objective Last 24 Hrs of Vital Signs/I&O Vital Signs Date Time Temp Pulse Resp B/P B/P Pulse O2 O2 Flow FiO2 Mean Ox Delivery Rate 03/23 0400 96 Ventilator 90% 03/23 0347 90 03/23 0202 90 03/23 0000 99.6 122 20 122/66 95 Ventilator 90% 03/23 0000 95 Ventilator 90% 03/22 2300 125 100/49 03/22 2102 75 03/22 2000 94 Ventilator 75% 03/22 1814 100.2 03/22 1702 100.4 03/22 1633 75 03/22 1600 100.1 142 20 138/64 93 Ventilator 75% 03/22 1600 92 Ventilator 75% 03/22 1503 160 153/59 03/22 1501 75 03/22 1350 130 154/74 03/22 1212 75 03/22 1200 95 Ventilator 75% 03/22 0951 75 Intake & Output 03/23 1600 03/23 0800 03/23 0000 Intake Total 2344 2045 Output Total 1700 2200 Balance 644 -155 Intake, IV 1958 1806 Intake, Other 50 Intake, Tube 136 89 Feeding Intake, Tube 250 100 Irrigant Number 0 0 Bowel Movements Output, Urine 1700 2200 Findings Pertinent Lab/Michael Results: Laboratory Tests 03/23 03/23 03/23 0510 0430 0030 Blood Gas pH (7.35 - 7.45 PH) 7.32 L pCO2 (35 - 45 TORR) 44 pO2 (80 - 100 TORR) 111 H HCO3 (21 - 28 MEQ/L) 22 ABG O2 Sat (Measured) (>96.0 %) 97.0 P-50 (Temp Corrected) Y Carboxyhemoglobin (1.5 - 5.0 %) 0.4 L O2 Concentration % 90% Temperature (97.0 - 100.0 FARH) 99.0 Respiration Rate (BPM) 20 O2 Delivery Method ESPRIT Vent Mode AC Expiratory Pressure (CMH2O/P) 12 Tidal Volume (CC) 450 Chemistry Sodium (137 - 145 mmol/L) 155 H 154 H Potassium (3.5 - 5.1 mmol/L) 3.8 4.2 Chloride (98 - 107 mmol/L) 119 H 116 H Carbon Dioxide (22 - 30 mmol/L) 24 25 Anion Gap (5 - 16) 12 13 BUN (7 - 17 mg/dL) 32 H 33 H Creatinine (0.5 - 1.0 mg/dL) 2.3 H 2.5 H Estimated GFR (>60 ml/min) 26 L 23 L Glucose (65 - 99 mg/dL) 181 H 215 H Calcium (8.4 - 10.2 mg/dL) 8.6 8.7 Phosphorus (2.5 - 4.5 mg/dL) 3.8 4.3 Magnesium (1.6 - 2.3 mg/dL) 2.4 H 2.6 H Total Bilirubin (0.2 - 1.3 mg/dL) 0.3 0.4 AST (14 - 36 U/L) 42 H 42 H ALT (9 - 52 U/L) 176 H 190 H Albumin (3.5 - 5.0 g/dL) 2.6 L 2.6 L Hematology CBC w Diff NO MAN DIFF REQ WBC (4.8 - 10.8 /CUMM) 14.3 H RBC (4.20 - 5.40 /CUMM) 3.89 L Hgb (12.0 - 16.0 G/DL) 11.8 L Hct (37 - 47 %) 35.5 L MCV (81.0 - 99.0 FL) 91.3 MCH (27.0 - 31.0 PG) 30.2 MCHC (33.0 - 37.0 G/DL) 33.1 RDW (11.5 - 14.5 %) 13.8 Plt Count (130 - 400 /CUMM) 139 MPV (7.4 - 10.4 FL) 10.0 Gran % (42.2 - 75.2 %) 78.2 H Lymphocytes % (20.5 - 51.1 %) 12.9 L Monocytes % (1.7 - 9.3 %) 7.6 Eosinophils % (0 - 5 %) 0.9 Basophils % (0.0 - 2.0 %) 0.4 Absolute Granulocytes (1.4 - 6.5 /CUMM) 11.2 H Absolute Lymphocytes (1.2 - 3.4 /CUMM) 1.9 Absolute Monocytes (0.10 - 0.60 /CUMM) 1.1 H Absolute Eosinophils (0.0 - 0.7 /CUMM) 0.1 Absolute Basophils (0.0 - 0.2 /CUMM) 0.1 Miscellaneous Phlebotomy Draw Site RIGHT RADIAL 03/22 1752 Chemistry Sodium (137 - 145 mmol/L) 150 H Potassium (3.5 - 5.1 mmol/L) 4.9 Chloride (98 - 107 mmol/L) 112 H Carbon Dioxide (22 - 30 mmol/L) 24 Anion Gap (5 - 16) 15 BUN (7 - 17 mg/dL) 34 H Creatinine (0.5 - 1.0 mg/dL) 2.3 H Estimated GFR (>60 ml/min) 26 L Glucose (65 - 99 mg/dL) 284 H Calcium (8.4 - 10.2 mg/dL) 8.8 Phosphorus (2.5 - 4.5 mg/dL) 5.6 H Magnesium (1.6 - 2.3 mg/dL) 2.5 H Total Bilirubin (0.2 - 1.3 mg/dL) 0.6 AST (14 - 36 U/L) 52 H ALT (9 - 52 U/L) 215 H Albumin (3.5 - 5.0 g/dL) 3.0 L Hematology CBC w Diff NO MAN DIFF REQ WBC (4.8 - 10.8 /CUMM) 19.0 H RBC (4.20 - 5.40 /CUMM) 4.37 Hgb (12.0 - 16.0 G/DL) 13.2 Hct (37 - 47 %) 39.7 MCV (81.0 - 99.0 FL) 90.8 MCH (27.0 - 31.0 PG) 30.1 MCHC (33.0 - 37.0 G/DL) 33.2 RDW (11.5 - 14.5 %) 13.5 Plt Count (130 - 400 /CUMM) 147 MPV (7.4 - 10.4 FL) 9.6 Gran % (42.2 - 75.2 %) 92.3 H Lymphocytes % (20.5 - 51.1 %) 3.8 L Monocytes % (1.7 - 9.3 %) 3.8 Eosinophils % (0 - 5 %) 0.1 Basophils % (0.0 - 2.0 %) 0 Absolute Granulocytes (1.4 - 6.5 /CUMM) 17.5 H Absolute Lymphocytes (1.2 - 3.4 /CUMM) 0.7 L Absolute Monocytes (0.10 - 0.60 /CUMM) 0.7 H Absolute Eosinophils (0.0 - 0.7 /CUMM) 0 Absolute Basophils (0.0 - 0.2 /CUMM) 0
--- NOTE | 2017-03-23 10:20 | ULTRASOUND REPORT ---
EXAMINATION: US TRIPLEX LOWER EXTREMITIES, BILATERAL CLINICAL INFORMATION: Hypoxemia. Assess for DVT. COMPARISON: None. TECHNIQUE: Color-flow triplex imaging with spectral analysis and compression Doppler was performed on the bilateral lower extremities. FINDINGS: Respiratory variation, normal compression and augmented flow are noted throughout the bilateral lower extremities. The visualized common femoral veins, superficial femoral veins, profunda femoral veins, popliteal veins and midcalf peroneal and posterior tibial venous segments show no evidence of deep venous thrombosis bilaterally. There are no focal fluid collections. IMPRESSION: 1. Normal triplex scan without evidence of deep venous thrombosis involving the bilateral lower extremities. 2. There are no focal fluid collections.
--- NOTE | 2017-03-23 11:56 | PN- Infect Dx ---
Subjective Subjective: MAXIMUM TEMPERATURE 100.4 on steroids. She is sedated and unable to provide any history. Objective Last 24 Hrs of Vital Signs/I&O Vital Signs Date Time Temp Pulse Resp B/P B/P Pulse O2 O2 Flow FiO2 Mean Ox Delivery Rate 03/23 0946 127 99/40 03/23 0915 80 03/23 0848 90 03/23 0800 98.4 120 20 126/44 94 Ventilator 90% 03/23 0800 94 Ventilator 90% 03/23 0400 96 Ventilator 90% 03/23 0347 90 03/23 0202 90 03/23 0000 99.6 122 20 122/66 95 Ventilator 90% 03/23 0000 95 Ventilator 90% 03/22 2300 125 100/49 03/22 2102 75 03/22 2000 94 Ventilator 75% 03/22 1814 100.2 03/22 1702 100.4 03/22 1633 75 03/22 1600 100.1 142 20 138/64 93 Ventilator 75% 03/22 1600 92 Ventilator 75% 03/22 1503 160 153/59 03/22 1501 75 03/22 1350 130 154/74 03/22 1212 75 03/22 1200 95 Ventilator 75% Intake & Output 03/23 1600 03/23 0800 03/23 0000 Intake Total 2344 2045 Output Total 1700 2200 Balance 644 -155 Intake, IV 1958 1806 Intake, Other 50 Intake, Tube 136 89 Feeding Intake, Tube 250 100 Irrigant Number 0 0 Bowel Movements Output, Urine 1700 2200 Patient 275 lb Weight Weight Bed scale Measurement Method Physical Exam Other Physical Findings: She is sedated and unresponsive on the ventilator Lungs scattered rhonchi bilaterally Heart regular rhythm with no murmur Abdomen is obese, soft, with positive bowel sounds Extremities no cyanosis, clubbing or edema Cruz catheter remains in place Results Last 24 Hours of Lab Results: Laboratory Tests 03/23 03/23 03/23 0510 0430 0030 Blood Gas pH (7.35 - 7.45 PH) 7.32 L pCO2 (35 - 45 TORR) 44 pO2 (80 - 100 TORR) 111 H HCO3 (21 - 28 MEQ/L) 22 ABG O2 Sat (Measured) (>96.0 %) 97.0 P-50 (Temp Corrected) Y Carboxyhemoglobin (1.5 - 5.0 %) 0.4 L O2 Concentration % 90% Temperature (97.0 - 100.0 FARH) 99.0 Respiration Rate (BPM) 20 O2 Delivery Method ESPRIT Vent Mode AC Expiratory Pressure (CMH2O/P) 12 Tidal Volume (CC) 450 Chemistry Sodium (137 - 145 mmol/L) 155 H 154 H Potassium (3.5 - 5.1 mmol/L) 3.8 4.2 Chloride (98 - 107 mmol/L) 119 H 116 H Carbon Dioxide (22 - 30 mmol/L) 24 25 Anion Gap (5 - 16) 12 13 BUN (7 - 17 mg/dL) 32 H 33 H Creatinine (0.5 - 1.0 mg/dL) 2.3 H 2.5 H Estimated GFR (>60 ml/min) 26 L 23 L Glucose (65 - 99 mg/dL) 181 H 215 H Calcium (8.4 - 10.2 mg/dL) 8.6 8.7 Phosphorus (2.5 - 4.5 mg/dL) 3.8 4.3 Magnesium (1.6 - 2.3 mg/dL) 2.4 H 2.6 H Total Bilirubin (0.2 - 1.3 mg/dL) 0.3 0.4 AST (14 - 36 U/L) 42 H 42 H ALT (9 - 52 U/L) 176 H 190 H Albumin (3.5 - 5.0 g/dL) 2.6 L 2.6 L Hematology CBC w Diff NO MAN DIFF REQ WBC (4.8 - 10.8 /CUMM) 14.3 H RBC (4.20 - 5.40 /CUMM) 3.89 L Hgb (12.0 - 16.0 G/DL) 11.8 L Hct (37 - 47 %) 35.5 L MCV (81.0 - 99.0 FL) 91.3 MCH (27.0 - 31.0 PG) 30.2 MCHC (33.0 - 37.0 G/DL) 33.1 RDW (11.5 - 14.5 %) 13.8 Plt Count (130 - 400 /CUMM) 139 MPV (7.4 - 10.4 FL) 10.0 Gran % (42.2 - 75.2 %) 78.2 H Lymphocytes % (20.5 - 51.1 %) 12.9 L Monocytes % (1.7 - 9.3 %) 7.6 Eosinophils % (0 - 5 %) 0.9 Basophils % (0.0 - 2.0 %) 0.4 Absolute Granulocytes (1.4 - 6.5 /CUMM) 11.2 H Absolute Lymphocytes (1.2 - 3.4 /CUMM) 1.9 Absolute Monocytes (0.10 - 0.60 /CUMM) 1.1 H Absolute Eosinophils (0.0 - 0.7 /CUMM) 0.1 Absolute Basophils (0.0 - 0.2 /CUMM) 0.1 Miscellaneous Phlebotomy Draw Site RIGHT RADIAL 03/22 4459 Chemistry Sodium (137 - 145 mmol/L) 150 H Potassium (3.5 - 5.1 mmol/L) 4.9 Chloride (98 - 107 mmol/L) 112 H Carbon Dioxide (22 - 30 mmol/L) 24 Anion Gap (5 - 16) 15 BUN (7 - 17 mg/dL) 34 H Creatinine (0.5 - 1.0 mg/dL) 2.3 H Estimated GFR (>60 ml/min) 26 L Glucose (65 - 99 mg/dL) 284 H Calcium (8.4 - 10.2 mg/dL) 8.8 Phosphorus (2.5 - 4.5 mg/dL) 5.6 H Magnesium (1.6 - 2.3 mg/dL) 2.5 H Total Bilirubin (0.2 - 1.3 mg/dL) 0.6 AST (14 - 36 U/L) 52 H ALT (9 - 52 U/L) 215 H Albumin (3.5 - 5.0 g/dL) 3.0 L Hematology CBC w Diff NO MAN DIFF REQ WBC (4.8 - 10.8 /CUMM) 19.0 H RBC (4.20 - 5.40 /CUMM) 4.37 Hgb (12.0 - 16.0 G/DL) 13.2 Hct (37 - 47 %) 39.7 MCV (81.0 - 99.0 FL) 90.8 MCH (27.0 - 31.0 PG) 30.1 MCHC (33.0 - 37.0 G/DL) 33.2 RDW (11.5 - 14.5 %) 13.5 Plt Count (130 - 400 /CUMM) 147 MPV (7.4 - 10.4 FL) 9.6 Gran % (42.2 - 75.2 %) 92.3 H Lymphocytes % (20.5 - 51.1 %) 3.8 L Monocytes % (1.7 - 9.3 %) 3.8 Eosinophils % (0 - 5 %) 0.1 Basophils % (0.0 - 2.0 %) 0 Absolute Granulocytes (1.4 - 6.5 /CUMM) 17.5 H Absolute Lymphocytes (1.2 - 3.4 /CUMM) 0.7 L Absolute Monocytes (0.10 - 0.60 /CUMM) 0.7 H Absolute Eosinophils (0.0 - 0.7 /CUMM) 0 Absolute Basophils (0.0 - 0.2 /CUMM) 0 Last 24 Hours of Michael Results: Blood cultures 2 March 23 pending Sputum culture March 21 mixed daryl Recent Imaging Studies: Chest x-ray March 23, personally reviewed, reveals increased interstitial markings bilaterally Dopplers of both lower extremities March 23 negative Assessment/Plan Impression: Respiratory failure, most likely secondary to ARDS in the setting of a recent influenza pneumonia, now off antibiotics after 11 days of Tamiflu. She now has a low-grade fever (on steroids) though her white blood cell count has decreased on tapering steroids. Her elevated liver enzymes, of unclear etiology, continue to decrease, with a recent right upper quadrant ultrasound negative. Suggestion: 1. Urine culture 2. Follow-up recent blood cultures 3. Continue to follow off antibiotics pending above
--- NOTE | 2017-03-23 13:36 | PN- Cardiology ---
Subjective Subjective: The patient remains intubated and sedated. She remains in sinus tachycardia with heart rate of 110 to 130. Objective Vital Signs and I&Os Vital Signs Date Time Temp Pulse Resp B/P B/P Pulse O2 O2 Flow FiO2 Mean Ox Delivery Rate 03/23 1200 95 Ventilator 75% 03/23 0946 127 99/40 03/23 0915 80 03/23 0848 90 03/23 0800 98.4 120 20 126/44 94 Ventilator 90% 03/23 0800 94 Ventilator 90% 03/23 0400 96 Ventilator 90% 03/23 0347 90 03/23 0202 90 03/23 0000 99.6 122 20 122/66 95 Ventilator 90% 03/23 0000 95 Ventilator 90% 03/22 2300 125 100/49 03/22 2102 75 03/22 2000 94 Ventilator 75% 03/22 1814 100.2 03/22 1702 100.4 03/22 1633 75 03/22 1600 100.1 142 20 138/64 93 Ventilator 75% 03/22 1600 92 Ventilator 75% 03/22 1503 160 153/59 03/22 1501 75 03/22 1350 130 154/74 Intake & Output 03/23 1600 03/23 0800 03/23 0000 03/22 1600 03/22 0800 03/22 0000 Intake Total 2344 2045 1998 1265 671 Output Total 1700 2200 1700 1300 650 Balance 644 -155 298 -35 21 Intake, IV 1958 1806 1908 1215 671 Intake, Oral 0 Intake, Other 50 50 Intake, Tube 136 89 10 Feeding Intake, Tube 250 100 80 Irrigant Number 0 0 0 0 0 Bowel Movements Output, 0 0 Gastric Drainage Output, Urine 1700 2200 1700 1300 650 Patient 270 lb 270 lb Weight Weight Bed scale Measurement Method Current Medications: Current Medications Sig/Nabila Start time Last Medication Dose Route Stop Time Status Admin Acetaminophen 1,000 MG .STK-MED ONE 03/22 1702 DC IV 03/22 1703 Acetaminophen 650 MG Q6P PRN 03/06 2214 AC 03/11 PO 1140 Acetaminophen 1,000 MG Q6P PRN 03/06 2215 AC 03/22 IV 1702 Albuterol Sulfate 3 ML EVERY 4 HRS/AWAKE 03/08 1600 AC 03/23 INH 1136 Calcium Carbonate 500 MG TID PRN 03/10 0030 AC PO Dextrose/Sodium 1,000 ML Q10H 03/22 1930 DC 03/23 Chloride IV 0604 Dextrose/Sodium 1,000 ML Q10H 03/22 1930 DC Chloride IV Dextrose/Sodium 1,000 ML Q10H 03/22 0700 DC 03/22 Chloride IV 0712 Dextrose/Water 1,000 ML Q10H 03/23 0815 AC 03/23 IV 0814 Glycerin 2 SPRAY Q2P PRN 03/09 0745 AC 03/09 PO 0848 Guaifenesin 10 ML Q4-6 PRN PRN 03/08 0445 AC 03/08 PO 0444 Heparin Sodium 5,000 UNIT Q8 03/07 0600 AC 03/23 (Porcine) SC 0605 Insulin Aspart 0 Q4 03/21 1400 AC 03/23 SC 0946 Insulin Detemir 16 UNITS BID 03/21 2200 AC 03/23 SC 0948 Ipratropium [place] 2.5 ML EVERY 4 HRS/AWAKE 03/08 1600 AC 03/23 INH 1135 Levothyroxine Sodium 37.5 MCG DAILY 03/22 1000 AC 03/23 IV 0946 Lorazepam 100 MG Q20H 03/23 1100 AC 03/23 Sodium Chloride 1,000 ML IV 1309 Lorazepam 100 MG Q16H 03/22 1800 DC 03/22 Sodium Chloride 1,000 ML IV 1722 Lorazepam 50 MG Q8H 03/21 1500 DC 03/22 Sodium Chloride 500 ML IV 03/22 1800 1003 Methylprednisolone 20 MG DAILY 03/21 1000 DC 03/22 IV 1005 Metoprolol Tartrate 6.25 MG BID 03/22 2200 AC 03/23 PO 0946 Metoprolol Tartrate 5 MG ONCE ONE 03/22 1500 DC 03/22 IV 03/22 1501 1503 Metoprolol Tartrate 5 MG ONCE ONE 03/22 1400 DC 03/22 IV 03/22 1401 1350 Metoprolol Tartrate 6.25 MG ONCE ONE 03/22 1330 CAN IV 03/22 1331 Morphine Sulfate 2 MG Q4P PRN 03/23 0845 AC 03/23 IV 0953 Morphine Sulfate 2 MG ONCE ONE 03/23 0600 DC 03/23 IV 03/23 0601 0603 Morphine Sulfate 2 MG ONCE ONE 03/22 1815 DC 03/22 IV 03/22 1816 1815 Pantoprazole Sodium 40 MG DAILY 03/22 1000 AC 03/23 IV 0945 Prednisone 20 MG DAILY 03/23 1000 AC 03/23 PO 1014 Propofol 1,000 MG Q5H 03/23 1200 AC 03/23 N/A 1 UNIT IV 1310 Propofol 1,000 MG .STK-MED ONE 03/23 0507 DC IV 03/23 0508 Propofol 1,000 MG .STK-MED ONE 03/22 1457 DC IV 03/22 1458 Propofol 1,000 MG Q12H 03/21 1500 DC 03/23 N/A 1 UNIT IV 0500 Sodium Bicarbonate 975 MG BID 03/07 1000 AC 03/23 PO 0946 Vecuronium [place] 50 MG Q6H 03/21 2130 AC 03/23 Sodium Chloride 500 ML IV 0815 Results Last 48 Hrs of Labs/Mics: Laboratory Tests 03/23/17 1212: Anion Gap 11, Estimated GFR 21 L, Glucose 178 H, Calcium 8.7, Phosphorus 3.6, Magnesium 2.3, Total Bilirubin 0.3, AST 51 H, ALT 162 H, Albumin 2.5 L 03/23/17 0510: pH 7.32 L, pCO2 44, pO2 111 H, HCO3 22, ABG O2 Sat (Measured) 97.0, P-50 (Temp Corrected) Y, Carboxyhemoglobin 0.4 L, O2 Concentration % 90%, Temperature 99.0 , Respiration Rate 20, O2 Delivery Method ESPRIT, Vent Mode AC, Expiratory Pressure 12, Tidal Volume 450, Phlebotomy Draw Site RIGHT RADIAL 03/23/17 0430: Anion Gap 12, Estimated GFR 26 L, Glucose 181 H, Calcium 8.6, Phosphorus 3.8, Magnesium 2.4 H, Total Bilirubin 0.3, AST 42 H, ALT 176 H, Albumin 2.6 L, CBC w Diff NO MAN DIFF REQ, RBC 3.89 L, MCV 91.3, MCH 30.2, MCHC 33.1, RDW 13.8 , MPV 10.0, Gran % 78.2 H, Lymphocytes % 12.9 L, Monocytes % 7.6, Eosinophils % 0.9, Basophils % 0.4, Absolute Granulocytes 11.2 H, Absolute Lymphocytes 1.9, Absolute Monocytes 1.1 H, Absolute Eosinophils 0.1, Absolute Basophils 0.1 03/23/17 0030: Anion Gap 13, Estimated GFR 23 L, Glucose 215 H, Calcium 8.7, Phosphorus 4.3, Magnesium 2.6 H, Total Bilirubin 0.4, AST 42 H, ALT 190 H, Albumin 2.6 L 03/22/17 1752: Anion Gap 15, Estimated GFR 26 L, Glucose 284 H, Calcium 8.8, Phosphorus 5.6 H, Magnesium 2.5 H, Total Bilirubin 0.6, AST 52 H, ALT 215 H, Albumin 3.0 L, CBC w Diff NO MAN DIFF REQ, RBC 4.37, MCV 90.8, MCH 30.1, MCHC 33.2, RDW 13.5, MPV 9.6, Gran % 92.3 H, Lymphocytes % 3.8 L, Monocytes % 3.8, Eosinophils % 0.1, Basophils % 0, Absolute Granulocytes 17.5 H, Absolute Lymphocytes 0.7 L, Absolute Monocytes 0.7 H, Absolute Eosinophils 0, Absolute Basophils 0 03/22/17 0515: pH 7.35, pCO2 45, pO2 86, HCO3 24, ABG O2 Sat (Measured) 95.0 L, P-50 (Temp Corrected) Y, Carboxyhemoglobin 0.7 L, O2 Concentration % 80%, Temperature 100.0, Respiration Rate 20, O2 Delivery Method ESPRIT, Vent Mode AC, Expiratory Pressure 10, Tidal Volume 450, Phlebotomy Draw Site RIGHT RADIAL 03/22/17 0440: Anion Gap 14, Estimated GFR 27 L, Glucose 148 H, Calcium 9.0, Phosphorus 6.8 H, Magnesium 2.4 H, Total Bilirubin 0.6, Direct Bilirubin 0.3, AST 56 H, ALT 245 H, Alkaline Phosphatase 169 H, Troponin I 0.02, Total Protein 6.0 L, Albumin 3.0 L, CBC w Diff NO MAN DIFF REQ, RBC 4.51, MCV 90.7, MCH 30.1, MCHC 33.2, RDW 13.3, MPV 9.3, Gran % 81.8 H, Lymphocytes % 10.5 L, Monocytes % 5.4, Eosinophils % 2.0, Basophils % 0.3, Absolute Granulocytes 14.1 H, Absolute Lymphocytes 1.8, Absolute Monocytes 0.9 H, Absolute Eosinophils 0.3, Absolute Basophils 0.1 Assessment/Plan Assessment/Plan Assessment: 1. Acute hypoxaemic respiratory failure secondary to influenza complicated with left lower lobe pneumonia. 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 Persistent sinus tachycardia-oversew days, the patient received IV Lasix and diuresed almost 9 L. Over that same time. Her creatinine increased, her sodium increasing adequately, and the patient has become more significantly tachycardic. I suspect that a significant amount of her tachycardia is related to volume depletion. Recommendations: -Avoid any further diuresis -Continue as per the ICU team -Follow-up echocardiogram to reassess left ventricular function and rule out any changes in cardiac status -If, as I suspect, the ejection fraction remains normal, I would be more aggressive with IV fluid hydration in hopes of optimizing the patient's sodium, renal function, etc. since she appears to be volume depleted. Continue telemetry? Yes
[2017-03-23 16:00] VITALS: BP 130/42
[2017-03-23 23:00] VITALS: BP 121/57
[2017-03-24 05:12] LABS: ABSOLUTE BASOPHIL COUNT 0.1 /CUMM (0.0-0.2); ABSOLUTE EOSINOPHIL COUNT 0.2 /CUMM (0.0-0.7); ABSOLUTE LYMPH COUNT 2.3 /CUMM (1.2-3.4); ABSOLUTE MONOCYTE COUNT 0.5 /CUMM (0.10-0.60); BASOPHIL % 0.6 % (0.0-2.0); EOSINOPHIL % 1.9 % (0-5); GRANULOCYTE % 74.1 % (42.2-75.2); HEMATOCRIT 31.2 % (37-47); MEAN CORPUSCULAR HGB 30.4 PG (27.0-31.0); MEAN CORPUSCULAR HGB CONC 32.9 G/DL (33.0-37.0); MEAN CORPUSCULAR VOLUME 92.3 FL (81.0-99.0); MEAN PLATELET VOLUME 9.5 FL (7.4-10.4); PLATELET COUNT 109 /CUMM (130-400); RBC DISTRIBUTION WIDTH 13.4 % (11.5-14.5); RED BLOOD CELL CT 3.38 /CUMM (4.20-5.40); WHITE BLOOD CELL COUNT 12.1 /CUMM (4.8-10.8)
--- NOTE | 2017-03-24 07:11 | PN- Resident CRCU ---
Subjective HPI/CRCU Issues: ARDS Sinus Tachycardia 24 Hour Events: No acute events overnight. Her Sodium is still elevated and dropped only 2meq over the past 24 hours. Urine output has been good. Spiked a fever again overnight to 101 F. FiO2 requirement is down to 55%. Objective Vital Signs & I&O Last 8 Hrs of Vitals and I&O: . Exam General Appearance: no apparent distress, sedated, intubated Head: atraumatic, normal appearance Respiratory: normal breath sounds, chest non-tender, lungs clear Cardiovascular: tachycardia Gastrointestinal: soft, non-tender Extremities: no edema Skin: intact Skin Temp/Moisture Exam: Warm/Dry Sepsis Skin Exam (color): Normal for Ethnicity Current Medications: Current Medications Sig/Nabila Start time Last Medication Dose Route Stop Time Status Admin Acetaminophen 1,000 MG .STK-MED ONE 03/23 2310 DC IV 03/23 2311 Acetaminophen 1,000 MG .STK-MED ONE 03/23 1546 DC IV 03/23 1547 Acetaminophen 650 MG Q6P PRN 03/065 AC 03/11 PO 1140 Acetaminophen 1,000 MG Q6P PRN 03/06 2215 AC 03/23 IV 2317 Albuterol Sulfate 3 ML EVERY 4 HRS/AWAKE 03/08 1600 AC 03/24 INH 0836 Artificial Tears 1 GTT BID PRN 03/23 220 AC OPH Calcium Carbonate 500 MG TID PRN 03/10 0030 AC PO Dextrose/Water 1,000 ML Q10H 03/23 0815 AC 03/24 IV 0415 Glycerin 2 SPRAY Q2P PRN 03/09 0745 AC 03/09 PO 0848 Guaifenesin 10 ML Q4-6 PRN PRN 03/08 0445 AC 03/08 PO 0444 Heparin Sodium 5,000 UNIT Q8 03/07 0600 AC 03/24 (Porcine) SC 0527 Insulin Aspart 0 Q4 03/21 1400 AC 03/23 SC 2205 Insulin Detemir 16 UNITS BID 03/21 2200 AC 03/23 SC 2205 Ipratropium [place] 2.5 ML EVERY 4 HRS/AWAKE 03/08 1600 AC 03/24 INH 0836 Levothyroxine Sodium 37.5 MCG DAILY 03/22 1000 AC 03/23 IV 0946 Lorazepam 100 MG Q20H 03/24 0900 AC Dextrose/Water 1,000 ML IV Lorazepam 100 MG Q20H 03/23 1100 DC 03/23 Sodium Chloride 1,000 ML IV 1309 Lorazepam 100 MG Q16H 03/22 1800 DC 03/22 Sodium Chloride 1,000 ML IV 1722 Metoprolol Tartrate 6.25 MG BID 03/22 2200 AC 03/23 PO 2206 Morphine Sulfate 2 MG Q4P PRN 03/23 0845 AC 03/24 IV 0204 Pantoprazole Sodium 40 MG DAILY 03/22 1000 AC 03/23 IV 0945 Potassium Chloride 20 MEQ ONCE ONE 03/24 0600 DC 03/24 PO 03/24 0601 0619 Potassium Chloride 20 MEQ ONCE ONE 03/24 0600 DC 03/24 PO 03/24 0601 0619 Prednisone 20 MG DAILY 03/23 1000 AC 03/23 PO 1014 Propofol 1,000 MG Q5H 03/23 1200 AC 03/24 N/A 1 UNIT IV 0415 Sodium Bicarbonate 975 MG BID 03/07 1000 AC 03/23 PO 2206 Vecuronium [place] 50 MG Q6H 03/21 2130 AC 03/23 Sodium Chloride 500 ML IV 2325 Impression/Plan Impression/Problem List Impression: 26 yo morbidly obese F with h/o 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 Was being treated on the general medicine floor with Tamiflu and IV ceftriaxone and azithromycin. Transferred to ICU on 03/08/2017 for worsening respiratory status and hypoxia. Assessment * Acute hypoxic respiratory failure secondary to influenza complicated with left lower lobe pneumonia (initially) and now due to possible ARDS. * Sinus Tachycardia likely secondary to developing ARDS * Hypernatremia * Sepsis on admission - resolved. * Influenza A positive - resolved * Acute on chronic kidney disease likely secondary to ATN. There could've been a component of pre-renal azotemia as well - resolved * Elevated CK - ? Rhabdomyolosis - improved with IVF. * Elevated blood sugars * History of Exercise induced Asthma * History of hypothyroidism * Transaminitis * Leukocytosis * ?UTI - GPC in urine. Plan * Continue monitoring in ICU * Currently intubated with FiO2 of 55%. * Sedation with Ativan, Propofol drip. Vercuronium drip has been weaned off. * Her Sinus Tachycardia is likely due to ARDS. Per Cardiology, would not treat/ medicate unless heart rate goes above 140. Other possibility is she could be dehydrated. Her urine output has been good. Last dose of Lasix was on . * Will obtain repeat Echo to r/o evidence of right heart strain and if LV function is normal. * She is severely hypernatremic. Will continue her on D5W @ 100ml/hr. Will check BEP q4 to monitor serum Na. * Continue PO Prednisone to 20mg daily. * Off antibiotics and Tamiflu. Her last flu swab was negative for influenza. * TRC nebs as needed. * Her insulin sliding scale has been adjusted per Endo. Levemir decreased to 15mg BID. * Endo recs appreciated * White count continues to be elevated. Transaminases elevated but stable. Trending down. * Hepatitis panel has been negative. * RUQ U/S 03/18 showed hepatic steatosis which could be contributing to transaminitis. * Holding lisinopril, nephro input appreciated. * Her urine is growing GPC. Will start her on IV Ampicillin 2g q8. * Will follow up urine cultures. * Patients renal doctor is Dr Garcia ([phone]) at [place]. Renal d/s started in 2009. * Continue sodium bicarbonate tabs * Continue Synthroid. * DVT to prophylaxis with subcutaneous heparin * NPO. Continue tube feedings. * Nutrition recs appreciated * Patient is full code PLEASE CALL PATIENT'S FATHER STACY RASHID ) ABOUT ANY CHANGES IN CLINICAL CONDITION/ INTUBATION. HE IS CURRENTLY IN [place]. Problem List: 1. ARDS (adult respiratory distress syndrome) Pain Ratin Tomorrow's Labs & Rationales: CBC, ICU bundle Plan DVT/Prophylaxis: pharmacological
[2017-03-24 08:00] VITALS: BP 142/70
--- NOTE | 2017-03-24 08:28 | RADIOLOGY REPORT ---
EXAMINATION: XR PORTABLE CHEST CLINICAL INFORMATION: Adult respiratory distress syndrome. Tube and line placement. COMPARISON: 03/22/2017 and 03/23/2017 TECHNIQUE: Portable frontal view of the chest was obtained. FINDINGS: The tip of the endotracheal tube is located 5 cm above the lisa. The tip of the enteric tube is in the region of the gastric body. Obese body habitus. Lungs remain hypoinflated. No appreciable change in groundglass opacities and lower lobe airspace opacities. No overt pleural effusion observed on this single view exam. No pneumothorax, pneumomediastinum or other interval change. IMPRESSION: 1. Endotracheal tube is located 5 cm above the lisa. 2. Pulmonary disease remains unchanged compared to the recent chest radiographs.
--- NOTE | 2017-03-24 08:55 | PN- CRCU ---
Subjective HPI/Critical Care Issues: The patient remains intubated, sedated and paralyzed. Her oxygen requirement has improved to 55%. Her oxygen desaturations have improved overall. She remains hemodynamically stable, off pressors. She is tolerating tube feeing without issue. She had a Tmax of 101.1 overnight. Objective Current Medications: Current Medications Sig/Nabila Start time Last Medication Dose Route Stop Time Status Admin Acetaminophen 1,000 MG .STK-MED ONE 03/23 2310 DC IV 03/23 2311 Acetaminophen 1,000 MG .STK-MED ONE 03/23 1546 DC IV 03/23 1547 Acetaminophen 650 MG Q6P PRN 03/06 2215 AC 03/11 PO 1140 Acetaminophen 1,000 MG Q6P PRN 03/06 2215 AC 03/23 IV 2317 Albuterol Sulfate 3 ML EVERY 4 HRS/AWAKE 03/08 1600 AC 03/24 INH 0836 Artificial Tears 1 GTT BID PRN 03/23 2200 AC OPH Calcium Carbonate 500 MG TID PRN 03/10 0030 AC PO Dextrose/Water 1,000 ML Q10H 03/23 0815 AC 03/24 IV 0415 Glycerin 2 SPRAY Q2P PRN 03/09 0745 AC 03/09 PO 0848 Guaifenesin 10 ML Q4-6 PRN PRN 03/08 0445 AC 03/08 PO 0444 Heparin Sodium 5,000 UNIT Q8 03/07 0600 AC 03/24 (Porcine) SC 0527 Insulin Aspart 0 Q4 03/21 1400 AC 03/23 SC 2205 Insulin Detemir 16 UNITS BID 03/21 2200 AC 03/23 SC 2205 Ipratropium [place] 2.5 ML EVERY 4 HRS/AWAKE 03/08 1600 AC 03/24 INH 0836 Levothyroxine Sodium 37.5 MCG DAILY 03/22 1000 AC 03/23 IV 0946 Lorazepam 100 MG Q20H 03/24 0900 AC Dextrose/Water 1,000 ML IV Lorazepam 100 MG Q20H 03/23 1100 DC 03/23 Sodium Chloride 1,000 ML IV 1309 Lorazepam 100 MG Q16H 03/22 1800 DC 03/22 Sodium Chloride 1,000 ML IV 1722 Metoprolol Tartrate 6.25 MG BID 03/22 2200 AC 03/23 PO 2206 Morphine Sulfate 2 MG Q4P PRN 03/23 0845 AC 03/24 IV 0204 Pantoprazole Sodium 40 MG DAILY 03/22 1000 AC 03/23 IV 0945 Potassium Chloride 20 MEQ ONCE ONE 03/24 599 DC 03/24 PO 03/24 06 06 Potassium Chloride 20 MEQ ONCE ONE 03/24 599 DC 03/24 PO 03/24 0601 0619 Prednisone 20 MG DAILY 03/23 1000 AC 03/23 PO 1014 Propofol 1,000 MG Q5H 03/23 1200 AC 03/24 N/A 1 UNIT IV 0415 Sodium Bicarbonate 975 MG BID 03/07 1000 AC 03/23 PO 2206 Vecuronium [place] 50 MG Q6H 03/21 2130 AC 03/23 Sodium Chloride 500 ML IV 2325 Vital Signs & I&O Last 24 Hrs of Vitals and I&O: Vital Signs Date Time Temp Pulse Resp B/P B/P Pulse O2 O2 Flow FiO2 Mean Ox Delivery Rate 03/24 799 98.8 126 20 142/70 94 Ventilator 55% 03/24 0800 94 Ventilator 55% 03/24 0635 55 03/24 0400 95 Ventilator 55% 03/24 0201 55 03/24 0200 93 Ventilator 60% 03/24 0101 100.1 03/23 2317 101.1 03/23 2300 101.1 122 20 121/57 96 Ventilator 60% 03/23 2251 60 03/23 2206 119 99/43 03/23 2000 97 Ventilator 65% 03/23 1850 65 03/23 1640 75 03/23 1600 95 Ventilator 75% 03/23 1600 101.0 124 20 130/42 94 Ventilator 75% 03/23 1447 75 03/23 1200 95 Ventilator 75% 03/23 0946 127 99/40 03/23 0915 80 Intake & Output 03/24 1600 03/24 0800 03/24 0000 Intake Total 2753 2328 Output Total 1400 1390 Balance 1353 938 Intake, IV 1846 1811 Intake, Oral 0 Intake, Tube 547 327 Feeding Intake, Tube 360 190 Irrigant Number 0 0 Bowel Movements Output, Urine 1400 1390 Exam General Appearance: intubated, sedated and paralyzed Neck: normal inspection, supple Respiratory: normal breath sounds, chest non-tender, no respiratory distress, quiet respiration, lungs clear anteriorly Cardiovascular: regular rate/rhythm Gastrointestinal: normal bowel sounds, soft, mild tenderness in RUQ, decreased than yesterday Extremities: no edema Cranial Nerves: normal speech, PERRL Results Last 24 Hrs of Lab Results: Laboratory Tests 03/24/17 0815: Sodium Pending 03/24/17 0505: pH 7.31 L, pCO2 45, pO2 78 L, HCO3 22, ABG O2 Sat (Measured) 94.0 L, P-50 ( Temp Corrected) Y, Carboxyhemoglobin 0.4 L, O2 Concentration % 55%, Temperature 99.6, Respiration Rate 20, O2 Delivery Method ESPRIT, Vent Mode AC, Expiratory Pressure 10, Tidal Volume 450, Phlebotomy Draw Site LEFT RADIAL 03/24/17 0352: Anion Gap 13, Estimated GFR 21 L, Glucose 161 H, Calcium 8.7, Phosphorus 5.4 H, Magnesium 2.1, Total Bilirubin 0.4, AST 100 H, ALT 199 H, Albumin 2.6 L, CBC w Diff NO MAN DIFF REQ, RBC 3.38 L, MCV 92.3, MCH 30.4, MCHC 32.9 L, RDW 13.4, MPV 9.5, Gran % 74.1, Lymphocytes % 19.2 L, Monocytes % 4.2, Eosinophils % 1.9, Basophils % 0.6, Absolute Granulocytes 9.0 H, Absolute Lymphocytes 2.3, Absolute Monocytes 0.5, Absolute Eosinophils 0.2, Absolute Basophils 0.1 03/24/17 0011: Anion Gap 11, Estimated GFR 22 L, BUN/Creatinine Ratio 11.5 03/23/17 2008: Anion Gap 13, Estimated GFR 21 L, BUN/Creatinine Ratio 11.1 03/23/17 1623: Anion Gap 11, Estimated GFR 21 L, BUN/Creatinine Ratio 11.4 03/23/17 1212: Anion Gap 11, Estimated GFR 21 L, Glucose 178 H, Calcium 8.7, Phosphorus 3.6, Magnesium 2.3, Total Bilirubin 0.3, AST 51 H, ALT 162 H, Albumin 2.5 L Diagnostic Data CXR Findings: 1. Endotracheal tube is located 5 cm above the lisa. 2. Pulmonary disease remains unchanged compared to the recent chest radiographs. Impression/Plan Impression/Plan Impression/Plan: 1. Hypoxemic respiratory failure secondary to influenza, with possible ARDS. On low tidal volume ventilation strategy with permissive hypercapnia. CT shows GGOs, slightly worse. ID, cardiology and nephrology following. 2. Probable obesity hypoventilation syndrome. 3. Obstructive sleep apnea, undiagnosed. 4. Hypernatremia. 5. History of chronic kidney disease secondary to IgA nephropathy, Cr stable, nephrology following. 6. History of hypothyroidism. 7. Exercise-induced asthma, bronchospasm improved, steroids on a slow taper. 8. Mild transaminitis. 9. Sinus tachycardia rule out etiology. 10. Hypernatremia. Recommendations: Recommendations: * Prednisone 20 mg daily. Will taper slowly. * Free water flushes to continue. * Change to D5W at 100 ml/hour. Will follow up endocrine recommendations. * Repeat sodium in 4 hours to ensure improvement. * Continue with low tidal volume ventilation strategy and allow for permissive hypercapnia. * Please follow up echocardiogram with cardiology to rule out right ventricular strain as the MAO remains a concern. * Will consider a ventilation perfusion scan if elevated RV strain, however the patient is improving with respect to her oxygenation. * Continue to follow ID recommendations. Discuss elevated fever with with ID. * Will still consider transfer to a higher level of care if she continues to fail to improve, noting she may benefit from prone positioning. * Continue tube feeds. Daily bowel regimen as needed. * Follow renal recommendations. * Monitor all electrolytes and replete as necessary. * Continue Synthroid. * Subcutaneous heparin/DVT prophylaxis at all times. * Continue to monitor closely in the critical care unit. Patient remains critically ill. * Continue all supportive care. Will continue to update the patient's family on her progress.
--- NOTE | 2017-03-24 09:08 | PN- Diabetes ---
Assessment/Plan Assessment: 26-year-old female who has had a history of prediabetes, overweight, Ig A nephropathy along with chronic renal insufficiency and asthma, was in ICU for respiratory distress. She was treated with Solu-Medrol which was gradually decreased to 20 mg once a day. However, she was intubated on 03/21/2017. She is on tube feeding at 60 ml/hour. Her sodium was 155 on 03/23/2017. Currently She is on D5w 100 ml/hour. She is receiving free water via feeding tube every 4 hours. But she is on Ativan drip and Norcuron drip in NS. Steroid was further decreased to prednisone 20 mg po daily. Currently she is on Levemir 16 units twice a day; Novolog coverage every 4 hours. Her FSGs were 256, 217, 168 and 188. This morning, her Cr was 2.7 and sodium was 153. Plan: 1. Ativan drip will be changed from in NS to in D5W. 2. continue the current other IVF; 3. continue the current insulin regimen; 4. monitor FSGs; 5. monitor electrolytes. will follow Subjective Subjective: She is intubated. Objective Last 24 Hrs of Vital Signs/I&O Laboratory Tests 03/24 03/24 03/24 0815 9200 6063 Blood Gas pH (7.35 - 7.45 PH) 7.31 L pCO2 (35 - 45 TORR) 45 pO2 (80 - 100 TORR) 78 L HCO3 (21 - 28 MEQ/L) 22 ABG O2 Sat (Measured) (>96.0 %) 94.0 L P-50 (Temp Corrected) Y Carboxyhemoglobin (1.5 - 5.0 %) 0.4 L O2 Concentration % 55% Temperature (97.0 - 100.0 FARH) 99.6 Respiration Rate (BPM) 20 O2 Delivery Method ESPRIT Vent Mode AC Expiratory Pressure (CMH2O/P) 10 Tidal Volume (CC) 450 Chemistry Sodium (137 - 145 mmol/L) Pending 153 H Potassium (3.5 - 5.1 mmol/L) 3.8 Chloride (98 - 107 mmol/L) 118 H Carbon Dioxide (22 - 30 mmol/L) 21 L Anion Gap (5 - 16) 13 BUN (7 - 17 mg/dL) 30 H Creatinine (0.5 - 1.0 mg/dL) 2.7 H Estimated GFR (>60 ml/min) 21 L Glucose (65 - 99 mg/dL) 161 H Calcium (8.4 - 10.2 mg/dL) 8.7 Phosphorus (2.5 - 4.5 mg/dL) 5.4 H Magnesium (1.6 - 2.3 mg/dL) 2.1 Total Bilirubin (0.2 - 1.3 mg/dL) 0.4 AST (14 - 36 U/L) 100 H ALT (9 - 52 U/L) 199 H Albumin (3.5 - 5.0 g/dL) 2.6 L Hematology CBC w Diff NO MAN DIFF REQ WBC (4.8 - 10.8 /CUMM) 12.1 H RBC (4.20 - 5.40 /CUMM) 3.38 L Hgb (12.0 - 16.0 G/DL) 10.3 L Hct (37 - 47 %) 31.2 L MCV (81.0 - 99.0 FL) 92.3 MCH (27.0 - 31.0 PG) 30.4 MCHC (33.0 - 37.0 G/DL) 32.9 L RDW (11.5 - 14.5 %) 13.4 Plt Count (130 - 400 /CUMM) 109 L MPV (7.4 - 10.4 FL) 9.5 Gran % (42.2 - 75.2 %) 74.1 Lymphocytes % (20.5 - 51.1 %) 19.2 L Monocytes % (1.7 - 9.3 %) 4.2 Eosinophils % (0 - 5 %) 1.9 Basophils % (0.0 - 2.0 %) 0.6 Absolute Granulocytes (1.4 - 6.5 /CUMM) 9.0 H Absolute Lymphocytes (1.2 - 3.4 /CUMM) 2.3 Absolute Monocytes (0.10 - 0.60 /CUMM) 0.5 Absolute Eosinophils (0.0 - 0.7 /CUMM) 0.2 Absolute Basophils (0.0 - 0.2 /CUMM) 0.1 Miscellaneous Phlebotomy Draw Site LEFT RADIAL 03/24 03/23 03/23 03/23 0011 2007 1623 1212 Chemistry Sodium (137 - 145 mmol/L) 152 H 153 H 153 H 154 H Potassium (3.5 - 5.1 mmol/L) 3.9 4.0 4.0 3.9 Chloride (98 - 107 mmol/L) 119 H 119 H 119 H 119 H Carbon Dioxide (22 - 30 mmol/L) 23 21 L 23 24 Anion Gap (5 - 16) 11 13 11 11 BUN (7 - 17 mg/dL) 30 H 31 H 32 H 31 H Creatinine (0.5 - 1.0 mg/dL) 2.6 H 2.8 H 2.8 H 2.7 H Estimated GFR (>60 ml/min) 22 L 21 L 21 L 21 L BUN/Creatinine Ratio (7 - 25 %) 11.5 11.1 11.4 Glucose (65 - 99 mg/dL) 178 H Calcium (8.4 - 10.2 mg/dL) 8.7 Phosphorus (2.5 - 4.5 mg/dL) 3.6 Magnesium (1.6 - 2.3 mg/dL) 2.3 Total Bilirubin (0.2 - 1.3 mg/dL) 0.3 AST (14 - 36 U/L) 51 H ALT (9 - 52 U/L) 162 H Albumin (3.5 - 5.0 g/dL) 2.5 L Vital Signs Date Time Temp Pulse Resp B/P B/P Pulse O2 O2 Flow FiO2 Mean Ox Delivery Rate 03/24 08 98.8 126 20 142/70 94 Ventilator 55% 03/24 0800 94 Ventilator 55% 03/24 0635 55 03/24 0400 95 Ventilator 55% 03/24 0201 55 03/24 0200 93 Ventilator 60% 03/24 0101 100.1 03/23 2317 101.1 03/23 2300 101.1 122 20 121/57 96 Ventilator 60% 03/23 2251 60 03/23 2206 119 99/43 03/23 2000 97 Ventilator 65% 03/23 1850 65 03/23 1640 75 03/23 1600 95 Ventilator 75% 03/23 1600 101.0 124 20 130/42 94 Ventilator 75% 03/23 1447 75 03/23 1200 95 Ventilator 75% 03/23 0946 127 99/40 03/23 0915 80 Intake & Output 03/24 1600 03/24 0800 03/24 0000 Intake Total 2753 2328 Output Total 1400 1390 Balance 1353 938 Intake, IV 1846 1811 Intake, Oral 0 Intake, Tube 547 327 Feeding Intake, Tube 360 190 Irrigant Number 0 0 Bowel Movements Output, Urine 1400 1390
--- NOTE | 2017-03-24 11:50 | PN- Infect Dx ---
Subjective Subjective: MAXIMUM TEMPERATURE 101.1 on steroids. She is sedated and unable to express any complaints. Objective Last 24 Hrs of Vital Signs/I&O Vital Signs Date Time Temp Pulse Resp B/P B/P Pulse O2 O2 Flow FiO2 Mean Ox Delivery Rate 03/24 1055 154 146/64 03/24 0913 55 03/24 08 98.8 126 20 142/70 94 Ventilator 55% 03/24 08 94 Ventilator 55% 03/24 0635 55 03/24 0400 95 Ventilator 55% 03/24 0201 55 03/24 0200 93 Ventilator 60% 03/24 0101 100.1 03/23 2317 101.1 03/23 2300 101.1 122 20 121/57 96 Ventilator 60% 03/23 2251 60 03/23 2206 119 99/43 03/23 2000 97 Ventilator 65% 03/23 1850 65 03/23 1640 75 03/23 1600 95 Ventilator 75% 03/23 1600 101.0 124 20 130/42 94 Ventilator 75% 03/23 1447 75 03/23 1200 95 Ventilator 75% Intake & Output 03/24 1600 03/24 0800 03/24 0000 Intake Total 2753 2328 Output Total 1400 1390 Balance 1353 938 Intake, IV 1846 1811 Intake, Oral 0 Intake, Tube 547 327 Feeding Intake, Tube 360 190 Irrigant Number 0 0 Bowel Movements Output, Urine 1400 1390 Physical Exam Other Physical Findings: She is sedated and unresponsive on the ventilator Lungs rhonchi bilaterally Heart regular rhythm with no murmur Abdomen is soft, nontender with positive bowel sounds Extremities no cyanosis, clubbing or edema Cruz catheter remains in place Results Last 24 Hours of Lab Results: Laboratory Tests 03/24 03/24 03/24 0815 0505 0352 Blood Gas pH (7.35 - 7.45 PH) 7.31 L pCO2 (35 - 45 TORR) 45 pO2 (80 - 100 TORR) 78 L HCO3 (21 - 28 MEQ/L) 22 ABG O2 Sat (Measured) (>96.0 %) 94.0 L P-50 (Temp Corrected) Y Carboxyhemoglobin (1.5 - 5.0 %) 0.4 L O2 Concentration % 55% Temperature (97.0 - 100.0 FARH) 99.6 Respiration Rate (BPM) 20 O2 Delivery Method ESPRIT Vent Mode AC Expiratory Pressure (CMH2O/P) 10 Tidal Volume (CC) 450 Chemistry Sodium (137 - 145 mmol/L) 154 H 153 H Potassium (3.5 - 5.1 mmol/L) 3.8 Chloride (98 - 107 mmol/L) 118 H Carbon Dioxide (22 - 30 mmol/L) 21 L Anion Gap (5 - 16) 13 BUN (7 - 17 mg/dL) 30 H Creatinine (0.5 - 1.0 mg/dL) 2.7 H Estimated GFR (>60 ml/min) 21 L Glucose (65 - 99 mg/dL) 161 H Calcium (8.4 - 10.2 mg/dL) 8.7 Phosphorus (2.5 - 4.5 mg/dL) 5.4 H Magnesium (1.6 - 2.3 mg/dL) 2.1 Total Bilirubin (0.2 - 1.3 mg/dL) 0.4 AST (14 - 36 U/L) 100 H ALT (9 - 52 U/L) 199 H Albumin (3.5 - 5.0 g/dL) 2.6 L Hematology CBC w Diff NO MAN DIFF REQ WBC (4.8 - 10.8 /CUMM) 12.1 H RBC (4.20 - 5.40 /CUMM) 3.38 L Hgb (12.0 - 16.0 G/DL) 10.3 L Hct (37 - 47 %) 31.2 L MCV (81.0 - 99.0 FL) 92.3 MCH (27.0 - 31.0 PG) 30.4 MCHC (33.0 - 37.0 G/DL) 32.9 L RDW (11.5 - 14.5 %) 13.4 Plt Count (130 - 400 /CUMM) 109 L MPV (7.4 - 10.4 FL) 9.5 Gran % (42.2 - 75.2 %) 74.1 Lymphocytes % (20.5 - 51.1 %) 19.2 L Monocytes % (1.7 - 9.3 %) 4.2 Eosinophils % (0 - 5 %) 1.9 Basophils % (0.0 - 2.0 %) 0.6 Absolute Granulocytes (1.4 - 6.5 /CUMM) 9.0 H Absolute Lymphocytes (1.2 - 3.4 /CUMM) 2.3 Absolute Monocytes (0.10 - 0.60 /CUMM) 0.5 Absolute Eosinophils (0.0 - 0.7 /CUMM) 0.2 Absolute Basophils (0.0 - 0.2 /CUMM) 0.1 Miscellaneous Phlebotomy Draw Site LEFT RADIAL 03/24 1623 1212 Chemistry Sodium (137 - 145 mmol/L) 152 H 153 H 153 H 154 H Potassium (3.5 - 5.1 mmol/L) 3.9 4.0 4.0 3.9 Chloride (98 - 107 mmol/L) 119 H 119 H 119 H 119 H Carbon Dioxide (22 - 30 mmol/L) 23 21 L 23 24 Anion Gap (5 - 16) 11 13 11 11 BUN (7 - 17 mg/dL) 30 H 31 H 32 H 31 H Creatinine (0.5 - 1.0 mg/dL) 2.6 H 2.8 H 2.8 H 2.7 H Estimated GFR (>60 ml/min) 22 L 21 L 21 L 21 L BUN/Creatinine Ratio (7 - 25 %) 11.5 11.1 11.4 Glucose (65 - 99 mg/dL) 178 H Calcium (8.4 - 10.2 mg/dL) 8.7 Phosphorus (2.5 - 4.5 mg/dL) 3.6 Magnesium (1.6 - 2.3 mg/dL) 2.3 Total Bilirubin (0.2 - 1.3 mg/dL) 0.3 AST (14 - 36 U/L) 51 H ALT (9 - 52 U/L) 162 H Albumin (3.5 - 5.0 g/dL) 2.5 L Last 24 Hours of Michael Results: Blood cultures 2 March 23 negative Sputum culture March 23 mixed daryl Urine culture March 23 greater than 100,000 colonies of gram-positive cocci Recent Imaging Studies: Chest x-ray March 24 reveals no change in the groundglass and lower lobe opacities Assessment/Plan Impression: Fevers, with white blood cell count decreasing (on tapering steroids), possibly secondary to a healthcare associated infection, for example a urinary tract infection secondary to the indwelling Cruz catheter, with her urine culture growing greater than 100,000 colonies of gram-positive cocci. Her platelet count is also decreasing, possibly secondary to infection versus medications. Her renal function has worsened with no obvious explanation. Her transaminases are again elevated, also of unclear etiology, with her recent right upper quadrant ultrasound negative. Suggestion: 1. Follow-up final urine culture 2. Begin Ampicillin 2 g IV every 8 hours pending above
--- NOTE | 2017-03-24 12:37 | PN- Cardiology ---
See Addendum Subjective Subjective: The patient remains intubated and sedated. Heart rate remains in the 130s. with negative fluid balance and her BP 110s/70s. Objective Vital Signs and I&Os Vital Signs Date Time Temp Pulse Resp B/P B/P Pulse O2 O2 Flow FiO2 Mean Ox Delivery Rate 03/24 1624 60 03/24 1600 90 Ventilator 60% 03/24 1600 99.8 141 20 124/50 90 Ventilator 60% 03/24 1418 99.2 03/24 1318 99.9 03/24 1203 55 03/24 1200 93 Ventilator 55% 03/24 1055 154 146/64 03/24 0913 55 03/24 0800 98.8 126 20 142/70 94 Ventilator 55% 03/24 0800 94 Ventilator 55% 03/24 0635 55 03/24 0400 95 Ventilator 55% 03/24 0201 55 03/24 0200 93 Ventilator 60% 03/24 0101 100.1 03/23 2317 101.1 03/23 2300 101.1 122 20 121/57 96 Ventilator 60% 03/23 2251 60 03/23 2206 119 99/43 03/23 1999 97 Ventilator 65% 03/23 1850 65 Intake & Output 03/24 1600 03/24 0800 03/24 0000 03/23 1600 03/23 0800 03/23 0000 Intake Total 2445 2753 2328 2759 2344 2045 Output Total 2500 1400 1390 1400 1700 2200 Balance -55 6031 133 4613 644 -155 Intake, IV 1685 1846 1811 2092 1958 1806 Intake, Oral 0 0 Intake, Other 80 50 Intake, Tube 400 547 327 287 136 89 Feeding Intake, Tube 360 360 190 300 250 100 Irrigant Number 0 0 0 0 0 Bowel Movements Output, Urine 2500 1400 1390 1400 1700 2200 Patient 270 lb Weight Weight Bed scale Measurement Method Current Medications: Current Medications Sig/Nabila Start time Last Medication Dose Route Stop Time Status Admin Acetaminophen 1,000 MG .STK-MED ONE 03/23 2310 DC IV 03/23 2311 Acetaminophen 650 MG Q6P PRN 03/06 2214 AC 03/11 PO 1140 Acetaminophen 1,000 MG Q6P PRN 03/06 2215 AC 03/24 IV 1318 Albuterol Sulfate 3 ML EVERY 4 HRS/AWAKE 03/08 1600 AC 03/24 INH 1620 Ampicillin 2,000 MG Q8 03/24 1400 AC 03/24 Sodium Chloride 100 ML IV 1605 Artificial Tears 1 GTT BID PRN 03/23 2200 AC OPH Calcium Carbonate 500 MG TID PRN 03/10 0030 AC PO Dextrose/Water 1,000 ML Q10H 03/23 0815 AC 03/24 IV 1341 Glycerin 2 SPRAY Q2P PRN 03/09 0745 AC 03/09 PO 0848 Guaifenesin 10 ML Q4-6 PRN PRN 03/08 0445 AC 03/08 PO 0444 Heparin Sodium 5,000 UNIT Q8 03/07 0600 AC 03/24 (Porcine) SC 1318 Insulin Aspart 0 Q4 03/21 1400 AC 03/24 SC 1418 Insulin Detemir 16 UNITS BID 03/21 2200 AC 03/24 SC 1021 Ipratropium [place] 2.5 ML EVERY 4 HRS/AWAKE 03/08 1600 AC 03/24 INH 1620 Levothyroxine Sodium 37.5 MCG DAILY 03/22 1000 AC 03/24 IV 1007 Lorazepam 100 MG Q20H 03/24 0900 AC 03/24 Dextrose/Water 1,000 ML IV 0922 Lorazepam 100 MG Q20H 03/23 1100 DC 03/23 Sodium Chloride 1,000 ML IV 1309 Metoprolol Tartrate 6.25 MG BID 03/22 2200 AC 03/24 PO 1055 Morphine Sulfate 2 MG Q4P PRN 03/23 0845 AC 03/24 IV 1050 Pantoprazole Sodium 40 MG DAILY 03/22 1000 AC 03/24 IV 1006 Potassium Chloride 20 MEQ ONCE ONE 03/24 06 DC 03/24 PO 03/24 0601 0619 Potassium Chloride 20 MEQ ONCE ONE 03/24 0600 DC 03/24 PO 03/24 0601 0619 Prednisone 20 MG DAILY 03/23 1000 AC 03/24 PO 1052 Propofol 1,000 MG Q5H 03/23 1200 AC 03/24 N/A 1 UNIT IV 1249 Sodium Bicarbonate 975 MG BID 03/07 1000 AC 03/23 PO 2206 Vecuronium [place] 50 MG Q6H 03/21 2130 AC 03/24 Sodium Chloride 500 ML IV 0905 Results Last 48 Hrs of Labs/Mics: Laboratory Tests 03/24/17 1615: 03/24/17 1445: Urine Color YEL, Urine Clarity CLEAR, Urine pH 5.5, Ur Specific [place] 1.015, Urine Protein 100 H, Urine Ketones NEG, Urine Nitrite NEG, Urine Bilirubin NEG, Urine Urobilinogen 0.2, Ur Leukocyte Esterase NEG, Ur Microscopic SEDIMENT EXAMINED, Urine RBC 1-3, Urine WBC RARE, Ur Epithelial Cells OCCAS, Urine Crystals 1+ UR AC H, Hyaline Casts RARE H, Granular Casts RARE H, Urine Mucus FEW, Urine Hemoglobin SMALL H, Urine Glucose 100 H 03/24/17 1445: Urine Osmolality 277 L, Ur Random Creatinine 24.8, Ur Random Sodium 74, Ur Random Potassium 18.0, Fraction Sodium Excret 5.3 H 03/24/17 1235: Serum Osmolality 323 H 03/24/17 0815: 03/24/17 0505: pH 7.31 L, pCO2 45, pO2 78 L, HCO3 22, ABG O2 Sat (Measured) 94.0 L, P-50 ( Temp Corrected) Y, Carboxyhemoglobin 0.4 L, O2 Concentration % 55%, Temperature 99.6, Respiration Rate 20, O2 Delivery Method ESPRIT, Vent Mode AC, Expiratory Pressure 10, Tidal Volume 450, Phlebotomy Draw Site LEFT RADIAL 03/24/17 0352: Anion Gap 13, Estimated GFR 21 L, Glucose 161 H, Calcium 8.7, Phosphorus 5.4 H, Magnesium 2.1, Total Bilirubin 0.4, AST 100 H, ALT 199 H, Albumin 2.6 L, CBC w Diff NO MAN DIFF REQ, RBC 3.38 L, MCV 92.3, MCH 30.4, MCHC 32.9 L, RDW 13.4, MPV 9.5, Gran % 74.1, Lymphocytes % 19.2 L, Monocytes % 4.2, Eosinophils % 1.9, Basophils % 0.6, Absolute Granulocytes 9.0 H, Absolute Lymphocytes 2.3, Absolute Monocytes 0.5, Absolute Eosinophils 0.2, Absolute Basophils 0.1 03/24/17 0011: Anion Gap 11, Estimated GFR 22 L, BUN/Creatinine Ratio 11.5 03/23/17 2008: Anion Gap 13, Estimated GFR 21 L, BUN/Creatinine Ratio 11.1 03/23/17 1623: Anion Gap 11, Estimated GFR 21 L, BUN/Creatinine Ratio 11.4 03/23/17 1212: Anion Gap 11, Estimated GFR 21 L, Glucose 178 H, Calcium 8.7, Phosphorus 3.6, Magnesium 2.3, Total Bilirubin 0.3, AST 51 H, ALT 162 H, Albumin 2.5 L 03/23/17 0510: pH 7.32 L, pCO2 44, pO2 111 H, HCO3 22, ABG O2 Sat (Measured) 97.0, P-50 (Temp Corrected) Y, Carboxyhemoglobin 0.4 L, O2 Concentration % 90%, Temperature 99.0 , Respiration Rate 20, O2 Delivery Method ESPRIT, Vent Mode AC, Expiratory Pressure 12, Tidal Volume 450, Phlebotomy Draw Site RIGHT RADIAL 03/23/17 0430: Anion Gap 12, Estimated GFR 26 L, Glucose 181 H, Calcium 8.6, Phosphorus 3.8, Magnesium 2.4 H, Total Bilirubin 0.3, AST 42 H, ALT 176 H, Albumin 2.6 L, CBC w Diff NO MAN DIFF REQ, RBC 3.89 L, MCV 91.3, MCH 30.2, MCHC 33.1, RDW 13.8 , MPV 10.0, Gran % 78.2 H, Lymphocytes % 12.9 L, Monocytes % 7.6, Eosinophils % 0.9, Basophils % 0.4, Absolute Granulocytes 11.2 H, Absolute Lymphocytes 1.9, Absolute Monocytes 1.1 H, Absolute Eosinophils 0.1, Absolute Basophils 0.1 03/23/17 0030: Anion Gap 13, Estimated GFR 23 L, Glucose 215 H, Calcium 8.7, Phosphorus 4.3, Magnesium 2.6 H, Total Bilirubin 0.4, AST 42 H, ALT 190 H, Albumin 2.6 L Assessment/Plan Assessment/Plan Assessment: -Hypovolemia, hypernatremia. Patient still in negative fluid balance around 7 L as she still has high urine output despite the IV fluid hydration. -Persistent sinus tachycardia-oversew days, the patient received IV Lasix and diuresed almost 9 L. Over that same time. Her creatinine increased, her sodium increasing adequately, and the patient has become more significantly tachycardic. I suspect that a significant amount of her tachycardia is related to volume depletion. -Acute hypoxaemic respiratory failure secondary to influenza complicated with left lower lobe pneumonia. -Influenza A positive -Acute on chronic kidney disease stage III due to IgA nephropathy -History of Exercise induced Asthma -History of hypothyroidism -Obesity -Possible CL Recommendations: -Overweight any further diuresis -Continue as per the ICU team -Follow-up echo reviwed intial and showed EF of > 65%, final report-pending. -As we suspect, the ejection fraction remains normal, would be more aggressive with IV fluid hydration in hopes of optimizing the patient's sodium, renal function, etc. and if the tachycardia dose not resolved will address additional cardiac evaluation and management. Continue telemetry? Yes
--- NOTE | 2017-03-24 14:59 | PN- Nephrology ---
Assessment/Plan Assessment: TREVOR, hypernatremia. U.O 2500 cc this past shift. I agree with ICU team that this most likely represents diabetes insipidus. Would check U Osm, U Na. If U Osm low (it should be high as ADH should be present due to hypernatremia) then could give DDAVP to differential central from nephrogenic DI. Would ask pharmacy to put as many meds as possible on D5W. Continue IV D5W as you are doing. Clay Greene MD Suggestion: . Subjective Subjective: Asked to resee Ms. Scott for TREVOR, hypernatremia. Please see Dr. Dawson's consult earlier this admission for prior details. Pt still intubated with high urine output and hypernatremia. She has been started on D5W Objective Vital Signs and I&Os F intubated 146/64 154 99 Lungs vent BS occ rhonchi Cor RRR Abd soft obese Ext 1+edema Results Pertinent Lab Results: Laboratory Tests 03/24 03/24 03/24 1235 0815 0505 Blood Gas pH (7.35 - 7.45 PH) 7.31 L pCO2 (35 - 45 TORR) 45 pO2 (80 - 100 TORR) 78 L HCO3 (21 - 28 MEQ/L) 22 ABG O2 Sat (Measured) (>96.0 %) 94.0 L P-50 (Temp Corrected) Y Carboxyhemoglobin (1.5 - 5.0 %) 0.4 L O2 Concentration % 55% Temperature (97.0 - 100.0 FARH) 99.6 Respiration Rate (BPM) 20 O2 Delivery Method ESPRIT Vent Mode AC Expiratory Pressure (CMH2O/P) 10 Tidal Volume (CC) 450 Chemistry Sodium (137 - 145 mmol/L) 151 H 154 H Serum Osmolality (285 - 295 MOSM/KG) 323 H Miscellaneous Phlebotomy Draw Site LEFT RADIAL 03/24 03/24 03/23 03/23 0352 0011 2007 1623 Chemistry Sodium (137 - 145 mmol/L) 153 H 152 H 153 H 153 H Potassium (3.5 - 5.1 mmol/L) 3.8 3.9 4.0 4.0 Chloride (98 - 107 mmol/L) 118 H 119 H 119 H 119 H Carbon Dioxide (22 - 30 mmol/L) 21 L 23 21 L 23 Anion Gap (5 - 16) 13 11 13 11 BUN (7 - 17 mg/dL) 30 H 30 H 31 H 32 H Creatinine (0.5 - 1.0 mg/dL) 2.7 H 2.6 H 2.8 H 2.8 H Estimated GFR (>60 ml/min) 21 L 22 L 21 L 21 L BUN/Creatinine Ratio (7 - 25 %) 11.5 11.1 11.4 Glucose (65 - 99 mg/dL) 161 H Calcium (8.4 - 10.2 mg/dL) 8.7 Phosphorus (2.5 - 4.5 mg/dL) 5.4 H Magnesium (1.6 - 2.3 mg/dL) 2.1 Total Bilirubin (0.2 - 1.3 mg/dL) 0.4 AST (14 - 36 U/L) 100 H ALT (9 - 52 U/L) 199 H Albumin (3.5 - 5.0 g/dL) 2.6 L Hematology CBC w Diff NO MAN DIFF REQ WBC (4.8 - 10.8 /CUMM) 12.1 H RBC (4.20 - 5.40 /CUMM) 3.38 L Hgb (12.0 - 16.0 G/DL) 10.3 L Hct (37 - 47 %) 31.2 L MCV (81.0 - 99.0 FL) 92.3 MCH (27.0 - 31.0 PG) 30.4 MCHC (33.0 - 37.0 G/DL) 32.9 L RDW (11.5 - 14.5 %) 13.4 Plt Count (130 - 400 /CUMM) 109 L MPV (7.4 - 10.4 FL) 9.5 Gran % (42.2 - 75.2 %) 74.1 Lymphocytes % (20.5 - 51.1 %) 19.2 L Monocytes % (1.7 - 9.3 %) 4.2 Eosinophils % (0 - 5 %) 1.9 Basophils % (0.0 - 2.0 %) 0.6 Absolute Granulocytes (1.4 - 6.5 /CUMM) 9.0 H Absolute Lymphocytes (1.2 - 3.4 /CUMM) 2.3 Absolute Monocytes (0.10 - 0.60 /CUMM) 0.5 Absolute Eosinophils (0.0 - 0.7 /CUMM) 0.2 Absolute Basophils (0.0 - 0.2 /CUMM) 0.1 03/23 03/23 03/23 1212 0510 0430 Blood Gas pH (7.35 - 7.45 PH) 7.32 L pCO2 (35 - 45 TORR) 44 pO2 (80 - 100 TORR) 111 H HCO3 (21 - 28 MEQ/L) 22 ABG O2 Sat (Measured) (>96.0 %) 97.0 P-50 (Temp Corrected) Y Carboxyhemoglobin (1.5 - 5.0 %) 0.4 L O2 Concentration % 90% Temperature (97.0 - 100.0 FARH) 99.0 Respiration Rate (BPM) 20 O2 Delivery Method ESPRIT Vent Mode AC Expiratory Pressure (CMH2O/P) 12 Tidal Volume (CC) 450 Chemistry Sodium (137 - 145 mmol/L) 154 H 155 H Potassium (3.5 - 5.1 mmol/L) 3.9 3.8 Chloride (98 - 107 mmol/L) 119 H 119 H Carbon Dioxide (22 - 30 mmol/L) 24 24 Anion Gap (5 - 16) 11 12 BUN (7 - 17 mg/dL) 31 H 32 H Creatinine (0.5 - 1.0 mg/dL) 2.7 H 2.3 H Estimated GFR (>60 ml/min) 21 L 26 L Glucose (65 - 99 mg/dL) 178 H 181 H Calcium (8.4 - 10.2 mg/dL) 8.7 8.6 Phosphorus (2.5 - 4.5 mg/dL) 3.6 3.8 Magnesium (1.6 - 2.3 mg/dL) 2.3 2.4 H Total Bilirubin (0.2 - 1.3 mg/dL) 0.3 0.3 AST (14 - 36 U/L) 51 H 42 H ALT (9 - 52 U/L) 162 H 176 H Albumin (3.5 - 5.0 g/dL) 2.5 L 2.6 L Hematology CBC w Diff NO MAN DIFF REQ WBC (4.8 - 10.8 /CUMM) 14.3 H RBC (4.20 - 5.40 /CUMM) 3.89 L Hgb (12.0 - 16.0 G/DL) 11.8 L Hct (37 - 47 %) 35.5 L MCV (81.0 - 99.0 FL) 91.3 MCH (27.0 - 31.0 PG) 30.2 MCHC (33.0 - 37.0 G/DL) 33.1 RDW (11.5 - 14.5 %) 13.8 Plt Count (130 - 400 /CUMM) 139 MPV (7.4 - 10.4 FL) 10.0 Gran % (42.2 - 75.2 %) 78.2 H Lymphocytes % (20.5 - 51.1 %) 12.9 L Monocytes % (1.7 - 9.3 %) 7.6 Eosinophils % (0 - 5 %) 0.9 Basophils % (0.0 - 2.0 %) 0.4 Absolute Granulocytes (1.4 - 6.5 /CUMM) 11.2 H Absolute Lymphocytes (1.2 - 3.4 /CUMM) 1.9 Absolute Monocytes (0.10 - 0.60 /CUMM) 1.1 H Absolute Eosinophils (0.0 - 0.7 /CUMM) 0.1 Absolute Basophils (0.0 - 0.2 /CUMM) 0.1 Miscellaneous Phlebotomy Draw Site RIGHT RADIAL 03/23 03/22 03/22 0030 1433 0588 Blood Gas pH (7.35 - 7.45 PH) 7.35 pCO2 (35 - 45 TORR) 45 pO2 (80 - 100 TORR) 86 HCO3 (21 - 28 MEQ/L) 24 ABG O2 Sat (Measured) (>96.0 %) 95.0 L P-50 (Temp Corrected) Y Carboxyhemoglobin (1.5 - 5.0 %) 0.7 L O2 Concentration % 80% Temperature (97.0 - 100.0 FARH) 100.0 Respiration Rate (BPM) 20 O2 Delivery Method ESPRIT Vent Mode AC Expiratory Pressure (CMH2O/P) 10 Tidal Volume (CC) 450 Chemistry Sodium (137 - 145 mmol/L) 154 H 150 H Potassium (3.5 - 5.1 mmol/L) 4.2 4.9 Chloride (98 - 107 mmol/L) 116 H 112 H Carbon Dioxide (22 - 30 mmol/L) 25 24 Anion Gap (5 - 16) 13 15 BUN (7 - 17 mg/dL) 33 H 34 H Creatinine (0.5 - 1.0 mg/dL) 2.5 H 2.3 H Estimated GFR (>60 ml/min) 23 L 26 L Glucose (65 - 99 mg/dL) 215 H 284 H Calcium (8.4 - 10.2 mg/dL) 8.7 8.8 Phosphorus (2.5 - 4.5 mg/dL) 4.3 5.6 H Magnesium (1.6 - 2.3 mg/dL) 2.6 H 2.5 H Total Bilirubin (0.2 - 1.3 mg/dL) 0.4 0.6 AST (14 - 36 U/L) 42 H 52 H ALT (9 - 52 U/L) 190 H 215 H Albumin (3.5 - 5.0 g/dL) 2.6 L 3.0 L Hematology CBC w Diff NO MAN DIFF REQ WBC (4.8 - 10.8 /CUMM) 19.0 H RBC (4.20 - 5.40 /CUMM) 4.37 Hgb (12.0 - 16.0 G/DL) 13.2 Hct (37 - 47 %) 39.7 MCV (81.0 - 99.0 FL) 90.8 MCH (27.0 - 31.0 PG) 30.1 MCHC (33.0 - 37.0 G/DL) 33.2 RDW (11.5 - 14.5 %) 13.5 Plt Count (130 - 400 /CUMM) 147 MPV (7.4 - 10.4 FL) 9.6 Gran % (42.2 - 75.2 %) 92.3 H Lymphocytes % (20.5 - 51.1 %) 3.8 L Monocytes % (1.7 - 9.3 %) 3.8 Eosinophils % (0 - 5 %) 0.1 Basophils % (0.0 - 2.0 %) 0 Absolute Granulocytes (1.4 - 6.5 /CUMM) 17.5 H Absolute Lymphocytes (1.2 - 3.4 /CUMM) 0.7 L Absolute Monocytes (0.10 - 0.60 /CUMM) 0.7 H Absolute Eosinophils (0.0 - 0.7 /CUMM) 0 Absolute Basophils (0.0 - 0.2 /CUMM) 0 Miscellaneous Phlebotomy Draw Site RIGHT RADIAL 03/22 0440 Chemistry Sodium (137 - 145 mmol/L) 146 H Potassium (3.5 - 5.1 mmol/L) 4.3 Chloride (98 - 107 mmol/L) 106 Carbon Dioxide (22 - 30 mmol/L) 26 Anion Gap (5 - 16) 14 BUN (7 - 17 mg/dL) 40 H Creatinine (0.5 - 1.0 mg/dL) 2.2 H Estimated GFR (>60 ml/min) 27 L Glucose (65 - 99 mg/dL) 148 H Calcium (8.4 - 10.2 mg/dL) 9.0 Phosphorus (2.5 - 4.5 mg/dL) 6.8 H Magnesium (1.6 - 2.3 mg/dL) 2.4 H Total Bilirubin (0.2 - 1.3 mg/dL) 0.6 Direct Bilirubin (< 0.4 mg/dL) 0.3 AST (14 - 36 U/L) 56 H ALT (9 - 52 U/L) 245 H Alkaline Phosphatase (<127 U/L) 169 H Troponin I (< 0.11 ng/ml) 0.02 Total Protein (6.3 - 8.2 g/dL) 6.0 L Albumin (3.5 - 5.0 g/dL) 3.0 L Hematology CBC w Diff NO MAN DIFF REQ WBC (4.8 - 10.8 /CUMM) 17.2 H RBC (4.20 - 5.40 /CUMM) 4.51 Hgb (12.0 - 16.0 G/DL) 13.6 Hct (37 - 47 %) 40.9 MCV (81.0 - 99.0 FL) 90.7 MCH (27.0 - 31.0 PG) 30.1 MCHC (33.0 - 37.0 G/DL) 33.2 RDW (11.5 - 14.5 %) 13.3 Plt Count (130 - 400 /CUMM) 147 MPV (7.4 - 10.4 FL) 9.3 Gran % (42.2 - 75.2 %) 81.8 H Lymphocytes % (20.5 - 51.1 %) 10.5 L Monocytes % (1.7 - 9.3 %) 5.4 Eosinophils % (0 - 5 %) 2.0 Basophils % (0.0 - 2.0 %) 0.3 Absolute Granulocytes (1.4 - 6.5 /CUMM) 14.1 H Absolute Lymphocytes (1.2 - 3.4 /CUMM) 1.8 Absolute Monocytes (0.10 - 0.60 /CUMM) 0.9 H Absolute Eosinophils (0.0 - 0.7 /CUMM) 0.3 Absolute Basophils (0.0 - 0.2 /CUMM) 0.1
[2017-03-24 16:00] VITALS: BP 124/50
--- NOTE | 2017-03-24 18:28 | Event Note ---
Event Note Event Note: Upon chart biopsy, it did appear that the pt has been having higher urine output approximately > 250ml/hr likely from inability to hold on to the free water and differentials could either be diabetes insipidus either central vs nephrogenic. The team ordered, UOsm and Sr Osm which fits into the clinical picutre of DI w/ Sr Osm > 300, UOsm 277, Na > 145, U Osm 1.015 urine output upto 6-8L per day. She could even have partial DI, which is possible but the etiology seems unclear. Consideration was to try dDAVP to delineate the cause, but Sodium has been on a downtrend 154-->150 mEq within 8 hr, and didnt administer the vasorpression to avoid a precipitous fall in the sr sodium if indeed she has central DI. Discussed w/ the automatic spreader operator, Dr. Harrington.
[2017-03-25] VITALS: BP 138/58
[2017-03-25 05:08] LABS: ABSOLUTE BASOPHIL COUNT 0.1 /CUMM (0.0-0.2); ABSOLUTE EOSINOPHIL COUNT 0.3 /CUMM (0.0-0.7); ABSOLUTE LYMPH COUNT 2.9 /CUMM (1.2-3.4); ABSOLUTE MONOCYTE COUNT 0.6 /CUMM (0.10-0.60); BASOPHIL % 0.9 % (0.0-2.0); GRANULOCYTE % 69.8 % (42.2-75.2); HEMATOCRIT 31.7 % (37-47); MEAN CORPUSCULAR HGB 30.5 PG (27.0-31.0); MEAN CORPUSCULAR HGB CONC 32.8 G/DL (33.0-37.0); MEAN CORPUSCULAR VOLUME 92.8 FL (81.0-99.0); MEAN PLATELET VOLUME 9.6 FL (7.4-10.4); PLATELET COUNT 129 /CUMM (130-400); RBC DISTRIBUTION WIDTH 13.6 % (11.5-14.5); RED BLOOD CELL CT 3.42 /CUMM (4.20-5.40); WHITE BLOOD CELL COUNT 12.9 /CUMM (4.8-10.8)
--- NOTE | 2017-03-25 07:54 | PN- CRCU ---
Subjective HPI/Critical Care Issues: The patient remains intubated and sedated. Attempts were made at turning off vecuronium yesterday without success. The patient's BIS monitor was elevated and she was started on a Fentanyl drip. Propofol is being decreased down to off. Tube feeds are at goal. Her oxygen levels continue to fluctuate. Objective Current Medications: Current Medications Sig/Nabila Start time Last Medication Dose Route Stop Time Status Admin Acetaminophen 1,000 MG .STK-MED ONE 03/24 191 DC IV 03/24 191 Acetaminophen 1,000 MG .STK-MED ONE 03/24 1316 DC IV 03/24 1317 Acetaminophen 650 MG Q6P PRN 03/06 2215 AC 03/11 PO 1140 Acetaminophen 1,000 MG Q6P PRN 03/06 2215 AC 03/25 IV 0401 Albuterol Sulfate 3 ML EVERY 4 HRS/AWAKE 03/08 1600 AC 03/24 INH 1620 Ampicillin 2,000 MG Q8 03/24 1400 AC 03/25 Sodium Chloride 100 ML IV 0557 Artificial Tears 1 GTT BID PRN 03/23 2200 AC OPH Calcium Carbonate 500 MG TID PRN 03/10 0030 AC PO Dextrose/Water 1,000 ML Q10H 03/23 0815 AC 03/25 IV 0101 Fentanyl Citrate 1,000 MCG ONCE ONE 03/25 0400 DC 03/25 Sodium Chloride 250 ML IV 03/25 0401 0434 Fentanyl Citrate 25 MCG ONCE ONE 03/25 0300 DC 03/25 IV 03/25 0301 0303 Glycerin 2 SPRAY Q2P PRN 03/09 0745 AC 03/09 PO 0848 Guaifenesin 10 ML Q4-6 PRN PRN 03/08 0445 AC 03/08 PO 0444 Heparin Sodium 5,000 UNIT Q8 03/07 0600 AC 03/25 (Porcine) SC 0557 Insulin Aspart 0 Q4 03/21 1400 AC 03/25 SC 0557 Insulin Detemir 16 UNITS BID 03/21 2200 AC 03/24 SC 2201 Ipratropium [place] 2.5 ML EVERY 4 HRS/AWAKE 03/08 1600 AC 03/24 INH 1620 Levothyroxine Sodium 37.5 MCG DAILY 03/22 1000 AC 03/24 IV 1007 Lorazepam 100 MG Q20H 03/24 0900 AC 03/25 Dextrose/Water 1,000 ML IV 0217 Lorazepam 100 MG Q20H 03/23 1100 DC 03/23 Sodium Chloride 1,000 ML IV 1309 Metoprolol Tartrate 6.25 MG BID 03/22 2200 AC 03/24 PO 2103 Morphine Sulfate 2 MG Q4P PRN 03/23 0845 AC 03/25 IV 0057 Pantoprazole Sodium 40 MG DAILY 03/22 1000 AC 03/24 IV 1006 Prednisone 20 MG DAILY 03/23 1000 AC 03/24 PO 1052 Propofol 1,000 MG Q5H 03/23 1200 AC 03/25 N/A 1 UNIT IV 0500 Sodium Bicarbonate 975 MG BID 03/07 1000 AC 03/23 PO 2206 Vecuronium [place] 50 MG Q6H 03/24 2359 AC 03/25 Dextrose/Water 500 ML IV 0055 Vecuronium [place] 50 MG Q6H 03/21 2130 DC 03/24 Sodium Chloride 500 ML IV 03/24 2359 0905 Vital Signs & I&O Last 24 Hrs of Vitals and I&O: Vital Signs Date Time Temp Pulse Resp B/P B/P Pulse O2 O2 Flow FiO2 Mean Ox Delivery Rate 03/25 0606 75 02/ 0501 100.0 03/25 0401 101.0 03/25 0400 92 Ventilator 75% 03/25 0339 75 03/25 0204 75 / 0157 70 / 0000 90 Ventilator 70% / 0000 100.8 146 20 138/58 90 Ventilator 70% 02/ 2241 65 / 2103 101.6 152 20 150/65 02/ 2100 101.6 / 2000 89 Ventilator 65% 02/ 1918 102.9 02/ 1915 60 02/ 1624 60 02/ 1600 90 Ventilator 60% 02/ 1600 99.8 141 20 124/50 90 Ventilator 60% 02/ 1418 99.2 02/ 1318 99.9 02/ 1203 55 02/ 1200 93 Ventilator 55% 02/ 1055 154 146/64 02/ 0913 55 02/ 0800 98.8 126 20 142/70 94 Ventilator 55% / 0800 94 Ventilator 55% Intake & Output / 0800 02/ 0000 02/ 1600 Intake Total 2944.1 3055.6 2445 Output Total 2450 3300 2500 Balance 494.1 -244.4 -55 Intake, IV 2014.1 2275.6 1685 Intake, Oral 0 Intake, Other 450 300 Intake, Tube 480 480 400 Feeding Intake, Tube 360 Irrigant Number 0 Bowel Movements Output, Urine 2450 3300 2500 Patient 272 lb Weight Weight Bed scale Measurement Method Exam General Appearance: intubated, sedated and paralyzed Neck: normal inspection, supple Respiratory: normal breath sounds, chest non-tender, no respiratory distress, quiet respiration, lungs clear anteriorly Cardiovascular: regular rate/rhythm Gastrointestinal: normal bowel sounds, soft, mild tenderness in RUQ, decreased than yesterday Extremities: no edema Cranial Nerves: normal speech, PERRL Results Last 24 Hrs of Lab Results: Laboratory Tests 03/25/17 0455: pH 7.23 *L, pCO2 58 H, pO2 72 L, HCO3 24, ABG O2 Sat (Measured) 91.0 L, P-50 (Temp Corrected) Y, Carboxyhemoglobin 0.8 L, O2 Concentration % 75%, Temperature 101.0 H, Respiration Rate 20, O2 Delivery Method ESPRIT, Vent Mode AC, Expiratory Pressure 10, Tidal Volume 450, Phlebotomy Draw Site RIGHT RADIAL 03/25/17 0447: Anion Gap 11, Estimated GFR 22 L, Glucose 157 H, Calcium 9.0, Phosphorus 3.8, Magnesium 2.4 H, Total Bilirubin 0.4, AST 267 H, ALT 479 H, Albumin 2.7 L, Triglycerides 241 H, CBC w Diff NO MAN DIFF REQ, RBC 3.42 L, MCV 92.8, MCH 30.5, MCHC 32.8 L, RDW 13.6, MPV 9.6, Gran % 69.8, Lymphocytes % 22.8, Monocytes % 4.5, Eosinophils % 2.0, Basophils % 0.9, Absolute Granulocytes 9.0 H, Absolute Lymphocytes 2.9, Absolute Monocytes 0.6, Absolute Eosinophils 0.3, Absolute Basophils 0.1 03/25/17 0227: 03/24/17 2240: 03/24/17 1615: 03/24/17 1445: Urine Color YEL, Urine Clarity CLEAR, Urine pH 5.5, Ur Specific [place] 1.015, Urine Protein 100 H, Urine Ketones NEG, Urine Nitrite NEG, Urine Bilirubin NEG, Urine Urobilinogen 0.2, Ur Leukocyte Esterase NEG, Ur Microscopic SEDIMENT EXAMINED, Urine RBC 1-3, Urine WBC RARE, Ur Epithelial Cells OCCAS, Urine Crystals 1+ UR AC H, Hyaline Casts RARE H, Granular Casts RARE H, Urine Mucus FEW, Urine Hemoglobin SMALL H, Urine Glucose 100 H 03/24/17 1445: Urine Osmolality 277 L, Ur Random Creatinine 24.8, Ur Random Sodium 74, Ur Random Potassium 18.0, Fraction Sodium Excret 5.3 H 03/24/17 1235: Serum Osmolality 323 H 03/24/17 0815: Impression/Plan Impression/Plan Impression/Plan: 1. Hypoxemic respiratory failure secondary to influenza, with possible ARDS. On low tidal volume ventilation strategy with permissive hypercapnia. CT shows GGOs, slightly worse. ID, cardiology and nephrology following. 2. Probable obesity hypoventilation syndrome. 3. Obstructive sleep apnea, undiagnosed. 4. Hypernatremia. 5. History of chronic kidney disease secondary to IgA nephropathy, Cr stable, nephrology following. 6. History of hypothyroidism. 7. Exercise-induced asthma, bronchospasm improved, steroids on a slow taper. 8. Mild transaminitis. 9. Sinus tachycardia rule out etiology. 10. Hypernatremia. Recommendations: Recommendations: * Prednisone - decrease to 15 mg daily. Will taper slowly. * Free water flushes to continue. * D5W at 100 ml/hour - continue with free water replacement. * Will continue to follow up endocrine recommendations. * Continue to following sodium levels q 12 hours today. * Ventilator settings changed - repeat ABG is pending. * Please obtain repeat ECHO as previously requested. * Will consider a ventilation perfusion scan if elevated RV strain. * Continue to follow ID recommendations. Continue ampicillin. * Will still consider transfer to a higher level of care if she continues to fail to improve, noting she may benefit from prone positioning. * Continue tube feeds. Daily bowel regimen as needed. * Follow renal recommendations. * Monitor all electrolytes and replete as necessary. * Continue Synthroid. * Subcutaneous heparin/DVT prophylaxis at all times. * Continue to monitor closely in the critical care unit. Patient remains critically ill. * Continue all supportive care. Will continue to update the patient's family on her progress.
[2017-03-25 08:00] VITALS: BP 100/60
--- NOTE | 2017-03-25 08:14 | RADIOLOGY REPORT ---
EXAMINATION: XR PORTABLE CHEST CLINICAL INFORMATION: ARDS. Evaluate tubes and lines. COMPARISON: 03/24/2017 TECHNIQUE: Portable frontal view of the chest was obtained. FINDINGS: Endotracheal tube is positioned 4.6 cm above the lisa. Enteric tube extends below the diaphragm, into the stomach and its tip is not well seen on this radiograph centered on the chest in this obese patient. Lungs remain hypoinflated. There are persistent interstitial/groundglass opacities and bibasilar airspace opacities without interval change. No pneumothorax, pneumomediastinum or overt pleural effusion. IMPRESSION: 1. Endotracheal tube in satisfactory position at 4.6 cm above the ilsa. 2. Pulmonary disease has not appreciably changed compared to 03/24/2017.
--- NOTE | 2017-03-25 08:58 | PN- Resident CRCU ---
Subjective HPI/CRCU Issues: ARDS Sinus Tachycardia 24 Hour Events: No acute events overnight. FiO2 requirement continues to be high at 75%. Attempts to wean off vercuronium have been so far unsuccessful. There has been a significant bump in her AST/ALT which could partially be explained by propofol. Objective Vital Signs & I&O Last 8 Hrs of Vitals and I&O: . Exam General Appearance: no apparent distress, sedated, intubated Head: atraumatic, normal appearance Respiratory: normal breath sounds, chest non-tender, lungs clear Cardiovascular: tachycardia Gastrointestinal: soft, non-tender Extremities: no edema Skin: intact Skin Temp/Moisture Exam: Warm/Dry Sepsis Skin Exam (color): Normal for Ethnicity Current Medications: Current Medications Sig/Nabila Start time Last Medication Dose Route Stop Time Status Admin Acetaminophen 1,000 MG .STK-MED ONE 03/24 1916 DC IV 03/24 191 Acetaminophen 1,000 MG .STK-MED ONE 03/24 1316 DC IV 03/24 1317 Acetaminophen 650 MG Q6P PRN 03/06 2215 AC 03/11 PO 1140 Acetaminophen 1,000 MG Q6P PRN 03/06 2215 AC 03/25 IV 0401 Albuterol Sulfate 3 ML EVERY 4 HRS/AWAKE 03/08 1600 AC 03/25 INH 0822 Ampicillin 2,000 MG Q8 03/24 1400 AC 03/25 Sodium Chloride 100 ML IV 0557 Artificial Tears 1 GTT BID PRN 03/23 2200 AC OPH Calcium Carbonate 500 MG TID PRN 03/10 0030 AC PO Dextrose/Water 1,000 ML Q10H 03/23 0815 AC 03/25 IV 0101 Fentanyl Citrate 1,000 MCG ONCE ONE 03/25 0400 DC 03/25 Sodium Chloride 250 ML IV 03/25 0401 0434 Fentanyl Citrate 25 MCG ONCE ONE 03/25 0300 DC 03/25 IV 03/25 0301 0303 Glycerin 2 SPRAY Q2P PRN 03/09 0745 AC 03/09 PO 0848 Guaifenesin 10 ML Q4-6 PRN PRN 03/08 0445 AC 03/08 PO 0444 Heparin Sodium 5,000 UNIT Q8 03/07 0600 AC 03/25 (Porcine) SC 0557 Insulin Aspart 0 Q4 03/21 1400 AC 03/25 SC 1038 Insulin Detemir 16 UNITS BID 03/21 2200 AC 03/25 SC 1038 Ipratropium [place] 2.5 ML EVERY 4 HRS/AWAKE 03/08 1600 AC 03/25 INH 0822 Levothyroxine Sodium 37.5 MCG DAILY 03/22 1000 AC 03/25 IV 1039 Lorazepam 100 MG Q20H 03/25 0900 AC Dextrose/Water 1,000 ML IV Lorazepam 100 MG Q20H 03/24 0900 DC 03/25 Dextrose/Water 1,000 ML IV 0217 Metoprolol Tartrate 6.25 MG BID 03/22 2200 AC 03/24 PO 2103 Morphine Sulfate 2 MG Q4P PRN 03/23 0845 AC 03/25 IV 0057 Pantoprazole Sodium 40 MG DAILY 03/22 1000 AC 03/25 IV 1038 Prednisone 15 MG DAILY 03/25 1034 AC PO Prednisone 20 MG DAILY 03/23 1000 DC 03/25 PO 1039 Propofol 1,000 MG Q5H 03/23 1200 AC 03/25 N/A 1 UNIT IV 0831 Sodium Bicarbonate 975 MG BID 03/07 1000 AC 03/23 PO 2206 Vecuronium [place] 50 MG Q6H 03/24 2359 AC 03/25 Dextrose/Water 500 ML IV 0055 Vecuronium [place] 50 MG Q6H 03/21 2130 DC 03/25 Sodium Chloride 500 ML IV 03/24 2359 0813 Impression/Plan Impression/Problem List Impression: 26 yo morbidly obese F with h/o 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 Was being treated on the general medicine floor with Tamiflu and IV ceftriaxone and azithromycin. Transferred to ICU on 03/08/2017 for worsening respiratory status and hypoxia. Assessment * Acute hypoxic respiratory failure secondary to influenza complicated with left lower lobe pneumonia (initially) and now due to possible ARDS. * Sinus Tachycardia likely secondary to developing ARDS * Hypernatremia * Sepsis on admission - resolved. * Influenza A positive - resolved * Acute on chronic kidney disease likely secondary to ATN. There could've been a component of pre-renal azotemia as well - resolved * Elevated CK - ? Rhabdomyolosis - improved with IVF. * Elevated blood sugars * History of Exercise induced Asthma * History of hypothyroidism * Transaminitis * Leukocytosis * ?UTI - GPC in urine. Plan * Continue monitoring in ICU * Currently intubated with FiO2 of 75%. * Sedation with Ativan, Fentanyl drip. Vercuronium drip being attempted to be weaned off. * Her Sinus Tachycardia is likely due to ARDS. * Repeat Echo shows normal LVEF and no evidence of right heart strain. * She is still hypernatremic. Will continue her on D5W @ 100ml/hr. Will check BEP q4 to monitor serum Na. * Continue PO Prednisone to 15mg daily. * Off Tamiflu. Her last flu swab was negative for influenza. * TRC nebs as needed. * Her insulin sliding scale has been adjusted per Endo. Levemir decreased to 15mg BID. * Endo recs appreciated * White count continues to be elevated. Transaminases show significant increase today. Will discontinue Propofol and switch to Fentanyl. * Hepatitis panel has been negative. * RUQ U/S 03/18 showed hepatic steatosis which could be contributing to transaminitis. * Holding lisinopril, nephro input appreciated. * Her urine is growing GPC. Will continue her on IV Ampicillin 2g q8. * Will follow up urine cultures. * Patients renal doctor is Dr Garcia ([phone]) at [place]. Renal d/s started in 2009. * Discontinue sodium bicarbonate tabs in the context of hypernatremia. * Continue Synthroid. * DVT to prophylaxis with subcutaneous heparin * NPO. Continue tube feedings. * Nutrition recs appreciated * Patient is full code PLEASE CALL PATIENT'S FATHER STACY RASHID ) ABOUT ANY CHANGES IN CLINICAL CONDITION/ INTUBATION. HE IS CURRENTLY IN [place]. Problem List: 1. ARDS (adult respiratory distress syndrome) Pain Ratin Tomorrow's Labs & Rationales: CBC, ICU bundle Plan DVT/Prophylaxis: pharmacological Plan DVT/Prophylaxis: pharmacological
--- NOTE | 2017-03-25 12:30 | PN- Infect Dx ---
Subjective Subjective: MAXIMUM TEMPERATURE 102.9 on steroids. She is requiring increased oxygen. Objective Last 24 Hrs of Vital Signs/I&O Vital Signs Date Time Temp Pulse Resp B/P B/P Pulse O2 O2 Flow FiO2 Mean Ox Delivery Rate 03/25 1152 121 112/36 03/25 0904 75 03/25 0800 98.7 110 28 100/60 92 Ventilator 75% 03/25 0800 92 Ventilator 75% 03/25 0606 75 03/25 0501 100.0 02 0401 101.0 03/25 0400 92 Ventilator 75% 03/25 0339 75 03/25 0204 75 03/25 0157 70 02 0000 90 Ventilator 70% 03/25 0000 100.8 146 20 138/58 90 Ventilator 70% 03/24 2241 65 02 2103 101.6 152 20 150/65 02 2100 101.6 02/ 2000 89 Ventilator 65% 03/24 1918 102.9 02/ 1915 60 02/ 1624 60 02/ 1600 90 Ventilator 60% 03/24 1600 99.8 141 20 124/50 90 Ventilator 60% 02 1418 99.2 02/ 1318 99.9 Intake & Output 03/25 1600 03/25 0800 03/25 0000 Intake Total 2944.1 3055.6 Output Total 2450 3300 Balance 494.1 -244.4 Intake, IV 2014.1 2275.6 Intake, Oral 0 Intake, Other 450 300 Intake, Tube 480 480 Feeding Number 0 Bowel Movements Output, Urine 2450 3300 Patient 272 lb Weight Weight Bed scale Measurement Method Physical Exam Other Physical Findings: She is sedated and unresponsive on the ventilator Lungs are clear Heart regular rhythm with no murmur Abdomen is soft, nontender, with positive bowel sounds Extremities no cyanosis, clubbing or edema Cruz catheter remains in place Results Last 24 Hours of Lab Results: Laboratory Tests 03/25 03/25 03/25 0925 0835 0455 Blood Gas pH (7.35 - 7.45 PH) 7.37 7.23 *L pCO2 (35 - 45 TORR) 39 58 H pO2 (80 - 100 TORR) 69 L 72 L HCO3 (21 - 28 MEQ/L) 22 24 ABG O2 Sat (Measured) (>96.0 %) 94.0 L 91.0 L P-50 (Temp Corrected) N Y Carboxyhemoglobin (1.5 - 5.0 %) 0.1 L 0.8 L O2 Concentration % .75 75% Temperature (97.0 - 100.0 FARH) 98.7 101.0 H Respiration Rate (BPM) 28 20 O2 Delivery Method VENT ESPRIT Vent Mode AC AC Expiratory Pressure (CMH2O/P) 10 10 Tidal Volume (CC) 450 450 Chemistry Sodium (137 - 145 mmol/L) 146 H Potassium (3.5 - 5.1 mmol/L) 3.7 Chloride (98 - 107 mmol/L) 110 H Carbon Dioxide (22 - 30 mmol/L) 23 Anion Gap (5 - 16) 12 BUN (7 - 17 mg/dL) 31 H Creatinine (0.5 - 1.0 mg/dL) 2.6 H Estimated GFR (>60 ml/min) 22 L Glucose (65 - 99 mg/dL) 166 H Calcium (8.4 - 10.2 mg/dL) 8.5 Phosphorus (2.5 - 4.5 mg/dL) 4.0 Magnesium (1.6 - 2.3 mg/dL) 2.0 Total Bilirubin (0.2 - 1.3 mg/dL) 0.6 AST (14 - 36 U/L) 191 H ALT (9 - 52 U/L) 441 H Albumin (3.5 - 5.0 g/dL) 2.6 L Miscellaneous Phlebotomy Draw Site RIGHT RADIAL RIGHT RADIAL 03/25 03/25 03/24 03/24 5617 0227 2240 1615 Chemistry Sodium (137 - 145 mmol/L) 150 H 151 H 152 H 150 H Potassium (3.5 - 5.1 mmol/L) 4.3 Chloride (98 - 107 mmol/L) 114 H Carbon Dioxide (22 - 30 mmol/L) 24 Anion Gap (5 - 16) 11 BUN (7 - 17 mg/dL) 31 H Creatinine (0.5 - 1.0 mg/dL) 2.6 H Estimated GFR (>60 ml/min) 22 L Glucose (65 - 99 mg/dL) 157 H Calcium (8.4 - 10.2 mg/dL) 9.0 Phosphorus (2.5 - 4.5 mg/dL) 3.8 Magnesium (1.6 - 2.3 mg/dL) 2.4 H Total Bilirubin (0.2 - 1.3 mg/dL) 0.4 AST (14 - 36 U/L) 267 H ALT (9 - 52 U/L) 479 H Albumin (3.5 - 5.0 g/dL) 2.7 L Triglycerides (<150 mg/dL) 241 H Hematology CBC w Diff NO MAN DIFF REQ WBC (4.8 - 10.8 /CUMM) 12.9 H RBC (4.20 - 5.40 /CUMM) 3.42 L Hgb (12.0 - 16.0 G/DL) 10.4 L Hct (37 - 47 %) 31.7 L MCV (81.0 - 99.0 FL) 92.8 MCH (27.0 - 31.0 PG) 30.5 MCHC (33.0 - 37.0 G/DL) 32.8 L RDW (11.5 - 14.5 %) 13.6 Plt Count (130 - 400 /CUMM) 129 L MPV (7.4 - 10.4 FL) 9.6 Gran % (42.2 - 75.2 %) 69.8 Lymphocytes % (20.5 - 51.1 %) 22.8 Monocytes % (1.7 - 9.3 %) 4.5 Eosinophils % (0 - 5 %) 2.0 Basophils % (0.0 - 2.0 %) 0.9 Absolute Granulocytes (1.4 - 6.5 /CUMM) 9.0 H Absolute Lymphocytes (1.2 - 3.4 /CUMM) 2.9 Absolute Monocytes (0.10 - 0.60 /CUMM) 0.6 Absolute Eosinophils (0.0 - 0.7 /CUMM) 0.3 Absolute Basophils (0.0 - 0.2 /CUMM) 0.1 03/24 03/24 03/24 1445 1445 1235 Chemistry Sodium (137 - 145 mmol/L) 151 H Serum Osmolality (285 - 295 MOSM/KG) 323 H Urines Urine Color (YEL,AMB,STR) YEL Urine Clarity (CLEAR) CLEAR Urine pH (5.0 - 8.0) 5.5 Ur Specific [place] (1.001 - 1.035) 1.015 Urine Protein (NEG,<30 MG/DL) 100 H Urine Ketones (NEG) NEG Urine Nitrite (NEG) NEG Urine Bilirubin (NEG) NEG Urine Urobilinogen (0.1 - 1.0 EU/dl) 0.2 Ur Leukocyte Esterase (NEG) NEG Ur Microscopic SEDIMENT EXAMINED Urine RBC (0 - 5 /HPF) 1-3 Urine WBC (0 - 2 /HPF) RARE Ur Epithelial Cells (NONE,FEW) OCCAS Urine Crystals 1+ UR AC H Hyaline Casts (0/LPF) RARE H Granular Casts (NONE /LPF) RARE H Urine Mucus (FEW,NONE) FEW Urine Hemoglobin (NEG) SMALL H Urine Osmolality (300 - 1000 MOSM/KG) 277 L Ur Random Creatinine (mg/dL) 24.8 Ur Random Sodium (30 - 90 mmol/L) 74 Ur Random Potassium (mmol/L) 18.0 Fraction Sodium Excret (<1% %) 5.3 H Urine Glucose (N MG/DL) 100 H Last 24 Hours of Michael Results: Urine culture March 23 greater than 100,000 colonies of Enterococcus sensitive to Ampicillin Sputum culture March 23 mixed daryl Blood cultures 2 March 23 negative Recent Imaging Studies: Chest x-ray March 25, personally reviewed, reveals persistent interstitial/ ground glass opacities and bibasilar airspace opacities Assessment/Plan Impression: Fevers, with white blood cell count overall decreased (on tapering steroids), possibly secondary to a Cruz catheter associated urinary tract infection, with her urine culture positive for Enterococcus, for which she is now on Ampicillin. Her renal function is stable, though worsened from several days ago, with no obvious explanation. Her transaminases remain elevated, possibly medication induced, with her recent right upper quadrant ultrasound negative. Suggestion: 1. Discontinue all nonessential medications 2. Consider CT of the abdomen and pelvis if liver enzymes remain elevated 3. Continue Ampicillin
--- NOTE | 2017-03-25 12:51 | PN- Nephrology ---
Assessment/Plan Assessment: TREVOR, hypernatremia better. Urine Osm is isothenuric (about 300) and Urine Na is about 1/2 NS. She is neither concentrating or diluting her urine. This is consistent with ATN or obstructive uropathy (fixed U Osm similar to serum and 1/ 2 NS without appropriate sodium/water handline). Continue D5W but when Na down to 140 she will need some sodium in IVF (1/2 NS can be used at that point.). Urine output may not correlate with volume status (ATN) and she will need ongoing IVF for now. Discussed with ICU team. Clay Greene MD Suggestion: . Subjective Subjective: Pt without change. Cr stable. Nice work by ICU team. Objective Vital Signs and I&Os F Intubated Lungs vent BS Cor RRR Abd soft Et 1-2+edema Results Pertinent Lab Results: 146 /110 / 31 / 3.7 / 23 / 2.6\ U Osm 277 U Na 77
--- NOTE | 2017-03-25 14:17 | PN- Diabetes ---
Assessment/Plan Assessment: 26-year-old female who has had a history of prediabetes, overweight, Ig A nephropathy along with chronic renal insufficiency and asthma, was in ICU for respiratory distress. She was treated with Solu-Medrol which was gradually decreased to 20 mg once a day. However, she was intubated on 03/21/2017. She is on tube feeding at 60 ml/hour. Her sodium was 155 on 03/23/2017. Currently She is on D5w 100 ml/hour. She is receiving free water via feeding tube every 4 hours. She is on Ativan drip in D5W and Norcuron drip in D5W. Steroid was further decreased to prednisone 20 mg po daily. Currently she is on Levemir 16 units twice a day; Novolog coverage every 4 hours. Her FSGs were 161, 155, 198 and 321 . This morning, her Cr was 2.6 and sodium was 146. Plan: 1. increase Levemir to 20 units twice a day; 2. adjust Novolog coverage every 4 hours;detail see the inpatient DM order; 3. monitor FSGs and electrolytes. will follow. Inpatient Diabetes Orders Every 4 Hours: Bolus Insulin: Novolog < 80 mg/dl: no coverage 80-100 mg/dl: no coverage 101-120 mg/dl: 3 units 121-150 mg/dl: 3 units 151-200 mg/dl: 5 units 201-250 mg/dl: 7 units 251-300 mg/dl: 9 units 301-350 mg/dl: 11 units 351-400 mg/dl: 13 units > 400 mg/dl: 15 units Subjective Subjective: She is intubated. Objective Last 24 Hrs of Vital Signs/I&O Vital Signs Date Time Temp Pulse Resp B/P B/P Pulse O2 O2 Flow FiO2 Mean Ox Delivery Rate 03/25 1200 91 Ventilator 80% 03/25 1152 121 112/36 / 0904 75 / 0800 98.7 110 28 100/60 92 Ventilator 75% 03/25 0800 92 Ventilator 75% 03/25 0606 75 02/ 0501 100.0 02/ 0401 101.0 03/25 0400 92 Ventilator 75% 03/25 0339 75 03/25 0204 75 / 0157 70 02/ 0000 90 Ventilator 70% 03/25 0000 100.8 146 20 138/58 90 Ventilator 70% 03/24 2241 65 03/24 2103 101.6 152 20 150/65 03/24 2100 101.6 03/24 1999 89 Ventilator 65% 03/24 1918 102.9 03/24 1915 60 03/24 1624 60 03/24 1600 90 Ventilator 60% 03/24 1600 99.8 141 20 124/50 90 Ventilator 60% 03/24 1418 99.2 Intake & Output 03/25 1600 03/25 0800 03/25 0000 Intake Total 2944.1 3055.6 Output Total 2450 3300 Balance 494.1 -244.4 Intake, IV 2014.1 2275.6 Intake, Oral 0 Intake, Other 450 300 Intake, Tube 480 480 Feeding Number 0 Bowel Movements Output, Urine 2450 3300 Patient 272 lb Weight Weight Bed scale Measurement Method Findings Pertinent Lab/Michael Results: Laboratory Tests 03/25 03/25 03/25 1315 0925 0835 Blood Gas pH (7.35 - 7.45 PH) 7.37 pCO2 (35 - 45 TORR) 39 pO2 (80 - 100 TORR) 69 L HCO3 (21 - 28 MEQ/L) 22 ABG O2 Sat (Measured) (>96.0 %) 94.0 L P-50 (Temp Corrected) N Carboxyhemoglobin (1.5 - 5.0 %) 0.1 L O2 Concentration % .75 Temperature (97.0 - 100.0 FARH) 98.7 Respiration Rate (BPM) 28 O2 Delivery Method VENT Vent Mode AC Expiratory Pressure (CMH2O/P) 10 Tidal Volume (CC) 450 Chemistry Sodium (137 - 145 mmol/L) Pending 146 H Potassium (3.5 - 5.1 mmol/L) Pending 3.7 Chloride (98 - 107 mmol/L) Pending 110 H Carbon Dioxide (22 - 30 mmol/L) Pending 23 Anion Gap (5 - 16) Pending 12 BUN (7 - 17 mg/dL) Pending 31 H Creatinine (0.5 - 1.0 mg/dL) Pending 2.6 H Estimated GFR (>60 ml/min) 22 L Glucose (65 - 99 mg/dL) Pending 166 H Serum Osmolality (285 - 295 MOSM/KG) 315 H Lactic Acid Pending Calcium (8.4 - 10.2 mg/dL) Pending 8.5 Phosphorus (2.5 - 4.5 mg/dL) Pending 4.0 Magnesium (1.6 - 2.3 mg/dL) Pending 2.0 Total Bilirubin (0.2 - 1.3 mg/dL) Pending 0.6 AST (14 - 36 U/L) Pending 191 H ALT (9 - 52 U/L) Pending 441 H Albumin (3.5 - 5.0 g/dL) Pending 2.6 L Miscellaneous Phlebotomy Draw Site RIGHT RADIAL 03/25 03/25 03/25 9601 0444 5329 Blood Gas pH (7.35 - 7.45 PH) 7.23 *L pCO2 (35 - 45 TORR) 58 H pO2 (80 - 100 TORR) 72 L HCO3 (21 - 28 MEQ/L) 24 ABG O2 Sat (Measured) (>96.0 %) 91.0 L P-50 (Temp Corrected) Y Carboxyhemoglobin (1.5 - 5.0 %) 0.8 L O2 Concentration % 75% Temperature (97.0 - 100.0 FARH) 101.0 H Respiration Rate (BPM) 20 O2 Delivery Method ESPRIT Vent Mode AC Expiratory Pressure (CMH2O/P) 10 Tidal Volume (CC) 450 Chemistry Sodium (137 - 145 mmol/L) 150 H 151 H Potassium (3.5 - 5.1 mmol/L) 4.3 Chloride (98 - 107 mmol/L) 114 H Carbon Dioxide (22 - 30 mmol/L) 24 Anion Gap (5 - 16) 11 BUN (7 - 17 mg/dL) 31 H Creatinine (0.5 - 1.0 mg/dL) 2.6 H Estimated GFR (>60 ml/min) 22 L Glucose (65 - 99 mg/dL) 157 H Calcium (8.4 - 10.2 mg/dL) 9.0 Phosphorus (2.5 - 4.5 mg/dL) 3.8 Magnesium (1.6 - 2.3 mg/dL) 2.4 H Total Bilirubin (0.2 - 1.3 mg/dL) 0.4 AST (14 - 36 U/L) 267 H ALT (9 - 52 U/L) 479 H Albumin (3.5 - 5.0 g/dL) 2.7 L Triglycerides (<150 mg/dL) 241 H Hematology CBC w Diff NO MAN DIFF REQ WBC (4.8 - 10.8 /CUMM) 12.9 H RBC (4.20 - 5.40 /CUMM) 3.42 L Hgb (12.0 - 16.0 G/DL) 10.4 L Hct (37 - 47 %) 31.7 L MCV (81.0 - 99.0 FL) 92.8 MCH (27.0 - 31.0 PG) 30.5 MCHC (33.0 - 37.0 G/DL) 32.8 L RDW (11.5 - 14.5 %) 13.6 Plt Count (130 - 400 /CUMM) 129 L MPV (7.4 - 10.4 FL) 9.6 Gran % (42.2 - 75.2 %) 69.8 Lymphocytes % (20.5 - 51.1 %) 22.8 Monocytes % (1.7 - 9.3 %) 4.5 Eosinophils % (0 - 5 %) 2.0 Basophils % (0.0 - 2.0 %) 0.9 Absolute Granulocytes (1.4 - 6.5 /CUMM) 9.0 H Absolute Lymphocytes (1.2 - 3.4 /CUMM) 2.9 Absolute Monocytes (0.10 - 0.60 /CUMM) 0.6 Absolute Eosinophils (0.0 - 0.7 /CUMM) 0.3 Absolute Basophils (0.0 - 0.2 /CUMM) 0.1 Miscellaneous Phlebotomy Draw Site RIGHT RADIAL 03/24 03/24 03/24 2240 1615 1445 Chemistry Sodium (137 - 145 mmol/L) 152 H 150 H Urines Urine Color (YEL,AMB,STR) YEL Urine Clarity (CLEAR) CLEAR Urine pH (5.0 - 8.0) 5.5 Ur Specific [place] (1.001 - 1.035) 1.015 Urine Protein (NEG,<30 MG/DL) 100 H Urine Ketones (NEG) NEG Urine Nitrite (NEG) NEG Urine Bilirubin (NEG) NEG Urine Urobilinogen (0.1 - 1.0 EU/dl) 0.2 Ur Leukocyte Esterase (NEG) NEG Ur Microscopic SEDIMENT EXAMINED Urine RBC (0 - 5 /HPF) 1-3 Urine WBC (0 - 2 /HPF) RARE Ur Epithelial Cells (NONE,FEW) OCCAS Urine Crystals 1+ UR AC H Hyaline Casts (0/LPF) RARE H Granular Casts (NONE /LPF) RARE H Urine Mucus (FEW,NONE) FEW Urine Hemoglobin (NEG) SMALL H Urine Glucose (N MG/DL) 100 H 03/24 1445 Urines Urine Osmolality (300 - 1000 MOSM/KG) 277 L Ur Random Creatinine (mg/dL) 24.8 Ur Random Sodium (30 - 90 mmol/L) 74 Ur Random Potassium (mmol/L) 18.0 Fraction Sodium Excret (<1% %) 5.3 H
--- NOTE | 2017-03-25 14:32 | PN- Cardiology ---
Subjective Subjective: Remains intubated and sedated. Hemodynamically stable despite persistent sinus tachycardia. Repeat echo showed normal / hyperdynamic LV systolic function with no other evidence issues. Objective Vital Signs and I&Os Vital Signs Date Time Temp Pulse Resp B/P B/P Pulse O2 O2 Flow FiO2 Mean Ox Delivery Rate 03/25 1423 75 03/25 1419 80 / 1200 91 Ventilator 80% 03/25 1152 121 112/36 03/25 0904 75 03/25 0800 98.7 110 28 100/60 92 Ventilator 75% 03/25 0800 92 Ventilator 75% 03/25 0606 75 03/25 0501 100.0 03/25 0401 101.0 03/25 0400 92 Ventilator 75% 03/25 0339 75 03/25 0204 75 03/25 0157 70 03/25 0000 90 Ventilator 70% 03/25 0000 100.8 146 20 138/58 90 Ventilator 70% 03/24 2241 65 03/24 2103 101.6 152 20 150/65 03/24 2100 101.6 03/24 2000 89 Ventilator 65% 03/24 1918 102.9 02 1915 60 03/24 1624 60 03/24 1600 90 Ventilator 60% 03/24 1600 99.8 141 20 124/50 90 Ventilator 60% Intake & Output 03/25 1600 03/25 0800 03/25 0000 03/24 1600 03/24 0800 03/24 0000 Intake Total 3045 2944.1 3055.6 2445 2753 2328 Output Total 1900 2450 3300 2500 1400 1390 Balance 1145 494.1 -244.4 -55 1353 938 Intake, IV 2290 2014.1 2275.6 1685 1846 1811 Intake, Oral 0 0 Intake, Other 450 300 Intake, Tube 395 480 480 400 547 327 Feeding Intake, Tube 360 360 360 190 Irrigant Number 0 0 0 Bowel Movements Output, Urine 1900 2450 3300 2500 1400 1390 Patient 272 lb Weight Weight Bed scale Measurement Method Current Medications: Current Medications Sig/Nabila Start time Last Medication Dose Route Stop Time Status Admin Acetaminophen 1,000 MG .STK-MED ONE 03/25 315 DC IV 03/25 316 Acetaminophen 1,000 MG .STK-MED ONE 03/24 1916 DC IV 03/24 1917 Acetaminophen 650 MG Q6P PRN 03/06 2215 AC 03/11 PO 1140 Acetaminophen 1,000 MG Q6P PRN 03/06 2215 AC 03/25 IV 0401 Albuterol Sulfate 3 ML EVERY 4 HRS/AWAKE 03/08 1600 AC 03/25 INH 1210 Ampicillin 2,000 MG Q8 03/24 1400 AC 03/25 Sodium Chloride 100 ML IV 0557 Artificial Tears 1 GTT BID PRN 03/23 2200 AC OPH Calcium Carbonate 500 MG TID PRN 03/10 0030 AC PO Dextrose/Water 1,000 ML Q10H 03/23 0815 AC 03/25 IV 0101 Fentanyl Citrate 1,000 MCG Q8H 03/25 1400 AC Sodium Chloride 250 ML IV Fentanyl Citrate 1,000 MCG ONCE ONE 03/25 0400 DC 03/25 Sodium Chloride 250 ML IV 03/25 0401 0434 Fentanyl Citrate 100 MCG .STK-MED ONE 03/25 0301 DC IM 03/25 0302 Fentanyl Citrate 25 MCG ONCE ONE 03/25 0300 DC 03/25 IV 03/25 0301 0303 Glycerin 2 SPRAY Q2P PRN 03/09 0745 AC 03/09 PO 0848 Guaifenesin 10 ML Q4-6 PRN PRN 03/08 0445 AC 03/08 PO 0444 Heparin Sodium 5,000 UNIT Q8 03/07 0600 AC 03/25 (Porcine) SC 1405 Insulin Aspart 0 Q4 03/21 1400 AC 03/25 SC 1404 Insulin Detemir 20 UNITS BID 03/25 2200 AC SC Insulin Detemir 16 UNITS BID 03/21 2200 DC 03/25 SC 1038 Ipratropium [place] 2.5 ML EVERY 4 HRS/AWAKE 03/08 1600 AC 03/25 INH 1210 Levothyroxine Sodium 37.5 MCG DAILY 03/22 1000 AC 03/25 IV 1039 Lorazepam 100 MG Q20H 03/25 0900 DC 03/25 Dextrose/Water 1,000 ML IV 1232 Lorazepam 100 MG Q9H 03/25 0900 AC 03/25 Dextrose/Water 1,000 ML IV 1232 Lorazepam 100 MG Q20H 03/24 0900 DC 03/25 Dextrose/Water 1,000 ML IV 0217 Metoprolol Tartrate 6.25 MG BID 03/22 2200 AC 03/25 PO 1152 Morphine Sulfate 2 MG Q4P PRN 03/23 0845 AC 03/25 IV 0057 Pantoprazole Sodium 40 MG DAILY 03/22 1000 AC 03/25 IV 1038 Prednisone 15 MG DAILY 03/25 1034 AC 03/25 PO 1152 Prednisone 20 MG DAILY 03/23 1000 DC 03/25 PO 1039 Propofol 1,000 MG Q5H 03/23 1200 DC 03/25 N/A 1 UNIT IV 0831 Sodium Bicarbonate 975 MG BID 03/07 1000 AC 03/23 PO 2206 Vecuronium [place] 50 MG Q6H 03/24 2359 AC 03/25 Dextrose/Water 500 ML IV 0055 Vecuronium [place] 50 MG Q6H 03/21 2130 DC 03/25 Sodium Chloride 500 ML IV 03/24 2359 0813 Results Last 48 Hrs of Labs/Mics: Laboratory Tests 03/25/17 1315: Sodium Pending, Potassium Pending, Chloride Pending, Carbon Dioxide Pending, Anion Gap Pending, BUN Pending, Creatinine Pending, Glucose Pending, Lactic Acid Pending, Calcium Pending, Phosphorus Pending, Magnesium Pending, Total Bilirubin Pending, AST Pending, ALT Pending, Albumin Pending 03/25/17 0925: Anion Gap 12, Estimated GFR 22 L, Glucose 166 H, Serum Osmolality 315 H, Calcium 8.5, Phosphorus 4.0, Magnesium 2.0, Total Bilirubin 0.6, AST 191 H, ALT 441 H, Albumin 2.6 L 03/25/17 0835: pH 7.37, pCO2 39, pO2 69 L, HCO3 22, ABG O2 Sat (Measured) 94.0 L, P-50 (Temp Corrected) N, Carboxyhemoglobin 0.1 L, O2 Concentration % .75, Temperature 98.7 , Respiration Rate 28, O2 Delivery Method VENT, Vent Mode AC, Expiratory Pressure 10, Tidal Volume 450, Phlebotomy Draw Site RIGHT RADIAL 03/25/17 0455: pH 7.23 *L, pCO2 58 H, pO2 72 L, HCO3 24, ABG O2 Sat (Measured) 91.0 L, P-50 (Temp Corrected) Y, Carboxyhemoglobin 0.8 L, O2 Concentration % 75%, Temperature 101.0 H, Respiration Rate 20, O2 Delivery Method ESPRIT, Vent Mode AC, Expiratory Pressure 10, Tidal Volume 450, Phlebotomy Draw Site RIGHT RADIAL 03/25/17 0857: Anion Gap 11, Estimated GFR 22 L, Glucose 157 H, Calcium 9.0, Phosphorus 3.8, Magnesium 2.4 H, Total Bilirubin 0.4, AST 267 H, ALT 479 H, Albumin 2.7 L, Triglycerides 241 H, CBC w Diff NO MAN DIFF REQ, RBC 3.42 L, MCV 92.8, MCH 30.5, MCHC 32.8 L, RDW 13.6, MPV 9.6, Gran % 69.8, Lymphocytes % 22.8, Monocytes % 4.5, Eosinophils % 2.0, Basophils % 0.9, Absolute Granulocytes 9.0 H, Absolute Lymphocytes 2.9, Absolute Monocytes 0.6, Absolute Eosinophils 0.3, Absolute Basophils 0.1 03/25/17 0227: 03/24/17 2240: 03/24/17 1615: 03/24/17 1445: Urine Color YEL, Urine Clarity CLEAR, Urine pH 5.5, Ur Specific [place] 1.015, Urine Protein 100 H, Urine Ketones NEG, Urine Nitrite NEG, Urine Bilirubin NEG, Urine Urobilinogen 0.2, Ur Leukocyte Esterase NEG, Ur Microscopic SEDIMENT EXAMINED, Urine RBC 1-3, Urine WBC RARE, Ur Epithelial Cells OCCAS, Urine Crystals 1+ UR AC H, Hyaline Casts RARE H, Granular Casts RARE H, Urine Mucus FEW, Urine Hemoglobin SMALL H, Urine Glucose 100 H 03/24/17 1445: Urine Osmolality 277 L, Ur Random Creatinine 24.8, Ur Random Sodium 74, Ur Random Potassium 18.0, Fraction Sodium Excret 5.3 H 03/24/17 1235: Serum Osmolality 323 H 03/24/17 0815: 03/24/17 0505: pH 7.31 L, pCO2 45, pO2 78 L, HCO3 22, ABG O2 Sat (Measured) 94.0 L, P-50 ( Temp Corrected) Y, Carboxyhemoglobin 0.4 L, O2 Concentration % 55%, Temperature 99.6, Respiration Rate 20, O2 Delivery Method ESPRIT, Vent Mode AC, Expiratory Pressure 10, Tidal Volume 450, Phlebotomy Draw Site LEFT RADIAL 03/24/17 0352: Anion Gap 13, Estimated GFR 21 L, Glucose 161 H, Calcium 8.7, Phosphorus 5.4 H, Magnesium 2.1, Total Bilirubin 0.4, AST 100 H, ALT 199 H, Albumin 2.6 L, CBC w Diff NO MAN DIFF REQ, RBC 3.38 L, MCV 92.3, MCH 30.4, MCHC 32.9 L, RDW 13.4, MPV 9.5, Gran % 74.1, Lymphocytes % 19.2 L, Monocytes % 4.2, Eosinophils % 1.9, Basophils % 0.6, Absolute Granulocytes 9.0 H, Absolute Lymphocytes 2.3, Absolute Monocytes 0.5, Absolute Eosinophils 0.2, Absolute Basophils 0.1 03/24/17 0011: Anion Gap 11, Estimated GFR 22 L, BUN/Creatinine Ratio 11.5 03/23/172007: Anion Gap 13, Estimated GFR 21 L, BUN/Creatinine Ratio 11.1 03/23/17 1623: Anion Gap 11, Estimated GFR 21 L, BUN/Creatinine Ratio 11.4 Microbiology 03/23 1700 LOWER RESP: Respiratory Culture - COMP 03/23 1700 LOWER RESP: Gram Stain - COMP 03/23 1630 URINE ROUT: Urine Culture - COMP ENTEROCOCCUS Assessment/Plan Assessment/Plan Assessment: 1. Acute hypoxaemic respiratory failure secondary to influenza complicated with left lower lobe pneumonia. 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 Persistent sinus tachycardia-oversew days, the patient received IV Lasix and diuresed [id number] L. Over that same time. Her creatinine increased, her sodium increasing significantly, and the patient has become more significantly tachycardic. I suspect that a significant amount of her tachycardia is related to volume depletion. 9. Possible DI Recommendations: -Avoid any further diuresis -Continue as per the ICU team, Nephrology and Endocrinology -Follow-up echocardiogram showed normal / hyperdynamic LV systolic function with no effusion and normal valvular function. -Sinus tachycardia appears to be compensatory, would continue to observe heart rate for now and continue to aggressively treat underlying issues as discussed. Continue telemetry? Yes
[2017-03-25 16:00] VITALS: BP 138/74
[2017-03-26] VITALS: BP 122/50
[2017-03-26 05:26] LABS: ABSOLUTE BASOPHIL COUNT 0 /CUMM (0.0-0.2); ABSOLUTE EOSINOPHIL COUNT 0 /CUMM (0.0-0.7); ABSOLUTE GRANULOCYTE CT 8.2 /CUMM (1.4-6.5); ABSOLUTE LYMPH COUNT 1.2 /CUMM (1.2-3.4); ABSOLUTE MONOCYTE COUNT 0.2 /CUMM (0.10-0.60); BASOPHIL % 0.3 % (0.0-2.0); EOSINOPHIL % 0 % (0-5); GRANULOCYTE % 85.6 % (42.2-75.2); HEMATOCRIT 27.3 % (37-47); MEAN CORPUSCULAR HGB 30.6 PG (27.0-31.0); MEAN CORPUSCULAR HGB CONC 33.8 G/DL (33.0-37.0); MEAN CORPUSCULAR VOLUME 90.5 FL (81.0-99.0); MEAN PLATELET VOLUME 9.4 FL (7.4-10.4); PLATELET COUNT 100 /CUMM (130-400); RBC DISTRIBUTION WIDTH 12.9 % (11.5-14.5); RED BLOOD CELL CT 3.02 /CUMM (4.20-5.40); WHITE BLOOD CELL COUNT 9.6 /CUMM (4.8-10.8)
[2017-03-26 08:00] VITALS: BP 120/50
--- NOTE | 2017-03-26 08:32 | PN- Resident CRCU ---
Dayna Joshua 03/26/17 0832: Subjective HPI/CRCU Issues: ARDS - intubated Sinus Tachycardia Hyperglycemia 24 Hour Events: Patient hyperglycemic this a.m in setting of steroids. SS changed as per Endo Objective Vital Signs & I&O Last 8 Hrs of Vitals and I&O: Intake & Output 03/26 1600 Intake Total 3047 Output Total 1500 Balance 1547 Intake, IV 2180 Intake, Oral 0 Intake, Other 60 Intake, Tube 507 Feeding Intake, Tube 300 Irrigant Number 0 Bowel Movements Output, Urine 1500 Exam General Appearance: intubated, obese, Positioned on R side Respiratory: decreased breath sounds Cardiovascular: regular rate/rhythm Gastrointestinal: normal bowel sounds, soft, non-tender Extremities: BL multipodus boots Current Medications: Current Medications Sig/Nabila Start time Last Medication Dose Route Stop Time Status Admin Acetaminophen 1,000 MG .STK-MED ONE 03/25 1704 DC IV 03/25 1705 Acetaminophen 650 MG Q6P PRN 03/06 2215 AC 03/11 PO 1140 Acetaminophen 1,000 MG Q6P PRN 03/06 2215 AC 03/25 IV 1706 Albuterol Sulfate 3 ML EVERY 4 HRS/AWAKE 03/08 1600 AC 03/26 INH 1157 Ampicillin 2,000 MG Q8 03/24 1400 AC 03/26 Sodium Chloride 100 ML IV 1411 Artificial Tears 1 GTT BID PRN 03/23 2200 AC OPH Calcium Carbonate 500 MG TID PRN 03/10 0030 AC PO Dextrose/Water 1,000 ML Q10H 03/23 0815 AC 03/25 IV 1459 Docusate Sodium 100 MG DAILY NEEDED 03/26 0915 AC PO Fentanyl Citrate 1,000 MCG Q5H 03/26 1330 AC 03/26 Sodium Chloride 250 ML IV 1407 Fentanyl Citrate 1,000 MCG Q5H 03/26 1015 DC 03/26 Sodium Chloride 250 ML IV 1011 Fentanyl Citrate 1,000 MCG Q8H 03/25 1400 AC 03/26 Sodium Chloride 250 ML IV 03/26 1329 1407 Glycerin 2 SPRAY Q2P PRN 03/09 0745 AC 03/09 PO 0848 Guaifenesin 10 ML Q4-6 PRN PRN 03/08 0445 AC 03/08 PO 0444 Heparin Sodium 5,000 UNIT Q8 03/07 0600 AC 03/26 (Porcine) SC 1412 Insulin Aspart 7 UNITS ONCE ONE 03/26 1030 DC 03/26 SC 03/26 1031 1227 Insulin Aspart 0 Q4 03/21 1400 AC 03/26 SC 1411 Insulin Detemir 25 UNITS BID 03/26 2200 AC SC Insulin Detemir 5 UNITS ONCE ONE 03/26 1030 DC 03/26 SC 03/26 1031 1227 Insulin Detemir 20 UNITS BID 03/25 2200 DC 03/26 SC 1010 Ipratropium [place] 2.5 ML EVERY 4 HRS/AWAKE 03/08 1600 AC 03/26 INH 1157 Levothyroxine Sodium 37.5 MCG DAILY 03/22 1000 AC 03/26 IV 1011 Lorazepam 100 MG Q9H 03/26 1700 AC Dextrose/Water 1,000 ML IV Lorazepam 100 MG Q9H 03/25 0900 AC 03/26 Dextrose/Water 1,000 ML IV 03/26 1659 0642 Methylprednisolone 60 MG Q8 03/25 2200 AC 03/26 IV 1411 Methylprednisolone 60 MG ONCE ONE 03/25 1745 DC 03/25 IV 03/25 1746 1755 Metoprolol Tartrate 6.25 MG BID 03/22 2200 AC 03/26 PO 1010 Morphine Sulfate 2 MG Q4P PRN 03/23 0845 AC 03/26 IV 1245 Pantoprazole Sodium 40 MG DAILY 03/22 1000 AC 03/26 IV 1011 Polyethylene Glycol 17 GM DAILY 03/26 1000 AC 03/26 PO 1010 Prednisone 15 MG DAILY 03/25 1034 DC 03/25 PO 1152 Senna 187 MG AT BEDTIME 03/26 2200 AC PO Sodium Bicarbonate 975 MG BID 03/07 1000 AC 03/26 PO 1233 Vecuronium [place] 50 MG Q11H 03/26 1330 AC 03/26 Dextrose/Water 500 ML IV 1407 Vecuronium [place] 50 MG Q8H 03/26 1015 DC Dextrose/Water 500 ML IV Vecuronium [place] 50 MG Q6H 03/24 2359 DC 03/26 Dextrose/Water 500 ML IV 03/26 1329 1406 CXR Findings: IMPRESSION: 1. Slightly high position of endotracheal tube 6.4 centers above the lisa. 2. Severe diffuse airspace opacity consistent with ARDS increased from priors. Impression/Plan Impression/Problem List Impression: Ms. 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 Transferred to ICU on 03/08/2017 for worsening respiratory status and hypoxia. Problem list: 1. Acute hypoxic respiratory failure secondary to influenza complicated with left lower lobe pneumonia (initially) and now due to possible ARDS - intubated 2. Sinus Tachycardia likely secondary to developing ARDS 3. Hypernatremia - resolved 4. Sepsis on admission - resolved. 5. Influenza A positive treated with Tamiflu - resolved 6. Acute on chronic kidney disease likely secondary to ATN. There could've been a component of pre-renal azotemia as well - resolved 7. Elevated CK - ? Rhabdomyolosis - improved with IVF. 8. Hyperglycemia 9. History of Exercise induced Asthma 10. History of hypothyroidism 11. Transaminitis 12. Leukocytosis 13. ?UTI - GPC in urine Plan: * Novolog SS/Levemir changed as per Endo recommendations * Give additional 5U Levemir and 7U Novolog today * Bowel regimen added * NaHCO3 on hold * PIV extended for no longer than 7 days * CXR: ETT 6.4 cm above lisa - may be positional * Repeat CXR in a.m. * AB.29/41/59/19 with permissive hypercarbia in setting of ARDS * Continue IV Methylprednisolone * Repeat coags in a.m. * Monitor platelets * Cr stable * Continue IV Ampicillin * Metoprolol increased from 6.25 BID to 12.5 BID as per Cardio Problem List: 1. ARDS (adult respiratory distress syndrome) Pain Ratin Tomorrow's Labs & Rationales: Iron studies INR CBC ICU Bundle Plan DVT/Prophylaxis: pharmacological Jose Ramon Aguero MD 03/26/17 1017: Attending MD Review Statement Attending Sign Off Attending Cosign Statement: I have: examined this patient, reviewed avalbl EMR data, personally reviewd images, discussd w/resident/PA/PARKING CASHIER, discussed mgmt plan w/javon, discussed mgmt plan w/CM, discussed mgmt plan w/pt, agreed w/resident/PA/PARKING CASHIER, amended to note. Other Findings: I, Jose Ramon Aguero M.D. have examined this patient, reviewed available EMR data, personally reviewed images, discussed with resident/PA/PARKING CASHIER, discussed management plan with housestaff and nursing staff, discussed managment plan all of healthcare providers, discussed management plan with patient and/or family, agreed with resident/PA/PARKING CASHIER. The past history and parts of the chart have been autopopulated. Impression 26 year old woman * acute hypoxemic respiratory failure, secondary to influenza in the setting of asthma, consistent with ARDS - hx of IgA nephropathy * stable anemia - likely chronic disease * hyperglycemia likely steroid induced * chronic CKD Consultants -renal, ID, endocrinology, cardiology Plan Respiratory -monitor abgs, cxrs, permissive hypercarbia is acceptable however normal co2 now -ETT 6.4cm possibly positional - patient has not moved and the ETT tube 22 at the lip, given rotation likely positional, will not advance at this time -continue solumedrol for now 60mg iv q8h ID -f/u ID, continue unasyn, s/p tamiflu CVS -hemodynamic monitoring -f/u cardiology recs Heme -check coags -moniotor platelets -hearpin subcutaneous for DVT prophylaxis Metabolic -f/u endocrine, renal -glucose control Alimentary -Glucerna Neuro -cont vecuronium and fentanyl, monitor BIS -f/u LFTs - improved DVT prophylaxis at all times TTS 40 min
--- NOTE | 2017-03-26 09:35 | RADIOLOGY REPORT ---
EXAMINATION: XR PORTABLE CHEST CLINICAL INFORMATION: ARDS. COMPARISON: Recent priors. TECHNIQUE: Portable frontal view of the chest was obtained. FINDINGS: The endotracheal tube is 6.4 centers above the lisa. The feeding tube reaches the stomach. The tip is difficult to identified. There is severe diffuse airspace opacity consistent with ARDS. Opacity is increased from prior studies. Heart size is at the upper limits of normal. IMPRESSION: 1. Slightly high position of endotracheal tube 6.4 centers above the lisa. 2. Severe diffuse airspace opacity consistent with ARDS increased from priors.
--- NOTE | 2017-03-26 10:23 | PN- Diabetes ---
Assessment/Plan Assessment: 26-year-old female who has had a history of prediabetes, overweight, Ig A nephropathy along with chronic renal insufficiency and asthma, was in ICU for respiratory distress. She was treated with Solu-Medrol which was gradually decreased to 20 mg once a day. However, she was intubated on 03/21/2017. She is on tube feeding at 60 ml/hour. Her sodium was 155 on 03/23/2017. Currently She is on D5w 100 ml/hour. She is receiving free water via feeding tube every 4 hours. She is on Ativan drip in D5W and Norcuron drip in D5W. She is now on Solu-Medrol 60 mg IV every 8 hours. Her blood sugars have become very high. The most recent ones are 381, 451, and 417. Currently she is on Levemir 20 units twice a day; Novolog coverage every 4 hours. Plan: Patient's blood sugars are running high. Suggest increase Levemir to 25 units twice a day. Change sliding scale NovoLog to be 100-150 give 6 units NovoLog, 151 200 give 8 units NovoLog, 201-250 give 10 units NovoLog, 251-300 give 14 units NovoLog, 301-350 give 18 units NovoLog, 351-400 give 20 units NovoLog, for greater than 400 give 22 units NovoLog. Subjective Subjective: Intubated and sedated Objective Last 24 Hrs of Vital Signs/I&O Vital Signs Date Time Temp Pulse Resp B/P B/P Pulse O2 O2 Flow FiO2 Mean Ox Delivery Rate / 1010 116 127/57 02/03 0808 100 02/03 0800 97.6 86 28 120/50 88 Ventilator 100% 02/03 0800 87 Ventilator 100% 02/03 0634 100 02/03 0400 95 Ventilator 100% 02/03 0345 100 02/03 0104 100 02/03 0000 90 Ventilator 100% 02/03 0000 97.2 102 28 122/50 90 Ventilator 100% 02/02 2215 100 02/02 2153 113 129/57 02/02 2000 88 Ventilator 100% 02/02 1945 100 02/02 1806 98.9 02/02 1600 75 02/02 1600 99.3 141 28 138/74 93 Ventilator 75% 02/02 1600 93 Ventilator 75% 02/02 1423 75 02/02 1419 80 02/02 1200 91 Ventilator 80% 02/02 1152 121 112/36 Intake & Output 02/03 1600 02/03 0800 02/03 0000 Intake Total 2373.1 2937.6 Output Total 1850 2150 Balance 523.1 787.6 Intake, IV 2002.1 2158.6 Intake, Oral 0 Intake, Other 150 390 Intake, Tube 220 389 Feeding Number 0 0 Bowel Movements Output, Urine 1850 2150 Patient 288 lb Weight Weight Bed scale Measurement Method Vital Signs Date Time Temp Pulse Resp B/P B/P Pulse O2 O2 Flow FiO2 Mean Ox Delivery Rate 03/26 1010 116 127/57 02/ 0808 100 02/03 0800 97.6 86 28 120/50 88 Ventilator 100% / 0800 87 Ventilator 100% 02/ 0634 100 02/ 0400 95 Ventilator 100% 02/ 0345 100 02/ 0104 100 02/03 0000 90 Ventilator 100% 02/03 0000 97.2 102 28 122/50 90 Ventilator 100% 02 2215 100 02/ 2153 113 129/57 02 2000 88 Ventilator 100% 02/02 1945 100 02/02 1806 98.9 02/02 1600 75 02/02 1600 99.3 141 28 138/74 93 Ventilator 75% 02/ 1600 93 Ventilator 75% 02/02 1423 75 02/02 1419 80 02/02 1200 91 Ventilator 80% 02/02 1152 121 112/36 Intake & Output 02/03 1600 02/03 0800 02/03 0000 Intake Total 2373.1 2937.6 Output Total 1850 2150 Balance 523.1 787.6 Intake, IV 2002.1 2158.6 Intake, Oral 0 Intake, Other 150 390 Intake, Tube 220 389 Feeding Number 0 0 Bowel Movements Output, Urine 1850 2150 Patient 288 lb Weight Weight Bed scale Measurement Method Current Medications: Current Medications Sig/Nabila Start time Last Medication Dose Route Stop Time Status Admin Acetaminophen 1,000 MG .STK-MED ONE 03/25 1704 DC IV 03/25 1705 Acetaminophen 650 MG Q6P PRN 03/06 2215 AC 03/11 PO 1140 Acetaminophen 1,000 MG Q6P PRN 03/06 2215 AC 03/25 IV 1706 Albuterol Sulfate 3 ML EVERY 4 HRS/AWAKE 03/08 1600 AC 03/26 INH 0808 Ampicillin 2,000 MG Q8 03/24 1400 AC 03/26 Sodium Chloride 100 ML IV 0530 Artificial Tears 1 GTT BID PRN 03/23 2200 AC OPH Calcium Carbonate 500 MG TID PRN 03/10 0030 AC PO Dextrose/Water 1,000 ML Q10H 03/23 0815 AC 03/25 IV 1459 Docusate Sodium 100 MG DAILY NEEDED 03/26 0915 AC PO Fentanyl Citrate 1,000 MCG Q5H 03/26 1015 AC 03/26 Sodium Chloride 250 ML IV 1011 Fentanyl Citrate 1,000 MCG Q8H 03/25 1400 AC 03/26 Sodium Chloride 250 ML IV 03/26 1329 0308 Glycerin 2 SPRAY Q2P PRN 03/09 0745 AC 03/09 PO 0848 Guaifenesin 10 ML Q4-6 PRN PRN 03/08 0445 AC 03/08 PO 0444 Heparin Sodium 5,000 UNIT Q8 03/07 0600 AC 03/26 (Porcine) SC 0530 Insulin Aspart 0 Q4 03/21 1400 AC 03/26 SC 1010 Insulin Detemir 20 UNITS BID 03/25 2200 AC 03/26 SC 1010 Insulin Detemir 16 UNITS BID 03/21 2200 DC 03/25 SC 1038 Ipratropium [place] 2.5 ML EVERY 4 HRS/AWAKE 03/08 1600 AC 03/26 INH 0808 Levothyroxine Sodium 37.5 MCG DAILY 03/22 1000 AC 03/26 IV 1011 Lorazepam 100 MG Q20H 03/25 0900 DC 03/25 Dextrose/Water 1,000 ML IV 1232 Lorazepam 100 MG Q9H 03/25 0900 AC 03/26 Dextrose/Water 1,000 ML IV 0642 Methylprednisolone 60 MG Q8 03/25 2200 AC 03/26 IV 0530 Methylprednisolone 60 MG ONCE ONE 03/25 1745 DC 03/25 IV 03/25 1746 1755 Metoprolol Tartrate 6.25 MG BID 03/22 2200 AC 03/26 PO 1010 Morphine Sulfate 2 MG Q4P PRN 03/23 0845 AC 03/25 IV 1729 Pantoprazole Sodium 40 MG DAILY 03/22 1000 AC 03/26 IV 1011 Polyethylene Glycol 17 GM DAILY 03/26 1000 AC 03/26 PO 1010 Prednisone 15 MG DAILY 03/25 1034 DC 03/25 PO 1152 Prednisone 20 MG DAILY 03/23 1000 DC 03/25 PO 1039 Propofol 1,000 MG Q5H 03/23 1200 DC 03/25 N/A 1 UNIT IV 0831 Senna 187 MG AT BEDTIME 03/26 2200 AC PO Sodium Bicarbonate 975 MG BID 03/07 1000 AC 03/23 PO 2206 Vecuronium [place] 50 MG Q8H 03/26 1015 AC Dextrose/Water 500 ML IV Vecuronium [place] 50 MG Q6H 03/24 2359 AC 03/26 Dextrose/Water 500 ML IV 03/26 1329 0000 Findings Pertinent Lab/Michael Results: Laboratory Tests 03/26 03/26 0650 0440 Blood Gas pH (7.35 - 7.45 PH) 7.29 *L pCO2 (35 - 45 TORR) 41 pO2 (80 - 100 TORR) 59 L HCO3 (21 - 28 MEQ/L) 19 L ABG O2 Sat (Measured) (>96.0 %) 88.0 L P-50 (Temp Corrected) N Carboxyhemoglobin (1.5 - 5.0 %) 0.2 L O2 Concentration % 100 Respiration Rate (BPM) 28 O2 Delivery Method VENT Vent Mode A/C Expiratory Pressure (CMH2O/P) 12 Tidal Volume (CC) 450 Chemistry Sodium (137 - 145 mmol/L) 142 Potassium (3.5 - 5.1 mmol/L) 4.2 Chloride (98 - 107 mmol/L) 105 Carbon Dioxide (22 - 30 mmol/L) 20 L Anion Gap (5 - 16) 16 BUN (7 - 17 mg/dL) 34 H Creatinine (0.5 - 1.0 mg/dL) 2.5 H Estimated GFR (>60 ml/min) 23 L Glucose (65 - 99 mg/dL) 407 H Calcium (8.4 - 10.2 mg/dL) 8.5 Phosphorus (2.5 - 4.5 mg/dL) 6.6 H Magnesium (1.6 - 2.3 mg/dL) 2.2 Total Bilirubin (0.2 - 1.3 mg/dL) 0.5 AST (14 - 36 U/L) 86 H ALT (9 - 52 U/L) 382 H Albumin (3.5 - 5.0 g/dL) 2.8 L Hematology CBC w Diff MAN DIFF ORDERED WBC (4.8 - 10.8 /CUMM) 9.6 RBC (4.20 - 5.40 /CUMM) 3.02 L Hgb (12.0 - 16.0 G/DL) 9.3 L Hct (37 - 47 %) 27.3 L MCV (81.0 - 99.0 FL) 90.5 MCH (27.0 - 31.0 PG) 30.6 MCHC (33.0 - 37.0 G/DL) 33.8 RDW (11.5 - 14.5 %) 12.9 Plt Count (130 - 400 /CUMM) 100 L MPV (7.4 - 10.4 FL) 9.4 Gran % (42.2 - 75.2 %) 85.6 H Lymphocytes % (20.5 - 51.1 %) 12.3 L Monocytes % (1.7 - 9.3 %) 1.8 Eosinophils % (0 - 5 %) 0 Basophils % (0.0 - 2.0 %) 0.3 Absolute Granulocytes (1.4 - 6.5 /CUMM) 8.2 H Segmented Neutrophils (42.2 - 75.2 %) 78 H Band Neutrophils (0.0 - 5.0 %) 5 Absolute Lymphocytes (1.2 - 3.4 /CUMM) 1.2 Lymphocytes (20.5 - 51.1 %) 13 L Monocytes (1.7 - 9.3 %) 3 Absolute Monocytes (0.10 - 0.60 /CUMM) 0.2 Eosinophils (0 - 5.0 %) 1 Absolute Eosinophils (0.0 - 0.7 /CUMM) 0 Absolute Basophils (0.0 - 0.2 /CUMM) 0 Platelet Estimate (ADEQUATE) DECREASED Normocytic RBCs VERIFIED Normochromic RBCs VERIFIED Miscellaneous Phlebotomy Draw Site RIGHT RADIAL 03/26 03/25 03/25 03/25 03/25 0124 2100 1810 1315 1300 Chemistry Sodium (137 - 145 mmol/L) 141 Cancelled 143 144 Potassium (3.5 - 5.1 mmol/L) 4.5 Cancelled 4.5 3.9 Chloride (98 - 107 mmol/L) 104 Cancelled 107 109 H Carbon Dioxide (22 - 30 mmol/L) 20 L Cancelled 22 22 Anion Gap (5 - 16) 17 H Cancelled 14 12 BUN (7 - 17 mg/dL) 34 H Cancelled 31 H 31 H Creatinine (0.5 - 1.0 mg/dL) 2.5 H Cancelled 2.7 H 2.7 H Estimated GFR (>60 ml/min) 23 L 21 L 21 L Glucose (65 - 99 mg/dL) 383 H Cancelled 274 H 235 H Lactic Acid (0.7 - 2.1 mmol/L) 1.7 Calcium (8.4 - 10.2 mg/dL) 8.7 Cancelled 8.4 8.5 Phosphorus (2.5 - 4.5 mg/dL) 6.8 H Cancelled 5.5 H 4.4 Magnesium (1.6 - 2.3 mg/dL) 2.6 H Cancelled 2.0 1.8 Total Bilirubin (0.2 - 1.3 mg/dL) 0.6 Cancelled 0.5 0.5 AST (14 - 36 U/L) 106 H Cancelled 196 H 157 H ALT (9 - 52 U/L) 415 H Cancelled 461 H 410 H Albumin (3.5 - 5.0 g/dL) 2.8 L Cancelled 2.8 L 2.6 L Urines Urine Osmolality (300 - 1000 MOSM/KG) 200 L Ur Random Creatinine (mg/dL) 19.9 Ur Random Sodium (30 - 90 mmol/L) 43 Ur Random Potassium (mmol/L) 14.6 Fraction Sodium Excret (<1% %) 3.8 H
[2017-03-26 16:00] VITALS: BP 140/60
--- NOTE | 2017-03-26 16:00 | PN- Cardiology ---
Subjective Subjective: * intubated and sedated * sinus tachycardia * decreased osygen saturation to 85 Objective Vital Signs and I&Os Vital Signs Date Time Temp Pulse Resp B/P B/P Pulse O2 O2 Flow FiO2 Mean Ox Delivery Rate 03/26 1252 100 03/26 1200 89 Ventilator 100% 03/26 1010 116 127/57 02 0808 100 / 0800 97.6 86 28 120/50 88 Ventilator 100% 03/26 0800 87 Ventilator 100% 03/26 0634 100 / 0400 95 Ventilator 100% 03/26 0345 100 02/ 0104 100 02/ 0000 90 Ventilator 100% / 0000 97.2 102 28 122/50 90 Ventilator 100% 03/25 2215 100 03/25 2153 113 129/57 03/25 2000 88 Ventilator 100% 03/25 1945 100 03/25 1806 98.9 03/25 1600 75 03/25 1600 99.3 141 28 138/74 93 Ventilator 75% 03/25 1600 93 Ventilator 75% Intake & Output 03/26 1600 03/26 0800 / 0000 03/25 1600 03/25 0800 03/25 0000 Intake Total 3047 2373.1 2937.6 3045 2944.1 3055.6 Output Total 1500 1850 2150 1900 2450 3300 Balance 1547 523.1 787.6 1145 494.1 -244.4 Intake, IV 2180 2002.1 2158.6 2290 2014.1 2275.6 Intake, Oral 0 0 0 Intake, Other 60 150 390 450 300 Intake, Tube 507 220 389 395 480 480 Feeding Intake, Tube 300 360 Irrigant Number 0 0 0 0 Bowel Movements Output, Urine 1500 1850 2150 1900 2450 3300 Patient 288 lb 272 lb Weight Weight Bed scale Bed scale Measurement Method Physical Exam: General: WD/obese female in NAD; intubated and sedated Heart: tachycardic and regular Lungs: clear anteriorly Extremities; no edema Assessment/Plan Assessment/Plan * chest X-ray is consistent with ARDS * Increase Metoprolol to 12.5mg BID Continue telemetry? Yes
[2017-03-27] VITALS: BP 157/78
[2017-03-27 05:32] LABS: ABSOLUTE BASOPHIL COUNT 0 /CUMM (0.0-0.2); ABSOLUTE EOSINOPHIL COUNT 0 /CUMM (0.0-0.7); ABSOLUTE GRANULOCYTE CT 7.5 /CUMM (1.4-6.5); ABSOLUTE LYMPH COUNT 1.2 /CUMM (1.2-3.4); ABSOLUTE MONOCYTE COUNT 0.3 /CUMM (0.10-0.60); BASOPHIL % 0.1 % (0.0-2.0); EOSINOPHIL % 0.1 % (0-5); HEMATOCRIT 26.9 % (37-47); MEAN CORPUSCULAR HGB 30.6 PG (27.0-31.0); MEAN CORPUSCULAR HGB CONC 33.4 G/DL (33.0-37.0); MEAN CORPUSCULAR VOLUME 91.7 FL (81.0-99.0); MEAN PLATELET VOLUME 10.8 FL (7.4-10.4); PLATELET COUNT 104 /CUMM (130-400); RBC DISTRIBUTION WIDTH 12.6 % (11.5-14.5); RED BLOOD CELL CT 2.93 /CUMM (4.20-5.40)
[2017-03-27 05:49] LABS: PT 11.1 SEC (9.4-12.5); PTT < 20 SEC (25-37)
--- NOTE | 2017-03-27 06:47 | RADIOLOGY REPORT ---
EXAMINATION: XR PORTABLE CHEST CLINICAL INFORMATION: Intubation. COMPARISON: Chest x-ray March 26, 2017 TECHNIQUE: Portable frontal view of the chest was obtained. 6:02 AM FINDINGS: Endotracheal tube approximately 4 cm above lisa. Nasogastric tube passes below the level the diaphragm but the catheter tip is not visualized. There is low lung volume with persistent bilateral airspace disease. No large pleural effusion. IMPRESSION: The endotracheal tube is in good position about 4 cm above the lisa. Persistent bilateral airspace disease.
[2017-03-27 08:00] VITALS: BP 120/60
--- NOTE | 2017-03-27 08:00 | RADIOLOGY REPORT ---
EXAMINATION: XR PORTABLE CHEST CLINICAL INFORMATION: Follow-up endotracheal tube placement. COMPARISON: Prior chest radiographs, most recently 03/27/2017. TECHNIQUE: Portable frontal view of the chest was obtained. FINDINGS: The endotracheal tube is now situated with tip approximately 0.8 cm superior to the lisa. A nasogastric tube is again seen, with the tip inferior to the left hemidiaphragm and excluded from the [id number]. Again, there are low lung volumes. There is a persistent bilateral patchy airspace disease, with some sparing of the apices. The cardiac contour is somewhat obscured. No definite pleural effusion is seen. There is no pneumothorax. No acute osseous abnormality is seen. IMPRESSION: 1. The endotracheal tube tip is somewhat low, situated approximately 0.8 cm superior to the lisa. Advise repositioning. 2. There is stable bilateral patchy airspace disease, with differential possibilities including but not limited to: pneumonia, ARDS and pulmonary edema. Please correlate clinically.
--- NOTE | 2017-03-27 08:15 | PN- Infect Dx ---
Subjective Subjective: MAXIMUM TEMPERATURE 102 on steroids. She has minimal if any secretions reported and no diarrhea. Objective Last 24 Hrs of Vital Signs/I&O Vital Signs Date Time Temp Pulse Resp B/P B/P Pulse O2 O2 Flow FiO2 Mean Ox Delivery Rate 03/27 0400 88 Ventilator 100% 02/ 0352 100 02/ 0103 100 02/04 0000 93 Ventilator 100% 02/ 0000 98.6 92 26 157/78 93 Ventilator 100% / 2230 100 02/ 2215 99.8 112 26 144/56 02/ 2000 91 Ventilator 100% 02/ 1929 100 02/03 1818 102.0 02/ 1721 101.4 02/ 1645 100 02/ 1600 100.2 133 26 140/60 93 Ventilator 100% / 1600 88 Ventilator 100% / 1252 100 02/ 1200 89 Ventilator 100% / 1010 116 127/57 02/ 0808 100 Intake & Output 03/27 1600 02/04 0800 02/ 0000 Intake Total 2904.6 3364.1 Output Total 2200 1400 Balance 704.6 1964.1 Intake, IV 2144.6 2275.1 Intake, Oral 0 0 Intake, Other 120 Intake, Tube 460 519 Feeding Intake, Tube 300 450 Irrigant Number 0 0 Bowel Movements Output, Urine 2200 1400 Physical Exam Other Physical Findings: She is sedated and unresponsive on the ventilator Lungs are clear Heart regular rhythm with no murmur Abdomen is soft, with no obvious tenderness, positive bowel sounds Extremities no cyanosis, clubbing or edema Cruz catheter remains in place Results Last 24 Hours of Lab Results: Laboratory Tests 03/27 03/27 0530 0455 Blood Gas pH (7.35 - 7.45 PH) 7.26 *L pCO2 (35 - 45 TORR) 43 pO2 (80 - 100 TORR) 62 L HCO3 (21 - 28 MEQ/L) 19 L ABG O2 Sat (Measured) (>96.0 %) 91.0 L P-50 (Temp Corrected) Y Carboxyhemoglobin (1.5 - 5.0 %) 0.3 L O2 Concentration % 100% Temperature (97.0 - 100.0 FARH) 97.0 Respiration Rate (BPM) 26 O2 Delivery Method ESPRIT Vent Mode AC Expiratory Pressure (CMH2O/P) 12 Tidal Volume (CC) 450 Chemistry Sodium (137 - 145 mmol/L) 140 Potassium (3.5 - 5.1 mmol/L) 4.3 Chloride (98 - 107 mmol/L) 106 Carbon Dioxide (22 - 30 mmol/L) 18 L Anion Gap (5 - 16) 15 BUN (7 - 17 mg/dL) 49 H Creatinine (0.5 - 1.0 mg/dL) 2.6 H Estimated GFR (>60 ml/min) 22 L Glucose (65 - 99 mg/dL) 424 H Calcium (8.4 - 10.2 mg/dL) 8.6 Phosphorus (2.5 - 4.5 mg/dL) 5.8 H Magnesium (1.6 - 2.3 mg/dL) 2.4 H Iron (37 - 170 ug/dL) 91 TIBC (265 - 497 ug/dL) 204 L Ferritin (6.24 - 137 ng/mL) 2000.0 H Total Bilirubin (0.2 - 1.3 mg/dL) 0.6 AST (14 - 36 U/L) 174 H ALT (9 - 52 U/L) 501 H Albumin (3.5 - 5.0 g/dL) 2.8 L Coagulation PT (9.4 - 12.5 SEC) 11.1 INR (0.90 - 1.19) 1.06 APTT (25 - 37 SEC) < 20 L Hematology CBC w Diff NO MAN DIFF REQ WBC (4.8 - 10.8 /CUMM) 9.0 RBC (4.20 - 5.40 /CUMM) 2.93 L Hgb (12.0 - 16.0 G/DL) 9.0 L Hct (37 - 47 %) 26.9 L MCV (81.0 - 99.0 FL) 91.7 MCH (27.0 - 31.0 PG) 30.6 MCHC (33.0 - 37.0 G/DL) 33.4 RDW (11.5 - 14.5 %) 12.6 Plt Count (130 - 400 /CUMM) 104 L MPV (7.4 - 10.4 FL) 10.8 H Gran % (42.2 - 75.2 %) 83.0 H Lymphocytes % (20.5 - 51.1 %) 13.8 L Monocytes % (1.7 - 9.3 %) 3.0 Eosinophils % (0 - 5 %) 0.1 Basophils % (0.0 - 2.0 %) 0.1 Absolute Granulocytes (1.4 - 6.5 /CUMM) 7.5 H Absolute Lymphocytes (1.2 - 3.4 /CUMM) 1.2 Absolute Monocytes (0.10 - 0.60 /CUMM) 0.3 Absolute Eosinophils (0.0 - 0.7 /CUMM) 0 Absolute Basophils (0.0 - 0.2 /CUMM) 0 Miscellaneous Phlebotomy Draw Site RIGHT RADIAL Last 24 Hours of Michael Results: No new cultures Recent Imaging Studies: Chest x-ray March 27, personally reviewed, reveals increased markings bilaterally Assessment/Plan Impression: Condition has deteriorated with increasing oxygen requirements over the last several days, associated with recurrent fevers, though her white blood cell count has normalized (despite steroids), on Ampicillin now Day 3 of treatment for a positive urine culture for Enterococcus, though this may just represent colonization from the Cruz catheter. She has no other obvious source of infection, but further evaluation, for example CT of the abdomen and pelvis, is limited given her tenuous respiratory status. Her I's are greater than her O's, suggesting the possibility that some of her respiratory failure may be fluid overload, though it is felt most likely secondary to ARDS. Her thrombocytopenia may be secondary to infection versus medication. Her liver enzymes continue to fluctuate, possibly secondary to passive congestion of the liver, with a recent right upper quadrant ultrasound negative. Suggestion: 1. Further evaluation/management of her fluid status per Cardiology 2. Would pursue CT of the chest, abdomen and pelvis if her respiratory status allows 3. Discontinue all nonessential medications 4. Continue Ampicillin
--- NOTE | 2017-03-27 08:55 | PN- Resident CRCU ---
Socorro Mckeon 03/27/17 0855: Subjective HPI/CRCU Issues: She was sedated and intubated, and was not responding to any verbal or tactile stimulus. Vitals remained stable overnight, but she continued to desaturate upon any movement. Called the family, and discussed about the management plan. Also discussed with the er physician electronics engineering manager, Dr. Wong who was of the opinion that a PICC line should be avoided given her history of chronic kidney disease. He deferred the decision to discuss/make a final decision to Dr. Greene in the a.m. 24 Hour Events: Tm 101.4 Heart rate 80-133 Systolic blood pressure 108-120, diastolic blood pressure 50-70 O2 sat-86-88% Vent settings: Assist-control Respiratory rate 26, tidal volume 450, FiO2 100, PEEP 12 PIP 40, Plateau 37. Volume status 24 hours- Input 8356 mL, output 5900 mL Total 97025 mL, output 25097 mL. Objective Vital Signs & I&O Last 8 Hrs of Vitals and I&O: Intake & Output 03/27 1600 Intake Total Output Total Balance Patient 287 lb Weight Weight Bed scale Measurement Method Exam General Appearance: intubated Other Physical Findings: General Appearance: no apparent distress, sedated, intubated Head: atraumatic, normal appearance Respiratory: normal breath sounds, chest non-tender, lungs clear Cardiovascular: tachycardia Gastrointestinal: soft, non-tender Extremities: no edema Skin: intact Skin Temp/Moisture Exam: Warm/Dry Sepsis Skin Exam (color): Normal for Ethnicity Current Medications: Current Medications Sig/Nabila Start time Last Medication Dose Route Stop Time Status Admin Acetaminophen 650 MG Q6P PRN 03/06 2215 AC 03/11 PO 1140 Acetaminophen 1,000 MG Q6P PRN 03/06 2215 AC 03/26 IV 1721 Albuterol Sulfate 3 ML EVERY 4 HRS/AWAKE 03/08 1600 AC 03/27 INH 2035 Ampicillin 2,000 MG Q8 03/24 1400 AC 03/27 Sodium Chloride 100 ML IV 2253 Artificial Tears 1 GTT BID PRN 03/23 2200 AC 03/27 OPH 1711 Bisacodyl 10 MG ONCE ONE 03/27 1245 DC 03/27 OH 03/27 1246 1320 Calcium Carbonate 500 MG TID PRN 03/10 0030 AC PO Dextrose/Water 1,000 ML Q10H 03/23 0815 DC 03/26 IV 1610 Docusate Sodium 100 MG DAILY NEEDED 03/26 0915 AC PO Fentanyl Citrate 1,000 MCG Q4H 03/27 0840 AC 03/27 Sodium Chloride 250 ML IV 2240 Fentanyl Citrate 1,000 MCG Q5H 03/26 1330 DC 03/27 Sodium Chloride 250 ML IV 03/27 0839 0424 Glycerin 2 SPRAY Q2P PRN 03/09 0745 AC 03/09 PO 0848 Guaifenesin 10 ML Q4-6 PRN PRN 03/08 0445 AC 03/08 PO 0444 Heparin Sodium 5,000 UNIT Q8 03/07 0600 AC 03/27 (Porcine) SC 2244 Insulin Aspart 0 Q4 03/21 1400 AC 03/27 SC 2300 Insulin Detemir 35 UNITS BID 03/27 1000 AC 03/27 SC 2300 Insulin Detemir 25 UNITS BID 03/26 2200 DC 03/26 SC 2215 Ipratropium [place] 2.5 ML EVERY 4 HRS/AWAKE 03/08 1600 AC 03/27 INH 2035 Levothyroxine Sodium 37.5 MCG DAILY 03/22 1000 AC 03/27 IV 1038 Lorazepam 100 MG Q11H 03/27 1300 DC Sodium Chloride 1,000 ML IV Lorazepam 100 MG Q11H 03/27 1300 AC 03/27 Sodium Chloride 1,000 ML IV 1506 Lorazepam 100 MG Q9H 03/26 1600 DC 03/27 Sodium Chloride 1,000 ML IV 03/27 1259 0338 Methylprednisolone 40 MG Q8 03/27 1400 AC 03/27 IV 2245 Methylprednisolone 60 MG Q8 03/25 2200 DC 03/27 IV 0539 Metoprolol Tartrate 12.5 MG BID 03/26 2200 AC 03/27 PO 2245 Morphine Sulfate 2 MG Q4P PRN 03/23 0845 AC 03/26 IV 1721 Pantoprazole Sodium 40 MG DAILY 03/22 1000 AC 03/27 IV 1037 Polyethylene Glycol 17 GM DAILY 03/26 1000 AC 03/27 PO 1040 Senna 187 MG AT BEDTIME 03/26 2200 AC 03/27 PO 2244 Sodium Bicarbonate 975 MG BID 03/07 1000 AC 03/27 PO 2244 Sodium Chloride 1,000 ML Q20H 03/27 0415 AC 03/27 IV 0425 Vecuronium [place] 50 MG Q13H 03/27 1400 DC Dextrose/Water 500 ML IV Vecuronium [place] 50 MG Q13H / 1400 AC / Sodium Chloride 500 ML IV 1321 Vecuronium [place] 50 MG Q13H / 0845 DC Dextrose/Water 500 ML IV Vecuronium [place] 50 MG Q11H 03/26 1330 DC 02/ Dextrose/Water 500 ML IV 03/27 1359 0037 Impression/Plan Impression/Problem List Impression: She is a 26 yo morbidly obese woman with a PMHx of 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 She was intitially treated w/ ceftriaxone and azithromycin and also was treated w/ higher dose of tamiflu. Plan: Respiratory: Acute hypoxic respiratory failure secondary to influenza complicated with left lower lobe pneumonia (initially) and now due to possible ARDS. Sinus Tachycardia likely secondary to developing ARDS. Continue vent settings w/ low tidal volume. * Continue current vent settings * Permissive hypercarbia * Currently on ativan, and vec drip. * Echo shows normal LVEF and no evidence of right heart strain. * Continue iv solumedrol. Infectious: She has influenza pneumonia, and ARDS. Desaturates at minimal mobility, and would not be able to get further imaging or have a TLC cath. * Currently off abx. * Enterococcus in urine culture. Continue abx. ID bath design sales consultant advising. Metabolic- She continues to have high sr creatitine, secondary to IgA nephropathy. Continue to treat her hypernatremia. She also has steroid induced hyperglycemia. * Cruz cath in place. * NS fluids, and monitor ins and outs. * No lasix at this time, and discussed w/ nephrology. * For hyperglycemia, no insulin drip as per Dr. Canales ( verbal communication ). * Increase the dose of levemir. * Replete electrolytes as needed. * Tube feeds, as per nutrition. Housekeepin. DVT Ppx- heparin sc. 2. GI Ppx- protonix 3. Tube feeds. 4. Ventilator- volume/AC 5. IV lines- peripheral Problem List: 1. ARDS (adult respiratory distress syndrome) 2. Sepsis 3. Influenza 4. Pneumonia Pain Ratin Tomorrow's Labs & Rationales: cbc icu Plan DVT/Prophylaxis: pharmacological Jose Ramon Aguero MD 03/27/17 0956: Attending MD Review Statement Attending Sign Off Attending Cosign Statement: I have: examined this patient, reviewed avalbl EMR data, personally reviewd images, discussd w/resident/PA/LICENSED CLINICAL SOCIAL WORKER, discussed mgmt plan w/javon, discussed mgmt plan w/CM, discussed mgmt plan w/pt, agreed w/resident/PA/LICENSED CLINICAL SOCIAL WORKER, amended to note. Other Findings: I, Jose Ramon Aguero M.D. have examined this patient, reviewed available EMR data, personally reviewed images, discussed with resident/PA/LICENSED CLINICAL SOCIAL WORKER, discussed management plan with housestaff and nursing staff, discussed managment plan all of healthcare providers, discussed management plan with patient and/or family, agreed with resident/PA/LICENSED CLINICAL SOCIAL WORKER. The past history and parts of the chart have been autopopulated. Impression 26 year old woman * acute hypoxemic respiratory failure, secondary to influenza in the setting of asthma, consistent with ARDS - hx of IgA nephropathy * stable anemia - likely chronic disease * hyperglycemia likely steroid induced * chronic CKD Consultants -renal, ID, endocrinology, cardiology Plan Respiratory -monitor abgs, cxrs, permissive hypercarbia is acceptable however normal co2 now -continue solumedrol for now 40mg iv q8h ID -f/u ID, continue ampicillin, s/p tamiflu -imaging is not feasible at this time given respiratory instability CVS -hemodynamic monitoring -f/u cardiology recs Heme -check coags -moniotor platelets -hearpin subcutaneous for DVT prophylaxis Metabolic -f/u endocrine, renal -glucose control, reduced steroids Alimentary -Glucerna Neuro -cont vecuronium and fentanyl, monitor BIS -f/u LFTs - worsened - if continue to increase, will call GI DVT prophylaxis at all times TTS 35 min patient is unstable to be moved, she desaturates significantly, imaging is not feasible given respiratory instability. in full understanding that creatinine is elevated, to pursue a femoral line for iv access is very short term and trendelenburg or moving to IR is not feasible given desaturation with any movement, will discuss with family and nephrology to consider PICC line bedside placement routinely
--- NOTE | 2017-03-27 09:23 | PN- Diabetes ---
Assessment/Plan Assessment: 26-year-old female who has had a history of prediabetes, overweight, Ig A nephropathy along with chronic renal insufficiency and asthma, was in ICU for respiratory distress. However, she was intubated on 03/21/2017. She is on tube feeding Glucerna at 60 ml/hour. She is receiving free water via feeding tube every 4 hours. She is on Ativan drip has been changed to normal saline and Norcuron drip is in D5W. She is now on Solu-Medrol 60 mg IV every 8 hours. Her blood sugars have become very high. Her insulin was increased yesterday to 25 units of Levemir twice a day and her sliding scale NovoLog was also increased. However her sugars have remained high and the most recent ones are 392 and 432. Plan: We will recheck the patient's blood sugar at 10 AM. If it remains high we should begin an insulin drip while on high-dose steroids. The drip could be started at 8 U/h and adjusted to keep her sugar in the 160-180 range. Since she is not in ketoacidosis the insulin drip protocol could be used. If her sugars are starting to come down and we decided to continue subcu insulin we can increase her Levemir to 35 units twice a day and continue the present sliding scale NovoLog every 4 hours. Subjective Subjective: Intubated and sedated Objective Last 24 Hrs of Vital Signs/I&O Vital Signs Date Time Temp Pulse Resp B/P B/P Pulse O2 O2 Flow FiO2 Mean Ox Delivery Rate / 0900 100 02/ 0800 97.8 82 26 120/60 90 Ventilator 100% 02/ 0800 90 Ventilator 100% 02/04 0400 88 Ventilator 100% 02/04 0352 100 02/04 0103 100 02/04 0000 93 Ventilator 100% 02/04 0000 98.6 92 26 157/78 93 Ventilator 100% 02/03 2230 100 02/03 2215 99.8 112 26 144/56 02/03 2000 91 Ventilator 100% 02/03 1929 100 02/03 1818 102.0 02/03 1721 101.4 02/03 1645 100 02/03 1600 100.2 133 26 140/60 93 Ventilator 100% 02/03 1600 88 Ventilator 100% 02/03 1252 100 02/03 1200 89 Ventilator 100% 02/03 1010 116 127/57 Intake & Output 02/04 1600 02/04 0800 02/04 0000 Intake Total 2904.6 3364.1 Output Total 2200 1400 Balance 704.6 1964.1 Intake, IV 2144.6 2275.1 Intake, Oral 0 0 Intake, Other 120 Intake, Tube 460 519 Feeding Intake, Tube 300 450 Irrigant Number 0 0 Bowel Movements Output, Urine 2200 1400 Patient 287 lb Weight Weight Bed scale Measurement Method Vital Signs Date Time Temp Pulse Resp B/P B/P Pulse O2 O2 Flow FiO2 Mean Ox Delivery Rate / 0900 100 02/ 0800 97.8 82 26 120/60 90 Ventilator 100% / 0800 90 Ventilator 100% / 0400 88 Ventilator 100% / 0352 100 02/ 0103 100 02/ 0000 93 Ventilator 100% 02/04 0000 98.6 92 26 157/78 93 Ventilator 100% 02/ 2230 100 02/ 2215 99.8 112 26 144/56 02/ 2000 91 Ventilator 100% / 1929 100 02/ 1818 102.0 02/03 1721 101.4 02/03 1645 100 02/03 1600 100.2 133 26 140/60 93 Ventilator 100% 02/03 1600 88 Ventilator 100% 02/03 1252 100 02/03 1200 89 Ventilator 100% 02/03 1010 116 127/57 Intake & Output 02/04 1600 02/04 0800 02/04 0000 Intake Total 2904.6 3364.1 Output Total 2200 1400 Balance 704.6 1964.1 Intake, IV 2144.6 2275.1 Intake, Oral 0 0 Intake, Other 120 Intake, Tube 460 519 Feeding Intake, Tube 300 450 Irrigant Number 0 0 Bowel Movements Output, Urine 2200 1400 Patient 287 lb Weight Weight Bed scale Measurement Method Physical Exam General Appearance: sedated, intubated Head: normal appearance Respiratory: normal breath sounds Cardiovascular: regular rate/rhythm Abdomen: normal bowel sounds Current Medications: Current Medications Sig/Nabila Start time Last Medication Dose Route Stop Time Status Admin Acetaminophen 1,000 MG .STK-MED ONE 03/26 1719 DC IV 03/26 1720 Acetaminophen 650 MG Q6P PRN 03/06 2214 AC 03/11 PO 1140 Acetaminophen 1,000 MG Q6P PRN 01/14 2215 AC 03/26 IV 1721 Albuterol Sulfate 3 ML EVERY 4 HRS/AWAKE 03/08 1600 AC 03/27 INH 0822 Ampicillin 2,000 MG Q8 03/24 1400 AC 03/27 Sodium Chloride 100 ML IV 0539 Artificial Tears 1 GTT BID PRN 03/23 2200 AC 03/26 OPH 1611 Calcium Carbonate 500 MG TID PRN 03/10 0030 AC PO Dextrose/Water 1,000 ML Q10H 03/23 0815 DC 03/26 IV 1610 Docusate Sodium 100 MG DAILY NEEDED 03/26 0915 AC PO Fentanyl Citrate 1,000 MCG Q4H 03/27 0840 AC Sodium Chloride 250 ML IV Fentanyl Citrate 1,000 MCG Q5H 03/26 1330 DC 03/27 Sodium Chloride 250 ML IV 03/27 0839 0424 Fentanyl Citrate 1,000 MCG Q5H 03/26 1015 DC 03/26 Sodium Chloride 250 ML IV 1011 Fentanyl Citrate 1,000 MCG Q8H 03/25 1400 DC 03/26 Sodium Chloride 250 ML IV 03/26 1329 1407 Glycerin 2 SPRAY Q2P PRN 03/09 0745 03/09 PO 0848 Guaifenesin 10 ML Q4-6 PRN PRN 03/08 0445 AC 03/08 PO 0444 Heparin Sodium 5,000 UNIT Q8 03/07 0600 AC 03/27 (Porcine) SC 0539 Insulin Aspart 7 UNITS ONCE ONE 03/26 1030 DC 03/26 VT 03/26 1031 1227 Insulin Aspart 0 Q4 03/21 1400 AC 03/27 SC 0615 Insulin Detemir 25 UNITS BID 03/26 2200 AC 03/26 SC 2215 Insulin Detemir 5 UNITS ONCE ONE 03/26 1030 DC 03/26 VT 03/26 1031 1227 Insulin Detemir 20 UNITS BID 03/25 2200 DC 03/26 SC 1010 Ipratropium [place] 2.5 ML EVERY 4 HRS/AWAKE 03/08 1600 AC 03/27 INH 0822 Levothyroxine Sodium 37.5 MCG DAILY 03/22 1000 AC 03/26 IV 1011 Lorazepam 100 MG Q11H 03/27 1300 DC Sodium Chloride 1,000 ML IV Lorazepam 100 MG Q11H 03/27 1300 AC Sodium Chloride 1,000 ML IV Lorazepam 100 MG Q9H 03/26 1600 AC 03/27 Sodium Chloride 1,000 ML IV 03/27 1259 0338 Lorazepam 100 MG Q9H 03/25 0900 DC 03/26 Dextrose/Water 1,000 ML IV 03/26 1559 0642 Methylprednisolone 60 MG Q8 03/25 2200 AC 03/27 IV 0539 Metoprolol Tartrate 12.5 MG BID 03/26 2200 AC 03/26 PO 2215 Metoprolol Tartrate 6.25 MG BID 03/22 2200 DC 03/26 PO 1010 Morphine Sulfate 2 MG Q4P PRN 03/23 0845 AC 03/26 IV 1721 Pantoprazole Sodium 40 MG DAILY 03/22 1000 AC 03/26 IV 1011 Polyethylene Glycol 17 GM DAILY 03/26 1000 AC 03/26 PO 1010 Senna 187 MG AT BEDTIME 03/26 2200 AC 03/26 PO 2214 Sodium Bicarbonate 975 MG BID 03/07 1000 AC 03/26 PO 2214 Sodium Chloride 1,000 ML Q20H / 0415 AC 03/27 IV 0425 Vecuronium [place] 50 MG Q13H 03/27 1400 DC Dextrose/Water 500 ML IV Vecuronium [place] 50 MG Q13H 03/27 1400 AC Sodium Chloride 500 ML IV Vecuronium [place] 50 MG Q13H 03/27 0845 DC Dextrose/Water 500 ML IV Vecuronium [place] 50 MG Q11H 03/26 1330 AC 03/27 Dextrose/Water 500 ML IV 03/27 1359 0037 Vecuronium [place] 50 MG Q8H 03/26 1015 DC Dextrose/Water 500 ML IV Vecuronium [place] 50 MG Q6H 03/24 2359 DC 03/26 Dextrose/Water 500 ML IV 03/26 1329 1406 Findings Pertinent Lab/Michael Results: Laboratory Tests 03/27 03/27 0530 0455 Blood Gas pH (7.35 - 7.45 PH) 7.26 *L pCO2 (35 - 45 TORR) 43 pO2 (80 - 100 TORR) 62 L HCO3 (21 - 28 MEQ/L) 19 L ABG O2 Sat (Measured) (>96.0 %) 91.0 L P-50 (Temp Corrected) Y Carboxyhemoglobin (1.5 - 5.0 %) 0.3 L O2 Concentration % 100% Temperature (97.0 - 100.0 FARH) 97.0 Respiration Rate (BPM) 26 O2 Delivery Method ESPRIT Vent Mode AC Expiratory Pressure (CMH2O/P) 12 Tidal Volume (CC) 450 Chemistry Sodium (137 - 145 mmol/L) 140 Potassium (3.5 - 5.1 mmol/L) 4.3 Chloride (98 - 107 mmol/L) 106 Carbon Dioxide (22 - 30 mmol/L) 18 L Anion Gap (5 - 16) 15 BUN (7 - 17 mg/dL) 49 H Creatinine (0.5 - 1.0 mg/dL) 2.6 H Estimated GFR (>60 ml/min) 22 L Glucose (65 - 99 mg/dL) 424 H Calcium (8.4 - 10.2 mg/dL) 8.6 Phosphorus (2.5 - 4.5 mg/dL) 5.8 H Magnesium (1.6 - 2.3 mg/dL) 2.4 H Iron (37 - 170 ug/dL) 91 TIBC (265 - 497 ug/dL) 204 L Ferritin (6.24 - 137 ng/mL) 2000.0 H Total Bilirubin (0.2 - 1.3 mg/dL) 0.6 AST (14 - 36 U/L) 174 H ALT (9 - 52 U/L) 501 H Albumin (3.5 - 5.0 g/dL) 2.8 L Coagulation PT (9.4 - 12.5 SEC) 11.1 INR (0.90 - 1.19) 1.06 APTT (25 - 37 SEC) < 20 L Hematology CBC w Diff NO MAN DIFF REQ WBC (4.8 - 10.8 /CUMM) 9.0 RBC (4.20 - 5.40 /CUMM) 2.93 L Hgb (12.0 - 16.0 G/DL) 9.0 L Hct (37 - 47 %) 26.9 L MCV (81.0 - 99.0 FL) 91.7 MCH (27.0 - 31.0 PG) 30.6 MCHC (33.0 - 37.0 G/DL) 33.4 RDW (11.5 - 14.5 %) 12.6 Plt Count (130 - 400 /CUMM) 104 L MPV (7.4 - 10.4 FL) 10.8 H Gran % (42.2 - 75.2 %) 83.0 H Lymphocytes % (20.5 - 51.1 %) 13.8 L Monocytes % (1.7 - 9.3 %) 3.0 Eosinophils % (0 - 5 %) 0.1 Basophils % (0.0 - 2.0 %) 0.1 Absolute Granulocytes (1.4 - 6.5 /CUMM) 7.5 H Absolute Lymphocytes (1.2 - 3.4 /CUMM) 1.2 Absolute Monocytes (0.10 - 0.60 /CUMM) 0.3 Absolute Eosinophils (0.0 - 0.7 /CUMM) 0 Absolute Basophils (0.0 - 0.2 /CUMM) 0 Miscellaneous Phlebotomy Draw Site RIGHT RADIAL
--- NOTE | 2017-03-27 14:07 | PN- Cardiology ---
Subjective Subjective: * intubated and sedated * heart rate is improved * improved oxygen saturation * increasing hepatic transaminases Objective Vital Signs and I&Os Vital Signs Date Time Temp Pulse Resp B/P B/P Pulse O2 O2 Flow FiO2 Mean Ox Delivery Rate 03/27 1200 90 Ventilator 100% 03/27 1038 84 121/46 02/ 0900 100 03/27 0800 97.8 82 26 120/60 90 Ventilator 100% 03/27 0800 90 Ventilator 100% 03/27 0400 88 Ventilator 100% 03/27 0352 100 / 0103 100 02/ 0000 93 Ventilator 100% 02/ 0000 98.6 92 26 157/78 93 Ventilator 100% 03/26 2230 100 / 2215 99.8 112 26 144/56 03/26 1999 91 Ventilator 100% 03/26 1929 100 03/26 1818 102.0 03/26 1721 101.4 03/26 1645 100 / 1600 100.2 133 26 140/60 93 Ventilator 100% 03/26 1600 88 Ventilator 100% Intake & Output 03/27 1600 03/27 0800 / 0000 / 1600 / 0800 02/ 0000 Intake Total 2904.6 3364.1 3047 2373.1 2937.6 Output Total 2200 1400 1500 1850 2150 Balance 704.6 1964.1 1547 523.1 787.6 Intake, IV 2144.6 2275.1 2180 2003.1 2158.6 Intake, Oral 0 0 0 0 Intake, Other 120 60 150 390 Intake, Tube 460 519 507 220 389 Feeding Intake, Tube 300 450 300 Irrigant Number 0 0 0 0 0 Bowel Movements Output, Urine 2200 1400 1500 1850 2150 Patient 287 lb 288 lb Weight Weight Bed scale Bed scale Measurement Method Physical Exam: General: WD/obese female in NAD; intubated and sedated Heart: RRR Lungs: clear anteriorly Extremities; no edema Assessment/Plan Assessment/Plan * chest X-ray is consistent with ARDS * Continue Metoprolol to 12.5mg BID Continue telemetry? Yes
[2017-03-27 16:00] VITALS: BP 98/60
[2017-03-28] VITALS: BP 125/57
[2017-03-28 06:40] LABS: ABSOLUTE BASOPHIL COUNT 0 /CUMM (0.0-0.2); ABSOLUTE EOSINOPHIL COUNT 0 /CUMM (0.0-0.7); ABSOLUTE GRANULOCYTE CT 7.6 /CUMM (1.4-6.5); ABSOLUTE LYMPH COUNT 1.6 /CUMM (1.2-3.4); ABSOLUTE MONOCYTE COUNT 0.3 /CUMM (0.10-0.60); BASOPHIL % 0 % (0.0-2.0); EOSINOPHIL % 0.2 % (0-5); GRANULOCYTE % 80.1 % (42.2-75.2); HEMATOCRIT 27.5 % (37-47); MEAN CORPUSCULAR HGB 30.3 PG (27.0-31.0); MEAN CORPUSCULAR VOLUME 91.8 FL (81.0-99.0); MEAN PLATELET VOLUME 10.7 FL (7.4-10.4); PLATELET COUNT 121 /CUMM (130-400); RED BLOOD CELL CT 2.99 /CUMM (4.20-5.40); WHITE BLOOD CELL COUNT 9.5 /CUMM (4.8-10.8)
--- NOTE | 2017-03-28 06:47 | RADIOLOGY REPORT ---
EXAMINATION: XR PORTABLE CHEST CLINICAL INFORMATION: Endotracheal tube placement COMPARISON: Chest x-ray March 27, 2017 TECHNIQUE: Portable frontal view of the chest was obtained. 6:00 AM FINDINGS: Endotracheal tube catheter 4 cm above lisa. Nasogastric tube passing into the stomach. There is persistent bilateral airspace disease and central hilar vascular prominence. Favor congestive heart failure with pulmonary edema. The severity of the airspace disease in central hilar vascular prominence is similar to prior chest x-ray March 27, 2017. IMPRESSION: Endotracheal tube 4 cm above lisa. Nasogastric tube in stomach. Persistent bilateral airspace disease and central pulmonary vascular congestion.
--- NOTE | 2017-03-28 07:33 | PN- Resident CRCU ---
Erika CHAMORRO,[facility] 03/28/17 0733: Subjective HPI/CRCU Issues: ARDS Sinus Tachycardia 24 Hour Events: Currently at FiO2 of 100%. She tends to desaturate with any sort of movement. Vent Settings: Vt 500, RR 26, PIP 40, PEEP 12. In the last 24 hours: Input-8452 mL, output 3100 mL Total volume input 94,291 mL, output 99,450 mL. Objective Vital Signs & I&O Last 8 Hrs of Vitals and I&O: . Exam General Appearance: no apparent distress, sedated, intubated Head: atraumatic, normal appearance Respiratory: normal breath sounds, chest non-tender, lungs clear Cardiovascular: regular rate/rhythm Gastrointestinal: soft, non-tender Extremities: lower extremity edema Skin: intact Skin Temp/Moisture Exam: Warm/Dry Sepsis Skin Exam (color): Normal for Ethnicity Current Medications: Current Medications Sig/Nabila Start time Last Medication Dose Route Stop Time Status Admin Acetaminophen 650 MG Q6P PRN 03/06 2215 AC 03/11 PO 1140 Acetaminophen 1,000 MG Q6P PRN 03/06 2215 AC 03/26 IV 1721 Albuterol Sulfate 3 ML EVERY 4 HRS/AWAKE 03/08 1600 AC 03/28 INH 1152 Ampicillin 2,000 MG Q8 03/24 1400 AC 03/28 Sodium Chloride 100 ML IV 0512 Artificial Tears 1 GTT BID PRN 03/23 2200 AC 03/27 OPH 1711 Bisacodyl 10 MG ONCE ONE 03/27 1245 DC 03/27 MI 03/27 1246 1320 Calcium Carbonate 500 MG TID PRN 03/10 0030 PO Docusate Sodium 100 MG DAILY NEEDED 03/26 0915 PO Fentanyl Citrate 1,000 MCG Q4H 03/27 0840 AC 03/28 Sodium Chloride 250 ML IV 0826 Furosemide 20 MG 1130 03/28 1130 DC 03/28 IV 03/28 1131 1139 Glycerin 2 SPRAY Q2P PRN 03/09 0745 AC 03/09 PO 0848 Guaifenesin 10 ML Q4-6 PRN PRN 03/08 0445 AC 03/08 PO 0444 Heparin Sodium 5,000 UNIT Q8 03/07 0600 AC 03/28 (Porcine) SC 0512 Insulin Aspart 6 UNITS ONCE ONE 03/28 0815 DC 03/28 SC 03/28 0816 0807 Insulin Aspart 0 Q4 03/21 1400 AC 03/28 SC 1022 Insulin Detemir 40 UNITS BID 03/28 1000 AC 03/28 SC 1022 Insulin Detemir 35 UNITS BID 03/27 1000 DC 03/27 SC 2300 Insulin Human Regular 100 UNIT Q24H 03/28 0815 CAN Sodium Chloride 100 ML IV Ipratropium [place] 2.5 ML EVERY 4 HRS/AWAKE 03/08 1600 AC 03/28 INH 1152 Levothyroxine Sodium 37.5 MCG DAILY 03/22 1000 AC 03/28 IV 1046 Lorazepam 100 MG Q11H 03/27 1300 DC Sodium Chloride 1,000 ML IV Lorazepam 100 MG Q11H 03/27 1300 AC 03/28 Sodium Chloride 1,000 ML IV 0325 Lorazepam 100 MG Q9H 03/26 1600 DC 03/27 Sodium Chloride 1,000 ML IV 03/27 1259 0338 Methylprednisolone 40 MG Q8 03/27 1400 AC 03/28 IV 0514 Metoprolol Tartrate 12.5 MG BID 03/26 2200 AC 03/28 PO 1038 Morphine Sulfate 2 MG Q4P PRN 03/23 0845 AC 03/26 IV 1721 Pantoprazole Sodium 40 MG DAILY 03/22 1000 AC 03/28 IV 1046 Polyethylene Glycol 17 GM DAILY 03/28 1031 AC PO Polyethylene Glycol 17 GM DAILY 03/26 1000 AC 03/28 PO 1038 Senna 187 MG AT BEDTIME 03/28 2200 AC PO Senna 187 MG AT BEDTIME 03/26 2200 AC 03/27 PO 2244 Sodium Bicarbonate 975 MG BID 03/07 1000 AC 03/28 PO 1038 Sodium Chloride 1,000 ML Q20H 03/27 0415 DC 03/28 IV 0037 Vecuronium [place] 50 MG Q13H 03/27 1400 DC Dextrose/Water 500 ML IV Vecuronium [place] 50 MG Q13H 03/27 1400 AC 03/28 Sodium Chloride 500 ML IV 0510 Vecuronium [place] 50 MG Q11H 03/26 1330 DC 03/27 Dextrose/Water 500 ML IV 03/27 1359 0037 Impression/Plan Impression/Problem List Impression: 26 yo morbidly obese F with h/o 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 Was being treated on the general medicine floor with Tamiflu and IV ceftriaxone and azithromycin. Transferred to ICU on 03/08/2017 for worsening respiratory status and hypoxia. Assessment * Acute hypoxic respiratory failure secondary to influenza complicated with left lower lobe pneumonia (initially) and now due to possible ARDS. * Sinus Tachycardia - resolved * Hypernatremia * Sepsis on admission - resolved. * Influenza A positive - resolved * Acute on chronic kidney disease likely secondary to ATN. There could've been a component of pre-renal azotemia as well - resolved * Elevated CK - ? Rhabdomyolosis - improved with IVF. * Elevated blood sugars * History of Exercise induced Asthma * History of hypothyroidism * Transaminitis * Thrombocytopenia * ?UTI - Enterococcus in urine. Plan * Continue monitoring in ICU * Currently intubated with FiO2 of 100%. * Sedation with Ativan, Fentanyl drip. Vercuronium drip being attempted to be weaned off. * Repeat Echo showed normal LVEF and no evidence of right heart strain. * She is mildly hypernatremic. * Switched to IV Solu-Medrol 40mg q8. * Off Tamiflu. Her last flu swab was negative for influenza. * TRC nebs as needed. * Her insulin sliding scale has been adjusted per Endo. Levemir increased to 40mg BID. * Endo recs appreciated * Transaminases continue elevate despite being off Propofol. * Hepatitis panel has been negative. * RUQ U/S 03/18 showed hepatic steatosis which could be contributing to transaminitis. * Holding lisinopril, nephro input appreciated. * Her urine grew enterococcos sensitive to Ampicillin. Will continue her on IV Ampicillin 2g q8. * Will butcher culture her again. * Patients renal doctor is Dr Garcia ([phone]) at [facility]. Renal d/s started in 2009. * Continue sodium bicarbonate tabs. * Continue Synthroid. * DVT to prophylaxis with subcutaneous heparin * NPO. Continue tube feedings. * Nutrition recs appreciated * Patient is full code PLEASE CALL PATIENT'S FATHER STACY RASHID ) ABOUT ANY CHANGES IN CLINICAL CONDITION/ INTUBATION. HE IS CURRENTLY IN [place]. Problem List: 1. ARDS (adult respiratory distress syndrome) Pain Ratin Tomorrow's Labs & Rationales: CBC, ICU bundle Plan DVT/Prophylaxis: pharmacological Jose Ramon Aguero MD 03/28/17 0859: Attending MD Review Statement Attending Sign Off Attending Cosign Statement: I have: examined this patient, reviewed avalbl EMR data, personally reviewd images, discussd w/resident/PA/WEIGHT LOSS CENTRE MANAGER, discussed mgmt plan w/javon, discussed mgmt plan w/CM, discussed mgmt plan w/pt, agreed w/resident/PA/WEIGHT LOSS CENTRE MANAGER, amended to note. Other Findings: I, Jose Ramon Aguero M.D. have examined this patient, reviewed available EMR data, personally reviewed images, discussed with resident/PA/WEIGHT LOSS CENTRE MANAGER, discussed management plan with housestaff and nursing staff, discussed managment plan all of healthcare providers, discussed management plan with patient and/or family, agreed with resident/PA/WEIGHT LOSS CENTRE MANAGER. The past history and parts of the chart have been autopopulated. Impression 26 year old woman * acute hypoxemic respiratory failure, secondary to influenza in the setting of asthma, consistent with ARDS - hx of IgA nephropathy * stable anemia - likely chronic disease * hyperglycemia likely steroid induced * chronic CKD Consultants -renal, ID, endocrinology, cardiology Plan Respiratory -monitor abgs, cxrs, permissive hypercarbia is acceptable however normal co2 now -continue solumedrol for now 40mg iv q8h ID -f/u ID, continue ampicillin, s/p tamiflu -imaging is not feasible at this time given respiratory instability CVS -hemodynamic monitoring -f/u cardiology recs Heme -check coags -moniotor platelets -hearpin subcutaneous for DVT prophylaxis Metabolic -f/u endocrine, renal -glucose control, reduced steroids Alimentary -Glucerna Neuro -cont vecuronium and fentanyl, monitor BIS -f/u LFTs - worsened - if continue to increase, will call GI DVT prophylaxis at all times TTS 35 min patient is unstable to be moved, she desaturates significantly, imaging is not feasible given respiratory instability. in full understanding that creatinine is elevated, to pursue a femoral line for iv access is very short term and trendelenburg or moving to IR is not feasible given desaturation with any movement, will discuss with family and nephrology to consider PICC line bedside placement routinely
[2017-03-28 08:00] VITALS: BP 160/96
--- NOTE | 2017-03-28 08:15 | PN- Diabetes ---
Assessment/Plan Assessment: 26-year-old female who has had a history of prediabetes, overweight, Ig A nephropathy along with chronic renal insufficiency and asthma, was in ICU for respiratory distress. However, she was intubated on 03/21/2017. She is on tube feeding Glucerna at 60 ml/hour. She is receiving free water via feeding tube every 4 hours. She is on Ativan drip has been changed to normal saline and Norcuron drip is in D5W. She is now on Solu-Medrol 40 mg IV every 8 hours. Her blood sugars have become very high. Her insulin was increased to 35 units of Levemir twice a day and her sliding scale NovoLog was also increased. Her FSGs were 312, 332, 320, 320 and 319. Plan: 1. repeat FSG was 289 at 8 am; will give patient Novolog 6 units x one time at this point. 2. increase Levemir to 40 units twice a day; 3. adjust Novolog coverage every 4 hours; detail see the inpatient DM order; please inform me if her tube feeding will be held or the dosage of steroid will be changed and then I will adjust her insulin regimen accoirdingly. 4. if FSGs become above 300 agian, will start patient on insulin drip (follow the non DKA insulin drip protocol); 5. The target glucose level is between 140 and 180 mg/dl. Inpatient Diabetes Orders Before Each Meal: Bolus Insulin: Novolog < 80 mg/dl: no coverage 80-100 mg/dl: 9 units 101-120 mg/dl: 9 units 121-150 mg/dl: 9 units 151-200 mg/dl: 12 units 201-250 mg/dl: 15 units 251-300 mg/dl: 18 units 301-350 mg/dl: 21 units 351-400 mg/dl: 24 units > 400 mg/dl: 27 units Subjective Subjective: She remains intubated. Objective Last 24 Hrs of Vital Signs/I&O Vital Signs Date Time Temp Pulse Resp B/P B/P Pulse O2 O2 Flow FiO2 Mean Ox Delivery Rate 03/28 0645 100 03/28 0400 92 Ventilator 100% 03/28 0358 100 03/28 0219 100 03/28 0000 97.3 91 26 125/57 92 Ventilator 100% 03/28 0000 92 Ventilator 100% 03/27 2245 92 131/54 03/27 2211 10 03/27 2036 100 03/27 2000 90 Ventilator 100% 03/27 1637 100 03/27 1600 88 Ventilator 100% 03/27 1600 97.5 90 26 98/60 88 Ventilator 100% 03/27 1411 100 03/27 1200 90 Ventilator 100% 03/27 1038 84 121/46 03/27 0900 100 Intake & Output 03/28 1600 02 0800 02 0000 Intake Total 3287 Output Total 1000 Balance 2287 Intake, IV 2151 Intake, Other 100 Intake, Tube 586 Feeding Intake, Tube 450 Irrigant Number 0 Bowel Movements Output, Urine 1000 Findings Pertinent Lab/Michael Results: Laboratory Tests 03/28 0534 Chemistry Sodium (137 - 145 mmol/L) 146 H Potassium (3.5 - 5.1 mmol/L) 4.2 Chloride (98 - 107 mmol/L) 112 H Carbon Dioxide (22 - 30 mmol/L) 17 L Anion Gap (5 - 16) 17 H BUN (7 - 17 mg/dL) 60 H Creatinine (0.5 - 1.0 mg/dL) 2.8 H Estimated GFR (>60 ml/min) 21 L Glucose (65 - 99 mg/dL) 312 H Calcium (8.4 - 10.2 mg/dL) 8.7 Phosphorus (2.5 - 4.5 mg/dL) 4.8 H Magnesium (1.6 - 2.3 mg/dL) 2.6 H Total Bilirubin (0.2 - 1.3 mg/dL) 0.6 AST (14 - 36 U/L) 318 H ALT (9 - 52 U/L) 807 H Albumin (3.5 - 5.0 g/dL) 2.7 L Hematology CBC w Diff NO MAN DIFF REQ WBC (4.8 - 10.8 /CUMM) 9.5 RBC (4.20 - 5.40 /CUMM) 2.99 L Hgb (12.0 - 16.0 G/DL) 9.1 L Hct (37 - 47 %) 27.5 L MCV (81.0 - 99.0 FL) 91.8 MCH (27.0 - 31.0 PG) 30.3 MCHC (33.0 - 37.0 G/DL) 33.0 RDW (11.5 - 14.5 %) 13.0 Plt Count (130 - 400 /CUMM) 121 L MPV (7.4 - 10.4 FL) 10.7 H Gran % (42.2 - 75.2 %) 80.1 H Lymphocytes % (20.5 - 51.1 %) 16.9 L Monocytes % (1.7 - 9.3 %) 2.8 Eosinophils % (0 - 5 %) 0.2 Basophils % (0.0 - 2.0 %) 0 Absolute Granulocytes (1.4 - 6.5 /CUMM) 7.6 H Absolute Lymphocytes (1.2 - 3.4 /CUMM) 1.6 Absolute Monocytes (0.10 - 0.60 /CUMM) 0.3 Absolute Eosinophils (0.0 - 0.7 /CUMM) 0 Absolute Basophils (0.0 - 0.2 /CUMM) 0
--- NOTE | 2017-03-28 11:09 | PN- Infect Dx ---
Subjective Subjective: Afebrile on steroids. She has been desaturating with minimal movement. Objective Last 24 Hrs of Vital Signs/I&O Vital Signs Date Time Temp Pulse Resp B/P B/P Pulse O2 O2 Flow FiO2 Mean Ox Delivery Rate 03/28 1038 97 152/63 02 0832 100 03/28 0800 97.5 96 26 160/96 83 Ventilator 100% 03/28 0800 83 Ventilator 100% 03/28 0645 100 03/28 0400 92 Ventilator 100% 03/28 0358 100 03/28 0219 100 02/ 0000 97.3 91 26 125/57 92 Ventilator 100% 03/28 0000 92 Ventilator 100% 03/27 2245 92 131/54 02 2211 10 03/27 2036 100 03/27 2000 90 Ventilator 100% 03/27 1637 100 03/27 1600 88 Ventilator 100% 03/27 1600 97.5 90 26 98/60 88 Ventilator 100% 03/27 1411 100 / 1200 90 Ventilator 100% Intake & Output 03/28 1600 03/28 0800 02 0000 Intake Total 2243 3287 Output Total 900 1000 Balance 1343 2287 Intake, IV 1645 2151 Intake, Other 100 Intake, Tube 448 586 Feeding Intake, Tube 150 450 Irrigant Number 0 0 Bowel Movements Output, Urine 900 1000 Physical Exam Other Physical Findings: She is sedated and unresponsive on the ventilator Lungs scattered rhonchi bilaterally Heart regular rhythm with no murmur Abdomen is obese, soft, nontender with positive bowel sounds Extremities no cyanosis, clubbing or edema Cruz catheter remains in place Results Last 24 Hours of Lab Results: Laboratory Tests 03/28 533 Chemistry Sodium (137 - 145 mmol/L) 146 H Potassium (3.5 - 5.1 mmol/L) 4.2 Chloride (98 - 107 mmol/L) 112 H Carbon Dioxide (22 - 30 mmol/L) 17 L Anion Gap (5 - 16) 17 H BUN (7 - 17 mg/dL) 60 H Creatinine (0.5 - 1.0 mg/dL) 2.8 H Estimated GFR (>60 ml/min) 21 L Glucose (65 - 99 mg/dL) 312 H Calcium (8.4 - 10.2 mg/dL) 8.7 Phosphorus (2.5 - 4.5 mg/dL) 4.8 H Magnesium (1.6 - 2.3 mg/dL) 2.6 H Total Bilirubin (0.2 - 1.3 mg/dL) 0.6 AST (14 - 36 U/L) 318 H ALT (9 - 52 U/L) 807 H Albumin (3.5 - 5.0 g/dL) 2.7 L Hematology CBC w Diff NO MAN DIFF REQ WBC (4.8 - 10.8 /CUMM) 9.5 RBC (4.20 - 5.40 /CUMM) 2.99 L Hgb (12.0 - 16.0 G/DL) 9.1 L Hct (37 - 47 %) 27.5 L MCV (81.0 - 99.0 FL) 91.8 MCH (27.0 - 31.0 PG) 30.3 MCHC (33.0 - 37.0 G/DL) 33.0 RDW (11.5 - 14.5 %) 13.0 Plt Count (130 - 400 /CUMM) 121 L MPV (7.4 - 10.4 FL) 10.7 H Gran % (42.2 - 75.2 %) 80.1 H Lymphocytes % (20.5 - 51.1 %) 16.9 L Monocytes % (1.7 - 9.3 %) 2.8 Eosinophils % (0 - 5 %) 0.2 Basophils % (0.0 - 2.0 %) 0 Absolute Granulocytes (1.4 - 6.5 /CUMM) 7.6 H Absolute Lymphocytes (1.2 - 3.4 /CUMM) 1.6 Absolute Monocytes (0.10 - 0.60 /CUMM) 0.3 Absolute Eosinophils (0.0 - 0.7 /CUMM) 0 Absolute Basophils (0.0 - 0.2 /CUMM) 0 Last 24 Hours of Michael Results: No new cultures Recent Imaging Studies: Chest x-ray March 28 persistent bilateral airspace disease and central pulmonary vascular congestion Assessment/Plan Impression: Condition remains poor, with respiratory failure, presumably secondary to ARDS, with no significant change in her chest x-ray. She has had no fevers recorded over the past 36 hours, but she does remain on steroids, with her white blood cell count remaining normal and her platelet count slightly increased. She remains on Ampicillin now Day 4 of treatment for a positive urine culture for Enterococcus, though this may just represent colonization from the Cruz catheter. She has no other obvious source of infection, but further evaluation, for example CT of the abdomen and pelvis, is limited given her tenuous respiratory status. Her I's are greater than her O's, suggesting the possibility that some of her respiratory failure may be fluid overload. Her liver enzymes have increased further, possibly secondary to passive congestion of the liver, with a right upper quadrant ultrasound negative. Suggestion: 1. Repeat blood cultures 2, urine culture and sputum culture 2. Further evaluation/management of her fluid status per Cardiology 3. Would pursue CT of the chest, abdomen and pelvis if/when her respiratory status allows 4. Continue Ampicillin
--- NOTE | 2017-03-28 11:48 | PN- Cardiology ---
Subjective Subjective: The patient remains intubated and sedated. Sinus tachycardia has improved, heart rate is now normal. Blood pressure is mildly elevated. Objective Vital Signs and I&Os Vital Signs Date Time Temp Pulse Resp B/P B/P Pulse O2 O2 Flow FiO2 Mean Ox Delivery Rate 03/28 1038 97 152/63 02/ 0832 100 03/28 0800 97.5 96 26 160/96 83 Ventilator 100% 03/28 0800 83 Ventilator 100% 03/28 0645 100 03/28 0400 92 Ventilator 100% 03/28 0358 100 03/28 0219 100 02/05 0000 97.3 91 26 125/57 92 Ventilator 100% 03/28 0000 92 Ventilator 100% 03/27 2245 92 131/54 02 2211 10 03/27 2036 100 03/27 2000 90 Ventilator 100% 03/27 1637 100 03/27 1600 88 Ventilator 100% 03/27 1600 97.5 90 26 98/60 88 Ventilator 100% / 1411 100 / 1200 90 Ventilator 100% Intake & Output 03/28 1600 03/28 0800 02/ 0000 / 1600 03/27 0800 02/04 0000 Intake Total 2243 3287 2922 2904.6 3364.1 Output Total 900 1000 1200 2200 1400 Balance 1343 2287 1722 704.6 1964.1 Intake, IV 1645 2151 2043 2144.6 2275.1 Intake, Oral 0 0 0 Intake, Other 100 100 120 Intake, Tube 448 586 479 460 519 Feeding Intake, Tube 150 450 300 300 450 Irrigant Number 0 0 0 0 0 Bowel Movements Output, Urine 900 1000 1200 2200 1400 Patient 287 lb Weight Weight Bed scale Measurement Method Physical Exam: Gen: The patient is in no acute distress HEENT: Normal nose, ears, and oropharynx. Pupils equal bilaterally. Conjunctiva normal. Neck: Supple with no JVD, no masses, and no thyromegaly Lungs: Decreased breath sounds on the ventilator Heart: Tachycardia, S1, S2, no murmurs. No peripheral edema, 2+ pulses in the lower extremities bilaterally Abdomen: Soft, nontender, no masses. No hepatomegaly. No splenomegaly Extremities: No clubbing or cyanosis. Normal muscle strength in the upper and lower extremities Skin: Normal skin turgor with no skin ulcers or lesions noted. Neuro: Cranial nerves intact. Sensation intact Psych: Intubated and sedated Current Medications: Current Medications Sig/Nabila Start time Last Medication Dose Route Stop Time Status Admin Acetaminophen 650 MG Q6P PRN 03/06 2215 AC 03/11 PO 1140 Acetaminophen 1,000 MG Q6P PRN 03/06 2215 AC 03/26 IV 1721 Albuterol Sulfate 3 ML EVERY 4 HRS/AWAKE 03/08 1600 AC 03/28 INH 0829 Ampicillin 2,000 MG Q8 03/24 1400 AC 03/28 Sodium Chloride 100 ML IV 0512 Artificial Tears 1 GTT BID PRN 03/23 2200 AC 03/27 OPH 1711 Bisacodyl 10 MG ONCE ONE 03/27 1245 DC 03/27 TN 03/27 1246 1320 Calcium Carbonate 500 MG TID PRN 03/10 0030 AC PO Docusate Sodium 100 MG DAILY NEEDED 03/26 0915 AC PO Fentanyl Citrate 1,000 MCG Q4H 03/27 0840 AC 03/28 Sodium Chloride 250 ML IV 0826 Furosemide 20 MG 1130 03/28 1130 DC 03/28 IV 03/28 1131 1139 Glycerin 2 SPRAY Q2P PRN 03/09 0745 AC 03/09 PO 0848 Guaifenesin 10 ML Q4-6 PRN PRN 03/08 0445 AC 03/08 PO 0444 Heparin Sodium 5,000 UNIT Q8 03/07 0600 AC 03/28 (Porcine) SC 0512 Insulin Aspart 6 UNITS ONCE ONE 03/28 0815 DC 03/28 SC 03/28 0816 0807 Insulin Aspart 0 Q4 03/21 1400 AC 03/28 SC 1022 Insulin Detemir 40 UNITS BID 03/28 1000 AC 03/28 SC 1022 Insulin Detemir 35 UNITS BID 03/27 1000 DC 03/27 SC 2300 Insulin Human Regular 100 UNIT Q24H 03/28 0815 CAN Sodium Chloride 100 ML IV Ipratropium [place] 2.5 ML EVERY 4 HRS/AWAKE 03/08 1600 AC 03/28 INH 0829 Levothyroxine Sodium 37.5 MCG DAILY 03/22 1000 AC 03/28 IV 1046 Lorazepam 100 MG Q11H 03/27 1300 DC Sodium Chloride 1,000 ML IV Lorazepam 100 MG Q11H 03/27 1300 AC 03/28 Sodium Chloride 1,000 ML IV 0325 Lorazepam 100 MG Q9H 03/26 1600 DC 03/27 Sodium Chloride 1,000 ML IV 03/27 1259 0338 Methylprednisolone 40 MG Q8 03/27 1400 AC 03/28 IV 0514 Metoprolol Tartrate 12.5 MG BID 03/26 2200 AC 03/28 PO 1038 Morphine Sulfate 2 MG Q4P PRN 03/23 0845 AC 03/26 IV 1721 Pantoprazole Sodium 40 MG DAILY 03/22 1000 AC 03/28 IV 1046 Polyethylene Glycol 17 GM DAILY 03/28 1031 AC PO Polyethylene Glycol 17 GM DAILY 03/26 1000 AC 03/28 PO 1038 Senna 187 MG AT BEDTIME 03/28 2200 AC PO Senna 187 MG AT BEDTIME 03/26 2200 AC 03/27 PO 2244 Sodium Bicarbonate 975 MG BID 03/07 1000 AC 03/28 PO 1038 Sodium Chloride 1,000 ML Q20H 03/27 0415 DC 03/28 IV 0037 Vecuronium [place] 50 MG Q13H 03/27 1400 DC Dextrose/Water 500 ML IV Vecuronium [place] 50 MG Q13H 03/27 1400 AC 03/28 Sodium Chloride 500 ML IV 0510 Vecuronium [place] 50 MG Q11H 03/26 1330 DC 03/27 Dextrose/Water 500 ML IV 03/27 1359 0037 Results Last 48 Hrs of Labs/Mics: Laboratory Tests 03/28/17 0534: Anion Gap 17 H, Estimated GFR 21 L, Glucose 312 H, Calcium 8.7, Phosphorus 4.8 H, Magnesium 2.6 H, Total Bilirubin 0.6, AST 318 H, ALT 807 H, Albumin 2.7 L, CBC w Diff NO MAN DIFF REQ, RBC 2.99 L, MCV 91.8, MCH 30.3, MCHC 33.0, RDW 13.0, MPV 10.7 H, Gran % 80.1 H, Lymphocytes % 16.9 L, Monocytes % 2.8, Eosinophils % 0.2, Basophils % 0, Absolute Granulocytes 7.6 H, Absolute Lymphocytes 1.6, Absolute Monocytes 0.3, Absolute Eosinophils 0, Absolute Basophils 0 03/27/17 0530: pH 7.26 *L, pCO2 43, pO2 62 L, HCO3 19 L, ABG O2 Sat (Measured) 91.0 L, P-50 (Temp Corrected) Y, Carboxyhemoglobin 0.3 L, O2 Concentration % 100%, Temperature 97.0, Respiration Rate 26, O2 Delivery Method ESPRIT, Vent Mode AC, Expiratory Pressure 12, Tidal Volume 450, Phlebotomy Draw Site RIGHT RADIAL 03/27/17 0455: Anion Gap 15, Estimated GFR 22 L, Glucose 424 H, Calcium 8.6, Phosphorus 5.8 H, Magnesium 2.4 H, Iron 91, TIBC 204 L, Ferritin 2000.0 H, Total Bilirubin 0.6, AST 174 H, ALT 501 H, Albumin 2.8 L, PT 11.1, INR 1.06, APTT < 20 L, CBC w Diff NO MAN DIFF REQ, RBC 2.93 L, MCV 91.7, MCH 30.6, MCHC 33.4, RDW 12.6 , MPV 10.8 H, Gran % 83.0 H, Lymphocytes % 13.8 L, Monocytes % 3.0, Eosinophils % 0.1, Basophils % 0.1, Absolute Granulocytes 7.5 H, Absolute Lymphocytes 1.2, Absolute Monocytes 0.3, Absolute Eosinophils 0, Absolute Basophils 0 Recent Imaging Studies: Chest x-ray: Endotracheal tube 4 cm above lisa. Nasogastric tube in stomach. Persistent bilateral airspace disease and central pulmonary vascular congestion. Assessment/Plan Assessment/Plan Assessment: 1. Acute hypoxemic respiratory failure secondary to influenza complicated with left lower lobe pneumonia. 2. Possible ARDS 3. Acute on chronic kidney disease stage III due to IgA nephropathy 4. Sinus tachycardia, likely reactive. No evidence of primary cardiac etiology. Recommendations: * Although sinus tachycardia has improved, blood pressure is elevated. Would continue current dose of metoprolol for now for control of blood pressure and heart rate * Ventilatory support is performed Continue telemetry? Yes
--- NOTE | 2017-03-28 15:46 | Event Note ---
Event Note Event Note: Discussed w/ the powdered sugar pulverizer operator about a possibility of placing a PICC line, but he was of the opinion that IR should evalute the pt, for placing the triple lumen, if possible. Since, Ms Scott desaturates upon moving even on tilting her head, it was made clear that the procedure should be done without placing the pt in trendelenberg position or move the pt. Requested Dr. Arthur to evalute the pt, if he can do a procedure without moving her or put her in trendelenberg position would be helpful. If not, then we would request the powdered sugar pulverizer operator to get the PICC line in the am. Informed the attending.
[2017-03-28 16:00] VITALS: BP 162/70
--- NOTE | 2017-03-28 17:23 | RADIOLOGY REPORT ---
EXAMINATION: XR PORTABLE CHEST CLINICAL INFORMATION: Central line placement. Confirmation of IJ catheter. COMPARISON: Chest radiograph 03/28/2017. TECHNIQUE: Portable frontal view of the chest was obtained. FINDINGS: Left IJ central venous catheter tip projects approximately 2 cm into the right atrium. Endotracheal tube tip is 4.5 cm above the lisa in unchanged position. An enteric tube courses below the diaphragm with its tip projecting over the stomach. Low lung volumes are again noted. Diffuse airspace and interstitial opacities are redemonstrated, slightly worse on the right side. There may be layering pleural effusions. Cardiac silhouette is enlarged and unchanged. There is central vascular congestion. Osseous structures are stable. IMPRESSION: Left IJ central venous catheter tip projects approximately 2 cm into the right atrium. No definite pneumothorax is identified. Additional tubes and lines as discussed above. Worsening opacification of the right lung and similar opacification of the left lung with diffuse interstitial and airspace opacities.
--- NOTE | 2017-03-28 17:51 | INTERVENTIONAL RADIOLOGY RPT ---
CLINICAL HISTORY: This patient is a 26 year old female with respiratory failure and poor venous access, who is in need of a triple-lumen catheter for central venous access. PROCEDURES: 1. Real-time ultrasound-guided access into the left internal jugular vein after documentation of selected vessel patency, and permanent imaging storing in the patient records. 2. Placement of a triple-lumen catheter. PHYSICIANS: Dr. Miguel A Arthur (attending). MEDICATIONS: Lidocaine 1%, 10 mL SQ. CONTRAST: None FLUOROSCOPY TIME: 0 minutes DAP: 0 uGym2 COMPLICATIONS: None ESTIMATED BLOOD LOSS: Scant SPECIMENS: None IMPLANT: 7 Yemeni triple-lumen central venous catheter SITE MARKING: As part of the preprocedure verification policy, a site marking procedure was initiated. Due to the nature the procedure, the insertion site could not be predetermined thus invoking the policy of exemption to site laterality and marking. Insertion site marking was performed in the procedure room in conjunction with imaging confirmation. PROCEDURE NOTE: Informed consent was obtained from the patient's father prior to the procedure. During this process, the procedure and potential alternatives were explained along with the intended outcome and benefits. The risks of the procedure, including the possibility of an unsuccessful procedure, as well as the risk of not doing the procedure, were discussed. The patient's father was given the opportunity to ask questions regarding the procedure and appeared competent to make decisions. A signed consent form documenting this discussion was placed in the medical record. A time-out procedure was performed. Procedure was performed bedside in the patient was critically ill and could not travel to the interventional radiology suite. The left neck and chest were prepped and draped in usual sterile fashion. All elements of maximal sterile barrier technique followed including use of cap, mask, sterile gown, sterile gloves, a sterile full body drape and hand hygiene. Also followed skin preparation with 2% chlorhexidine for cutaneous antisepsis, and sterile ultrasound preparation with sterile gel and probe cover when applicable. Ultrasound-guided vascular access: Ultrasound was used to identify the internal jugular vein. The left internal jugular vein was confirmed to be patent. Real time imaging confirmed needle access into the internal jugular vein. An image was saved for permanent recording in PACS. Venous access was achieved into the left IJ vein using ultrasound guidance with an 18-gauge needle. A small skin rodrick was made at the access site. The 035 J-wire was advanced through the needle into the central veins. The tract was dilated using a 7 Yemeni Yemeni fascial dilator. A 7 Yemeni triple-lumen central venous catheter was advanced over the wire. The wire was removed and the catheter was advanced over the wire. All 3 lumens of the catheter were tested, all flushing and aspirating well. The catheter was then hep-locked. The catheter was sutured to the skin with 30 silk. A Biopatch was placed around the catheter at the skin entrance site and then a sterile Tegaderm was applied. Portable chest radiograph was obtained to document position of the catheter. FINDINGS: 1. Patent left IJ vein. 2. Tip of the central venous catheter in the high right atrium. 3. Catheter flushes and aspirates well. 4. No pneumothorax. IMPRESSION: Successful and uncomplicated placement of an 7 Yemeni triple lumen central venous catheter for venous access. The catheter may be used immediately.
[2017-03-29] VITALS: BP 140/68
[2017-03-29 05:37] LABS: ABSOLUTE BASOPHIL COUNT 0 /CUMM (0.0-0.2); ABSOLUTE EOSINOPHIL COUNT 0 /CUMM (0.0-0.7); ABSOLUTE GRANULOCYTE CT 8.2 /CUMM (1.4-6.5); ABSOLUTE LYMPH COUNT 1.8 /CUMM (1.2-3.4); ABSOLUTE MONOCYTE COUNT 0.3 /CUMM (0.10-0.60); BASOPHIL % 0.1 % (0.0-2.0); EOSINOPHIL % 0.2 % (0-5); GRANULOCYTE % 79.2 % (42.2-75.2); HEMATOCRIT 27.8 % (37-47); MEAN CORPUSCULAR HGB 30.4 PG (27.0-31.0); MEAN CORPUSCULAR HGB CONC 32.9 G/DL (33.0-37.0); MEAN CORPUSCULAR VOLUME 92.3 FL (81.0-99.0); MEAN PLATELET VOLUME 10.4 FL (7.4-10.4); PLATELET COUNT 137 /CUMM (130-400); RBC DISTRIBUTION WIDTH 13.7 % (11.5-14.5); RED BLOOD CELL CT 3.01 /CUMM (4.20-5.40); WHITE BLOOD CELL COUNT 10.4 /CUMM (4.8-10.8)
--- NOTE | 2017-03-29 06:02 | RADIOLOGY REPORT ---
EXAMINATION: XR PORTABLE CHEST CLINICAL INFORMATION: ARDS. Tubes and lines. COMPARISON: Chest x-ray March 28, 2017 TECHNIQUE: Portable frontal view of the chest was obtained. 5:27 AM FINDINGS: Endotracheal tube 4 cm above lisa. Nasogastric tube passes into the stomach. Left IJ catheter tip at caval atrial junction. EKG leads over the chest. Lung volume is low. There is bilateral airspace disease. Airspace disease is improving with improved aeration since prior exam March 28, 2017. Haziness at lung bases could be due to bilateral pleural effusions similar prior chest x-ray. IMPRESSION: 1. Endotracheal tube catheter 4 cm above lisa. 2. Nasogastric tube passing into stomach. 3. Left IJ catheter tip at cavoatrial junction. 4. Mild improvement in the bilateral airspace disease since prior exam of March 28, 2017.
--- NOTE | 2017-03-29 07:10 | PN- CRCU ---
Subjective HPI/Critical Care Issues: Weekend events noted. Chart reviewed. Patient seen and examined. The patient continues to do poorly. She remains on 100% with 14 of PEEP on the ventilator. She desaturates easily if moved. She remains on sedation she is on fentanyl, Ativan and a vecuronium drip. The vecuronium levels have been tapering down but have not been able to be tapered off. She remains on tube feeds with free water flushes. She has not had a bowel movement in several days. She continues to have hypernatremia despite the water flushes and D5 W infusion. Yesterday, the patient had a left triple lumen catheter placed by interventional radiology without incident. Objective Current Medications: Current Medications Sig/Nabila Start time Last Medication Dose Route Stop Time Status Admin Acetaminophen 650 MG Q6P PRN 03/06 2215 AC 03/11 PO 1140 Acetaminophen 1,000 MG Q6P PRN 03/06 2215 AC 03/26 IV 1721 Albuterol Sulfate 3 ML EVERY 4 HRS/AWAKE 03/08 1600 AC 03/28 INH 2117 Ampicillin 2,000 MG Q8 03/24 1400 AC 03/29 Sodium Chloride 100 ML IV 0602 Artificial Tears 1 GTT BID PRN 03/23 2200 AC 03/27 OPH 1711 Calcium Carbonate 500 MG TID PRN 03/10 0030 AC PO Docusate Sodium 100 MG DAILY NEEDED 03/26 0915 AC 03/28 PO 2224 Fentanyl Citrate 1,000 MCG Q4H 03/27 0840 AC 03/29 Sodium Chloride 250 ML IV 0601 Furosemide 20 MG 1130 03/28 1130 DC 03/28 IV 03/28 1131 1139 Glycerin 2 SPRAY Q2P PRN 03/09 0745 AC 03/09 PO 0848 Guaifenesin 10 ML Q4-6 PRN PRN 03/08 0445 AC 03/08 PO 0444 Heparin Sodium 5,000 UNIT Q8 03/07 0600 AC 03/29 (Porcine) SC 0602 Insulin Aspart 6 UNITS ONCE ONE 03/28 0815 DC 03/28 SC 03/28 0816 0807 Insulin Aspart 0 Q4 03/21 1400 AC 03/29 SC 0101 Insulin Detemir 40 UNITS BID 03/28 1000 AC 03/28 SC 2104 Insulin Detemir 35 UNITS BID 03/27 1000 DC 03/27 SC 2300 Insulin Human Regular 100 UNIT Q24H 03/29 0200 AC 03/29 Sodium Chloride 100 ML IV 0131 Insulin Human Regular 100 UNIT Q24H / 0815 CAN Sodium Chloride 100 ML IV Ipratropium [place] 2.5 ML EVERY 4 HRS/AWAKE 03/08 1600 AC 03/28 INH 2116 Levothyroxine Sodium 37.5 MCG DAILY 03/22 1000 AC 03/28 IV 1046 Lorazepam 100 MG Q11H 03/27 1300 AC 03/29 Sodium Chloride 1,000 ML IV 0102 Methylprednisolone 40 MG Q8 03/27 1400 AC 03/29 IV 0602 Metoprolol Tartrate 12.5 MG BID 03/26 2200 AC 03/28 PO 2107 Morphine Sulfate 2 MG Q4P PRN 03/23 0845 AC 03/26 IV 1721 Pantoprazole Sodium 40 MG DAILY 03/22 1000 AC 03/28 IV 1046 Polyethylene Glycol 17 GM DAILY 03/28 1031 AC PO Polyethylene Glycol 17 GM DAILY 03/26 1000 AC 03/28 PO 1038 Senna 187 MG AT BEDTIME 03/28 2200 AC 03/28 PO 2108 Senna 187 MG AT BEDTIME 03/26 2200 AC 03/28 PO 2108 Sodium Bicarbonate 975 MG BID 03/07 1000 AC 03/28 PO 2108 Sodium Chloride 1,000 ML Q20H 03/27 0415 DC 03/28 IV 0037 Vecuronium [place] 50 MG Q13H 03/27 1400 AC 03/28 Sodium Chloride 500 ML IV 1728 Vital Signs & I&O Last 24 Hrs of Vitals and I&O: Vital Signs Date Time Temp Pulse Resp B/P B/P Pulse O2 O2 Flow FiO2 Mean Ox Delivery Rate 03/29 0654 100 03/29 0408 100 03/29 0400 92 Ventilator 100% 03/29 0153 100 03/29 0000 92 Ventilator 100% 03/29 0000 98.3 92 26 140/68 92 Ventilator 100% / 2225 100 / 2107 103 153/64 03/28 2000 93 Ventilator 100% / 1950 100 / 1700 100 02/05 1600 97.1 104 26 162/70 85 Ventilator 100% / 1600 85 Ventilator 100% / 1410 100 02/05 1200 89 Ventilator 100% / 1147 100 02/ 1038 97 152/63 02/ 0832 100 03/28 0800 97.5 96 26 160/96 83 Ventilator 100% 03/28 08 83 Ventilator 100% Intake & Output 03/29 0800 03/29 0000 03/28 1600 Intake Total 2538 2511 2790 Output Total 1400 1360 1400 Balance 1138 1151 1390 Intake, IV 1518 1481 1690 Intake, Oral 0 0 Intake, Tube 550 500 510 Feeding Intake, Tube 470 530 590 Irrigant Number 0 0 Bowel Movements Output, Urine 1400 1360 1400 Patient 305 lb Weight Weight Bed scale Measurement Method Exam General Appearance: intubated, sedated and paralyzed Neck: normal inspection, supple Respiratory: normal breath sounds, chest non-tender, no respiratory distress, quiet respiration, lungs clear anteriorly Cardiovascular: regular rate/rhythm Gastrointestinal: normal bowel sounds, soft, mild tenderness in RUQ, decreased than yesterday Extremities: no edema Cranial Nerves: normal speech, PERRL Results Last 24 Hrs of Lab Results: Laboratory Tests 03/29/17 0415: Anion Gap 16, Estimated GFR 19 L, Glucose 236 H, Calcium 8.7, Phosphorus 4.5, Magnesium 2.9 H, Total Bilirubin 0.9, AST 352 H, ALT 1031 H, Albumin 2.9 L, CBC w Diff MAN DIFF ORDERED, RBC 3.01 L, MCV 92.3, MCH 30.4, MCHC 32.9 L, RDW 13.7, MPV 10.4, Gran % 79.2 H, Lymphocytes % 17.4 L, Monocytes % 3.1, Eosinophils % 0.2, Basophils % 0.1, Absolute Granulocytes 8.2 H, Segmented Neutrophils 60, Band Neutrophils 9 H, Absolute Lymphocytes 1.8, Lymphocytes 27, Monocytes 4, Absolute Monocytes 0.3, Absolute Eosinophils 0, Absolute Basophils 0, Nucleated RBCs 3 H, Platelet Estimate ADEQUATE, Normocytic RBCs VERIFIED, Polychromasia 1+, Anisocytosis 1+ 03/28/17 1715: Anion Gap 14, Estimated GFR 21 L, BUN/Creatinine Ratio 23.9 Last 24 Hrs of Micro Results: Repeat cultures negative so far. Diagnostic Data CXR Findings: 1. Endotracheal tube catheter 4 cm above lisa. 2. Nasogastric tube passing into stomach. 3. Left IJ catheter tip at cavoatrial junction. 4. Mild improvement in the bilateral airspace disease since prior exam of March 28, 2017. Impression/Plan Impression/Plan Impression/Plan: 1. Hypoxemic respiratory failure secondary to influenza, with ARDS. On low tidal volume ventilation strategy with permissive hypercapnia. CT shows GGOs, slightly worse. ID, cardiology and nephrology following. The patient has failed to improve with all interventions and remains on 100% with a PEEP of 14. She desaturates any time she is significantly moved or cleaned. My concern is the patient is not getting better as previously mentioned and will need transfer to higher level of care. In the past I discussed the dangers of transferring the patient and critical condition, however they were agreeable to consider the possibility of transfer if she does not improve. We will discuss this later today at a family meeting. 2. Obesity hypoventilation syndrome. 3. Obstructive sleep apnea, undiagnosed. 4. Hypernatremia. 5. History of chronic kidney disease secondary to IgA nephropathy, Cr stable, nephrology following. 6. History of hypothyroidism. 7. Exercise-induced asthma, bronchospasm improved. 8. Transaminitis, etiology unclear, GI consulted. 9. Hypernatremia. 10. Malnutriton - on tube feeds. Recommendations: Recommendations: * Vent changes made for respiratory acidosis - RR increased to 30. Will check a repeat ABG in 2 hours. * Restart sodium bicarbonate tablets and discussed with renal. * Solu-Medrol increased to 40 mg every 8 hours. Will taper slowly. * Free water flushes to continue. * D5W to be increased to 150 ml/hour - continue with free water replacement. * Will continue to follow up endocrine recommendations. * Continue to following sodium levels q 12 hours today. * Continue to follow ID recommendations. Continue ampicillin. * Will still consider transfer to a higher level of care if she continues to fail to improve, noting she may benefit from prone positioning or ECHMO. * Continue tube feeds. Daily bowel regimen as needed. * Follow endocrine recommendations. Continue insulin regimen. * Monitor all electrolytes and replete as necessary. * Continue Synthroid. * Continue skin care protocol. * Start bowel regimen. * Subcutaneous heparin/DVT prophylaxis at all times. * Continue to monitor closely in the critical care unit. Patient remains critically ill. * Continue all supportive care. Will continue to update the patient's family on her progress. Plan is for family meeting later today. Addendum: I have discussed the patient's case with [facility]. At the present time, there is a possibility for their team to come to [place] and do ECHMO on the go. I will discuss this with the patient's family to obtain their consent. Will continue all life supportive measures.
--- NOTE | 2017-03-29 07:48 | PN- Resident CRCU ---
Subjective HPI/CRCU Issues: ARDS 24 Hour Events: Currently at FiO2 of 100%. She continues to desaturate with any sort of movement. Had a central line placed successfully by IR yesterday. Her blood gas showed severe acidosis this morning and her RR was increased to 30. Repeat blood gas showed some improvement but persistent acidosis. Vent Settings: Vt 500, RR 30, PIP 40, PEEP 14. In the last 24 hours: Input-7839 mL, output 4160 mL An ECMO team from [facility] will be coming in this afternoon to start her on ECMO and see if she can be stablized to a higher level of care. Objective Vital Signs & I&O Last 8 Hrs of Vitals and I&O: . Exam General Appearance: no apparent distress, sedated, intubated Head: atraumatic, normal appearance Respiratory: normal breath sounds, chest non-tender Cardiovascular: regular rate/rhythm Gastrointestinal: soft, non-tender Extremities: mild lower extremity edema Skin: intact Skin Temp/Moisture Exam: Warm/Dry Sepsis Skin Exam (color): Normal for Ethnicity Current Medications: Current Medications Sig/Nabial Start time Last Medication Dose Route Stop Time Status Admin Acetaminophen 650 MG Q6P PRN 03/06 2215 AC 03/11 PO 1140 Acetaminophen 1,000 MG Q6P PRN 03/06 2215 AC 03/26 IV 1721 Albuterol Sulfate 3 ML EVERY 4 HRS/AWAKE 03/08 1600 AC 03/29 INH 1156 Ampicillin 2,000 MG Q8 03/24 1400 AC 03/29 Sodium Chloride 100 ML IV 0602 Artificial Tears 1 GTT BID PRN 03/23 2200 AC 03/27 OPH 1711 Calcium Carbonate 500 MG TID PRN 03/10 0030 AC PO Dextrose/Water 1,000 ML Q10H 03/29 0745 AC 03/29 IV 03/29 1424 0800 Docusate Sodium 100 MG DAILY NEEDED 03/26 0915 AC 03/28 PO 2224 Fentanyl Citrate 1,000 MCG Q4H 03/27 0840 AC 03/29 Sodium Chloride 250 ML IV 1004 Glycerin 2 SPRAY Q2P PRN 03/09 0745 AC 03/09 PO 0848 Guaifenesin 10 ML Q4-6 PRN PRN 03/08 0445 AC 03/08 PO 0444 Heparin Sodium 5,000 UNIT Q8 03/07 0600 AC 03/29 (Porcine) SC 0602 Insulin Aspart 0 Q4 03/21 1400 DC 03/29 SC 0101 Insulin Detemir 40 UNITS BID 03/28 1000 DC 03/28 SC 2104 Insulin Human Regular 100 UNIT Q24H 03/29 0200 AC 03/29 Sodium Chloride 100 ML IV 1004 Ipratropium [place] 2.5 ML EVERY 4 HRS/AWAKE 03/08 1600 AC 03/29 INH 1156 Levothyroxine Sodium 37.5 MCG DAILY 03/22 1000 AC 03/29 IV 1012 Lorazepam 100 MG Q11H 03/27 1300 AC 03/29 Sodium Chloride 1,000 ML IV 0102 Methylprednisolone 40 MG Q8 03/27 1400 AC 03/29 IV 0602 Metoprolol Tartrate 12.5 MG BID 03/26 2200 AC 03/29 PO 1004 Morphine Sulfate 2 MG Q4P PRN 03/23 0845 AC 03/26 IV 1721 Pantoprazole Sodium 40 MG DAILY 03/22 1000 AC 03/29 IV 1005 Polyethylene Glycol 17 GM DAILY 03/28 1031 AC 03/29 PO 1005 Polyethylene Glycol 17 GM DAILY 03/26 1000 DC 03/28 PO 1038 Senna 187 MG AT BEDTIME 03/28 2200 AC 03/28 PO 2108 Senna 187 MG AT BEDTIME 03/26 2200 AC 03/28 PO 2108 Sodium Bicarbonate 975 MG ONCE ONE 03/29 0745 CAN PO 03/29 0746 Sodium Bicarbonate 975 MG BID 03/07 1000 AC 03/29 PO 1004 Vecuronium [place] 50 MG Q13H 03/27 1400 AC 03/28 Sodium Chloride 500 ML IV 1728 Impression/Plan Impression/Problem List Impression: 26 yo morbidly obese F with h/o 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 Was being treated on the general medicine floor with Tamiflu and IV ceftriaxone and azithromycin. Transferred to ICU on 03/08/2017 for worsening respiratory status and hypoxia. Assessment * Acute hypoxic respiratory failure secondary to influenza complicated with left lower lobe pneumonia (initially) and now due to possible ARDS. * Sinus Tachycardia - resolved * Hypernatremia * Sepsis on admission - resolved. * Influenza A positive - resolved * Acute on chronic kidney disease likely secondary to ATN. There could've been a component of pre-renal azotemia as well - resolved * Elevated CK - ? Rhabdomyolosis - improved with IVF. * Hyperglycemia * History of Exercise induced Asthma * History of hypothyroidism * Transaminitis * Thrombocytopenia * ?UTI - Enterococcus in urine. Plan * Await arrival for ECMO team to assess if patient can be stablized to be transferred to a higher care facility. * Currently intubated with FiO2 of 100%. * Sedation with Ativan, Fentanyl drip. Vercuronium drip being attempted to be weaned off. * Repeat Echo showed normal LVEF and no evidence of right heart strain. * She is hypernatremic with Na of 149. * Started on D5W @150ml/hr. Will monitor her Na closely. * Continue IV Solu-Medrol 40mg q8. * Off Tamiflu. Her last flu swab was negative for influenza. * TRC nebs as needed. * Started on Insulin drip. * Stopped SC insulin SS and Levemir * Endo recs appreciated * Transaminases have shown modest decline today. * Hepatitis panel has been negative. * RUQ U/S 03/18 showed hepatic steatosis which could be contributing to transaminitis. * Holding lisinopril, nephro input appreciated. * Her urine grew enterococcos sensitive to Ampicillin. Will continue her on IV Ampicillin 2g q8. * Will butcher culture her again - pending * Patients renal doctor is Dr Garcia ([phone]) at [facility]. Renal d/s started in 2009. * Continue sodium bicarbonate tabs. * Continue Synthroid. * DVT to prophylaxis with subcutaneous heparin * NPO. Continue tube feedings. Rate decreased as she has high residuals. * Nutrition recs appreciated * Patient is full code PLEASE CALL PATIENT'S FATHER STACY RASHID ) ABOUT ANY CHANGES IN CLINICAL CONDITION/ INTUBATION. HE IS CURRENTLY IN [place]. Problem List: 1. ARDS (adult respiratory distress syndrome) Pain Ratin Tomorrow's Labs & Rationales: none Plan DVT/Prophylaxis: pharmacological
--- NOTE | 2017-03-29 07:55 | Cons- Gastroenterology ---
General Information and HPI Consulting Request Date of Consult: 03/29/17 Requested By: Silvano CHAMORRO,Earlene Grady Reason for Consult: Transaminitis Source of Information: old records Exam Limitations: clinical condition Allergies/Medications Allergies: Coded Allergies: cefazolin (Intermediate, HIVES 03/06/17) clarithromycin (Intermediate, HIVES 03/06/17) Home Med List: Albuterol Sulfate 2.5 MG/3 ML (0.083 %) VIAL.NEB 3 ML INH EVERY 4 HRS/AWAKE PRN ASTHMA Ampicillin Sodium 2 GRAM VIAL 2,000 MG IV Q8 UTI Dextran 70/Hypromellose (Artificial Tears) 1 EACH DROPERETTE 1 GTT OPH BID PRN DRY EYES Dextrose 5% (Dextrose 5%-Water IV Soln) 5 % IV.SOLN 0 IV CONTINUOUS HYPERNATREMIA @ 150MLS/HR Fentanyl Citrate-0.9 % NaCl/Pf (Fentanyl 1,000MCG/100-0.9%NaCl) 10 MCG/ML PLAST..BAG 0 IV AD SEDATION IV DRIP @ 50MCG/HR TITARTION PROTOCOL: LOADING DOSE: 25MCG IV PUSH FOLLOWED BY 25MCG FOR TARGET BID <50 IV DRIP @50MCG/HR ADJUST BY 25MCG/HR NOTT MORE THAN Q 10MINS NOT T O EXCEED 300MCG/HR TITARE TO A PAIN SCORE > OR EQUAL TO 5 SAS (3-4) RANGE: 35-300MCG/HR Insulin Aspart (Novolog) 100 UNIT/ML CARTRIDGE 0 SC Q4 DIABETES MELLITUS BLOOD GLUCOSE MG/DL < 80: NO COVERAGE 80-100: 9 UNITS 101-150: 9 UNITS 151-200: 12 UNITS 201-250:15 UNITS 251-300: 18 UNITS 301-350: 21 UNITS 351-400: 24 UNITS >400: 27 UNITS Insulin Detemir (Levemir) 100 UNIT/ML VIAL 40 UNITS SC BID DIABETES MELLITUS Ipratropium [place] 0.2 MG/ML (0.02 %) SOLUTION 2.5 ML INH EVERY 4 HRS/AWAKE PRN ASTHMA Levothyroxine Sodium (Synthroid) 75 MCG TABLET 1 TAB PO DAILY HYPOTHYROIDISM (Reported) Levothyroxine Sodium 200 MCG VIAL 37.5 MCG IV DAILY hypothyroidism Lisinopril 10 MG TABLET 1 TAB PO DAILY HTN (Reported) Lorazepam/0.9% Sodium Chloride (Lorazepam-Ns 100 MG/100 Ml Bag) 100 MG/100 ML (1 MG/ML) PLAST..BAG 0 IV AD SEDATION 50MG/500ML - 0.1MG/ML IV DRIP @ 0.03MG/KG/HOUR TITRATE INFUSION TO LUCIE SCALE SAS OF 3-4 SAS GREATER THAN 4, INCREASE DOSE BY NOT MORE THAN 1MG/HR NOT TO EXCEED 15MG/HR GIVE 5MG IVP (MAX BOLUS NOT TO EXCEED 8 MG) AND INCREASE DOSE BY NOT MORE THAN 1MG/HR NOT TO EXCEED 15MG/HR SAS<3: DECREASE DOSE BY 1MG/HR Methylprednisolone Sod Succ/Pf (Solu-Medrol 40 MG Vial) 40 MG/ML VIAL 40 MG IV Q8 Respiratory failure Metoprolol Tartrate 25 MG TABLET 12.5 MG PO BID sinus tachycardia [place]-3 Fatty Acids/Fish Oil (Fish Oil 1,000 MG Softgel) 300 MG-1,000 MG CAPSULE 1 CAP PO BID SUPPLEMENT (Reported) Pantoprazole Sodium 40 MG VIAL 40 MG IV DAILY GERD Saliva Substitute Combo No.9 (Biotene) 473 ML MOUTHWASH 2 SPRAY PO Q2P PRN dry mouth Sodium Bicarbonate 650 MG TABLET 1.5 TAB PO BID CKD (Reported) 1000 MG BID Vecuronium [place] 10 MG VIAL 0 IV AD RESPIRATORY PARALYSIS 10MG/100ML ~ 0.1MG/ML TITRATION PROTOCOL: IV DRIP @ 0.08MG/KG/HR TITRATE TO TRAIN OF FOUR 2-3 OUT OF 4 ADJUST DOSE BY 10% BNOT MORE FREQUENTLY THAN EVERY 15 MINS UNTIL TRAIN OF FOUR IS 2-3 OUT OF 4 PLEASE TITRATE VEC GTT DOWN BY 0.05MCG/KG/MIN FOR A GOAL TOF OF 1-2/4 RANGE: 0.05-0.1MG/KG/HR Current Medications: Current Medications Sig/Nabila Start time Last Medication Dose Route Stop Time Status Admin Acetaminophen 650 MG Q6P PRN 03/06 221 AC 03/11 PO 1140 Acetaminophen 1,000 MG Q6P PRN 03/06 221 AC 03/26 IV 1721 Albuterol Sulfate 3 ML EVERY 4 HRS/AWAKE 03/08 1600 AC 03/28 INH 2117 Ampicillin 2,000 MG Q8 03/24 1400 AC 03/29 Sodium Chloride 100 ML IV 0602 Artificial Tears 1 GTT BID PRN 03/23 2200 AC 03/27 OPH 1711 Calcium Carbonate 500 MG TID PRN 03/10 0030 AC PO Dextrose/Water 1,000 ML Q10H 03/29 0745 AC IV 03/29 1424 Docusate Sodium 100 MG DAILY NEEDED 03/26 0915 AC 03/28 PO 2224 Fentanyl Citrate 1,000 MCG Q4H 03/27 0840 AC 03/29 Sodium Chloride 250 ML IV 0601 Furosemide 20 MG 1130 03/28 1130 DC 03/28 IV 03/28 1131 1139 Glycerin 2 SPRAY Q2P PRN 03/09 0745 03/09 PO 0848 Guaifenesin 10 ML Q4-6 PRN PRN 03/08 0445 AC 03/08 PO 0444 Heparin Sodium 5,000 UNIT Q8 03/07 0600 AC 03/29 (Porcine) SC 0602 Insulin Aspart 6 UNITS ONCE ONE 03/28 0815 DC 03/28 SC 03/28 0816 0807 Insulin Aspart 0 Q4 03/21 1400 AC 03/29 SC 0101 Insulin Detemir 40 UNITS BID 03/28 1000 AC 03/28 SC 2104 Insulin Detemir 35 UNITS BID 03/27 1000 DC 03/27 SC 2300 Insulin Human Regular 100 UNIT Q24H 03/29 0200 AC 03/29 Sodium Chloride 100 ML IV 0131 Insulin Human Regular 100 UNIT Q24H 03/28 0815 CAN Sodium Chloride 100 ML IV Ipratropium [place] 2.5 ML EVERY 4 HRS/AWAKE 03/08 1600 AC 03/28 INH 2116 Levothyroxine Sodium 37.5 MCG DAILY 03/22 1000 AC 03/28 IV 1046 Lorazepam 100 MG Q11H 03/27 1300 AC 03/29 Sodium Chloride 1,000 ML IV 0102 Methylprednisolone 40 MG Q8 03/27 1400 AC 03/29 IV 0602 Metoprolol Tartrate 12.5 MG BID 03/26 2200 AC 03/28 PO 2107 Morphine Sulfate 2 MG Q4P PRN 03/23 0845 AC 03/26 IV 1721 Pantoprazole Sodium 40 MG DAILY 03/22 1000 AC 03/28 IV 1046 Polyethylene Glycol 17 GM DAILY 03/28 1031 AC PO Polyethylene Glycol 17 GM DAILY 03/26 1000 AC 03/28 PO 1038 Senna 187 MG AT BEDTIME 03/28 2200 AC 03/28 PO 2108 Senna 187 MG AT BEDTIME 03/26 2200 AC 03/28 PO 2108 Sodium Bicarbonate 975 MG ONCE ONE 03/29 0745 DC PO 03/29 0746 Sodium Bicarbonate 975 MG BID 03/07 1000 AC 03/28 PO 2108 Vecuronium [place] 50 MG Q13H 03/27 1400 AC 03/28 Sodium Chloride 500 ML IV 1728 Past History Travel History Traveled to [place] past 21 day No Medical History Blood Transfusion Hx: No Neurological: NONE EENT: NONE Cardiovascular: NONE Respiratory: asthma Gastrointestinal: irritable bowel syndrome Hepatic: NONE Renal: chronic kidney disease Musculoskeletal: NONE Psychiatric: NONE Endocrine: HYPOTHYROID Blood Disorders: NONE Cancer(s): NONE GRANULATING BLENDER/Reproductive: NONE Surgical History Surgical History: non-contributory, lumpectomy Family History Relations & Conditions If Any: Relation not specified for: Family history not obtainable due to adoption Psychosocial History Where Do You Live? Home Services at Home: None Smoking Status: Never Smoked ETOH Use: denies use Illicit Drug Use: denies illicit drug use Functional Ability ADLs Independent: dressing, eating, toileting, bathing. Ambulation: independent IADLs Independent: shopping, housework, finances, food prep, telephone, transportation , medication admin. Review of Systems Review of Systems: Unobtainable Exam & Diagnostic Data Vital Signs and I&O Vital Signs Date Time Temp Pulse Resp B/P B/P Pulse O2 O2 Flow FiO2 Mean Ox Delivery Rate 03/29 0654 100 03/29 0408 100 03/29 0400 92 Ventilator 100% 03/29 0153 100 03/29 0000 92 Ventilator 100% 03/29 0000 98.3 92 26 140/68 92 Ventilator 100% 03/28 2225 100 03/28 2107 103 153/64 03/28 2000 93 Ventilator 100% 03/28 1950 100 03/28 1700 100 03/28 1600 97.1 104 26 162/70 85 Ventilator 100% 03/28 1600 85 Ventilator 100% 03/28 1410 100 / 1200 89 Ventilator 100% 03/28 1147 100 03/28 1038 97 152/63 / 0832 100 03/28 0800 97.5 96 26 160/96 83 Ventilator 100% 03/28 0800 83 Ventilator 100% Intake & Output 03/29 1600 03/29 0400 03/28 1600 03/28 0400 03/27 1600 03/27 0400 Intake Total 2538 0911 5033 3287 5826.6 3364.1 Output Total 1400 1360 2300 1000 3400 1400 Balance 1138 1151 2733 2287 2426.6 1964.1 Intake, IV 1518 1481 3335 2151 4187.6 2275.1 Intake, Oral 0 0 0 0 Intake, Other 100 100 120 Intake, Tube 550 500 958 586 939 519 Feeding Intake, Tube 470 530 740 450 600 450 Irrigant Number 0 0 0 0 0 0 Bowel Movements Output, Urine 1400 1360 2300 1000 3400 1400 Patient 305 lb 287 lb Weight Weight Bed scale Bed scale Measurement Method Physical Exam: Intubated, sedated. Mechanical ventilation. Sclera anicteric. Abdomen obese. Pulses intact. Results Pertinent Lab Results: Laboratory Tests 03/29 03/29 0700 0415 Blood Gas pH (7.35 - 7.45 PH) 7.16 *L pCO2 (35 - 45 TORR) 49 H pO2 (80 - 100 TORR) 73 L HCO3 (21 - 28 MEQ/L) 17 L ABG O2 Sat (Measured) (>96.0 %) 91.0 L Carboxyhemoglobin (1.5 - 5.0 %) 0.3 L O2 Concentration % 100 Respiration Rate (BPM) 26 O2 Delivery Method VENT Vent Mode AC Expiratory Pressure (CMH2O/P) 14 Tidal Volume (CC) 450 Chemistry Sodium (137 - 145 mmol/L) 150 H Potassium (3.5 - 5.1 mmol/L) 4.5 Chloride (98 - 107 mmol/L) 115 H Carbon Dioxide (22 - 30 mmol/L) 20 L Anion Gap (5 - 16) 16 BUN (7 - 17 mg/dL) 71 H Creatinine (0.5 - 1.0 mg/dL) 3.0 H Estimated GFR (>60 ml/min) 19 L Glucose (65 - 99 mg/dL) 236 H Calcium (8.4 - 10.2 mg/dL) 8.7 Phosphorus (2.5 - 4.5 mg/dL) 4.5 Magnesium (1.6 - 2.3 mg/dL) 2.9 H Total Bilirubin (0.2 - 1.3 mg/dL) 0.9 AST (14 - 36 U/L) 352 H ALT (9 - 52 U/L) 1031 H Albumin (3.5 - 5.0 g/dL) 2.9 L Hematology CBC w Diff MAN DIFF ORDERED WBC (4.8 - 10.8 /CUMM) 10.4 RBC (4.20 - 5.40 /CUMM) 3.01 L Hgb (12.0 - 16.0 G/DL) 9.1 L Hct (37 - 47 %) 27.8 L MCV (81.0 - 99.0 FL) 92.3 MCH (27.0 - 31.0 PG) 30.4 MCHC (33.0 - 37.0 G/DL) 32.9 L RDW (11.5 - 14.5 %) 13.7 Plt Count (130 - 400 /CUMM) 137 MPV (7.4 - 10.4 FL) 10.4 Gran % (42.2 - 75.2 %) 79.2 H Lymphocytes % (20.5 - 51.1 %) 17.4 L Monocytes % (1.7 - 9.3 %) 3.1 Eosinophils % (0 - 5 %) 0.2 Basophils % (0.0 - 2.0 %) 0.1 Absolute Granulocytes (1.4 - 6.5 /CUMM) 8.2 H Segmented Neutrophils (42.2 - 75.2 %) 60 Band Neutrophils (0.0 - 5.0 %) 9 H Absolute Lymphocytes (1.2 - 3.4 /CUMM) 1.8 Lymphocytes (20.5 - 51.1 %) 27 Monocytes (1.7 - 9.3 %) 4 Absolute Monocytes (0.10 - 0.60 /CUMM) 0.3 Absolute Eosinophils (0.0 - 0.7 /CUMM) 0 Absolute Basophils (0.0 - 0.2 /CUMM) 0 Nucleated RBCs (0.0 - 0.0 /100WBC) 3 H Platelet Estimate (ADEQUATE) ADEQUATE Normocytic RBCs VERIFIED Polychromasia 1+ Anisocytosis 1+ Miscellaneous Phlebotomy Draw Site RIGHT RADIAL 03/28 03/28 03/27 3405 2229 3502 Blood Gas pH (7.35 - 7.45 PH) 7.26 *L pCO2 (35 - 45 TORR) 43 pO2 (80 - 100 TORR) 62 L HCO3 (21 - 28 MEQ/L) 19 L ABG O2 Sat (Measured) (>96.0 %) 91.0 L P-50 (Temp Corrected) Y Carboxyhemoglobin (1.5 - 5.0 %) 0.3 L O2 Concentration % 100% Temperature (97.0 - 100.0 FARH) 97.0 Respiration Rate (BPM) 26 O2 Delivery Method ESPRIT Vent Mode AC Expiratory Pressure (CMH2O/P) 12 Tidal Volume (CC) 450 Chemistry Sodium (137 - 145 mmol/L) 148 H 146 H Potassium (3.5 - 5.1 mmol/L) 4.6 4.2 Chloride (98 - 107 mmol/L) 114 H 112 H Carbon Dioxide (22 - 30 mmol/L) 20 L 17 L Anion Gap (5 - 16) 14 17 H BUN (7 - 17 mg/dL) 67 H 60 H Creatinine (0.5 - 1.0 mg/dL) 2.8 H 2.8 H Estimated GFR (>60 ml/min) 21 L 21 L BUN/Creatinine Ratio (7 - 25 %) 23.9 Glucose (65 - 99 mg/dL) 312 H Calcium (8.4 - 10.2 mg/dL) 8.7 Phosphorus (2.5 - 4.5 mg/dL) 4.8 H Magnesium (1.6 - 2.3 mg/dL) 2.6 H Total Bilirubin (0.2 - 1.3 mg/dL) 0.6 AST (14 - 36 U/L) 318 H ALT (9 - 52 U/L) 807 H Albumin (3.5 - 5.0 g/dL) 2.7 L Hematology CBC w Diff NO MAN DIFF REQ WBC (4.8 - 10.8 /CUMM) 9.5 RBC (4.20 - 5.40 /CUMM) 2.99 L Hgb (12.0 - 16.0 G/DL) 9.1 L Hct (37 - 47 %) 27.5 L MCV (81.0 - 99.0 FL) 91.8 MCH (27.0 - 31.0 PG) 30.3 MCHC (33.0 - 37.0 G/DL) 33.0 RDW (11.5 - 14.5 %) 13.0 Plt Count (130 - 400 /CUMM) 121 L MPV (7.4 - 10.4 FL) 10.7 H Gran % (42.2 - 75.2 %) 80.1 H Lymphocytes % (20.5 - 51.1 %) 16.9 L Monocytes % (1.7 - 9.3 %) 2.8 Eosinophils % (0 - 5 %) 0.2 Basophils % (0.0 - 2.0 %) 0 Absolute Granulocytes (1.4 - 6.5 /CUMM) 7.6 H Absolute Lymphocytes (1.2 - 3.4 /CUMM) 1.6 Absolute Monocytes (0.10 - 0.60 /CUMM) 0.3 Absolute Eosinophils (0.0 - 0.7 /CUMM) 0 Absolute Basophils (0.0 - 0.2 /CUMM) 0 Miscellaneous Phlebotomy Draw Site RIGHT RADIAL 03/27 0455 Chemistry Sodium (137 - 145 mmol/L) 140 Potassium (3.5 - 5.1 mmol/L) 4.3 Chloride (98 - 107 mmol/L) 106 Carbon Dioxide (22 - 30 mmol/L) 18 L Anion Gap (5 - 16) 15 BUN (7 - 17 mg/dL) 49 H Creatinine (0.5 - 1.0 mg/dL) 2.6 H Estimated GFR (>60 ml/min) 22 L Glucose (65 - 99 mg/dL) 424 H Calcium (8.4 - 10.2 mg/dL) 8.6 Phosphorus (2.5 - 4.5 mg/dL) 5.8 H Magnesium (1.6 - 2.3 mg/dL) 2.4 H Iron (37 - 170 ug/dL) 91 TIBC (265 - 497 ug/dL) 204 L Ferritin (6.24 - 137 ng/mL) 2000.0 H Total Bilirubin (0.2 - 1.3 mg/dL) 0.6 AST (14 - 36 U/L) 174 H ALT (9 - 52 U/L) 501 H Albumin (3.5 - 5.0 g/dL) 2.8 L Coagulation PT (9.4 - 12.5 SEC) 11.1 INR (0.90 - 1.19) 1.06 APTT (25 - 37 SEC) < 20 L Hematology CBC w Diff NO MAN DIFF REQ WBC (4.8 - 10.8 /CUMM) 9.0 RBC (4.20 - 5.40 /CUMM) 2.93 L Hgb (12.0 - 16.0 G/DL) 9.0 L Hct (37 - 47 %) 26.9 L MCV (81.0 - 99.0 FL) 91.7 MCH (27.0 - 31.0 PG) 30.6 MCHC (33.0 - 37.0 G/DL) 33.4 RDW (11.5 - 14.5 %) 12.6 Plt Count (130 - 400 /CUMM) 104 L MPV (7.4 - 10.4 FL) 10.8 H Gran % (42.2 - 75.2 %) 83.0 H Lymphocytes % (20.5 - 51.1 %) 13.8 L Monocytes % (1.7 - 9.3 %) 3.0 Eosinophils % (0 - 5 %) 0.1 Basophils % (0.0 - 2.0 %) 0.1 Absolute Granulocytes (1.4 - 6.5 /CUMM) 7.5 H Absolute Lymphocytes (1.2 - 3.4 /CUMM) 1.2 Absolute Monocytes (0.10 - 0.60 /CUMM) 0.3 Absolute Eosinophils (0.0 - 0.7 /CUMM) 0 Absolute Basophils (0.0 - 0.2 /CUMM) 0 Imaging/Other Studies: Ultrasound on 03/18: IMPRESSION: 1. No evidence of cholelithiasis or cholecystitis. 2. Hepatomegaly and diffuse hepatic steatosis. Assessment/Plan Consult Acknowledgment - Thank you for your consult request.
[2017-03-29 08:00] VITALS: BP 148/90
--- NOTE | 2017-03-29 08:36 | PN- Diabetes ---
Assessment/Plan Assessment: 26-year-old female who has had a history of prediabetes, overweight, Ig A nephropathy along with chronic renal insufficiency and asthma, was in ICU for respiratory distress. However, she was intubated on 03/21/2017. She is on tube feeding Glucerna at 60 ml/hour. She is receiving free water via feeding tube every 4 hours. She is now on Solu-Medrol 40 mg IV every 8 hours. Her blood sugars have become very high. She was restarted on insulin drip on 03/28/2017. Currently she is on insulin drip at 14 units per hour and her most recent FSG was 164. Am lab showed sodium 150. Patient will be on D5W at 125 ml/hour to receive more free water. As per nurse, patient has high residue. Plan: 1. stop Levemir and Novolog sc regimen; 2. continue the insulin drip; monitor FSG every one hour; adjust insulin drip rate accordingly to keep FSGs between 140 and 180 mg/dl; 3. consider cutting back on the tube feeding rate; 4. continue monitoring electrolytes. will follow. Subjective Subjective: patient is intubated. Objective Last 24 Hrs of Vital Signs/I&O Vital Signs Date Time Temp Pulse Resp B/P B/P Pulse O2 O2 Flow FiO2 Mean Ox Delivery Rate 03/29 0654 100 03/29 0408 100 03/29 0400 92 Ventilator 100% 03/29 0153 100 02/ 0000 92 Ventilator 100% 03/29 0000 98.3 92 26 140/68 92 Ventilator 100% / 2225 100 / 2107 103 153/64 / 2000 93 Ventilator 100% / 1950 100 / 1700 100 02/ 1600 97.1 104 26 162/70 85 Ventilator 100% / 1600 85 Ventilator 100% / 1410 100 02/05 1200 89 Ventilator 100% / 1147 100 /05 1038 97 152/63 Intake & Output 03/29 1600 /06 0800 03/29 0000 Intake Total 2538 2511 Output Total 1400 1360 Balance 1138 1151 Intake, IV 1518 1481 Intake, Oral 0 0 Intake, Tube 550 500 Feeding Intake, Tube 470 530 Irrigant Number 0 0 Bowel Movements Output, Urine 1400 1360 Patient 305 lb Weight Weight Bed scale Measurement Method Findings Pertinent Lab/Michael Results: Laboratory Tests 03/29 03/29 0700 0415 Blood Gas pH (7.35 - 7.45 PH) 7.16 *L pCO2 (35 - 45 TORR) 49 H pO2 (80 - 100 TORR) 73 L HCO3 (21 - 28 MEQ/L) 17 L ABG O2 Sat (Measured) (>96.0 %) 91.0 L Carboxyhemoglobin (1.5 - 5.0 %) 0.3 L O2 Concentration % 100 Respiration Rate (BPM) 26 O2 Delivery Method VENT Vent Mode AC Expiratory Pressure (CMH2O/P) 14 Tidal Volume (CC) 450 Chemistry Sodium (137 - 145 mmol/L) 150 H Potassium (3.5 - 5.1 mmol/L) 4.5 Chloride (98 - 107 mmol/L) 115 H Carbon Dioxide (22 - 30 mmol/L) 20 L Anion Gap (5 - 16) 16 BUN (7 - 17 mg/dL) 71 H Creatinine (0.5 - 1.0 mg/dL) 3.0 H Estimated GFR (>60 ml/min) 19 L Glucose (65 - 99 mg/dL) 236 H Calcium (8.4 - 10.2 mg/dL) 8.7 Phosphorus (2.5 - 4.5 mg/dL) 4.5 Magnesium (1.6 - 2.3 mg/dL) 2.9 H Total Bilirubin (0.2 - 1.3 mg/dL) 0.9 AST (14 - 36 U/L) 352 H ALT (9 - 52 U/L) 1031 H Albumin (3.5 - 5.0 g/dL) 2.9 L Hematology CBC w Diff MAN DIFF ORDERED WBC (4.8 - 10.8 /CUMM) 10.4 RBC (4.20 - 5.40 /CUMM) 3.01 L Hgb (12.0 - 16.0 G/DL) 9.1 L Hct (37 - 47 %) 27.8 L MCV (81.0 - 99.0 FL) 92.3 MCH (27.0 - 31.0 PG) 30.4 MCHC (33.0 - 37.0 G/DL) 32.9 L RDW (11.5 - 14.5 %) 13.7 Plt Count (130 - 400 /CUMM) 137 MPV (7.4 - 10.4 FL) 10.4 Gran % (42.2 - 75.2 %) 79.2 H Lymphocytes % (20.5 - 51.1 %) 17.4 L Monocytes % (1.7 - 9.3 %) 3.1 Eosinophils % (0 - 5 %) 0.2 Basophils % (0.0 - 2.0 %) 0.1 Absolute Granulocytes (1.4 - 6.5 /CUMM) 8.2 H Segmented Neutrophils (42.2 - 75.2 %) 60 Band Neutrophils (0.0 - 5.0 %) 9 H Absolute Lymphocytes (1.2 - 3.4 /CUMM) 1.8 Lymphocytes (20.5 - 51.1 %) 27 Monocytes (1.7 - 9.3 %) 4 Absolute Monocytes (0.10 - 0.60 /CUMM) 0.3 Absolute Eosinophils (0.0 - 0.7 /CUMM) 0 Absolute Basophils (0.0 - 0.2 /CUMM) 0 Nucleated RBCs (0.0 - 0.0 /100WBC) 3 H Platelet Estimate (ADEQUATE) ADEQUATE Normocytic RBCs VERIFIED Polychromasia 1+ Anisocytosis 1+ Miscellaneous Phlebotomy Draw Site RIGHT RADIAL 03/28 1715 Chemistry Sodium (137 - 145 mmol/L) 148 H Potassium (3.5 - 5.1 mmol/L) 4.6 Chloride (98 - 107 mmol/L) 114 H Carbon Dioxide (22 - 30 mmol/L) 20 L Anion Gap (5 - 16) 14 BUN (7 - 17 mg/dL) 67 H Creatinine (0.5 - 1.0 mg/dL) 2.8 H Estimated GFR (>60 ml/min) 21 L BUN/Creatinine Ratio (7 - 25 %) 23.9
--- NOTE | 2017-03-29 10:03 | Discharge Summary ---
Visit Information Visit Dates Admission Date: 03/06/17 Discharge Date: 03/29/16 Hospital Course Course Attending Physician: Earlene Schaefer MD Primary Care Physician: Patient Has No Primary Care Dr Hospital Course: Ms Scott is a 26 year old woman presented to [facility] on 03/06/2017 ( approximately 3 wks ago ) w/ a chief concern of productive cough and acute onset of shortness of breath, malaise and chills x 3 days. 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 At the time presentation to the ER, she was febrile to temp of 102, HR 90-140's, BP 123/65, oxygen sats 92% on 4L. On examination, auscultatin of chest revealed b/l reduced air entry with expiratory wheeze and basilar crackles (L>R). In regards to labs, she did not have any leukocytosis, but had granulocytes upto 89 %, Na 135, HCO3 17, AG 19, BUN 27, creat 3.5 (Baseline 1.5), lactic acid 1.7. EKG revelaed sinus tachycardia; and CXR revealed left lower lobe pneumonia. She was also influenza ag positive. Cardiac enzymes wnl. US LE negative for DVT. Echocardiogram revealed normal EF w/ no right heart strain. She was admitted to the general medicine service for the management of Acute hypoxic respiratory failure/sepsis secondary to influenza and asthma exacerbation. She was started on intravenous steroids and oseltamivir ( renal adjusted dose ). There was also started on iv ceftriaxone and azithromycin emperically. She was transfered to the Critical care unit when she was found to be more hypoxemic for closer monitoring of respiratory status around day 3. ICU course: Respiratory: She was initally started on nocturnal BiPAP, and had oxygen saturation around 90s. She had occassional episodes of desaturation over the next few days whenever she was moved, and required progressively higher oxygen support. Considering her continued desaturations, she was continued on oseltamivir at a higher dose for the treatment of influenza pneumonia. CT scan chest that was done on 03/09/17 revealed diffuse bilateral ground glass opacities affecting the perihilar lung with sparing of the subpleural lung which was consistent w/ ARDS. She continued to do poorly in the next few days in terms of her respiratory status( w/ frequent desaturations into higher 80s) upon moving even in her bed. When she had further episodes of respiratory decompensation, she was intubated and ventilated on low tidal volume, volume-assist control mode with higher FiO2 around 80-90s %. She was started on 5 of PEEP which was increased to [address]. [address] scan done on 03/14/17 revealed interval worsening in diffuse geographic groundglass opacities throughout both lungs with development of more confluent airspace disease dependently within both lungs. Infectious: Considering her continued desaturations, she was continued on oseltamivir ( at a higher dose for the treatment of influenza pneumonia. She remained on Ceftriaxone and Azithromycin for five days, but, with little evidence for a bacterial superinfection, she was watched off antibiotics. She also had persistent leucocytosis likely secondary to steroid use. Since she continued to have high oxygen requirements, there was a consideration for a CT chest and abdomen but unfortunately couldnt be done due to episodes of severe respiratory decompensation. Abdominal US did not reveal any e/o cholelithiasis or cholecystis. She started developing fever around 03/25/17 possibly secondary to a Cruz catheter associated urinary tract infection, with her urine culture positive for Enterococcus, for which was started on Ampicillin on 03/24/17. She also had elevated transaminases with unclear reasons. She continued to do poorly , and was on higher PEEP of 14, and FiO2 100; and would desaturate even upon moving her head. Considering her guarded prognosis, she was to be transfered to a higher level of care for ECMO. The ECMO was connected to the patient in [facility] ICU by [facility] team on 03/29/17 prior to transfer to [facility]. Metabolic: She has a history of CKD secondary to IgA nephropathy w/ sr creatine around 3.5 ( baseline around 2.0 who follows up at OSH). Strict ins and outs were checked w/ total ins 62053 ml and out 35945 ml. She was found to be hypernatremic w/ peak at 155 likely secondary to her fluids. 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 Sodium was corrected appropriately. Due to her continued steroid use, she was started on detemir and novolog, and also required insulin drip to control the blood sugars appropriately. Electrolytes were monitored daily and repleted accordingly. Cardiology- She had transient tachycardia with unclear reasons. She was intermittently treated w/ metoprolol. She has been continued on this medication due to her elevated blood pressure. She will require close monitoring of her blood pressure. Echocardiogram revealed normal EF. She did not have any arrythmias. She has not required any pressors or ionotropes. Hematology: She had transient thrombocytopenia due to continued infection or sepsis. Kaiden 100k on 03/26/17. HCT was stable, but slowly started drifting down due to continued illness, HCT 45-->27.8. GI prophylaxis was maintained with IV Protonix. Alimentary: She was started on tube feeds based upon carbide powder processor's recommendatins. She didnt have any bowel movement like due to continued vecuronium use. She was given bowel regimen, but did have any bowel movement. Hemoccult could not be done as the patient rapidly desaturates with any movement. Neurology: She has been sedated using ativan,fentanyl and propofol interchangeably. She is also on vecuronium drip with closer monitoring of TOF. Consults: 1. Infectious-Xiang Tavares MD 2. nephrology-Clay Celestin MD. 3. Cardiology- Naman Mancera MD 4. Endocrinology- Dr. Harrington, Dr. Seth Canales Pertinent lab findings: WBC: 7.6 (03/06)--> 12.1 (03/12)--> 23.7 (03/19)--> 10.4 (2) Hemoglobin 15.6(03/06)--> 14.1 (03/12)--> 14.7 (03/19)--> 9.1 (2/) Platelets 200 (03/06)--> 292 (03/12)--> 210(03/19)--> 137(2/) (( kaiden 100 (03/26 ))) Na 135 (03/06)-->137(03/12)-->134(03/19)--> 149(2) (( normalized to 140 (03/27) ) Sr Cr 3.5 (03/06 )--> 1.9 (03/12)--> 1.9 (03/19)--> 3.0 (03/29) ABG: pH 7.20, pO2 64, HCO3 17, FiO2 100 on Vent Tube feeds: Glucerna 1.2 CORINE, 1728 corine, 86 g protein, 165 g carbohydrate, 23 g fiber. Tube feed via OG tube, 60ml/hr continuous and she is at estimated goal, 150 mL of water flushes every 3 hours. Current intravenous drips: #1 insulin drip-regular #2 vecuronium drip in normal saline #3 Ativan drip in normal saline #4 fentanyl drip in normal saline #5 D5 water Current lines #1 TLC left IJ Ventilator setting 2017 Volume-assist contorl RR 30, TV 450, MV14.5, FiO2 100, PEEP 14. PIP 41, plateau 37, pulse ox 91%. Vitals on 03/29/2017: Temperature 97.8, pulse rate 94, respiration 30, blood pressure 148/90, pulse ox 91% on 100% FiO2. Allergies: Coded Allergies: cefazolin (Intermediate, HIVES 03/06/17) clarithromycin (Intermediate, HIVES 03/06/17) Significant Procedures: IR - INTERVENTIONAL SETUP; US-GUIDANCE VASCULAR ACCESS 03/28/17-1530 1. Real-time ultrasound-guided access into the left internal jugular vein after documentation of selected vessel patency, and permanent imaging storing in the patient records. 2. Placement of a triple-lumen catheter. --------- post IJ placement: RAD - XRY-PORTABLE CHEST XRAY 03/29/17-0500 1. Endotracheal tube catheter 4 cm above lisa. 2. Nasogastric tube passing into stomach. 3. Left IJ catheter tip at cavoatrial junction. 4. Mild improvement in the bilateral airspace disease since prior exam of March 28, 2017. Pertinent Lab Results: RAD - XRY-CHEST XRAY, TWO VIEWS 03/06/17-1800 There is a consolidation at the left lung base posteriorly. Hazy opacity is identified within the left upper lobe centrally. Otherwise, the lungs are clear. No pleural effusion. The heart size is within normal range. The mediastinal contours are within normal. Visualized osseous structures appear intact. IMPRESSION: Left lower lobe pneumonia. US - US-EXT BILAT VENOUS DOPPLER 03/08/17-1226 IMPRESSION: Normal triplex scan without evidence of deep venous thrombosis involving the either of the left or right lower extremities. ECHOCARDIOGRAM 03/08/17-1432 Normal left ventricular ejection fraction visually estimated at > 60%. Mild concentric left ventricular hypertrophy. Trace tricuspid regurgitation. CAT - CT CHEST WO IV CONTRAST 03/09/17 Diffuse bilateral groundglass opacity primarily affecting the perihilar lung with sparing of the subpleural lung. This is nonspecific but can be consistent with ARDS as suspected clinically. Inflammatory or infectious etiologies though not excluded. CAT - CT CHEST WO IV CONTRAST 03/14/17 Interval worsening in diffuse geographic groundglass opacities throughout both lungs with development of more confluent airspace disease dependently within both lungs. These imaging findings are nonspecific and require clinical correlation. Infection is within the differential. US - US-LIMITED ABDOMEN 03/18/17 1. No evidence of cholelithiasis or cholecystitis. 2. Hepatomegaly and diffuse hepatic steatosis. US - US-EXT BILAT VENOUS DOPPLER 03/23/17 1. Normal triplex scan without evidence of deep venous thrombosis involving the bilateral lower extremities. 2. There are no focal fluid collections. Microbiology: URINE CULTURE Final 03/25/17-1209 Greater than 100,000 colonies per ml of: ENTEROCOCCUS 1. ENTEROCOCCUS RX AB ------ -- AMPICILLIN S NITROFURANTOIN S VANCOMYCIN S SOURCE: BLOOD ENTR: 03/06/17-2005 JEFF HASSAN: Patient Has No Primary Care Dr FUCHSC: 1ST/VENOUS Pascual Murrell MD ORDERED: BLOOD CULTURE Procedure Result > BLOOD CULTURE REPORT Final 03/12/17-0755 NO GROWTH AFTER FIVE DAYS Laboratory Tests 03/29 03/29 1110 1015 Blood Gas pH (7.35 - 7.45 PH) 7.20 *L pCO2 (35 - 45 TORR) 45 pO2 (80 - 100 TORR) 64 L HCO3 (21 - 28 MEQ/L) 17 L ABG O2 Sat (Measured) (>96.0 %) 90.0 L P-50 (Temp Corrected) N Carboxyhemoglobin (1.5 - 5.0 %) 0.5 L O2 Concentration % 100% Temperature (97.0 - 100.0 FARH) 97.6 Respiration Rate (BPM) 30 O2 Delivery Method VENT Vent Mode VC-AC Expiratory Pressure (CMH2O/P) 14 Tidal Volume (CC) 450 Pressure Support (CMH2O/P) 0 Chemistry Sodium (137 - 145 mmol/L) 149 H Potassium (3.5 - 5.1 mmol/L) 4.5 Chloride (98 - 107 mmol/L) 116 H Carbon Dioxide (22 - 30 mmol/L) 19 L Anion Gap (5 - 16) 14 BUN (7 - 17 mg/dL) 72 H Creatinine (0.5 - 1.0 mg/dL) 2.7 H Estimated GFR (>60 ml/min) 21 L Glucose (65 - 99 mg/dL) 179 H Calcium (8.4 - 10.2 mg/dL) 8.6 Phosphorus (2.5 - 4.5 mg/dL) 4.3 Magnesium (1.6 - 2.3 mg/dL) 2.8 H Total Bilirubin (0.2 - 1.3 mg/dL) 0.9 Direct Bilirubin (< 0.4 mg/dL) 0.8 H AST (14 - 36 U/L) 310 H ALT (9 - 52 U/L) 993 H Alkaline Phosphatase (<127 U/L) 194 H Creatine Kinase (30 - 135 U/L) 201 H Troponin I (< 0.11 ng/ml) Pending Total Protein (6.3 - 8.2 g/dL) 5.5 L Albumin (3.5 - 5.0 g/dL) 2.8 L Prealbumin (17.6 - 36.0 mg/dL) Pending Coagulation PT (9.4 - 12.5 SEC) 10.5 INR (0.90 - 1.19) 1.00 APTT (25 - 37 SEC) 22 L Hematology CBC w Diff MAN DIFF ORDERED WBC (4.8 - 10.8 /CUMM) Pending RBC (4.20 - 5.40 /CUMM) Pending Hgb (12.0 - 16.0 G/DL) Pending Hct (37 - 47 %) Pending MCV (81.0 - 99.0 FL) Pending MCH (27.0 - 31.0 PG) Pending MCHC (33.0 - 37.0 G/DL) Pending RDW (11.5 - 14.5 %) Pending Plt Count (130 - 400 /CUMM) Pending MPV (7.4 - 10.4 FL) Pending Gran % (42.2 - 75.2 %) Pending Lymphocytes % (20.5 - 51.1 %) Pending Monocytes % (1.7 - 9.3 %) Pending Eosinophils % (0 - 5 %) Pending Basophils % (0.0 - 2.0 %) Pending Absolute Granulocytes (1.4 - 6.5 /CUMM) Pending Segmented Neutrophils (42.2 - 75.2 %) Pending Band Neutrophils (0.0 - 5.0 %) Pending Absolute Lymphocytes (1.2 - 3.4 /CUMM) Pending Lymphocytes (20.5 - 51.1 %) Pending Monocytes (1.7 - 9.3 %) Pending Absolute Monocytes (0.10 - 0.60 /CUMM) Pending Eosinophils (0 - 5.0 %) Pending Absolute Eosinophils (0.0 - 0.7 /CUMM) Pending Absolute Basophils (0.0 - 0.2 /CUMM) Pending Metamyelocytes (0.0 - 1.0 %) Pending Myelocytes (0 - 0 %) Pending Nucleated RBCs (0.0 - 0.0 /100WBC) Pending Platelet Estimate (ADEQUATE) Pending Normocytic RBCs Pending Normochromic RBCs Pending Polychromasia Pending Basophilic Stippling Pending Miscellaneous Phlebotomy Draw Site RIGHT RADIAL 03/29 03/29 0700 0500 Blood Gas pH (7.35 - 7.45 PH) 7.16 *L pCO2 (35 - 45 TORR) 49 H pO2 (80 - 100 TORR) 73 L HCO3 (21 - 28 MEQ/L) 17 L ABG O2 Sat (Measured) (>96.0 %) 91.0 L Carboxyhemoglobin (1.5 - 5.0 %) 0.3 L O2 Concentration % 100 Respiration Rate (BPM) 26 O2 Delivery Method VENT Vent Mode AC Expiratory Pressure (CMH2O/P) 14 Tidal Volume (CC) 450 Miscellaneous Ref Lab Test Result Pending Phlebotomy Draw Site RIGHT RADIAL 03/29 03/28 1085 1715 Chemistry Sodium (137 - 145 mmol/L) 150 H 148 H Potassium (3.5 - 5.1 mmol/L) 4.5 4.6 Chloride (98 - 107 mmol/L) 115 H 114 H Carbon Dioxide (22 - 30 mmol/L) 20 L 20 L Anion Gap (5 - 16) 16 14 BUN (7 - 17 mg/dL) 71 H 67 H Creatinine (0.5 - 1.0 mg/dL) 3.0 H 2.8 H Estimated GFR (>60 ml/min) 19 L 21 L BUN/Creatinine Ratio (7 - 25 %) 23.9 Glucose (65 - 99 mg/dL) 236 H Calcium (8.4 - 10.2 mg/dL) 8.7 Phosphorus (2.5 - 4.5 mg/dL) 4.5 Magnesium (1.6 - 2.3 mg/dL) 2.9 H Total Bilirubin (0.2 - 1.3 mg/dL) 0.9 AST (14 - 36 U/L) 352 H ALT (9 - 52 U/L) 1031 H Albumin (3.5 - 5.0 g/dL) 2.9 L Hematology CBC w Diff MAN DIFF ORDERED WBC (4.8 - 10.8 /CUMM) 10.4 RBC (4.20 - 5.40 /CUMM) 3.01 L Hgb (12.0 - 16.0 G/DL) 9.1 L Hct (37 - 47 %) 27.8 L MCV (81.0 - 99.0 FL) 92.3 MCH (27.0 - 31.0 PG) 30.4 MCHC (33.0 - 37.0 G/DL) 32.9 L RDW (11.5 - 14.5 %) 13.7 Plt Count (130 - 400 /CUMM) 137 MPV (7.4 - 10.4 FL) 10.4 Gran % (42.2 - 75.2 %) 79.2 H Lymphocytes % (20.5 - 51.1 %) 17.4 L Monocytes % (1.7 - 9.3 %) 3.1 Eosinophils % (0 - 5 %) 0.2 Basophils % (0.0 - 2.0 %) 0.1 Absolute Granulocytes (1.4 - 6.5 /CUMM) 8.2 H Segmented Neutrophils (42.2 - 75.2 %) 60 Band Neutrophils (0.0 - 5.0 %) 9 H Absolute Lymphocytes (1.2 - 3.4 /CUMM) 1.8 Lymphocytes (20.5 - 51.1 %) 27 Monocytes (1.7 - 9.3 %) 4 Absolute Monocytes (0.10 - 0.60 /CUMM) 0.3 Absolute Eosinophils (0.0 - 0.7 /CUMM) 0 Absolute Basophils (0.0 - 0.2 /CUMM) 0 Nucleated RBCs (0.0 - 0.0 /100WBC) 3 H Platelet Estimate (ADEQUATE) ADEQUATE Normocytic RBCs VERIFIED Polychromasia 1+ Anisocytosis 1+ Laboratory Tests 03/29/17 1110: Anion Gap 14, Estimated GFR 21 L, Glucose 179 H, Calcium 8.6, Phosphorus 4.3, Magnesium 2.8 H, Total Bilirubin 0.9, Direct Bilirubin 0.8 H, AST 310 H, ALT 993 H, Alkaline Phosphatase 194 H, Creatine Kinase 201 H, Troponin I Pending, Total Protein 5.5 L, Albumin 2.8 L, Prealbumin Pending, PT 10.5, INR 1.00, APTT 22 L, CBC w Diff MAN DIFF ORDERED, WBC Pending, RBC Pending, Hgb Pending, Hct Pending, MCV Pending, MCH Pending, MCHC Pending, RDW Pending, Plt Count Pending, MPV Pending, Gran % Pending, Lymphocytes % Pending, Monocytes % Pending , Eosinophils % Pending, Basophils % Pending, Absolute Granulocytes Pending, Segmented Neutrophils Pending, Band Neutrophils Pending, Absolute Lymphocytes Pending, Lymphocytes Pending, Monocytes Pending, Absolute Monocytes Pending, Eosinophils Pending, Absolute Eosinophils Pending, Absolute Basophils Pending, Metamyelocytes Pending, Myelocytes Pending, Nucleated RBCs Pending, Platelet Estimate Pending, Normocytic RBCs Pending, Normochromic RBCs Pending, Polychromasia Pending, Basophilic Stippling Pending 03/29/17 1015: pH 7.20 *L, pCO2 45, pO2 64 L, HCO3 17 L, ABG O2 Sat (Measured) 90.0 L, P-50 (Temp Corrected) N, Carboxyhemoglobin 0.5 L, O2 Concentration % 100%, Temperature 97.6, Respiration Rate 30, O2 Delivery Method VENT, Vent Mode VC-AC, Expiratory Pressure 14, Tidal Volume 450, Pressure Support 0, Phlebotomy Draw Site RIGHT RADIAL 03/29/17 0700: pH 7.16 *L, pCO2 49 H, pO2 73 L, HCO3 17 L, ABG O2 Sat (Measured) 91.0 L, Carboxyhemoglobin 0.3 L, O2 Concentration % 100, Respiration Rate 26, O2 Delivery Method VENT, Vent Mode AC, Expiratory Pressure 14, Tidal Volume 450, Phlebotomy Draw Site RIGHT RADIAL 03/29/17 0500: Ref Lab Test Result Pending 03/29/17 0415: Anion Gap 16, Estimated GFR 19 L, Glucose 236 H, Calcium 8.7, Phosphorus 4.5, Magnesium 2.9 H, Total Bilirubin 0.9, AST 352 H, ALT 1031 H, Albumin 2.9 L, CBC w Diff MAN DIFF ORDERED, RBC 3.01 L, MCV 92.3, MCH 30.4, MCHC 32.9 L, RDW 13.7, MPV 10.4, Gran % 79.2 H, Lymphocytes % 17.4 L, Monocytes % 3.1, Eosinophils % 0.2, Basophils % 0.1, Absolute Granulocytes 8.2 H, Segmented Neutrophils 60, Band Neutrophils 9 H, Absolute Lymphocytes 1.8, Lymphocytes 27, Monocytes 4, Absolute Monocytes 0.3, Absolute Eosinophils 0, Absolute Basophils 0, Nucleated RBCs 3 H, Platelet Estimate ADEQUATE, Normocytic RBCs VERIFIED, Polychromasia 1+, Anisocytosis 1+ 03/28/17 1715: Anion Gap 14, Estimated GFR 21 L, BUN/Creatinine Ratio 23.9 03/28/17 0534: Anion Gap 17 H, Estimated GFR 21 L, Glucose 312 H, Calcium 8.7, Phosphorus 4.8 H, Magnesium 2.6 H, Total Bilirubin 0.6, AST 318 H, ALT 807 H, Albumin 2.7 L, CBC w Diff NO MAN DIFF REQ, RBC 2.99 L, MCV 91.8, MCH 30.3, MCHC 33.0, RDW 13.0, MPV 10.7 H, Gran % 80.1 H, Lymphocytes % 16.9 L, Monocytes % 2.8, Eosinophils % 0.2, Basophils % 0, Absolute Granulocytes 7.6 H, Absolute Lymphocytes 1.6, Absolute Monocytes 0.3, Absolute Eosinophils 0, Absolute Basophils 0 03/27/17 0530: pH 7.26 *L, pCO2 43, pO2 62 L, HCO3 19 L, ABG O2 Sat (Measured) 91.0 L, P-50 (Temp Corrected) Y, Carboxyhemoglobin 0.3 L, O2 Concentration % 100%, Temperature 97.0, Respiration Rate 26, O2 Delivery Method ESPRIT, Vent Mode AC, Expiratory Pressure 12, Tidal Volume 450, Phlebotomy Draw Site RIGHT RADIAL 03/27/17 0455: Anion Gap 15, Estimated GFR 22 L, Glucose 424 H, Calcium 8.6, Phosphorus 5.8 H, Magnesium 2.4 H, Iron 91, TIBC 204 L, Ferritin 2000.0 H, Total Bilirubin 0.6, AST 174 H, ALT 501 H, Albumin 2.8 L, PT 11.1, INR 1.06, APTT < 20 L, CBC w Diff NO MAN DIFF REQ, RBC 2.93 L, MCV 91.7, MCH 30.6, MCHC 33.4, RDW 12.6 , MPV 10.8 H, Gran % 83.0 H, Lymphocytes % 13.8 L, Monocytes % 3.0, Eosinophils % 0.1, Basophils % 0.1, Absolute Granulocytes 7.5 H, Absolute Lymphocytes 1.2, Absolute Monocytes 0.3, Absolute Eosinophils 0, Absolute Basophils 0 Microbiology 03/28 113 URINE ROUT: Urine Culture - ORD 03/28 113 LOWER RESP: Respiratory Culture - ORD 03/28 113 LOWER RESP: Gram Stain - ORD 03/28 113 BLOOD: Blood Culture - CAN Cancelled: SPECIMEN NOT RECEIVED IN LABORATORY 03/28 113 BLOOD: Blood Culture - CAN Cancelled: SPECIMEN NOT RECEIVED IN LABORATORY 03/28 1130 URINE ROUT: Urine Culture - RECD 03/28 1055 BLOOD: Blood Culture - RES 03/28 1030 BLOOD: Blood Culture - RES Laboratory Tests 03/29 03/29 1110 1015 Blood Gas pH (7.35 - 7.45 PH) 7.20 *L pCO2 (35 - 45 TORR) 45 pO2 (80 - 100 TORR) 64 L HCO3 (21 - 28 MEQ/L) 17 L ABG O2 Sat (Measured) (>96.0 %) 90.0 L P-50 (Temp Corrected) N Carboxyhemoglobin (1.5 - 5.0 %) 0.5 L O2 Concentration % 100% Temperature (97.0 - 100.0 FARH) 97.6 Respiration Rate (BPM) 30 O2 Delivery Method VENT Vent Mode VC-AC Expiratory Pressure (CMH2O/P) 14 Tidal Volume (CC) 450 Pressure Support (CMH2O/P) 0 Chemistry Sodium (137 - 145 mmol/L) 149 H Potassium (3.5 - 5.1 mmol/L) 4.5 Chloride (98 - 107 mmol/L) 116 H Carbon Dioxide (22 - 30 mmol/L) 19 L Anion Gap (5 - 16) 14 BUN (7 - 17 mg/dL) 72 H Creatinine (0.5 - 1.0 mg/dL) 2.7 H Estimated GFR (>60 ml/min) 21 L Glucose (65 - 99 mg/dL) 179 H Calcium (8.4 - 10.2 mg/dL) 8.6 Phosphorus (2.5 - 4.5 mg/dL) 4.3 Magnesium (1.6 - 2.3 mg/dL) 2.8 H Total Bilirubin (0.2 - 1.3 mg/dL) 0.9 Direct Bilirubin (< 0.4 mg/dL) 0.8 H AST (14 - 36 U/L) 310 H ALT (9 - 52 U/L) 993 H Alkaline Phosphatase (<127 U/L) 194 H Creatine Kinase (30 - 135 U/L) 201 H Troponin I (< 0.11 ng/ml) Pending Total Protein (6.3 - 8.2 g/dL) 5.5 L Albumin (3.5 - 5.0 g/dL) 2.8 L Prealbumin (17.6 - 36.0 mg/dL) Pending Coagulation PT (9.4 - 12.5 SEC) 10.5 INR (0.90 - 1.19) 1.00 APTT (25 - 37 SEC) 22 L Hematology CBC w Diff MAN DIFF ORDERED WBC (4.8 - 10.8 /CUMM) Pending RBC (4.20 - 5.40 /CUMM) Pending Hgb (12.0 - 16.0 G/DL) Pending Hct (37 - 47 %) Pending MCV (81.0 - 99.0 FL) Pending MCH (27.0 - 31.0 PG) Pending MCHC (33.0 - 37.0 G/DL) Pending RDW (11.5 - 14.5 %) Pending Plt Count (130 - 400 /CUMM) Pending MPV (7.4 - 10.4 FL) Pending Gran % (42.2 - 75.2 %) Pending Lymphocytes % (20.5 - 51.1 %) Pending Monocytes % (1.7 - 9.3 %) Pending Eosinophils % (0 - 5 %) Pending Basophils % (0.0 - 2.0 %) Pending Absolute Granulocytes (1.4 - 6.5 /CUMM) Pending Segmented Neutrophils (42.2 - 75.2 %) Pending Band Neutrophils (0.0 - 5.0 %) Pending Absolute Lymphocytes (1.2 - 3.4 /CUMM) Pending Lymphocytes (20.5 - 51.1 %) Pending Monocytes (1.7 - 9.3 %) Pending Absolute Monocytes (0.10 - 0.60 /CUMM) Pending Eosinophils (0 - 5.0 %) Pending Absolute Eosinophils (0.0 - 0.7 /CUMM) Pending Absolute Basophils (0.0 - 0.2 /CUMM) Pending Metamyelocytes (0.0 - 1.0 %) Pending Myelocytes (0 - 0 %) Pending Nucleated RBCs (0.0 - 0.0 /100WBC) Pending Platelet Estimate (ADEQUATE) Pending Normocytic RBCs Pending Normochromic RBCs Pending Polychromasia Pending Basophilic Stippling Pending Miscellaneous Phlebotomy Draw Site RIGHT RADIAL 03/29 03/29 0700 0500 Blood Gas pH (7.35 - 7.45 PH) 7.16 *L pCO2 (35 - 45 TORR) 49 H pO2 (80 - 100 TORR) 73 L HCO3 (21 - 28 MEQ/L) 17 L ABG O2 Sat (Measured) (>96.0 %) 91.0 L Carboxyhemoglobin (1.5 - 5.0 %) 0.3 L O2 Concentration % 100 Respiration Rate (BPM) 26 O2 Delivery Method VENT Vent Mode AC Expiratory Pressure (CMH2O/P) 14 Tidal Volume (CC) 450 Miscellaneous Ref Lab Test Result Pending Phlebotomy Draw Site RIGHT RADIAL 03/29 03/28 8465 1715 Chemistry Sodium (137 - 145 mmol/L) 150 H 148 H Potassium (3.5 - 5.1 mmol/L) 4.5 4.6 Chloride (98 - 107 mmol/L) 115 H 114 H Carbon Dioxide (22 - 30 mmol/L) 20 L 20 L Anion Gap (5 - 16) 16 14 BUN (7 - 17 mg/dL) 71 H 67 H Creatinine (0.5 - 1.0 mg/dL) 3.0 H 2.8 H Estimated GFR (>60 ml/min) 19 L 21 L BUN/Creatinine Ratio (7 - 25 %) 23.9 Glucose (65 - 99 mg/dL) 236 H Calcium (8.4 - 10.2 mg/dL) 8.7 Phosphorus (2.5 - 4.5 mg/dL) 4.5 Magnesium (1.6 - 2.3 mg/dL) 2.9 H Total Bilirubin (0.2 - 1.3 mg/dL) 0.9 AST (14 - 36 U/L) 352 H ALT (9 - 52 U/L) 1031 H Albumin (3.5 - 5.0 g/dL) 2.9 L Hematology CBC w Diff MAN DIFF ORDERED WBC (4.8 - 10.8 /CUMM) 10.4 RBC (4.20 - 5.40 /CUMM) 3.01 L Hgb (12.0 - 16.0 G/DL) 9.1 L Hct (37 - 47 %) 27.8 L MCV (81.0 - 99.0 FL) 92.3 MCH (27.0 - 31.0 PG) 30.4 MCHC (33.0 - 37.0 G/DL) 32.9 L RDW (11.5 - 14.5 %) 13.7 Plt Count (130 - 400 /CUMM) 137 MPV (7.4 - 10.4 FL) 10.4 Gran % (42.2 - 75.2 %) 79.2 H Lymphocytes % (20.5 - 51.1 %) 17.4 L Monocytes % (1.7 - 9.3 %) 3.1 Eosinophils % (0 - 5 %) 0.2 Basophils % (0.0 - 2.0 %) 0.1 Absolute Granulocytes (1.4 - 6.5 /CUMM) 8.2 H Segmented Neutrophils (42.2 - 75.2 %) 60 Band Neutrophils (0.0 - 5.0 %) 9 H Absolute Lymphocytes (1.2 - 3.4 /CUMM) 1.8 Lymphocytes (20.5 - 51.1 %) 27 Monocytes (1.7 - 9.3 %) 4 Absolute Monocytes (0.10 - 0.60 /CUMM) 0.3 Absolute Eosinophils (0.0 - 0.7 /CUMM) 0 Absolute Basophils (0.0 - 0.2 /CUMM) 0 Nucleated RBCs (0.0 - 0.0 /100WBC) 3 H Platelet Estimate (ADEQUATE) ADEQUATE Normocytic RBCs VERIFIED Polychromasia 1+ Anisocytosis 1+ 03/28 03/27 0534 0530 Blood Gas pH (7.35 - 7.45 PH) 7.26 *L pCO2 (35 - 45 TORR) 43 pO2 (80 - 100 TORR) 62 L HCO3 (21 - 28 MEQ/L) 19 L ABG O2 Sat (Measured) (>96.0 %) 91.0 L P-50 (Temp Corrected) Y Carboxyhemoglobin (1.5 - 5.0 %) 0.3 L O2 Concentration % 100% Temperature (97.0 - 100.0 FARH) 97.0 Respiration Rate (BPM) 26 O2 Delivery Method ESPRIT Vent Mode AC Expiratory Pressure (CMH2O/P) 12 Tidal Volume (CC) 450 Chemistry Sodium (137 - 145 mmol/L) 146 H Potassium (3.5 - 5.1 mmol/L) 4.2 Chloride (98 - 107 mmol/L) 112 H Carbon Dioxide (22 - 30 mmol/L) 17 L Anion Gap (5 - 16) 17 H BUN (7 - 17 mg/dL) 60 H Creatinine (0.5 - 1.0 mg/dL) 2.8 H Estimated GFR (>60 ml/min) 21 L Glucose (65 - 99 mg/dL) 312 H Calcium (8.4 - 10.2 mg/dL) 8.7 Phosphorus (2.5 - 4.5 mg/dL) 4.8 H Magnesium (1.6 - 2.3 mg/dL) 2.6 H Total Bilirubin (0.2 - 1.3 mg/dL) 0.6 AST (14 - 36 U/L) 318 H ALT (9 - 52 U/L) 807 H Albumin (3.5 - 5.0 g/dL) 2.7 L Hematology CBC w Diff NO MAN DIFF REQ WBC (4.8 - 10.8 /CUMM) 9.5 RBC (4.20 - 5.40 /CUMM) 2.99 L Hgb (12.0 - 16.0 G/DL) 9.1 L Hct (37 - 47 %) 27.5 L MCV (81.0 - 99.0 FL) 91.8 MCH (27.0 - 31.0 PG) 30.3 MCHC (33.0 - 37.0 G/DL) 33.0 RDW (11.5 - 14.5 %) 13.0 Plt Count (130 - 400 /CUMM) 121 L MPV (7.4 - 10.4 FL) 10.7 H Gran % (42.2 - 75.2 %) 80.1 H Lymphocytes % (20.5 - 51.1 %) 16.9 L Monocytes % (1.7 - 9.3 %) 2.8 Eosinophils % (0 - 5 %) 0.2 Basophils % (0.0 - 2.0 %) 0 Absolute Granulocytes (1.4 - 6.5 /CUMM) 7.6 H Absolute Lymphocytes (1.2 - 3.4 /CUMM) 1.6 Absolute Monocytes (0.10 - 0.60 /CUMM) 0.3 Absolute Eosinophils (0.0 - 0.7 /CUMM) 0 Absolute Basophils (0.0 - 0.2 /CUMM) 0 Miscellaneous Phlebotomy Draw Site RIGHT RADIAL 03/27 0455 Chemistry Sodium (137 - 145 mmol/L) 140 Potassium (3.5 - 5.1 mmol/L) 4.3 Chloride (98 - 107 mmol/L) 106 Carbon Dioxide (22 - 30 mmol/L) 18 L Anion Gap (5 - 16) 15 BUN (7 - 17 mg/dL) 49 H Creatinine (0.5 - 1.0 mg/dL) 2.6 H Estimated GFR (>60 ml/min) 22 L Glucose (65 - 99 mg/dL) 424 H Calcium (8.4 - 10.2 mg/dL) 8.6 Phosphorus (2.5 - 4.5 mg/dL) 5.8 H Magnesium (1.6 - 2.3 mg/dL) 2.4 H Iron (37 - 170 ug/dL) 91 TIBC (265 - 497 ug/dL) 204 L Ferritin (6.24 - 137 ng/mL) 2000.0 H Total Bilirubin (0.2 - 1.3 mg/dL) 0.6 AST (14 - 36 U/L) 174 H ALT (9 - 52 U/L) 501 H Albumin (3.5 - 5.0 g/dL) 2.8 L Coagulation PT (9.4 - 12.5 SEC) 11.1 INR (0.90 - 1.19) 1.06 APTT (25 - 37 SEC) < 20 L Hematology CBC w Diff NO MAN DIFF REQ WBC (4.8 - 10.8 /CUMM) 9.0 RBC (4.20 - 5.40 /CUMM) 2.93 L Hgb (12.0 - 16.0 G/DL) 9.0 L Hct (37 - 47 %) 26.9 L MCV (81.0 - 99.0 FL) 91.7 MCH (27.0 - 31.0 PG) 30.6 MCHC (33.0 - 37.0 G/DL) 33.4 RDW (11.5 - 14.5 %) 12.6 Plt Count (130 - 400 /CUMM) 104 L MPV (7.4 - 10.4 FL) 10.8 H Gran % (42.2 - 75.2 %) 83.0 H Lymphocytes % (20.5 - 51.1 %) 13.8 L Monocytes % (1.7 - 9.3 %) 3.0 Eosinophils % (0 - 5 %) 0.1 Basophils % (0.0 - 2.0 %) 0.1 Absolute Granulocytes (1.4 - 6.5 /CUMM) 7.5 H Absolute Lymphocytes (1.2 - 3.4 /CUMM) 1.2 Absolute Monocytes (0.10 - 0.60 /CUMM) 0.3 Absolute Eosinophils (0.0 - 0.7 /CUMM) 0 Absolute Basophils (0.0 - 0.2 /CUMM) 0 Disposition Summary Disposition Principal Diagnosis: 1. Influenza pneumonia 2. ARDS Additional Diagnosis: 3. Iga Nephropathy 4. Acute tubular necrosis 5. Hypernatremia 6. Obesity hypoventilation syndrome 7. Transaminitis 8. History of exercise induced asthma Discharge Disposition: other general hospital Discharge Instructions General Discharge Information Code Status: Full Code Patient's Diet: Tube feeds Patient's Activity: As tolerated Follow-Up Instructions/Appts: #1 please follow-up with your primary care provider after discharge. Medications at Discharge Discharge Medications: Stop taking the following medications: Levothyroxine Sodium (Synthroid) 75 MCG TABLET ORAL DAILY Lisinopril (Lisinopril) 10 MG TABLET ORAL DAILY Continue taking these medications: [place]-3 Fatty Acids/Fish Oil (Fish Oil 1,000 MG Softgel) 300 MG-1,000 MG CAPSULE 1 Capsule ORAL TWICE DAILY Sodium Bicarbonate (Sodium Bicarbonate) 650 MG TABLET 1.5 Tablet ORAL TWICE DAILY Instructions: 1000 MG BID Start taking the following new medications: Ipratropium [place] (Ipratropium Greenfield) 0.2 MG/ML (0.02 %) SOLUTION 2.5 Milliliters Inhale through mouth EVERY 4 HRS WHILE AWAKE as needed for ASTHMA Qty = 1 No Refills Albuterol Sulfate (Albuterol Sulfate) 2.5 MG/3 ML (0.083 %) VIAL.NEB 3 Milliliters Inhale through mouth EVERY 4 HRS WHILE AWAKE as needed for ASTHMA Qty = 1 No Refills Metoprolol Tartrate (Metoprolol Tartrate) 25 MG TABLET 12.5 Milligram ORAL TWICE DAILY Qty = 2 No Refills Dextran 70/Hypromellose (Artificial Tears) 1 EACH DROPERETTE 1 Drop In the eye TWICE DAILY as needed for DRY EYES Qty = 2 No Refills Pantoprazole Sodium (Pantoprazole Sodium) 40 MG VIAL 40 Milligram INTRAVEN DAILY Qty = 1 No Refills Methylprednisolone Sod Succ/Pf (Solu-Medrol 40 MG Vial) 40 MG/ML VIAL 40 Milligram INTRAVEN EVERY 8 HOURS Qty = 1 No Refills Levothyroxine Sodium (Levothyroxine Sodium) 200 MCG VIAL 37.5 Microgram INTRAVEN DAILY Qty = 1 No Refills Saliva Substitute Combo No.9 (Biotene) 473 ML MOUTHWASH 2 [place] ORAL EVERY 2 HOURS NEEDED as needed for dry mouth Qty = 1 No Refills Ampicillin Sodium (Ampicillin Sodium) 2 GRAM VIAL 2,000 Milligram INTRAVEN EVERY 8 HOURS Qty = 1 No Refills Fentanyl Citrate-0.9 % NaCl/Pf (Fentanyl 1,000MCG/100-0.9%NaCl) 10 MCG/ML PLAST..BAG 0 INTRAVEN As Directed Qty = 1 No Refills Instructions: IV DRIP @ 50MCG/HR TITARTION PROTOCOL: LOADING DOSE: 25MCG IV PUSH FOLLOWED BY 25MCG FOR TARGET BID <50 IV DRIP @50MCG/HR ADJUST BY 25MCG/HR NOTT MORE THAN Q 10MINS NOT T O EXCEED 300MCG/HR TITARE TO A PAIN SCORE > OR EQUAL TO 5 SAS (3-4) RANGE: 35-300MCG/HR Insulin Detemir (Levemir) 100 UNIT/ML VIAL 40 Units Inject into fatty tissue TWICE DAILY Qty = 1 No Refills Insulin Aspart (Novolog) 100 UNIT/ML CARTRIDGE 0 Inject into fatty tissue Every 4 hours Qty = 1 No Refills Instructions: BLOOD GLUCOSE MG/DL < 80: NO COVERAGE 80-100: 9 UNITS 101-150: 9 UNITS 151-200: 12 UNITS 201-250:15 UNITS 251-300: 18 UNITS 301-350: 21 UNITS 351-400: 24 UNITS >400: 27 UNITS Lorazepam/0.9% Sodium Chloride (Lorazepam-Ns 100 MG/100 Ml Bag) 100 MG/100 ML (1 MG/ML) PLAST..BAG 0 INTRAVEN As Directed Qty = 1 No Refills Instructions: 50MG/500ML - 0.1MG/ML IV DRIP @ 0.03MG/KG/HOUR TITRATE INFUSION TO LUCIE SCALE SAS OF 3-4 SAS GREATER THAN 4, INCREASE DOSE BY NOT MORE THAN 1MG/HR NOT TO EXCEED 15MG/HR GIVE 5MG IVP (MAX BOLUS NOT TO EXCEED 8 MG) AND INCREASE DOSE BY NOT MORE THAN 1MG/HR NOT TO EXCEED 15MG/HR SAS<3: DECREASE DOSE BY 1MG/HR Vecuronium [place] (Vecuronium Green[place]) 10 MG VIAL 0 INTRAVEN As Directed Qty = 1 No Refills Instructions: 10MG/100ML ~ 0.1MG/ML TITRATION PROTOCOL: IV DRIP @ 0.08MG/KG/HR TITRATE TO TRAIN OF FOUR 2-3 OUT OF 4 ADJUST DOSE BY 10% BNOT MORE FREQUENTLY THAN EVERY 15 MINS UNTIL TRAIN OF FOUR IS 2-3 OUT OF 4 PLEASE TITRATE VEC GTT DOWN BY 0.05MCG/KG/MIN FOR A GOAL TOF OF 1-2/4 RANGE: 0.05-0.1MG/KG/HR Dextrose 5% (Dextrose 5%-Water IV Soln) 5 % IV.SOLN 0 INTRAVEN CONTINUOUS Qty = 1 No Refills Instructions: @ 150MLS/HR Copies To: Diallo Greene MD; Natasha Wu MD; Len CHAMORRO,[place]; More CHAMORRO,Jose Ramon Attending MD Review Statement Documenting Attending: Earlene Schaefer MD Documenting Attending: Earlene Schaefer MD
[2017-03-29 10:04] VITALS: BP 166/79
--- NOTE | 2017-03-29 11:32 | PN- Infect Dx ---
Subjective Subjective: Afebrile on steroids. She remains sedated. Objective Last 24 Hrs of Vital Signs/I&O Vital Signs Date Time Temp Pulse Resp B/P B/P Pulse O2 O2 Flow FiO2 Mean Ox Delivery Rate 03/29 1004 94 166/79 02 0825 100 03/29 0800 97.8 94 30 148/90 91 Ventilator 30% 03/29 0800 91 Ventilator 100% 03/29 0654 100 / 0408 100 03/29 0400 92 Ventilator 100% 03/29 0153 100 02/ 0000 92 Ventilator 100% 02/ 0000 98.3 92 26 140/68 92 Ventilator 100% 03/28 2225 100 02/ 2107 103 153/64 02/ 2000 93 Ventilator 100% / 1950 100 / 1700 100 / 1600 97.1 104 26 162/70 85 Ventilator 100% 03/28 1600 85 Ventilator 100% 03/28 1410 100 02/05 1200 89 Ventilator 100% / 1147 100 Intake & Output 03/29 1600 03/29 0800 02 0000 Intake Total 2538 2511 Output Total 1400 1360 Balance 1138 1151 Intake, IV 1518 1481 Intake, Oral 0 0 Intake, Tube 550 500 Feeding Intake, Tube 470 530 Irrigant Number 0 0 Bowel Movements Output, Urine 1400 1360 Patient 305 lb Weight Weight Bed scale Measurement Method Physical Exam Other Physical Findings: She is sedated and unresponsive on the ventilator Neck left IJ triple-lumen catheter in place Lungs are clear Heart regular rhythm with no murmur Abdomen is obese, soft, with positive bowel sounds Extremities no cyanosis, clubbing or edema Cruz catheter remains in place Results Last 24 Hours of Lab Results: Laboratory Tests 03/29 03/29 03/29 03/29 1110 1015 0700 0500 Blood Gas pH (7.35 - 7.45 PH) 7.20 *L 7.16 *L pCO2 (35 - 45 TORR) 45 49 H pO2 (80 - 100 TORR) 64 L 73 L HCO3 (21 - 28 MEQ/L) 17 L 17 L ABG O2 Sat (Measured) (>96.0 %) 90.0 L 91.0 L P-50 (Temp Corrected) N Carboxyhemoglobin (1.5 - 5.0 %) 0.5 L 0.3 L O2 Concentration % 100% 100 Temperature (97.0 - 100.0 FARH) 97.6 Respiration Rate (BPM) 30 26 O2 Delivery Method VENT VENT Vent Mode VC-AC AC Expiratory Pressure (CMH2O/P) 14 14 Tidal Volume (CC) 450 450 Pressure Support (CMH2O/P) 0 Chemistry Sodium Pending Potassium Pending Chloride Pending Carbon Dioxide Pending Anion Gap Pending BUN Pending Creatinine Pending Glucose Pending Calcium Pending Phosphorus Pending Magnesium Pending Total Bilirubin Pending Direct Bilirubin Pending AST Pending ALT Pending Alkaline Phosphatase Pending Creatine Kinase Pending Troponin I Pending Total Protein Pending Albumin Pending Prealbumin Pending Coagulation PT Pending INR Pending APTT Pending Hematology CBC w Diff Pending WBC Pending RBC Pending Hgb Pending Hct Pending MCV Pending MCH Pending MCHC Pending RDW Pending Plt Count Pending MPV Pending Miscellaneous Ref Lab Test Result Pending Phlebotomy Draw Site RIGHT RADIAL RIGHT RADIAL 03/29 03/28 1096 2005 Chemistry Sodium (137 - 145 mmol/L) 150 H 148 H Potassium (3.5 - 5.1 mmol/L) 4.5 4.6 Chloride (98 - 107 mmol/L) 115 H 114 H Carbon Dioxide (22 - 30 mmol/L) 20 L 20 L Anion Gap (5 - 16) 16 14 BUN (7 - 17 mg/dL) 71 H 67 H Creatinine (0.5 - 1.0 mg/dL) 3.0 H 2.8 H Estimated GFR (>60 ml/min) 19 L 21 L BUN/Creatinine Ratio (7 - 25 %) 23.9 Glucose (65 - 99 mg/dL) 236 H Calcium (8.4 - 10.2 mg/dL) 8.7 Phosphorus (2.5 - 4.5 mg/dL) 4.5 Magnesium (1.6 - 2.3 mg/dL) 2.9 H Total Bilirubin (0.2 - 1.3 mg/dL) 0.9 AST (14 - 36 U/L) 352 H ALT (9 - 52 U/L) 1031 H Albumin (3.5 - 5.0 g/dL) 2.9 L Hematology CBC w Diff MAN DIFF ORDERED WBC (4.8 - 10.8 /CUMM) 10.4 RBC (4.20 - 5.40 /CUMM) 3.01 L Hgb (12.0 - 16.0 G/DL) 9.1 L Hct (37 - 47 %) 27.8 L MCV (81.0 - 99.0 FL) 92.3 MCH (27.0 - 31.0 PG) 30.4 MCHC (33.0 - 37.0 G/DL) 32.9 L RDW (11.5 - 14.5 %) 13.7 Plt Count (130 - 400 /CUMM) 137 MPV (7.4 - 10.4 FL) 10.4 Gran % (42.2 - 75.2 %) 79.2 H Lymphocytes % (20.5 - 51.1 %) 17.4 L Monocytes % (1.7 - 9.3 %) 3.1 Eosinophils % (0 - 5 %) 0.2 Basophils % (0.0 - 2.0 %) 0.1 Absolute Granulocytes (1.4 - 6.5 /CUMM) 8.2 H Segmented Neutrophils (42.2 - 75.2 %) 60 Band Neutrophils (0.0 - 5.0 %) 9 H Absolute Lymphocytes (1.2 - 3.4 /CUMM) 1.8 Lymphocytes (20.5 - 51.1 %) 27 Monocytes (1.7 - 9.3 %) 4 Absolute Monocytes (0.10 - 0.60 /CUMM) 0.3 Absolute Eosinophils (0.0 - 0.7 /CUMM) 0 Absolute Basophils (0.0 - 0.2 /CUMM) 0 Nucleated RBCs (0.0 - 0.0 /100WBC) 3 H Platelet Estimate (ADEQUATE) ADEQUATE Normocytic RBCs VERIFIED Polychromasia 1+ Anisocytosis 1+ Last 24 Hours of Michael Results: Blood cultures 2 negative Urine culture March 28 pending Recent Imaging Studies: Chest x-ray March 29, personally reviewed, reveals improving airspace disease bilaterally Assessment/Plan Impression: Condition remains poor, with respiratory failure, presumably secondary to ARDS, still requiring 100% oxygen and PEEP, though her chest x-ray appears improved. She has been afebrile over the past 3 days (on steroids) with her white blood cell count remaining normal on Ampicillin now Day 5 of treatment for a possible Enterococcal UTI, though the positive culture may just represent colonization from the Cruz catheter. Her liver enzymes continue to increase, of unclear etiology, with further workup limited due to her tenuous respiratory status. Discussion regarding possible transfer to [facility] for ECMO noted. Suggestion: 1. Follow-up recent cultures 2. Further evaluation/management of her fluid status per Cardiology 3. Await possible transfer to [facility] 4. Continue Ampicillin
[2017-03-29 11:34] LABS: ABSOLUTE BASOPHIL COUNT 0 /CUMM (0.0-0.2); ABSOLUTE EOSINOPHIL COUNT 0.1 /CUMM (0.0-0.7); ABSOLUTE GRANULOCYTE CT 8.3 /CUMM (1.4-6.5); ABSOLUTE LYMPH COUNT 1.8 /CUMM (1.2-3.4); ABSOLUTE MONOCYTE COUNT 0.3 /CUMM (0.10-0.60); BASOPHIL % 0.1 % (0.0-2.0); EOSINOPHIL % 0.6 % (0-5); GRANULOCYTE % 79.4 % (42.2-75.2); HEMATOCRIT 27.9 % (37-47); MEAN CORPUSCULAR HGB 29.9 PG (27.0-31.0); MEAN CORPUSCULAR HGB CONC 32.3 G/DL (33.0-37.0); MEAN CORPUSCULAR VOLUME 92.8 FL (81.0-99.0); MEAN PLATELET VOLUME 10.1 FL (7.4-10.4); PLATELET COUNT 135 /CUMM (130-400); RBC DISTRIBUTION WIDTH 13.8 % (11.5-14.5); WHITE BLOOD CELL COUNT 10.5 /CUMM (4.8-10.8)
[2017-03-29 11:42] LABS: PT 10.5 SEC (9.4-12.5); PTT 22 SEC (25-37)
--- NOTE | 2017-03-29 12:21 | Patient Discharge Instructions ---
Discharge Instructions General Discharge Information You were seen/treated for: Acute hypoxic respiratory failure Influenza pneumonia [facility] secondary to IgA nephropathy You had these procedures: TLC, IJ catheter placement Watch for these problems: #1 shortness of breath #2 chest pain Special Instructions: You are being transferred to a higher level of care, and please follow-up instructions from [facility] upon discharge. #1 please follow up with her primary care provider after being discharged #2 please take medications as prescribed Diet Continue normal diet: No Recommended Diet: Diabetic, tube feeding Activity Full Activity/No Limits: Yes Acute Coronary Syndrome Inclusion Criteria At DC or during hospital stay patient has or had the following: ACS DIAGNOSIS No Discharge Core Measures Meds if any: Prescribed or Continued at Discharge Meds if any: NOT Prescribed or Continued at Discharge Congestive Heart Failure Inclusion Criteria At DC or during hospital stay patient has or had the following: CHF DIAGNOSIS No Discharge Core Measures Meds if any: Prescribed or Continued at Discharge Meds if any: NOT Prescribed or Continued at Discharge Cerebrovascular accident Inclusion Criteria At DC or during hospital stay patient has or had the following: CVA/TIA Diagnosis No Discharge Core Measures Meds if any: Prescribed or Continued at Discharge Meds if any: NOT Prescribed or Continued at Discharge Venous thromboembolism Inclusion Criteria VTE Diagnosis No VTE Type NONE VTE Confirmed by (Test) DUPLEX VENOUS EXTREM UNI Discharge Core Measures - Per Current guidelines, there needs to be overlap - treatment for the first 5 days of Warfarin therapy. - If discharged on Warfarin prior to 5 days of - overlap therapy, the patient will need to be - assessed for post discharge needs including - *Post discharge parental anticoagulation - *Warfarin and/or parental anticoagulation education - *Follow up date to check INR post discharge At least 5 days overlap therapy as Inpatient No Meds if any: Prescribed or Continued at Discharge Note: Overlap Therapy is Warfarin and Anticoagulant Meds if any: NOT Prescribed or Continued at Discharge
[2017-03-29] MEDS ORDERED: VECURONIUM IV (12:32)
[2017-03-29] MEDS ORDERED: LEVEMIR100 UNIT/1 SC (12:32)
[2017-03-29] MEDS ORDERED: LEVOTHYROXINE200 MCG IV (12:32)
[2017-03-29] MEDS ORDERED: BIOTENE473 ML PO (12:32)
[2017-03-29] MEDS ORDERED: NOVOLOG100 UNIT/1 SC (12:32)
[2017-03-29] MEDS ORDERED: DEXTROSE 5% IV (12:32)
[2017-03-29] MEDS ORDERED: ARTIFICIAL TEA1 EACH OPH (12:32)
[2017-03-29] MEDS ORDERED: LORAZEPAM IV (12:32)
[2017-03-29] MEDS ORDERED: ALBUTEROL2.5 MG/3 M INH (12:32)
[2017-03-29] MEDS ORDERED: FENTANYL IV (12:32)
[2017-03-29] MEDS ORDERED: AMPICILLIN SODIU2 G2 IV (12:32)
[2017-03-29] MEDS ORDERED: METOPROLOL TART25 M1 PO (12:32)
[2017-03-29] MEDS ORDERED: PANTOPRAZOLE SO40 M2 IV (12:32)
[2017-03-29] MEDS ORDERED: SOLU-MEDRO40 MG/1 ML IV (12:32)
[2017-03-29] MEDS ORDERED: IPRATROPIU0.2 MG/1 M INH (12:32)
[2017-03-29] MEDS ORDERED: WAT IV (12:32)
--- NOTE | 2017-03-29 13:13 | PN- Cardiology ---
Subjective Subjective: The patient remains intubated and sedated. Weaning of ventilator has not been possible. Heart rate has been normal. Blood pressure is elevated. She desaturates if moved. She remains on tube feeds with free water flushes. A triple-lumen catheter was placed. Objective Vital Signs and I&Os Vital Signs Date Time Temp Pulse Resp B/P B/P Pulse O2 O2 Flow FiO2 Mean Ox Delivery Rate 03/29 1200 02 Ventilator 100% / 1004 94 166/79 02/ 0825 100 03/29 0800 97.8 94 30 148/90 91 Ventilator 30% 03/29 0800 91 Ventilator 100% / 0654 100 / 0408 100 / 0400 92 Ventilator 100% / 0153 100 02/ 0000 92 Ventilator 100% / 0000 98.3 92 26 140/68 92 Ventilator 100% 02/ 2225 100 02/ 2107 103 153/64 02/ 2000 93 Ventilator 100% 02/ 1950 100 02/05 1700 100 02/05 1600 97.1 104 26 162/70 85 Ventilator 100% 02/05 1600 85 Ventilator 100% 02/05 1410 100 Intake & Output / 1600 02/06 0800 02/06 0000 02/05 1600 02/05 0800 02/05 0000 Intake Total 2538 2511 2790 2243 3287 Output Total 1400 1360 0946 129 3312 Balance 1138 1151 1390 1343 2287 Intake, IV 1518 1481 1690 1645 2151 Intake, Oral 0 0 Intake, Other 100 Intake, Tube 550 500 510 448 586 Feeding Intake, Tube 470 530 590 150 450 Irrigant Number 0 0 0 0 Bowel Movements Output, Urine 1400 1360 4078 846 3123 Patient 305 lb Weight Weight Bed scale Measurement Method Physical Exam: Gen: The patient is intubated HEENT: Normal nose, ears, and oropharynx. Pupils equal bilaterally. Conjunctiva normal. Neck: Supple with no JVD, no masses, and no thyromegaly Lungs: Decreased breath sounds on the ventilator Heart: Tachycardia, S1, S2, no murmurs. No peripheral edema, 2+ pulses in the lower extremities bilaterally Abdomen: Soft, nontender, no masses. No hepatomegaly. No splenomegaly Extremities: No clubbing or cyanosis. Normal muscle strength in the upper and lower extremities Skin: Normal skin turgor with no skin ulcers or lesions noted. Neuro: Cranial nerves intact. Sensation intact Psych: Sedated Current Medications: Current Medications Sig/Nabila Start time Last Medication Dose Route Stop Time Status Admin Acetaminophen 650 MG Q6P PRN 03/06 2215 AC 03/11 PO 1140 Acetaminophen 1,000 MG Q6P PRN 03/06 2215 AC 03/26 IV 1721 Albuterol Sulfate 3 ML EVERY 4 HRS/AWAKE 03/08 1600 AC 03/29 INH 1156 Ampicillin 2,000 MG Q8 03/24 1400 AC 03/29 Sodium Chloride 100 ML IV 0602 Artificial Tears 1 GTT BID PRN 03/23 2200 AC 03/27 OPH 1711 Calcium Carbonate 500 MG TID PRN 03/10 0030 AC PO Dextrose/Water 1,000 ML Q10H 03/29 0745 AC 03/29 IV 03/29 1424 0800 Docusate Sodium 100 MG DAILY NEEDED 03/26 0915 AC 03/28 PO 2224 Fentanyl Citrate 1,000 MCG Q4H 03/27 0840 AC 03/29 Sodium Chloride 250 ML IV 1004 Glycerin 2 SPRAY Q2P PRN 03/09 0745 AC 03/09 PO 0848 Guaifenesin 10 ML Q4-6 PRN PRN 03/08 0445 AC 03/08 PO 0444 Heparin Sodium 5,000 UNIT Q8 03/07 0600 AC 03/29 (Porcine) SC 0602 Insulin Aspart 0 Q4 03/21 1400 DC 03/29 SC 0101 Insulin Detemir 40 UNITS BID 03/28 1000 DC 03/28 SC 2104 Insulin Human Regular 100 UNIT Q24H 03/29 0200 AC 03/29 Sodium Chloride 100 ML IV 1004 Ipratropium Constantia 2.5 ML EVERY 4 HRS/AWAKE 03/08 1600 AC 03/29 INH 1156 Levothyroxine Sodium 37.5 MCG DAILY 03/22 1000 AC 03/29 IV 1012 Lorazepam 100 MG Q11H 03/27 1300 AC 03/29 Sodium Chloride 1,000 ML IV 0102 Methylprednisolone 40 MG Q8 03/27 1400 AC 03/29 IV 0602 Metoprolol Tartrate 12.5 MG BID 03/26 2200 AC 03/29 PO 1004 Morphine Sulfate 2 MG Q4P PRN 03/23 0845 AC 03/26 IV 1721 Pantoprazole Sodium 40 MG DAILY 03/22 1000 AC 03/29 IV 1005 Polyethylene Glycol 17 GM DAILY 03/28 1031 AC 03/29 PO 1005 Polyethylene Glycol 17 GM DAILY 03/26 1000 DC 03/28 PO 1038 Senna 187 MG AT BEDTIME 03/28 220 AC 03/28 PO 2108 Senna 187 MG AT BEDTIME 03/26 2200 AC 03/28 PO 2108 Sodium Bicarbonate 975 MG ONCE ONE 03/29 0745 CAN PO 03/29 0746 Sodium Bicarbonate 975 MG BID 03/07 1000 AC 03/29 PO 1004 Vecuronium Constantia 50 MG Q13H 03/27 1400 AC 03/28 Sodium Chloride 500 ML IV 1728 Results Last 48 Hrs of Labs/Mics: Laboratory Tests 03/29/17 1110: Anion Gap 14, Estimated GFR 21 L, Glucose 179 H, Calcium 8.6, Phosphorus 4.3, Magnesium 2.8 H, Total Bilirubin 0.9, Direct Bilirubin 0.8 H, AST 310 H, ALT 993 H, Alkaline Phosphatase 194 H, Creatine Kinase 201 H, Troponin I < 0.01, Total Protein 5.5 L, Albumin 2.8 L, Prealbumin 52.7 H, PT 10.5, INR 1.00, APTT 22 L, CBC w Diff MAN DIFF ORDERED, WBC Pending, RBC Pending, Hgb Pending, Hct Pending, MCV Pending, MCH Pending, MCHC Pending, RDW Pending, Plt Count Pending, MPV Pending, Gran % Pending, Lymphocytes % Pending, Monocytes % Pending , Eosinophils % Pending, Basophils % Pending, Absolute Granulocytes Pending, Segmented Neutrophils Pending, Band Neutrophils Pending, Absolute Lymphocytes Pending, Lymphocytes Pending, Monocytes Pending, Absolute Monocytes Pending, Eosinophils Pending, Absolute Eosinophils Pending, Absolute Basophils Pending, Metamyelocytes Pending, Myelocytes Pending, Nucleated RBCs Pending, Platelet Estimate Pending, Normocytic RBCs Pending, Normochromic RBCs Pending, Polychromasia Pending, Basophilic Stippling Pending 03/29/17 1015: pH 7.20 *L, pCO2 45, pO2 64 L, HCO3 17 L, ABG O2 Sat (Measured) 90.0 L, P-50 (Temp Corrected) N, Carboxyhemoglobin 0.5 L, O2 Concentration % 100%, Temperature 97.6, Respiration Rate 30, O2 Delivery Method VENT, Vent Mode VC-AC, Expiratory Pressure 14, Tidal Volume 450, Pressure Support 0, Phlebotomy Draw Site RIGHT RADIAL 03/29/17 0700: pH 7.16 *L, pCO2 49 H, pO2 73 L, HCO3 17 L, ABG O2 Sat (Measured) 91.0 L, Carboxyhemoglobin 0.3 L, O2 Concentration % 100, Respiration Rate 26, O2 Delivery Method VENT, Vent Mode AC, Expiratory Pressure 14, Tidal Volume 450, Phlebotomy Draw Site RIGHT RADIAL 03/29/17 0500: Ref Lab Test Result Pending 03/29/17 0415: Anion Gap 16, Estimated GFR 19 L, Glucose 236 H, Calcium 8.7, Phosphorus 4.5, Magnesium 2.9 H, Total Bilirubin 0.9, AST 352 H, ALT 1031 H, Albumin 2.9 L, CBC w Diff MAN DIFF ORDERED, RBC 3.01 L, MCV 92.3, MCH 30.4, MCHC 32.9 L, RDW 13.7, MPV 10.4, Gran % 79.2 H, Lymphocytes % 17.4 L, Monocytes % 3.1, Eosinophils % 0.2, Basophils % 0.1, Absolute Granulocytes 8.2 H, Segmented Neutrophils 60, Band Neutrophils 9 H, Absolute Lymphocytes 1.8, Lymphocytes 27, Monocytes 4, Absolute Monocytes 0.3, Absolute Eosinophils 0, Absolute Basophils 0, Nucleated RBCs 3 H, Platelet Estimate ADEQUATE, Normocytic RBCs VERIFIED, Polychromasia 1+, Anisocytosis 1+ 03/28/17 1715: Anion Gap 14, Estimated GFR 21 L, BUN/Creatinine Ratio 23.9 03/28/17 0534: Anion Gap 17 H, Estimated GFR 21 L, Glucose 312 H, Calcium 8.7, Phosphorus 4.8 H, Magnesium 2.6 H, Total Bilirubin 0.6, AST 318 H, ALT 807 H, Albumin 2.7 L, CBC w Diff NO MAN DIFF REQ, RBC 2.99 L, MCV 91.8, MCH 30.3, MCHC 33.0, RDW 13.0, MPV 10.7 H, Gran % 80.1 H, Lymphocytes % 16.9 L, Monocytes % 2.8, Eosinophils % 0.2, Basophils % 0, Absolute Granulocytes 7.6 H, Absolute Lymphocytes 1.6, Absolute Monocytes 0.3, Absolute Eosinophils 0, Absolute Basophils 0 Recent Imaging Studies: Chest x-ray 03/29/17 1. Endotracheal tube catheter 4 cm above lisa. 2. Nasogastric tube passing into stomach. 3. Left IJ catheter tip at cavoatrial junction. 4. Mild improvement in the bilateral airspace disease since prior exam of March 28, 2017. Assessment/Plan Assessment/Plan Assessment: 1. Acute hypoxemic respiratory failure secondary to influenza complicated with left lower lobe pneumonia. 2. Possible ARDS 3. Acute on chronic kidney disease stage III due to IgA nephropathy 4. Sinus tachycardia, likely reactive. No evidence of primary cardiac etiology. Recommendations: * Although sinus tachycardia has improved, blood pressure is elevated. Would continue current dose of metoprolol for now for control of blood pressure and heart rate * Ventilatory support * Possible transfer to [facility] Continue telemetry? Yes
--- NOTE | 2017-03-29 14:49 | PN- Nephrology ---
Assessment/Plan Assessment: TREVOR, hypernatremia better. This most likely represents ATN (also partial DI which is associated with ATN). She is on D5W. She is acidemic (both respiratory and metabolic acidosis). Could give some bicarbonate but would use hypotonic solution. e.g D5W with 50 mEq Na bicarbonate Clay Greene MD Suggestion: . Subjective Subjective: Pt without change on high FIO2. Cr stable. Sodium stable. Objective Vital Signs and I&Os F NAD 166 / 79 94 97.8 Lungs vent BS COr RRR Abd soft obese Ext tr edema Results Pertinent Lab Results: Laboratory Tests 03/29 03/29 1110 1015 Blood Gas pH (7.35 - 7.45 PH) 7.20 *L pCO2 (35 - 45 TORR) 45 pO2 (80 - 100 TORR) 64 L HCO3 (21 - 28 MEQ/L) 17 L ABG O2 Sat (Measured) (>96.0 %) 90.0 L P-50 (Temp Corrected) N Carboxyhemoglobin (1.5 - 5.0 %) 0.5 L O2 Concentration % 100% Temperature (97.0 - 100.0 FARH) 97.6 Respiration Rate (BPM) 30 O2 Delivery Method VENT Vent Mode VC-AC Expiratory Pressure (CMH2O/P) 14 Tidal Volume (CC) 450 Pressure Support (CMH2O/P) 0 Chemistry Sodium (137 - 145 mmol/L) 149 H Potassium (3.5 - 5.1 mmol/L) 4.5 Chloride (98 - 107 mmol/L) 116 H Carbon Dioxide (22 - 30 mmol/L) 19 L Anion Gap (5 - 16) 14 BUN (7 - 17 mg/dL) 72 H Creatinine (0.5 - 1.0 mg/dL) 2.7 H Estimated GFR (>60 ml/min) 21 L Glucose (65 - 99 mg/dL) 179 H Calcium (8.4 - 10.2 mg/dL) 8.6 Phosphorus (2.5 - 4.5 mg/dL) 4.3 Magnesium (1.6 - 2.3 mg/dL) 2.8 H Total Bilirubin (0.2 - 1.3 mg/dL) 0.9 Direct Bilirubin (< 0.4 mg/dL) 0.8 H AST (14 - 36 U/L) 310 H ALT (9 - 52 U/L) 993 H Alkaline Phosphatase (<127 U/L) 194 H Creatine Kinase (30 - 135 U/L) 201 H Troponin I (< 0.11 ng/ml) < 0.01 Total Protein (6.3 - 8.2 g/dL) 5.5 L Albumin (3.5 - 5.0 g/dL) 2.8 L Prealbumin (17.6 - 36.0 mg/dL) 52.7 H Coagulation PT (9.4 - 12.5 SEC) 10.5 INR (0.90 - 1.19) 1.00 APTT (25 - 37 SEC) 22 L Hematology CBC w Diff MAN DIFF ORDERED WBC (4.8 - 10.8 /CUMM) Pending RBC (4.20 - 5.40 /CUMM) Pending Hgb (12.0 - 16.0 G/DL) Pending Hct (37 - 47 %) Pending MCV (81.0 - 99.0 FL) Pending MCH (27.0 - 31.0 PG) Pending MCHC (33.0 - 37.0 G/DL) Pending RDW (11.5 - 14.5 %) Pending Plt Count (130 - 400 /CUMM) Pending MPV (7.4 - 10.4 FL) Pending Gran % (42.2 - 75.2 %) Pending Lymphocytes % (20.5 - 51.1 %) Pending Monocytes % (1.7 - 9.3 %) Pending Eosinophils % (0 - 5 %) Pending Basophils % (0.0 - 2.0 %) Pending Absolute Granulocytes (1.4 - 6.5 /CUMM) Pending Segmented Neutrophils (42.2 - 75.2 %) Pending Band Neutrophils (0.0 - 5.0 %) Pending Absolute Lymphocytes (1.2 - 3.4 /CUMM) Pending Lymphocytes (20.5 - 51.1 %) Pending Monocytes (1.7 - 9.3 %) Pending Absolute Monocytes (0.10 - 0.60 /CUMM) Pending Eosinophils (0 - 5.0 %) Pending Absolute Eosinophils (0.0 - 0.7 /CUMM) Pending Absolute Basophils (0.0 - 0.2 /CUMM) Pending Metamyelocytes (0.0 - 1.0 %) Pending Myelocytes (0 - 0 %) Pending Nucleated RBCs (0.0 - 0.0 /100WBC) Pending Platelet Estimate (ADEQUATE) Pending Normocytic RBCs Pending Normochromic RBCs Pending Polychromasia Pending Basophilic Stippling Pending Miscellaneous Phlebotomy Draw Site RIGHT RADIAL 03/29 03/29 0700 0500 Blood Gas pH (7.35 - 7.45 PH) 7.16 *L pCO2 (35 - 45 TORR) 49 H pO2 (80 - 100 TORR) 73 L HCO3 (21 - 28 MEQ/L) 17 L ABG O2 Sat (Measured) (>96.0 %) 91.0 L Carboxyhemoglobin (1.5 - 5.0 %) 0.3 L O2 Concentration % 100 Respiration Rate (BPM) 26 O2 Delivery Method VENT Vent Mode AC Expiratory Pressure (CMH2O/P) 14 Tidal Volume (CC) 450 Miscellaneous Ref Lab Test Result Pending Phlebotomy Draw Site RIGHT RADIAL 03/29 03/28 0415 1715 Chemistry Sodium (137 - 145 mmol/L) 150 H 148 H Potassium (3.5 - 5.1 mmol/L) 4.5 4.6 Chloride (98 - 107 mmol/L) 115 H 114 H Carbon Dioxide (22 - 30 mmol/L) 20 L 20 L Anion Gap (5 - 16) 16 14 BUN (7 - 17 mg/dL) 71 H 67 H Creatinine (0.5 - 1.0 mg/dL) 3.0 H 2.8 H Estimated GFR (>60 ml/min) 19 L 21 L BUN/Creatinine Ratio (7 - 25 %) 23.9 Glucose (65 - 99 mg/dL) 236 H Calcium (8.4 - 10.2 mg/dL) 8.7 Phosphorus (2.5 - 4.5 mg/dL) 4.5 Magnesium (1.6 - 2.3 mg/dL) 2.9 H Total Bilirubin (0.2 - 1.3 mg/dL) 0.9 AST (14 - 36 U/L) 352 H ALT (9 - 52 U/L) 1031 H Albumin (3.5 - 5.0 g/dL) 2.9 L Hematology CBC w Diff MAN DIFF ORDERED WBC (4.8 - 10.8 /CUMM) 10.4 RBC (4.20 - 5.40 /CUMM) 3.01 L Hgb (12.0 - 16.0 G/DL) 9.1 L Hct (37 - 47 %) 27.8 L MCV (81.0 - 99.0 FL) 92.3 MCH (27.0 - 31.0 PG) 30.4 MCHC (33.0 - 37.0 G/DL) 32.9 L RDW (11.5 - 14.5 %) 13.7 Plt Count (130 - 400 /CUMM) 137 MPV (7.4 - 10.4 FL) 10.4 Gran % (42.2 - 75.2 %) 79.2 H Lymphocytes % (20.5 - 51.1 %) 17.4 L Monocytes % (1.7 - 9.3 %) 3.1 Eosinophils % (0 - 5 %) 0.2 Basophils % (0.0 - 2.0 %) 0.1 Absolute Granulocytes (1.4 - 6.5 /CUMM) 8.2 H Segmented Neutrophils (42.2 - 75.2 %) 60 Band Neutrophils (0.0 - 5.0 %) 9 H Absolute Lymphocytes (1.2 - 3.4 /CUMM) 1.8 Lymphocytes (20.5 - 51.1 %) 27 Monocytes (1.7 - 9.3 %) 4 Absolute Monocytes (0.10 - 0.60 /CUMM) 0.3 Absolute Eosinophils (0.0 - 0.7 /CUMM) 0 Absolute Basophils (0.0 - 0.2 /CUMM) 0 Nucleated RBCs (0.0 - 0.0 /100WBC) 3 H Platelet Estimate (ADEQUATE) ADEQUATE Normocytic RBCs VERIFIED Polychromasia 1+ Anisocytosis 1+ 05 03/27 0534 0530 Blood Gas pH (7.35 - 7.45 PH) 7.26 *L pCO2 (35 - 45 TORR) 43 pO2 (80 - 100 TORR) 62 L HCO3 (21 - 28 MEQ/L) 19 L ABG O2 Sat (Measured) (>96.0 %) 91.0 L P-50 (Temp Corrected) Y Carboxyhemoglobin (1.5 - 5.0 %) 0.3 L O2 Concentration % 100% Temperature (97.0 - 100.0 FARH) 97.0 Respiration Rate (BPM) 26 O2 Delivery Method ESPRIT Vent Mode AC Expiratory Pressure (CMH2O/P) 12 Tidal Volume (CC) 450 Chemistry Sodium (137 - 145 mmol/L) 146 H Potassium (3.5 - 5.1 mmol/L) 4.2 Chloride (98 - 107 mmol/L) 112 H Carbon Dioxide (22 - 30 mmol/L) 17 L Anion Gap (5 - 16) 17 H BUN (7 - 17 mg/dL) 60 H Creatinine (0.5 - 1.0 mg/dL) 2.8 H Estimated GFR (>60 ml/min) 21 L Glucose (65 - 99 mg/dL) 312 H Calcium (8.4 - 10.2 mg/dL) 8.7 Phosphorus (2.5 - 4.5 mg/dL) 4.8 H Magnesium (1.6 - 2.3 mg/dL) 2.6 H Total Bilirubin (0.2 - 1.3 mg/dL) 0.6 AST (14 - 36 U/L) 318 H ALT (9 - 52 U/L) 807 H Albumin (3.5 - 5.0 g/dL) 2.7 L Hematology CBC w Diff NO MAN DIFF REQ WBC (4.8 - 10.8 /CUMM) 9.5 RBC (4.20 - 5.40 /CUMM) 2.99 L Hgb (12.0 - 16.0 G/DL) 9.1 L Hct (37 - 47 %) 27.5 L MCV (81.0 - 99.0 FL) 91.8 MCH (27.0 - 31.0 PG) 30.3 MCHC (33.0 - 37.0 G/DL) 33.0 RDW (11.5 - 14.5 %) 13.0 Plt Count (130 - 400 /CUMM) 121 L MPV (7.4 - 10.4 FL) 10.7 H Gran % (42.2 - 75.2 %) 80.1 H Lymphocytes % (20.5 - 51.1 %) 16.9 L Monocytes % (1.7 - 9.3 %) 2.8 Eosinophils % (0 - 5 %) 0.2 Basophils % (0.0 - 2.0 %) 0 Absolute Granulocytes (1.4 - 6.5 /CUMM) 7.6 H Absolute Lymphocytes (1.2 - 3.4 /CUMM) 1.6 Absolute Monocytes (0.10 - 0.60 /CUMM) 0.3 Absolute Eosinophils (0.0 - 0.7 /CUMM) 0 Absolute Basophils (0.0 - 0.2 /CUMM) 0 Miscellaneous Phlebotomy Draw Site RIGHT RADIAL 03/27 0455 Chemistry Sodium (137 - 145 mmol/L) 140 Potassium (3.5 - 5.1 mmol/L) 4.3 Chloride (98 - 107 mmol/L) 106 Carbon Dioxide (22 - 30 mmol/L) 18 L Anion Gap (5 - 16) 15 BUN (7 - 17 mg/dL) 49 H Creatinine (0.5 - 1.0 mg/dL) 2.6 H Estimated GFR (>60 ml/min) 22 L Glucose (65 - 99 mg/dL) 424 H Calcium (8.4 - 10.2 mg/dL) 8.6 Phosphorus (2.5 - 4.5 mg/dL) 5.8 H Magnesium (1.6 - 2.3 mg/dL) 2.4 H Iron (37 - 170 ug/dL) 91 TIBC (265 - 497 ug/dL) 204 L Ferritin (6.24 - 137 ng/mL) 2000.0 H Total Bilirubin (0.2 - 1.3 mg/dL) 0.6 AST (14 - 36 U/L) 174 H ALT (9 - 52 U/L) 501 H Albumin (3.5 - 5.0 g/dL) 2.8 L Coagulation PT (9.4 - 12.5 SEC) 11.1 INR (0.90 - 1.19) 1.06 APTT (25 - 37 SEC) < 20 L Hematology CBC w Diff NO MAN DIFF REQ WBC (4.8 - 10.8 /CUMM) 9.0 RBC (4.20 - 5.40 /CUMM) 2.93 L Hgb (12.0 - 16.0 G/DL) 9.0 L Hct (37 - 47 %) 26.9 L MCV (81.0 - 99.0 FL) 91.7 MCH (27.0 - 31.0 PG) 30.6 MCHC (33.0 - 37.0 G/DL) 33.4 RDW (11.5 - 14.5 %) 12.6 Plt Count (130 - 400 /CUMM) 104 L MPV (7.4 - 10.4 FL) 10.8 H Gran % (42.2 - 75.2 %) 83.0 H Lymphocytes % (20.5 - 51.1 %) 13.8 L Monocytes % (1.7 - 9.3 %) 3.0 Eosinophils % (0 - 5 %) 0.1 Basophils % (0.0 - 2.0 %) 0.1 Absolute Granulocytes (1.4 - 6.5 /CUMM) 7.5 H Absolute Lymphocytes (1.2 - 3.4 /CUMM) 1.2 Absolute Monocytes (0.10 - 0.60 /CUMM) 0.3 Absolute Eosinophils (0.0 - 0.7 /CUMM) 0 Absolute Basophils (0.0 - 0.2 /CUMM) 0
--- NOTE | 2017-03-29 16:11 | RADIOLOGY REPORT ---
EXAMINATION: CHEST AND ABDOMEN RADIOGRAPHS. CLINICAL INFORMATION: Confirmation of lines and tubes. COMPARISON: Chest x-ray dated March 29, 2017. TECHNIQUE: Frontal radiographs of the chest and abdomen were performed. FINDINGS: There is an enteric tube terminating within the region of the stomach. There is a right femoral vein catheter which terminates over the inferior vena cava. There is a Cruz catheter with a temperature probe. There is a small volume of gas throughout the abdomen. There is a right internal jugular vein catheter with the tip overlying the medial aspect of the right clavicle. The endotracheal tube is 3.5 cm above the lisa. There are low lung volumes. IMPRESSION: Tubes and lines as described. Low lung volumes.
--- NOTE | 2017-03-30 17:22 | ECHOCARDIOGRAM REPORT ---
JOSE KU Age: 26 : 1990 Gender: F Exam Date: 03/23/2017 16:00 Exam Location: [facility] Ht (in): 59 Wt (lb): 275 BSA: 2.37 BP: 99 / 40 Ordering Physician: Chaparrita Crook MD Referring Physician: Tracee Wu MD Technologist: Julieth Masterson [facility] Room Number: 106 Indications: RESPIRATORY FAILURE Rhythm: Sinus Technical Quality: Poor, Technically difficult study FINDINGS Left Ventricle Normal size left ventricle. No obvious regional wall motion abnormalities. Left ventricular wall thickness increased. Normal left ventricular ejection fraction estimated at 65-70%. Hyperdynamic left ventricular systolic function. Right Ventricle Right ventricle not well visualized. Right Atrium Normal right atrial size. Left Atrium Normal left atrial size. Mitral Valve Mitral valve not well visualized, grossly normal. Aortic Valve Aortic valve not well visualized. Tricuspid Valve Tricuspid valve not well visualized. Pulmonic Valve Pulmonic valve not well visualized. Pericardium No pericardial effusion. Great Vessels Aortic root and proximal ascending aorta not well visualized, grossly normal. CONCLUSIONS 1. THis was a limited followup study performed to reassess LV systolic functiont 2. There is no obvious significant valvuar heart disease. 3. THere is no pericardial fluid present. 4. The left ventricular chamber size is normal with mild concentric hypertrophy and hyperdynamic systolic function with an ejection fraction of greater than 75-80% and no obvious wall motion abnormalities. 5. THe RV systolic pressure could not be assessed on this examination. THIS STUDY WAS AMENDED ONLY TO CORRECT PATIENT IDENTIFIERS Tracee Wu M.D. (Electronically Signed) Final Date: 24 March 2017 21:11 Amended: 30 March 2017 11:05 MEASUREMENTS (Male / Female) Normal Values 2D ECHO LV Diastolic Diameter PLAX 3.7 cm 4.2 - 5.9 / 3.9 - 5.3 cm LV Systolic Diameter PLAX 1.9 cm 2.1 - 4.0 cm LV Fractional Shortening PLAX 48.6 % 25 - 46 % LV Ejection Fraction 2D Teich 80.8 % IVS Diastolic Thickness 1.3 cm LVPW Diastolic Thickness 1.3 cm LV Relative Wall Thickness 0.7
== END 2017-03-29 16:00 | disposition short-term general hospital (02) | DRG 870 ==
LOC: ERH 16:57 → ERHI 19:59 → CRI 19:59 → ENRESERV 03-07 16:35 → ENTRNSPT 03-07 18:00 → EDTRNSPT 03-07 18:08 → EDTRNSPTSTS 03-07 18:08 → 2NA 03-07 18:29 → CMPTRNSPT 03-07 18:39 → CRI 03-08 11:38
PROVIDERS: Internal Medicine; Internal Medicine Endocrinology, Diabetes & Metabolism; Internal Medicine Infectious Disease; Student in an Organized Health Care Education/Training Program
PROC: 0BH17EZ Insertion of Endotracheal Airway into Trachea, Via Natural or Artificial Opening (ICD-10-PCS; principal; 2017-03-21)
PROC: 5A1955Z Respiratory Ventilation, Greater than 96 Consecutive Hours (ICD-10-PCS; 2017-03-21)
PROC: 3E0G76Z Introduction of Nutritional Substance into Upper GI, Via Natural or Artificial Opening (ICD-10-PCS; 2017-03-22)
PROC: 02H633Z Insertion of Infusion Device into Right Atrium, Percutaneous Approach (ICD-10-PCS; 2017-03-28)
PROC: B244ZZZ Ultrasonography of Right Heart (ICD-10-PCS; 2017-03-28)
PROC: 3E083GC Introduction of Other Therapeutic Substance into Heart, Percutaneous Approach (ICD-10-PCS; 2017-03-28)
PROC: 30243N1 Transfusion of Nonautologous Red Blood Cells into Central Vein, Percutaneous Approach (ICD-10-PCS; 2017-03-29)
DX: A41.89 Other specified sepsis (principal); J96.01 Acute respiratory failure with hypoxia; N17.0 Acute kidney failure with tubular necrosis; J18.9 Pneumonia, unspecified organism; J10.00 Influenza due to other identified influenza virus with unspecified type of pneumonia; E87.0 Hyperosmolality and hypernatremia; N18.4 Chronic kidney disease, stage 4 (severe); E46 Unspecified protein-calorie malnutrition; N02.8 Recurrent and persistent hematuria with other morphologic changes; E66.2 Morbid (severe) obesity with alveolar hypoventilation; J44.0 Chronic obstructive pulmonary disease with (acute) lower respiratory infection; J44.1 Chronic obstructive pulmonary disease with (acute) exacerbation; Z68.42 Body mass index [BMI] 45.0-49.9, adult; N17.9 Acute kidney failure, unspecified; J80 Acute respiratory distress syndrome; E03.9 Hypothyroidism, unspecified; G47.33 Obstructive sleep apnea (adult) (pediatric); J45.990 Exercise induced bronchospasm; Z88.1 Allergy status to other antibiotic agents; R73.03 Prediabetes; R00.0 Tachycardia, unspecified; E86.1 Hypovolemia; R74.0 Nonspecific elevation of levels of transaminase and lactic acid dehydrogenase [LDH]
CPT/HCPCS: 2NAP; 84133; 84300; CCU; ERO; 36415; 71045; 71046; 74018; 80307; 81001; 81025; 82436; 82570; 86920; 87040; 87070; 87086; 87147; 87449; 87450; 87804; 87804-59; 93005; 93010; 93306; 93308; 93321; 93970; 94799; 96360; 96361; 99291; C1769; J0131; J0171; J0290; J0456; J0696; J1644; J1815; J1940; J2060; J2270; J2920; J2930; J3010; J7040; J7042; J7060; J7512; P9016